=== PATIENT | female | born 1985 | race Caucasian/White ===

== ENCOUNTER → 2019-09-01 | Outpatient (CLI) | payer SELFPAY | PROVIDERS: Family Provider Family Medicine; Visit Provider Nurse Practitioner Psychiatric/Mental Health | DX: F31.72 Bipolar disorder, in full remission, most recent episode hypomanic (principal); F41.9 Anxiety disorder, unspecified; F17.210 Nicotine dependence, cigarettes, uncomplicated ==

== ENCOUNTER → 2019-10-30 10:54 | Outpatient (BNVA) | payer MEDICARE, MEDICAID, SELFPAY | PROVIDERS: Family Provider Family Medicine; Visit Provider Nurse Practitioner Psychiatric/Mental Health | DX: F41.9 Anxiety disorder, unspecified (principal); F31.77 Bipolar disorder, in partial remission, most recent episode mixed; F17.200 Nicotine dependence, unspecified, uncomplicated | CPT/HCPCS: 99213 ==

== ENCOUNTER → 2019-12-26 07:54 | Outpatient (BNVA) | payer MEDICARE, MEDICAID, SELFPAY | PROVIDERS: Family Provider Family Medicine; Visit Provider Nurse Practitioner Psychiatric/Mental Health | DX: F31.73 Bipolar disorder, in partial remission, most recent episode manic (principal); F17.210 Nicotine dependence, cigarettes, uncomplicated | CPT/HCPCS: 99213 ==

== ENCOUNTER → 2020-03-26 07:49 | Outpatient (BNVA) | payer MEDICARE, MEDICAID, SELFPAY | PROVIDERS: Family Provider Family Medicine; Visit Provider Nurse Practitioner Psychiatric/Mental Health | DX: F31.73 Bipolar disorder, in partial remission, most recent episode manic (principal); F17.210 Nicotine dependence, cigarettes, uncomplicated; F17.220 Nicotine dependence, chewing tobacco, uncomplicated | CPT/HCPCS: 99213 ==

== ENCOUNTER → 2020-05-20 00:01 | Outpatient (BNVA) | payer MEDICARE, MEDICAID, SELFPAY | PROVIDERS: Family Provider Family Medicine; Visit Provider Nurse Practitioner Family | DX: H60.90 Unspecified otitis externa, unspecified ear (principal) | CPT/HCPCS: 87070 ==

== ENCOUNTER → 2020-09-24 13:10 | Outpatient (BNVA) | payer MEDICARE, MEDICAID, SELFPAY | PROVIDERS: Family Provider Family Medicine; Visit Provider Nurse Practitioner Psychiatric/Mental Health | DX: F31.73 Bipolar disorder, in partial remission, most recent episode manic (principal); F17.210 Nicotine dependence, cigarettes, uncomplicated | CPT/HCPCS: 99214 ==

== ENCOUNTER → 2020-11-12 12:17 | Outpatient (BNVA) | payer MEDICARE, MEDICAID, SELFPAY | PROVIDERS: Family Provider Family Medicine; PCP Nurse Practitioner Family; Visit Provider Nurse Practitioner Family | DX: E78.2 Mixed hyperlipidemia (principal); D64.9 Anemia, unspecified; R53.83 Other fatigue; Z79.899 Other long term (current) drug therapy; E55.9 Vitamin D deficiency, unspecified; L98.9 Disorder of the skin and subcutaneous tissue, unspecified; Z00.00 Encounter for general adult medical examination without abnormal findings | CPT/HCPCS: 80053; 80061; 81003; 82306; 82607; 82746; 83036; 84439; 84443; 84481; 85025 ==

== ENCOUNTER 2020-12-29 00:25 | Emergency (ER) | payer MEDICARE, MEDICAID, SELFPAY ==
--- NOTE | 2020-12-29 00:34 | XR_ITS ---
WS: [id number] Exam: XR chest 1V portable [id number] Date/Time of Exam: 12/29/2020 12:35 AM Reason For Exam: cp No previous studies. Findings: The lungs are clear and fully expanded. Costophrenic angles are sharp. No infiltrates. Bronchovascula r relief appears normal. Cardiac silhouette is unremarkable. Bony elements are intact. XR/XR chest 1V portable [id number] IMPRESSION: Unremarkable chest radiograph.
--- NOTE | 2020-12-29 00:34 | ECG_ITS ---
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 Measurements Intervals [place] Rate: 81 P: 11 OK: 144 QRS: 70 QRSD: 106 T: 52 QT: 376 QTc: 437 Interpretive Statements SINUS RHYTHM NONSPECIFIC T-WAVE ABNORMALITY Compared to ECG 09/27/2017 18:03:42 T-wave abnormality now present Electronically Signed On 12-29-2020 18:28:07 CDT by Devonte Farr M.D. [id number] f
[2020-12-29 00:35] VITALS: BP 154/93; PULSE 78; RESP 18; TEMP 36.2; O2SAT 97; BMI 36.9
--- NOTE | 2020-12-29 00:35 | W.ED.GENADLT ---
HPI - General Adult General: Chief complaint: Chest Pain Stated complaint: CP Time Seen by Provider: 12/29/20 00:30 History of Present Illness: HPI narrative: Patient arrived via ambulance with complaint of tightness in the chest with deep inspiration after she received her Ivega because shot earlier today. She lives in assisted living. Counselors called the ambulance late tonight when she said she would feeling better. Patient denies heaviness or chest said it hurts when she takes deep breaths she is felt anxious. Denies diaphoresis nausea or vomiting. MD complaint: Adverse med reaction Onset (ago): hour(s) Relieving factors: none Exacerbating factors: none Associated symptoms: Reports chest pain (With deep inspiration after receiving I Michaud shot today, started about 20 m); Deny dyspnea, headache(s), nausea, rash or vomiting Review of Systems Const: Denies: fever(s), chills or body aches Eyes: Denies: change in vision or blurry vision ENMT: Denies: throat pain or nasal congestion Card: Reports: chest pain (With deep inspiration after receiving I Michaud shot today, started about 20 m) Resp: Denies: dyspnea, productive cough or non-productive cough GI: Denies: abdominal pain, nausea or vomiting Musc: Denies: extremity pain Skin/Breast: Denies: rash Neuro: Denies: headache(s) Psych: Reports: anxiety (Feels anxious); Denies: depression Ulises/Lymph: Denies: easy bruising [facility] ED PFSH: Medical History (Updated 12/29/20 @ 01:38 by YADIRA Fernandez) Anemia Anxiety disorder, unspecified Chronic anxiety, per patient's report. Bipolar 1 disorder, mixed, partial remission No hallucinatory activity. Partial remission of depressive symptoms on current Invega Sustenna injection. Patient is non-adherent to oral Invega supplement. Bipolar I disorder, most recent episode manic, in partial remission Chest pain Fungal ear infection Mixed hyperlipidemia Nicotine dependence, cigarettes, uncomplicated Otitis externa Otitis media Otitis media, purulent, acute, with spontaneous rupture of TM Scratch of cornea Skin sore Tobacco use disorder Smokes 1 pack of cigarettes every 2 to 3 days, reduction in consumption since last visit. Vitamin D deficiency Social History Smoking and tobacco status: current every day smoker cigarettes Years cigarettes smoked: 1 Quit status (tobacco): not considering quitting Second hand smoke exposure: No Physical Exam Const: COMMON NORMALS: no acute distress, average body habitus and patient oriented x3 HENMT: COMMON NORMALS: normocephalic HEAD & SCALP: normal to inspection and normocephalic FACE & SINUS: normal facial exam Eye: COMMON NORMALS: conjunctivae normal GENERAL EYE: appearance normal, both eyes and all related structures CONJUNCTIVA: Yes conjunctivae normal Neck/C-Spine: COMMON NORMALS: no JVD Chest: COMMONS NORMALS: normal inspection of the chest Resp: COMMON NORMALS: normal respiratory effort and clear to auscultation bilaterally AUSCULTATION: clear to auscultation bilaterally Cardio: COMMON NORMALS: no JVD, regular rate and regular rhythm RATE: regular rate RHYTHM: regular rhythm GI: COMMON NORMALS: Normal to inspection, nondistended, normoactive bowel sounds present Extremity: COMMON NORMALS: normal to inspection and full ROM Neuro: COMMON NORMALS: patient oriented x3 Course Vital Signs: Vital signs: Vital Signs Temperature 97.1 F L 12/29/20 00:35 Pulse Rate 93 12/29/20 00:56 Respiratory Rate 18 12/29/20 00:56 Blood Pressure 161/86 12/29/20 00:56 Pulse Oximetry 97 12/29/20 00:56 MDM - General Adult Differential Diagnosis: Differential Diagnosis: Patient done very well in the ER has no more chest pain after Benadryl was administered patient feels fine requesting go home. Lab studies, radiology and EKG were negative for any problems. Patient is make sure she gets IV gas child ministered correctly and that follow back up with her one who prescribes that to go over any adverse effects from it. Lab Data: Labs: Lab Results 12/29/20 12/29/20 12/29/20 Range/Units 00:35 00:35 00:35 WBC 8.1 (4.0-10.0) 10^3/ uL RBC 4.38 (4.1-5.3) 10^6/u L Hgb 13.5 (11.5-15.3) g/dL Hct 39.9 (37.0-47.0) % MCV 91.1 (81-99) fL MCH 30.8 (28.0-34.0) pg MCHC 33.8 (30.0-36.0) g/dL RDW 12.8 (12.1-15.1) % Plt Count 284 (130-400) 10^3/c mm MPV 9.8 (7.4-10.4) fL Neut % (Auto) 62.4 % Lymph % (Auto) 25.3 % [place] % (Auto) 7.4 % Eos % (Auto) 3.7 % Baso % (Auto) 0.7 % Neut # (Auto) 5.07 (1.8-7.7) 10^3/u L Lymph # (Auto) 2.1 (0.8-4.8) 10^3/u L [place] # (Auto) 0.6 (0.2-0.9) 10^3/u L Eos # (Auto) 0.3 (0.0-0.8) 10^3/u L Baso # (Auto) 0.1 (0.0-0.1) 10^3/u L Nucleated RBC % (a uto) 0 % Nucleated RBCs # 0.0 /100WBC Sodium 137 (136-145) mmol/L Potassium 3.9 (3.5-5.1) mmol/L Chloride 103 (98-107) mmol/L Carbon Dioxide 24 (22-29) mmol/L Anion Gap 13.9 (5-19) BUN 6 (6-20) mg/dL Creatinine 0.5 (0.5-0.9) mg/dL GFR Calculation 140.4 H (90-130) mL/min Glucose 108 (65-115) mg/dL Calculated Osmolal ity 282 L (285-295) mOsm/k g Calcium 9.0 (8.5-10.5) mg/dL Total Bilirubin 0.4 (0.15-1.2) mg/dL AST 28 (0-32) U/L ALT 42 H (0-33) U/L Alkaline Phosphata se 116 H (35-105) IU/L Troponin T Baselin e 6 (0-10) ng/L Total Protein 7.2 (6.6-8.7) g/dL Albumin 4.5 (3.5-5.2) g/dL Globulin 2.7 (1.3-4.6) g/dL EKG Data^: EKG 1: EKG interpretation date: 12/29/20 EKG interpretation time: 00:42 Computer generated interpretation: Normal sinus rhythm ventricular rate 81 bpm WA interval 144 ms QRS duration 106 ms QT 376 Discharge Plan Discharge Patient Disposition: Home Clinical Impression: Adverse effect of drug/medicinal Qualifiers: Encounter type: initial encounter Qualified Code(s): T50.905A - Adverse effect of unspecified drugs, medicaments and biological substances, initial encounter Condition: Stable Prescriptions: No Action cholecalciferol (vitamin D3) 1,250 mcg (50,000 unit) capsule PO .weekly RF: 0 trazodone 50 mg tablet 50 mg PO .bedtime PRN (Reason: sleep) Qty: 30 RF: 6 Invega Sustenna 117 mg/0.75 mL syringe 117 mg IM Q30D Qty: 0.75 RF: 12 neomycin-polymyxin B-dexameth 3.5 mg/g-10,000 unit/g-0.1 % ointment 1 applic ophthalmic (eye) .hs RF: 0 mupirocin 2 % ointment 1 applic topical TID PRN (Reason: skin inflamation) 30 Days Qty: 22 RF: 0 Anti-Itch(diphenhyd) with Zinc 2-0.1 % cream 1 applic topical BID Qty: 35 RF: 0 atorvastatin 10 mg tablet See Rx Instructions .ROUTE .COMPLEX Qty: 90 RF: 3 Discharge Orders: Discharge ED (Routine); Ordered 12/29/20 Ordered By: Rod Foy Discharge Diet: Usual diet Discharge Activity: Resume usual activity Activity Restrictions/Additional Instructions: Make sure your Ivega shot is administered correctly. Can take Benadryl once symptoms like this occur. Follow-up your family medical provider if no significant provement. Coding Level of Care Code ED Social Work Therapist for Chg Fwd Exam Comprehensive
[2020-12-29 00:48] LABS: Basophils # 0.1 10^3/uL (0.0-0.1); Basophils % 0.7 %; Eosinophils # 0.3 10^3/uL (0.0-0.8); Eosinophils % 3.7 %; Hematocrit 39.9 % (37.0-47.0); Hemoglobin 13.5 g/dL (11.5-15.3); Lymphocytes # 2.1 10^3/uL (0.8-4.8); Lymphocytes % 25.3 %; Mean Corpuscular HGB Conc 33.8 g/dL (30.0-36.0); Mean Corpuscular Hemoglobin 30.8 pg (28.0-34.0); Mean Corpuscular Volume 91.1 fL (81-99); Mean Platelet Volume 9.8 fL (7.4-10.4); Monocytes # 0.6 10^3/uL (0.2-0.9); Monocytes % 7.4 %; Neutrophils # 5.07 10^3/uL (1.8-7.7); Neutrophils % 62.4 %; Nucleated Red Blood Cells % 0 %; Platelet Count 284 10^3/cmm (130-400); Red Blood Count 4.38 10^6/uL (4.1-5.3); Red Cell Distribution Width 12.8 % (12.1-15.1); White Blood Count 8.1 10^3/uL (4.0-10.0)
[2020-12-29] MEDS: diphenhydrAMINE 50 mg/mL SDV 1mL 25 MG IVP (00:53)
[2020-12-29 00:56] VITALS: BP 161/86; PULSE 93; RESP 18; O2SAT 97
[2020-12-29 01:06] LABS: Alanine Aminotransferase 42 U/L (0-33); Albumin Level 4.5 g/dL (3.5-5.2); Alkaline Phosphatase 116 IU/L (35-105); Aspartate Amino Transferase 28 U/L (0-32); Blood Urea Nitrogen 6 mg/dL (6-20); Carbon Dioxide 24 mmol/L (22-29); Chloride 103 mmol/L (98-107); Globulin 2.7 g/dL (1.3-4.6); Glomerular Filtration Rate 140.4 mL/min (90-130); Glucose 108 mg/dL (65-115); Osmolality Calculated 282 mOsm/kg (285-295); Sodium 137 mmol/L (136-145); Total Bilirubin 0.4 mg/dL (0.15-1.2); Total Protein 7.2 g/dL (6.6-8.7)
[2020-12-29 01:08] LABS: Troponin(5th) Baseline 6 ng/L (0-10)
[2020-12-29 01:09] LABS: Anion Gap 13.9 (5-19); Potassium 3.9 mmol/L (3.5-5.1)
[2020-12-29 01:56] VITALS: BP 143/96; PULSE 93; RESP 18; O2SAT 97
== END 2020-12-29 02:03 | disposition home or self-care (01) ==
PROVIDERS: Emergency Provider Nurse Practitioner Family
DX: T88.7XXA Unspecified adverse effect of drug or medicament, initial encounter (principal); T50.905A Adverse effect of unspecified drugs, medicaments and biological substances, initial encounter; E78.2 Mixed hyperlipidemia; F17.210 Nicotine dependence, cigarettes, uncomplicated
CPT/HCPCS: 71045; 80053; 84484; 85025; 93005; 96374; 99283; J1200

== ENCOUNTER → 2020-12-31 07:49 | Outpatient (BNVA) | payer MEDICARE, MEDICAID, SELFPAY | PROVIDERS: Visit Provider Nurse Practitioner Psychiatric/Mental Health | DX: F31.73 Bipolar disorder, in partial remission, most recent episode manic (principal); F17.210 Nicotine dependence, cigarettes, uncomplicated | CPT/HCPCS: 99214 ==

== ENCOUNTER → 2021-06-24 07:55 | Outpatient (BNVA) | payer MEDICARE, MEDICAID, SELFPAY | PROVIDERS: PCP Nurse Practitioner Family; Visit Provider Nurse Practitioner Psychiatric/Mental Health | DX: F31.73 Bipolar disorder, in partial remission, most recent episode manic (principal); F17.210 Nicotine dependence, cigarettes, uncomplicated | CPT/HCPCS: 99214 ==

== ENCOUNTER → 2021-08-18 15:13 | Outpatient (BNVA) | payer MEDICARE, MEDICAID, SELFPAY | PROVIDERS: PCP Nurse Practitioner Family; Visit Provider Nurse Practitioner Family | DX: L98.9 Disorder of the skin and subcutaneous tissue, unspecified (principal); Z79.899 Other long term (current) drug therapy | CPT/HCPCS: 80053; 83036; 85025 ==

== ENCOUNTER → 2021-09-30 07:23 | Outpatient (BNVA) | payer MEDICARE, MEDICAID, SELFPAY | PROVIDERS: PCP Nurse Practitioner Family; Visit Provider Nurse Practitioner Psychiatric/Mental Health | DX: F31.73 Bipolar disorder, in partial remission, most recent episode manic (principal); F17.210 Nicotine dependence, cigarettes, uncomplicated | CPT/HCPCS: 99214 ==

== ENCOUNTER → 2021-10-17 16:23 | Outpatient (BNVA) | payer MEDICARE, MEDICAID, SELFPAY | PROVIDERS: PCP Nurse Practitioner Family; Visit Provider Podiatrist Foot & Ankle Surgery | DX: S82.852A Displaced trimalleolar fracture of left lower leg, initial encounter for closed fracture (principal); X58.XXXA Exposure to other specified factors, initial encounter; Z46.89 Encounter for fitting and adjustment of other specified devices; S82.852D Displaced trimalleolar fracture of left lower leg, subsequent encounter for closed fracture with routine healing; X58.XXXD Exposure to other specified factors, subsequent encounter | CPT/HCPCS: 87635; 97760; L4361 ==

== ENCOUNTER 2021-10-17 16:30 | Outpatient (CLI) | payer MEDICARE, MEDICAID, SELFPAY | END 2021-10-17 16:31 | disposition home or self-care (01) | LOC: SPT 10-18 09:40 | PROVIDERS: PCP Nurse Practitioner Family; Visit Provider Podiatrist Foot & Ankle Surgery | DX: Z46.89 Encounter for fitting and adjustment of other specified devices (principal); S82.852D Displaced trimalleolar fracture of left lower leg, subsequent encounter for closed fracture with routine healing; X58.XXXD Exposure to other specified factors, subsequent encounter | CPT/HCPCS: 97760; L4361 ==

== ENCOUNTER 2021-10-21 11:00 | Day surgery (SDC) | payer MEDICARE, MEDICAID, SELFPAY ==
[2021-10-20 14:12] VITALS: BMI 38.5
[2021-10-21] VITALS (10 sets, daily range): BP systolic 95–132; BP diastolic 66–87; PULSE 81–103; RESP 12–20; TEMP 36.1–37.1; O2SAT 96–100
--- NOTE | 2021-10-21 | SCC_ITS ---
Procedure done: Open reduction internal fixation left trimalleolar ankle fracture 22 seconds of fluoroscopic guidance, for a cumulative dose of 0.7 mGy, was provided to Dr. Felix by the radiology department. C-arm images of the LEFT ankle were saved for the patient's permanent record. [facility]AMPUSKaycee
[2021-10-21] MEDS: sodium chloride 0.9% 1,000 ML 30 ML IV (12:21)
[2021-10-21] MEDS: CELEcoxib 200 mg Capsule 400 MG PO (12:22)
[2021-10-21] MEDS: gabapentin 300 mg Capsule PO (12:22)
--- NOTE | 2021-10-21 12:51 | P.ANESASSM_ITS ---
Pre-Anesthetic Assessment Height/Weight: Height 1.75 m Weight 118.388 kg Temp Pulse Resp BP Pulse Ox 97.4 F L 103 H 18 105/87 97 10/21/21 11:42 10/21/21 11:42 10/21/21 11:42 10/21/21 11:42 10/21/21 11:42 Preop Diagnosis: Left trimalleolar fracture Operation Date: 10/21/21 12:20 Proposed Procedures p ORIF [id number]/S82.853A/displaced trimalleolar frac(Left) - BYRON MichaelM Was Beta Elda taken within 24 hours: N/A Was Clonidine taken within 24 hours: N/A Last intake: Intake Last Liquid Date 10/20/21 Last Liquid Time 18:00 Last Solid Date 10/20/21 Last Solid Time 18:00 Social Tobacco and No alcohol Exam alert, oriented x 3, clear to auscultation bilaterally and regular rate & rhythm Airway Submandibular: within normal limits Cervical ROM: Other (Limited due to functional anatomy) Mallampati: Class IV Dentition: full Comments: Comments: Poor dentition History/ROS No significant complaints Pulmonary None reported CV/HEM Anemia METS = 4 None reported Hepatic None reported GI Gastroesophageal Reflux Disease Metabolic None reported Neuropsych Bipolar Anesthetic Plan ASA status: 2 Anesthesia: Anesthesia Evaluation, MAC and Regional (specify below) (Popliteal block requested by surgeon) Other: We discussed plan for MAC with popliteal block for post op pain control. We discussed common risk. Patient declined detailed conversation of less common but more serious risk associated with anesthesia. Risk of > 500 ml blood loss (7ml/kg in children): No Medications/Allergies Home Medications Medication Instructions Recorded Confirmed Last Taken Type diphenhydramine-zinc acetate 2 1 applic TOPICAL BID #35 g 11/12/20 10/21/21 10/20/21 Rx %-0.1 % topical cream (Anti-Itch (diphenhydramine) with Zinc) atorvastatin 10 mg tablet See Rx Instructions .ROUTE 12/06/20 10/21/21 10/21/21 09:30 Rx .COMPLEX #90 tablet mupirocin 2 % topical ointment 1 applic TOPICAL TID PRN 30 Days 01/07/21 10/21/21 10/17/21 Rx #22 g bisacodyl 5 mg tablet,delayed 5 mg PO DAILY 02/11/21 10/21/21 10/20/21 History release pantoprazole 40 mg tablet,delayed See Rx Instructions .ROUTE 07/13/21 10/21/21 0 10/20/21 09:00 Rx release .COMPLEX #30 tab haloperidol 10 mg tablet 10 mg PO DAILY PRN #30 tab 09/27/21 10/21/21 10/20/21 Rx trazodone 100 mg tablet 100 mg PO BEDTIME #30 tab 09/27/21 10/21/21 10/20/21 Rx hydroxyzine HCl 50 mg tablet 50 mg PO BID PRN #60 tab 09/30/21 10/21/21 10/18/21 Rx quetiapine 400 mg tablet (Seroquel) 400 mg PO BID #60 tab 09/30/21 10/21/21 10/20/21 09:00 Rx docosanol 10 % topical cream applic TOPICAL 10/20/21 10/20/21 History (Abreva) hydrocodone 5 mg-acetaminophen 325 1 tab PO QID 10/20/21 10/21/21 10/21/21 09:00 History mg tablet Allergies Allergy/AdvReac Type Severity Reaction Status Date / Time paliperidone [From Invega] AdvReac Severe chest Verified 10/21/21 11:17 pain, facial edema, dyspnea Current Medications Generic Name Dose Route Start Last Admin Trade Name Freq PRN Reason Stop Dose Admin Sodium Chloride 1,000 mls @ 30 mls/hr 10/21/21 11:15 10/21/21 12:21 Sodium Chloride 0.9% IV 10/22/21 11:14 30 mls/hr .Q24H JORDANA Administration [facility] Anesthesia Medical History Acute allergic reaction Anemia Anxiety disorder, unspecified Chronic anxiety, per patient's report. Bipolar 1 disorder, mixed, partial remission No hallucinatory activity. Partial remission of depressive symptoms on current Invega Sustenna injection. Patient is non-adherent to oral Invega supplement. Bipolar I disorder, most recent episode manic, in partial remission Chest pain Dental infection Fungal ear infection GERD (gastroesophageal reflux disease) Mixed hyperlipidemia Nausea & vomiting Nicotine dependence, cigarettes, uncomplicated Non-healing skin lesion Otitis externa Otitis media Otitis media Otitis media Otitis media, purulent, acute, with spontaneous rupture of TM Primary herpes simplex infection of lips Psychiatric care Scratch of cornea Skin sore Skin sore Tobacco use disorder Smokes 1 pack of cigarettes every 2 to 3 days, reduction in consumption since last visit. Vitamin D deficiency Social History Quit status (tobacco): not considering quitting Second hand smoke exposure: No Data Anesthesia Cardiac Studies: No Data to Display
[2021-10-21 13:01] LABS: HCG, Serum Qual Negative (Negative)
--- NOTE | 2021-10-21 13:23 | W.PM.OPSUD ---
Surgery/Procedure H&P Update DATE OF PROCEDURE: October 21, 2021 DATE H&P PERFORMED: 10/17/21 CHANGES TO PREVIOUS DOCUMENTATION: none PREOP DIAGNOSIS: Left trimalleolar fracture PLANNED PROCEDURE: Operation Date: 10/21/21 12:20 Proposed Procedures p ORIF [id number]/S82.853A/displaced trimalleolar frac(Left) - Syed Felix DPM
--- NOTE | 2021-10-21 13:25 | ANES.PROC ---
Anesthesia Procedures Procedure/Date: 10/21/21 Nerve Block ^: Nerve Block 1: Main Anesthesia: general anesthesia Time Out Performed: Yes ([id number]) Consent: requested by attending/covering physician and from patient Nerve block location: popliteal Anesthesia monitors applied: pulse oximetry and EKG Nerve block position: supine Anesthetic Used: bupivacaine 0.5% Amount of anesthesia used (mL): 20 Ultrasound used to: recognize landmarks and other (visualize popliteal nerve) Nerve Stimulator Used?: No Interscalene/Femoral BLK: 4 stimuplex 21 g needle used for position and inplane approach, visualize local anesthetic spread and no vascular puncture identified Injection: neg aspiration of heme Patient Tolerated Procedure: well and no complications Complications: none Additional Comments: After time out sterile prep, using sterile technique, and using real time US guidance for target selection needle was inserted with real time visualization of needle entry and real time visualization of needle advancement toward intended target. Negative aspiration. LA injected incrementally with negative aspiration every 5 cc and real time US visualization of LA spread throughout procedure. Tolerated well. Image(s) saved.
--- NOTE | 2021-10-21 15:03 | PM.OP ---
Operative Report Date of procedure: October 21, 2021 Pre-op diagnosis: Left trimalleolar fracture Post-op diagnosis: same Procedure done: Open reduction internal fixation left trimalleolar ankle fracture Implants: Decker anatomic fibular plate with 3.5 millimeter locking and nonlocking screws. Nora headed 4.0 mm partially-threaded cannulated screws, 2-0 Vicryl, 3-0 Vicryl, skin darrian Surgeon: Syed Felix D.P.M. Respiratory Therapy Assistant: Fadumo Estimated blood loss: Less than 10 53 IV fluids: None Urine output: None Complications: None Findings: Trimalleolar fracture left ankle Brief History: Patient tripped while walking downstairs injuring her left ankle, on x-ray she has a distal fibular fracture, medial malleolar fracture and avulsion fracture on the posterior malleolus is a trimalleolar equivalent with gross instability. Recommended open reduction internal fixation of the left ankle. Risks include pain, bleeding, numbness, infection, chronic swelling, posttraumatic arthritis of the left ankle, hardware irritation, hardware failure, delayed union, malunion, nonunion, decreased range of motion, need for further surgical intervention, also risk for deep vein thrombosis, heart attack, stroke and . Patient wishes to proceed. She was interviewed preoperatively all questions answered to her and her mother satisfaction. Informed consent signed by patient myself witnessed by her mother. Initial patient's left lower extremity with a skin marker, no guarantees written, expressed or implied. Patient wishes to proceed. Procedure: Under mild sedation the patient was brought to the operating room and placed on the operating table in supine position. A timeout was performed. Anesthesia was then administered by the anesthesia service. Of note left popliteal block was performed preoperatively per anesthesia service. Saphenous nerve block performed by myself preoperatively on the OR table utilizing 3 cc of 0.5% Marcaine plain. Well-padded pneumatic tourniquet applied to the left high calf. The left lower extremity was then scrubbed, prepped and draped utilizing normal aseptic technique. Left lower extremity was then exanguinated with an Esmarch bandage and a tourniquet inflated to 250 mmHg. Attention was directed to the lateral aspect of the patient's left ankle where the lateral malleolus was palpated. Directly over this is a linear longitudinal incision was made with a #15 blade through skin, dissection carried down through subcutaneous tissue to the layer of periosteum and hematoma from the fracture. This was incised and curettaged followed by saline flush and the fracture was then reduced and fixated utilizing standard AO technique. Fixation was a anatomic fibular plate with excellent bony apposition and compression noted utilizing a combination of locking and nonlocking 3.5 millimeter screws. Care taken not to violate the ankle mortise this was confirmed with intraoperative fluoroscopy utilizing AP and oblique views of the left ankle. Incision site was then flushed with copious amounts of sterile saline solution and closed in a layered fashion with 2-0 Vicryl periosteum, 3-0 Vicryl subcutaneous tissue and skin with skin darrian. Attention was then directed to the medial malleolus where a linear longitudinal incision was made at the distal aspect of the left medial malleolus with dissection carried down through subcutaneous tissue to the layer of periosteum utilizing sharp and blunt technique. Care was taken to retract and preserve neurovascular and tendinous structures. All bleeders were ligated and cauterized as necessary. Tributaries of the greater saphenous vein were ligated however the greater saphenous vein was kept intact and retracted anteriorly. The medial malleolar fracture was curettaged of fracture hematoma and flushed with saline solution followed by reduction and fixation utilizing Nora headed 4.0 millimeters screws with excellent bony apposition and compression noted x2. Positioning confirmed with intraoperative fluoroscopy shows that it did not violate the ankle mortise. Incision was then flushed with saline solution and closed in a layered fashion utilizing 2-0 Vicryl at periosteum, 3-0 Vicryl at subcutaneous tissue and skin darrian. Utilizing intraoperative fluoroscopy ankle mortise was now congruent, fibula was out to length, medial malleolus was reduced and no hardware was violated ankle mortise. This was confirmed in all 3 planes utilizing intraoperative fluoroscopy. Incisions were then dressed with Adaptic, sterile 4 x 4, Kerlix, Leonardo wrap and a cam boot was applied to the left lower extremity. Tourniquet was deflated and a prompt hyperemic response was noted to the distal digits of the left foot. Patient tolerated the procedure and anesthesia well and was transferred to the PACU with vital signs stable and vascular status intact. Following a period of postop monitoring she will be discharged home is to remain strict nonweightbearing was given at home care instructions as well as follow-up and pain medication sent to [facility]'s pharmacy and [place].
--- NOTE | 2021-10-21 15:14 | XR_ITS ---
WS: [id number] Left ankle, 3 views, 10/21/2021 Clinical Data: post op Comparison: Left ankle, 10/15/2021. Findings: Internal fixation of the bimalleolar fracture includes 2 oblique screws in the medial malleolus and a lateral plate with screws on the distal left fibula. Subcutaneous surgical darrian are present over the operative sites. XR/XR ankle LT min 3V* [id number] Impression: Internal fixation of bimalleolar fracture of the left ankle.
--- NOTE | 2021-10-21 15:26 | SUR.PHASEI ---
oral airway removed, simple mask remains off. O2 sats holding at this time. xray completed at bedside, with boot on per Dr. Felix
--- NOTE | 2021-10-21 15:40 | ANE.PACU2 ---
Inpatient post-anesthesia follow up: Airway intact: Yes Vital signs: Temperature 98.7 F Pulse Rate 88 Respiratory Rate 12 Blood Pressure 125/72 Pulse Oximetry 99 Oxygen Delivery Me thod Room Air Oxygen Flow Rate 8 Fraction of Inspir ed Oxygen Hydration adequate: Yes Nausea and vomiting: No Pain level: 1 Mental status: Baseline
== END 2021-10-21 15:20 | disposition home or self-care (01) ==
PROVIDERS: PCP Nurse Practitioner Family; Visit Provider Podiatrist Foot & Ankle Surgery
PROC: (CPT 27822; principal; 2021-10-21 12:10)
DX: S82.852A Displaced trimalleolar fracture of left lower leg, initial encounter for closed fracture (principal); W10.8XXA Fall (on) (from) other stairs and steps, initial encounter; F41.9 Anxiety disorder, unspecified; F31.9 Bipolar disorder, unspecified; K21.9 Gastro-esophageal reflux disease without esophagitis; E78.2 Mixed hyperlipidemia
CPT/HCPCS: 27822; 36415; 64450; 73610; 76000; 76942; 84703; C1713; J0690; J2704; J3010; J3490; J7030

== ENCOUNTER → 2021-11-03 14:44 | Outpatient (BNVA) | payer MEDICARE, MEDICAID, SELFPAY | PROVIDERS: PCP Nurse Practitioner Family; Visit Provider Podiatrist Foot & Ankle Surgery | DX: Z98.890 Other specified postprocedural states (principal); S82.852D Displaced trimalleolar fracture of left lower leg, subsequent encounter for closed fracture with routine healing; X58.XXXD Exposure to other specified factors, subsequent encounter | CPT/HCPCS: 73610 ==

== ENCOUNTER → 2021-11-17 09:30 | Outpatient (BNVA) | payer MEDICARE, MEDICAID, SELFPAY | PROVIDERS: PCP Nurse Practitioner Family; Visit Provider Podiatrist Foot & Ankle Surgery | DX: Z98.890 Other specified postprocedural states (principal); E78.2 Mixed hyperlipidemia; Z79.899 Other long term (current) drug therapy | CPT/HCPCS: 73610; 80053; 80061; 81003; 83036; 85025 ==

== ENCOUNTER → 2021-12-22 14:48 | Outpatient (BNVA) | payer MEDICARE, MEDICAID, SELFPAY | PROVIDERS: PCP Nurse Practitioner Family; Visit Provider Podiatrist Foot & Ankle Surgery | DX: Z98.890 Other specified postprocedural states (principal); S82.852D Displaced trimalleolar fracture of left lower leg, subsequent encounter for closed fracture with routine healing; X58.XXXD Exposure to other specified factors, subsequent encounter; F17.210 Nicotine dependence, cigarettes, uncomplicated | CPT/HCPCS: 73610 ==

== ENCOUNTER → 2021-12-30 07:58 | Outpatient (BNVA) | payer MEDICARE, MEDICAID, SELFPAY | PROVIDERS: PCP Nurse Practitioner Family; Visit Provider Nurse Practitioner Psychiatric/Mental Health | DX: F31.64 Bipolar disorder, current episode mixed, severe, with psychotic features (principal); F31.73 Bipolar disorder, in partial remission, most recent episode manic; F17.210 Nicotine dependence, cigarettes, uncomplicated | CPT/HCPCS: 99214 ==

== ENCOUNTER → 2022-02-02 14:27 | Outpatient (BNVA) | payer MEDICARE, MEDICAID, SELFPAY | PROVIDERS: PCP Nurse Practitioner; Visit Provider Podiatrist Foot & Ankle Surgery | DX: Z98.890 Other specified postprocedural states (principal); S82.852A Displaced trimalleolar fracture of left lower leg, initial encounter for closed fracture; X58.XXXA Exposure to other specified factors, initial encounter | CPT/HCPCS: 73610 ==

== ENCOUNTER → 2022-05-15 13:09 | Outpatient (BNVA) | payer MEDICARE, MEDICAID, SELFPAY | PROVIDERS: PCP Nurse Practitioner; Visit Provider Podiatrist Foot & Ankle Surgery | DX: S82.852D Displaced trimalleolar fracture of left lower leg, subsequent encounter for closed fracture with routine healing (principal); Z98.890 Other specified postprocedural states; X58.XXXD Exposure to other specified factors, subsequent encounter | CPT/HCPCS: 99213; 99214 ==

== ENCOUNTER → 2022-05-19 11:44 | Outpatient (BNVA) | payer MEDICARE, MEDICAID, SELFPAY | PROVIDERS: PCP Nurse Practitioner; Visit Provider Nurse Practitioner | DX: Z79.899 Other long term (current) drug therapy (principal); E78.2 Mixed hyperlipidemia | CPT/HCPCS: 80053; 80061; 81000; 82306; 84443; 85025 ==

== ENCOUNTER 2022-10-05 22:02 | Inpatient (IN) | payer MEDICARE, MEDICAID, SELFPAY ==
[2022-10-05 22:03] VITALS: BP 126/88; PULSE 87; RESP 18; TEMP 35.5; O2SAT 98; BMI 40.6
--- NOTE | 2022-10-05 22:15 | ED.C_ITS ---
HPI - Psych General: Chief Complaint: Psychiatric Symptoms Stated Complaint: SI Time Seen by Provider: 10/05/22 22:04 Source: patient Mode of arrival: EMS Limitations: no limitations History of Present Illness: Patient is a 37-year-old female who presents to ED today from her residential facility of [facility] for evaluation of suicidal ideations and auditory and visual hallucinations. Patient tells me she has felt suicidal all day with no specific plan. She does report a previous suicide attempt but will not elaborate on these details. She states she is seeing dark shadows people moving in her home. She states she is hearing voices telling her to grab knives from the kitchen and kill herself. Patient states she has a psychiatric provider Remedios Dao that comes to their facility once a month for medication changes. She thinks some of her psychiatric medications were recently changed. She reports she has a history of bipolar and schizophrenia. MD complaint: suicidal ideation and feels depressed Onset (ago): day(s) Duration: constant History of same: Yes Relieving factors: none Exacerbating factors: none Associated psychiatric symptoms: depression, suicidal ideation, auditory hallucinations and visual hallucinations Associated symptoms: Reports auditory hallucinations, visual hallucinations, depression and suicidal ideation; Deny homicidal ideation Treatments prior to arrival: none If self harm: admits thoughts of self harm Review of Systems 2 Const: Denies: fever(s) or chills Card: Denies: chest pain, palpitations, lightheadedness or syncope Resp: Denies: dyspnea GI: Denies: abdominal pain, nausea, vomiting or diarrhea Skin/Breast: Denies: rash Neuro: Denies: headache(s) Psych: Reports: depression, hopelessness, visual hallucinations, auditory hallucinations and suicidal ideation; Denies: homicidal ideation PENDING SALE TO [facility] ED PFSH: Medical History Anemia Bipolar I disorder, most recent episode mixed, severe with psychotic features Chest pain Dental infection Fungal ear infection GERD (gastroesophageal reflux disease) Mixed hyperlipidemia Nausea & vomiting Nicotine dependence, cigarettes, uncomplicated Non-healing skin lesion Otitis externa Otitis media Otitis media Otitis media Otitis media, purulent, acute, with spontaneous rupture of TM Primary herpes simplex infection of lips Psychiatric care Scratch of cornea Skin sore Skin sore Vaping nicotine dependence, tobacco product Vitamin D deficiency Social History (Reviewed 02/02/23 @ 23:06 by CHRISTY Byers Smoking and tobacco status: never smoked Quit status (tobacco): not considering quitting Second hand smoke exposure: No Physical Exam Const: COMMON NORMALS: no acute distress, patient oriented x3, no limitations and alert GENERAL APPEARANCE: cooperative NUTRITIONAL APPEARANCE: obese ORIENTATION/CONSCIOUSNESS: Yes awake, Yes oriented to person, Yes oriented to place and Yes oriented to time OTHER: mild baseline cognitive delay Resp: COMMON NORMALS: normal respiratory effort and clear to auscultation bilaterally AUSCULTATION: clear to auscultation bilaterally Cardio: COMMON NORMALS: regular rate and regular rhythm RATE: regular rate RHYTHM: regular rhythm Neuro: ROBBIN COMA SCALE: document GCS findings Robbin coma scale eye opening: Spontaneous Robbin coma scale verbal response: Orientated [place] coma scale motor response: Obey commands Robbin coma scale total score: 15 COMMON NORMALS: patient oriented x3 SENSORIUM/ORIENTATION: Yes alert, Yes oriented to person, Yes oriented to place and Yes oriented to time Psych: COMMON NORMALS: mental status grossly normal, Normal thought process present, cooperative, speech normal, activity/motor behavior normal and denies homicidal ideation APPEARANCE: Yes grossly normal ATTITUDE: Yes calm ACTIVITY/MOTOR BEHAVIOR: No psychomotor agitation and Yes Avoids eye contact (attititude/behavior) SPEECH: Yes normal speech MOOD & AFFECT: Yes Flat affect present THOUGHT PROCESS: Normal thought process present THOUGHT CONTENT: Yes Normal thought content present ATTENTION/CONCENTRATION: Yes attention grossly intact and Yes concentration grossly intact MEMORY/COGNITION: Yes memory grossly intact and Yes cognition grossly intact INSIGHT: Good insight present (Psych) JUDGEMENT: Good judgement present (Psych) Skin: COMMON NORMALS: no rashes or lesions noted GENERAL SKIN EXAM: no rashes or lesions noted Course Consultations: Consultation #1: Dr. Hernandez-accepts to [facility] Vital Signs: Vital signs: Vital Signs Temperature 96 F L 10/05/22 22:03 Pulse Rate 87 10/05/22 22:03 Respiratory Rate 18 10/05/22 22:03 Blood Pressure 126/88 10/05/22 22:03 Pulse Oximetry 98 10/05/22 22:03 MDM - Psych Medical Decision Making Patient will be a voluntary admit to [facility] for suicidal ideations and hallucinations. Dr. Hernandez will be admitting physician. Lab Data 10/05/22 22:43 10/05/22 22:43 Laboratory Results WBC 5.2 10^3/uL (4.0-10.0) 10/05/22 22:43 Corrected WBC Cancelled 10/05/22 22:18 RBC 4.51 10^6/uL (4.1-5.3) 10/05/22 22:43 Hgb 10.9 g/dL (11.5-15.3) L 10/05/22 22:43 Hct 35.6 % (37.0-47.0) L 10/05/22 22:43 MCV 78.9 fl (81-99) L 10/05/22 22:43 MCH 24.2 pg (28.0-34.0) L 10/05/22 22:43 MCHC 30.6 g/dL (30.0-36.0) 10/05/22 22:43 RDW 14.9 % (12.1-15.1) 10/05/22 22:43 Plt Count 319 10^3/cmm (130-400) 10/05/22 22:43 MPV 8.9 fL (7.4-10.4) 10/05/22 22:43 Gran % Cancelled 10/05/22 22:18 Neut % (Auto) 58.4 % 10/05/22 22:43 Lymph % (Auto) 31.2 % 10/05/22 22:43 Cherry % (Auto) 10.0 % 10/05/22 22:43 Eos % (Auto) 0.0 % 10/05/22 22:43 Baso % (Auto) 0.0 % 10/05/22 22:43 Neut # (Auto) 3.03 10^3/uL (1.8-7.7) 10/05/22 22:43 Lymph # (Auto) 1.6 10^3/uL (0.8-4.8) 10/05/22 22:43 Cherry # (Auto) 0.5 10^3/uL (0.2-0.9) 10/05/22 22:43 Eos # (Auto) 0.0 10^3/uL (0.0-0.8) 10/05/22 22:43 Baso # (Auto) 0.0 10^3/uL (0.0-0.1) 10/05/22 22:43 Absolute Gran (auto) Cancelled 10/05/22 22:18 Nucleated RBC % (auto) 0 % 10/05/22 22:43 Nucleated RBCs # 0.0 /100WBC 10/05/22 22:43 Sodium Cancelled 10/05/22 22:18 Potassium Cancelled 10/05/22 22:18 Chloride Cancelled 10/05/22 22:18 Carbon Dioxide Cancelled 10/05/22 22:18 Anion Gap Cancelled 10/05/22 22:18 BUN Cancelled 10/05/22 22:18 Creatinine Cancelled 10/05/22 22:18 GFR Calculation Cancelled 10/05/22 22:18 Glucose Cancelled 10/05/22 22:18 Calculated Osmolality Cancelled 10/05/22 22:18 Calcium Cancelled 10/05/22 22:18 Total Bilirubin Cancelled 10/05/22 22:18 AST Cancelled 10/05/22 22:18 ALT Cancelled 10/05/22 22:18 Alkaline Phosphatase Cancelled 10/05/22 22:18 Total Protein Cancelled 10/05/22 22:18 Albumin Cancelled 10/05/22 22:18 Globulin Cancelled 10/05/22 22:18 HCG, Qual Negative (Negative) 10/05/22 22:18 Salicylates Cancelled 10/05/22 22:18 Urine Opiates Screen Negative ng/mL (Negative) 10/05/22 22:11 Acetaminophen Cancelled 10/05/22 22:18 Ur Barbiturates Screen Negative ng/mL (Negative) 10/05/22 22:11 Ur Phencyclidine Scrn Negative ng/mL (Negative) 10/05/22 22:11 Ur Amphetamines Screen Negative ng/mL (Negative) 10/05/22 22:11 U Benzodiazepines Scrn Positive ng/mL (Negative) H 10/05/22 22:11 Urine Cocaine Screen Negative ng/mL (Negative) 10/05/22 22:11 U Marijuana (THC) Screen Negative ng/mL (Negative) 10/05/22 22:11 Ethyl Alcohol Cancelled 10/05/22 22:18 Discharge Plan Discharge Patient Disposition: Admitted As Inpatient Clinical Impression: Suicidal ideation, Hallucinations Condition: Stable Prescriptions: No Action bisacodyl 5 mg tablet,delayed release (DR/EC) 5 mg PO DAILY Anti-Itch(diphenhyd) with Zinc 2-0.1 % cream 1 applic topical BID Qty: 35 0RF diphenhydramine HCl [Benadryl Allergy] 25 mg tablet 50 mg PO Q6H PRN (Reason: allergy symptoms) ibuprofen 200 mg tablet 800 mg PO Q6H PRN cholecalciferol (vitamin D3) 125 mcg (5,000 unit) capsule 125 mcg PO DAILY Qty: 30 3RF Rx Instructions: Take one capsule daily fluphenazine HCl 1 mg tablet 1 mg PO BID Qty: 60 3RF Rx Instructions: Take one tablet at 6 am and 9 pm propranolol 10 mg tablet 10 mg PO BID Qty: 60 3RF Rx Instructions: Take one tablet twice per day trazodone 100 mg tablet 100 mg PO BEDTIME Qty: 30 6RF Rx Instructions: Take one tablet at bedtime quetiapine [Seroquel] 400 mg tablet 400 mg PO .6 PM Qty: 30 3RF Rx Instructions: Take one tablet at 6 PM (DME) ASO to the right See Rx Instructions .Route .MEDSUPPLY Qty: 1 0RF Rx Instructions: As directed ciprofloxacin-dexamethasone [Ciprodex] 0.3-0.1 % drops,suspension 4 drp otic (ear) BID 7 Days Qty: 7.5 0RF epinephrine 0.3 mg/0.3 mL auto-injector 0.3 mg IM Q10M PRN (Reason: anaphylaxis) 30 Days Qty: 2 2RF Rx Instructions: for 2 doses atorvastatin 10 mg tablet See Rx Instructions .ROUTE .COMPLEX Qty: 90 3RF Dose Instruction: TAKE ONE TABLET BY MOUTH EVERY DAY Rx Instructions: TAKE ONE TABLET BY MOUTH EVERY DAY pantoprazole 40 mg tablet,delayed release (DR/EC) See Rx Instructions .ROUTE .COMPLEX Qty: 30 5RF Dose Instruction: TAKE 1 TABLET BY MOUTH EVERY MORNING Rx Instructions: TAKE 1 TABLET BY MOUTH EVERY MORNING lorazepam [Ativan] 2 mg tablet 2 mg PO BID PRN (Reason: severe anxiety/agitation) Qty: 60 2RF Rx Instructions: May take one tablet twice per day for severe anxiety/agitation docosanol [Abreva] 10 % Cream TOPICAL Referrals: Joycelyn Melendrez FNP [Primary Care Provider] - Coding Level of Care Code ED Optician Apprentice Dispensing for [facility]
[2022-10-05 22:26] LABS: HCG Qualitative Urine. Negative (Negative)
[2022-10-05 22:47] LABS: Hematocrit 35.6 % (37.0-47.0); Hemoglobin 10.9 g/dL (11.5-15.3); Lymphocytes # 1.6 10^3/uL (0.8-4.8); Lymphocytes % 31.2 %; Mean Corpuscular HGB Conc 30.6 g/dL (30.0-36.0); Mean Corpuscular Hemoglobin 24.2 pg (28.0-34.0); Mean Corpuscular Volume 78.9 fl (81-99); Mean Platelet Volume 8.9 fL (7.4-10.4); Monocytes # 0.5 10^3/uL (0.2-0.9); Neutrophils # 3.03 10^3/uL (1.8-7.7); Neutrophils % 58.4 %; Nucleated Red Blood Cells % 0 %; Platelet Count 319 10^3/cmm (130-400); Red Blood Count 4.51 10^6/uL (4.1-5.3); Red Cell Distribution Width 14.9 % (12.1-15.1); White Blood Count 5.2 10^3/uL (4.0-10.0)
[2022-10-05 23:01] LABS: Amphetamines Screen Urine Negative (Negative); Barbiturates Screen Urine Negative (Negative); Benzodiazepines Screen Urine Positive (Negative); Cocaine Screen Urine Negative (Negative); Opiate Screen Urine Negative (Negative); PCP Screen Urine Negative (Negative); THC Screen Urine Negative (Negative)
[2022-10-05 23:04] LABS: Alanine Aminotransferase 14 U/L (0-33); Albumin Level 4.4 g/dL (3.5-5.2); Alkaline Phosphatase 140 U/L (35-105); Anion Gap 14.9 (5-19); Aspartate Amino Transferase 12 U/L (0-32); Blood Urea Nitrogen 7 mg/dL (6-20); Calcium 9.4 mg/dL (8.5-10.5); Carbon Dioxide 23 mmol/L (22-29); Chloride 103 mmol/L (98-107); Globulin 3.4 g/dL (1.3-4.6); Glomerular Filtration Rate 138.8 mL/min (90-130); Glucose 113 mg/dL (65-115); Osmolality Calculated 283 mOsm/kg (285-295); Potassium 3.9 mmol/L (3.5-5.1); Sodium 137 mmol/L (136-145); Total Bilirubin 0.2 mg/dL (0.15-1.2); Total Protein 7.8 g/dL (6.6-8.7)
[2022-10-05 23:22] LABS: Acetaminophen < 5.0 ug/mL (10-30); Alcohol Level < 10 mg/dL (0-10); Salicylate < 0.3 mg/dL (3-10)
[2022-10-06 01:36] VITALS: BP 121/82; PULSE 78; RESP 18; O2SAT 98
[2022-10-06 02:01] VITALS: BP 119/84; PULSE 91; RESP 18; O2SAT 98
[2022-10-06] MEDS: hyDROXYzine 25 mg Capsule 50 MG PO ×2 (02:48→09:16)
[2022-10-06] MEDS: trazodone 50 mg Tablet PO (02:48)
[2022-10-06] MEDS: pantoprazole DR 40 mg Tablet PO (09:16)
[2022-10-06] MEDS: nicotine 2 mg Gum BUCCAL ×2 (09:16→11:07)
[2022-10-06] MEDS: cholecalciferol (vitamin D3) 1,000 unit Tablet 1000 UNIT PO (09:16)
[2022-10-06] MEDS: propranolol 20 mg Tablet 10 MG PO ×2 (09:16→17:47)
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
--- NOTE | 2022-10-06 13:15 | PC.NURSE ---
Earlier pt had requested nicotine gum. Staff verified with pt that she smoke. Pt said she did. Gum provided at 1107. Staff reported pt had an episode of nausea and vomiting after she swallow her gum. Pt reported she swallowed the gum on accident. This financial writer and the pt discussed whether she should use this any further nicotine products. Pt decided she didn't want it anymore. Orders for nicotine discontinued.
[2022-10-06 14:00] VITALS: BP 123/82; PULSE 93; RESP 18; TEMP 36.6; O2SAT 96
[2022-10-06 19:56] VITALS: BP 114/75; PULSE 78; RESP 16; TEMP 36.6; O2SAT 98
[2022-10-06] MEDS: trazodone 100 mg Tablet PO (21:39)
[2022-10-06] MEDS: quetiapine 100 mg Tablet 200 MG PO (21:39)
[2022-10-07] MEDS: pantoprazole DR 40 mg Tablet PO (09:23)
[2022-10-07] MEDS: propranolol 20 mg Tablet 10 MG PO ×2 (09:23→17:51)
[2022-10-07] MEDS: bisacodyl 5 mg Tablet PO (09:23)
[2022-10-07 14:00] VITALS: RESP 18
--- NOTE | 2022-10-07 17:01 | P.NPUPN_ITS ---
Subjective NPU Subjective: Patient presented today endorsing that she is fine with the medication. She had no logical explanation for her behavior surrounding the knife and suicidal thoughts. We decided she does not guardian but does have significant supports. She was wondering about his hospitalization to be and we discussed our need to have observation given the threats that she made in her behaviors. And she seemed to understand our position. Mental Status Exam MSE Comments: This is an obese versus morbidly obese white female in hospital scrubs with limited grooming and eye contact. No abnormal movements except for mild psychomotor retardation. Cooperative with exam and mild distress. Speech was decreased rate and volume and somewhat childlike. Mood described as depressed, affect subdued. Thought process linear. Thought content: Patient endorsed some suicidal thinking but denied homicidal ideation, there were no delusions reported but some signs of paranoia existed, and she did endorse some auditory and visual hallucinations but none during the interview. Attention and concentration appeared intact and memory was somewhat reliable but none were formally tested. She is alert and oriented x3. Insight, judgment and impulse control are impaired and intellectual ability is limited versus impaired. Vitals/I&O/Wt Last Vital Signs Temp 98.3 F 10/07/22 19:45 Pulse 94 10/07/22 19:45 Resp 18 10/07/22 19:45 BP 135/71 10/07/22 19:45 Pulse Ox 97 10/07/22 19:45 O2 Del Method 10/06/22 19:56 Weight last 48 hrs Weight 120.474 kg Data NPU 10/05/22 22:43 10/05/22 22:43 A&P Assessment and plan (1) Suicidal ideation: (2) Hallucinations: (3) Bipolar I disorder, most recent episode mixed, severe with psychotic features: Plan A 37-year-old white female with a long history of mental health challenges and likely intellectual disability who presents after reporting increases and suicidal thoughts and psychiatric symptoms including reports of psychosis who presents reporting an openness to consider medication changes. 1. Continue current medication. Except we will decrease Seroquel 800 mg of Seroquel 600 mg and get some collateral information about past medication and consider changes. 2. Continue every 15 minute checks for safety. 3. Encourage individual, group and milieu therapy. 4. Get collateral information about what has been going on since her last hospitalization. Obtain some additional historical information from staff an d/or family. Involuntary Hold Information 96 Hour Hold: 96 Hour Involuntary Admission: No Attestations NPU Medical Necessity Statement*: Inpatient hospitalization is medically necessary and the clinically appropriate intervention at this time. We will monitor/initiate medications and make changes as indicated. Likely length of stay 4-6 days. Coding Level of Care Code Acute Code for Chg Fwd Diagnoses Suicidal ideation R45.851 Hallucinations R44.3 Bipolar I disorder, most recent episode mixed, severe with psychotic features F31.64
[2022-10-07 19:45] VITALS: BP 135/71; PULSE 94; RESP 18; TEMP 36.8; O2SAT 97
[2022-10-07] MEDS: quetiapine 100 mg Tablet 200 MG PO (21:25)
[2022-10-07] MEDS: trazodone 100 mg Tablet PO (21:26)
[2022-10-08] MEDS: hyDROXYzine 25 mg Capsule 50 MG PO ×2 (00:01→22:22)
[2022-10-08] MEDS: OLANZapine 5 mg ODT PO (00:01)
[2022-10-08] MEDS: propranolol 20 mg Tablet 10 MG PO ×2 (08:23→17:20)
[2022-10-08] MEDS: cholecalciferol (vitamin D3) 1,000 unit Tablet 1000 UNIT PO (08:23)
[2022-10-08] MEDS: pantoprazole DR 40 mg Tablet PO (08:23)
[2022-10-08] MEDS: bisacodyl 5 mg Tablet PO (08:23)
[2022-10-08 14:00] VITALS: BP 120/77; PULSE 84; RESP 18; O2SAT 98
--- NOTE | 2022-10-08 18:38 | P.NPUPN_ITS ---
Subjective NPU Subjective: Patient presents today reporting that she is feeling fine and was somewhat insistent going home. We discussed the fact that we had reports of her having medication refusal and that we would need to have some sense that she went to continue her medication if she went to access outside the hospital. We agreed we would continue to observe and work with the treatment team tomorrow to try to get a sense of how resources deal with medications refusal outside of the hospital. She identified a desire to get home and endorsed a plan to take medication moving forward. Mental Status Exam MSE Comments: This is an obese versus morbidly obese white female in hospital scrubs with limited grooming and eye contact. No abnormal movements except for mild psychomotor retardation. Cooperative with exam and mild distress. Speech was decreased rate and volume and somewhat childlike. Mood described as better, affect subdued. Thought process linear. Thought content: Patient endorsed some suicidal thinking but denied homicidal ideation, there were no delusions reported but some signs of paranoia existed, and she did endorse some auditory and visual hallucinations but none during the interview. Attention and concentration appeared intact and memory was somewhat reliable but none were formally tested. She is alert and oriented x3. Insight, judgment and impulse control are impaired and intellectual ability is limited versus impaired. Vitals/I&O/Wt Last Vital Signs Temp 97.9 F 10/08/22 19:58 Pulse 74 10/08/22 19:58 Resp 18 10/08/22 19:58 BP 123/78 10/08/22 19:58 Pulse Ox 98 10/08/22 19:58 O2 Del Method 10/06/22 19:56 Weight last 48 hrs Weight 120.474 kg Data NPU 10/05/22 22:43 10/05/22 22:43 A&P Assessment and plan (1) Suicidal ideation: (2) Hallucinations: (3) Bipolar I disorder, most recent episode mixed, severe with psychotic features: Plan A 37-year-old white female with a long history of mental health challenges and likely intellectual disability who presents after reporting increases and suicidal thoughts and psychiatric symptoms including reports of psychosis who presents reporting an openness to consider medication changes. 1. Continue current medication. Except we will decrease Seroquel 800 mg of Seroquel 600 mg and get some collateral information about past medication and consider changes. 2. Continue every 15 minute checks for safety. 3. Encourage individual, group and milieu therapy. 4. Get collateral information about what has been going on since her last hospitalization. Obtain some additional historical information from staff and/or family. Involuntary Hold Information 96 Hour Hold: 96 Hour Involuntary Admission: No Attestations NPU Medical Necessity Statement*: Inpatient hospitalization is medically necessary and the clinically appropriate intervention at this time. We will monitor/initiate medications and make changes as indicated. Likely length of stay 3-5 days. Coding Level of Care Code Acute Code for [facility] Fwd Diagnoses Suicidal ideation R45.851 Hallucinations R44.3 Bipolar I disorder, most recent episode mixed, severe with psychotic features F31.64
[2022-10-08 19:58] VITALS: BP 123/78; PULSE 74; RESP 18; TEMP 36.6; O2SAT 98
[2022-10-08] MEDS: atorvastatin 40 mg Tablet 10 MG PO (20:28)
[2022-10-08] MEDS: trazodone 100 mg Tablet PO (20:29)
[2022-10-08] MEDS: quetiapine 300 mg Tablet 600 MG PO (20:29)
--- NOTE | 2022-10-08 22:20 | PC.NURSE ---
Patient came to nurse's station stating she needed medication because she was anxious. Patient was visibly shaking and continued to flap her hands up and down stating I can't make my hands quit. PRN vistaril given as ordered at that time. Discussed positive coping skills and suggested patient go watch TV to take her mind off of things. Patient then went to dayroom.
[2022-10-08] MEDS: LORazepam 2 mg Tablet PO (23:45)
--- NOTE | 2022-10-08 23:45 | PC.NURSE ---
Patient came to nurse's station and continued to complain of anxiety and stated she could not make her hands stop shaking. Patient noted to be flapping her hands but was not shaking as previously noted when prn vistaril was given. Suggested several interventions including trying to go lay down to relax. Patient stated I can't do that. I can't make my hands stop shaking. Can I please have something else to help? Patient rated her anxiety at a 10/10 and could not tell me why she was anxious. Patient did state she wants to return to her long-term where she feels comfortable. PRN Ativan po offered and given as ordered. Encouraged patient to go to her room and try and rest or return to dayroom to watch TV.
--- NOTE | 2022-10-09 | PC.NURSE ---
Patient sitting in dayroom rocking back and forth and making involuntary movements. Also noted patient was rolling her tongue and had facial ticks. PRN Cogentin po given for possible EPS. Educated patient on medication.
[2022-10-09] MEDS: benztropine 1 mg Tablet PO (00:10)
--- NOTE | 2022-10-09 01:15 | PC.NURSE ---
Patient resting quietly in bed with no further behaviors or EPS noted. No signs of distress present.
--- NOTE | 2022-10-09 09:11 | PC.NURSE ---
Patient refusing medications this morning. She states they are giving her unwanted side effects and her mom had advised her to stop taking them. When report was given this morning the nightshift RN did state that patient was given ativan because she was shaking and was appearing to be panicking. It was after this that the patient appeared to be having EPS so cogentin was given. This RN explained to her that the combination of meds may have caused her issues and that I could give the cogentin along with her morning medications and talk to the doctor about what she was prescribed at the morning interdisciplinary meeting. Patient continued to refuse meds. I then explained the benefits of taking the medications and the downfalls of not taking them. I also offered to only give her the vitamins she prescribed this morning, but she refused. Patient then quickly walked away from nurses' station .
[2022-10-09 14:00] VITALS: BP 125/80; PULSE 95; RESP 18; O2SAT 97
[2022-10-09] MEDS: propranolol 20 mg Tablet 10 MG PO (17:30)
--- NOTE | 2022-10-09 19:16 | P.NPUPN_ITS ---
Subjective NPU Subjective: Patient is in today to take the problems that her being nonmedication compliant without with us feeling safe about discharge given the circumstances that brought her to the hospital. We discussed some strategies that extended her time outside the hospital this time. We also discussed the possibility of other medications and a possible long-acting injectable. We also discussed the possibility of discharge in the next 8 hours with medication compliance and continued denial of lethality. Mental Status Exam MSE Comments: This is an obese versus morbidly obese white female in hospital scrubs with limited grooming and eye contact. No abnormal movements except for mild psychomotor retardation. Cooperative with exam and mild distress. Speech was decreased rate and volume and somewhat childlike. Mood described as better, affect subdued. Thought process linear. Thought content: Patient endorsed some suicidal thinking but denied homicidal ideation, there were no delusions reported but some signs of paranoia existed, and she did endorse some auditory and visual hallucinations but none during the interview. Attention and concentration appeared intact and memory was somewhat reliable but none were formally tested. She is alert and oriented x3. Insight, judgment and impulse control are impaired and intellectual ability is limited versus impaired. Vitals/I&O/Wt Last Vital Signs Temp 97.5 F L 10/09/22 21:08 Pulse 86 10/09/22 21:08 Resp 18 10/09/22 21:08 BP 132/79 10/09/22 21:08 Pulse Ox 97 10/09/22 21:08 O2 Del Method 10/06/22 19:56 Data NPU 10/05/22 22:43 10/05/22 22:43 A&P Assessment and plan (1) Suicidal ideation: (2) Hallucinations: (3) Bipolar I disorder, most recent episode mixed, severe with psychotic features: Plan A 37-year-old white female with a long history of mental health challenges and likely intellectual disability who presents after reporting increases and suicidal thoughts and psychiatric symptoms including reports of psychosis who presents reporting an openness to consider medication changes. 1. Continue current medication. Except we will decrease Seroquel 800 mg of Seroquel 600 mg and get some collateral information about past medication and consider changes. 2. Continue every 15 minute checks for safety. 3. Encourage individual, group and milieu therapy. 4. Get collateral information about what has been going on since her last hospitalization. Obtain some additional historical information from staff and/or family. Involuntary Hold Information 96 Hour Hold: 96 Hour Involuntary Admission: No Attestations NPU Medical Necessity Statement*: Inpatient hospitalization is medically necessary and the clinically appropriate intervention at this time. We will monitor/ initiate medications and make changes as indicated. Likely length of stay 1-3 days. Coding Level of Care Code Acute Code for [facility] Fwd Diagnoses Suicidal ideation R45.851 Hallucinations R44.3 Bipolar I disorder, most recent episode mixed, severe with psychotic features F31.64
[2022-10-09] MEDS: trazodone 100 mg Tablet PO (20:34)
[2022-10-09] MEDS: quetiapine 300 mg Tablet 600 MG PO (20:34)
[2022-10-09] MEDS: atorvastatin 40 mg Tablet 10 MG PO (20:34)
[2022-10-09 21:08] VITALS: BP 132/79; PULSE 86; RESP 18; TEMP 36.4; O2SAT 97
[2022-10-10] MEDS: propranolol 20 mg Tablet 10 MG PO ×2 (08:35→17:18)
[2022-10-10] MEDS: cholecalciferol (vitamin D3) 1,000 unit Tablet 1000 UNIT PO (08:35)
[2022-10-10] MEDS: pantoprazole DR 40 mg Tablet PO (08:35)
[2022-10-10] MEDS: bisacodyl 5 mg Tablet PO (08:35)
[2022-10-10 14:00] VITALS: BP 116/78; PULSE 90; RESP 18; TEMP 36.7; O2SAT 97
--- NOTE | 2022-10-10 18:21 | P.NPUPN_ITS ---
Subjective NPU Subjective: Patient attended today reporting that she was feeling ready for discharge. We discussed monitoring her for another 24 hours and her [facility] agreed that they would pick her up tomorrow morning at 9. She had an appropriate questions about what medications to be discharged and appeared to be more a nimated in the discussion. Mental Status Exam 2 MSE Comments: This is an obese versus morbidly obese white female in hospital scrubs with limited grooming and eye contact. No abnormal movements except for mild psychomotor retardation. Cooperative with exam in no acute distress. Speech was decreased rate and volume and somewhat childlike. Mood described as better, affect less subdued. Thought process linear. Thought content: Patient denied suicidal or homicidal ideation, there were no delusions reported and less signs of paranoia existed, and she denied auditory and visual hallucinations. Attention and concentration appeared intact and memory was somewhat reliable but none were formally tested. She is alert and oriented x3. Insight, judgment and impulse control are limited and intellectual ability is limited versus impaired. Vitals/I&O/Wt Last Vital Signs Temp 98.1 F 10/10/22 14:00 Pulse 91 10/10/22 19:42 Resp 18 10/10/22 19:42 BP 130/63 10/10/22 19:42 Pulse Ox 96 10/10/22 19:42 O2 Del Method 10/06/22 19:56 Data NPU 10/05/22 22:43 10/05/22 22:43 A&P Assessment and plan (1) Suicidal ideation: (2) Hallucinations: (3) Bipolar I disorder, most recent episode mixed, severe with psychotic features: Plan A 37-year-old white female with a long history of mental health challenges and likely intellectual disability who presents after reporting increases and suicidal thoughts and psychiatric symptoms including reports of psychosis who presents reporting an openness to consider medication changes. 1. Continue current medication. Except we will decrease Seroquel 800 mg of Seroquel 600 mg and get some collateral information about past medication and consider changes. 2. Continue every 15 minute checks for safety. 3. Encourage individual, group and milieu therapy. 4. Get collateral information about what has been going on since her last hospitalization. Obtain some additional historical information from staff and/or family. Involuntary Hold Information 96 Hour Hold: 96 Hour Involuntary Admission: No Attestations NPU Medical Necessity Statement*: Inpatient hospitalization is medically necessary and the clinically appropriate intervention at this time. We will monitor/initiate medications and make changes as indicated. Likely length of stay 1-3 days. Plan for discharge in the morning. Coding Level of Care Code Acute Code for [facility] Fwd Diagnoses Suicidal ideation R45.851 Hallucinations R44.3 Bipolar I disorder, most recent episode mixed, severe with psychotic features F31.64
[2022-10-10 19:42] VITALS: BP 130/63; PULSE 91; RESP 18; O2SAT 96
[2022-10-10] MEDS: quetiapine 300 mg Tablet 600 MG PO (20:50)
[2022-10-10] MEDS: trazodone 100 mg Tablet PO (20:52)
[2022-10-10] MEDS: atorvastatin 40 mg Tablet 10 MG PO (20:52)
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
[2022-10-11 07:52] VITALS: BP 130/63; PULSE 91; RESP 18; O2SAT 96
[2022-10-11 07:53] VITALS: BP 130/63; PULSE 91; RESP 18; TEMP 36.7; O2SAT 96
--- NOTE | 2022-10-11 09:03 | DCPLANNER ---
Imm was printed and [facility] staff and pt was notified of pt rights. Copy was placed in pt chart.
[2022-10-11] MEDS: propranolol 20 mg Tablet 10 MG PO (09:35)
[2022-10-11] MEDS: bisacodyl 5 mg Tablet PO (09:36)
[2022-10-11] MEDS: pantoprazole DR 40 mg Tablet PO (09:36)
[2022-10-11] MEDS: cholecalciferol (vitamin D3) 1,000 unit Tablet 1000 UNIT PO (09:36)
== END 2022-10-11 09:00 | disposition home or self-care (01) | DRG 885 ==
LOC: ER 23:10 → NP 10-06 00:20
PROVIDERS: Emergency Medicine; Admitting Provider Psychiatry & Neurology Psychiatry; Emergency Provider Physician Assistant; PCP Nurse Practitioner; Visit Provider Psychiatry & Neurology Psychiatry
DX: F31.64 Bipolar disorder, current episode mixed, severe, with psychotic features (principal); R45.851 Suicidal ideations; F09 Unspecified mental disorder due to known physiological condition; F17.210 Nicotine dependence, cigarettes, uncomplicated; E66.01 Morbid (severe) obesity due to excess calories; Z68.39 Body mass index [BMI] 39.0-39.9, adult; Z79.891 Long term (current) use of opiate analgesic
CPT/HCPCS: 36415; 80053; 80306; 80307; 81025; 85025; 97150; 97165; 99238; 99285

== ENCOUNTER → 2022-12-15 10:50 | Outpatient (BNVA) | payer MEDICARE, MEDICAID, OTHER, SELFPAY | PROVIDERS: PCP Nurse Practitioner; Visit Provider Nurse Practitioner | DX: E78.2 Mixed hyperlipidemia (principal); R53.83 Other fatigue; R07.9 Chest pain, unspecified; Z79.899 Other long term (current) drug therapy | CPT/HCPCS: 80053; 80061; 81000; 84443; 85025 ==

== ENCOUNTER → 2022-12-18 11:23 | Outpatient (BNVA) | payer MEDICARE, MEDICAID, SELFPAY | PROVIDERS: PCP Nurse Practitioner; Visit Provider Nurse Practitioner | DX: S99.912A Unspecified injury of left ankle, initial encounter (principal); M79.672 Pain in left foot; X58.XXXA Exposure to other specified factors, initial encounter | CPT/HCPCS: 73610; 73630 ==

== ENCOUNTER → 2022-12-20 13:23 | Outpatient (BNVA) | payer MEDICARE, MEDICAID, SELFPAY | PROVIDERS: PCP Nurse Practitioner; Visit Provider Podiatrist Foot & Ankle Surgery | DX: M25.572 Pain in left ankle and joints of left foot (principal); S82.852A Displaced trimalleolar fracture of left lower leg, initial encounter for closed fracture; W17.89XA Other fall from one level to another, initial encounter | CPT/HCPCS: 73610; 99213 ==

== ENCOUNTER → 2023-01-01 14:47 | Outpatient (BNVA) | payer MEDICARE, MEDICAID, SELFPAY | PROVIDERS: PCP Nurse Practitioner; Visit Provider Otolaryngology | DX: H66.91 Otitis media, unspecified, right ear (principal); H90.11 Conductive hearing loss, unilateral, right ear, with unrestricted hearing on the contralateral side; H72.91 Unspecified perforation of tympanic membrane, right ear | CPT/HCPCS: 99203 ==

== ENCOUNTER → 2023-01-15 10:34 | Outpatient (BNVA) | payer MEDICARE, MEDICAID, SELFPAY | PROVIDERS: PCP Nurse Practitioner; Visit Provider Otolaryngology | DX: H66.91 Otitis media, unspecified, right ear (principal); H72.91 Unspecified perforation of tympanic membrane, right ear; H90.11 Conductive hearing loss, unilateral, right ear, with unrestricted hearing on the contralateral side | CPT/HCPCS: 99213 ==

== ENCOUNTER → 2023-02-05 13:46 | Outpatient (BNVA) | payer MEDICARE, MEDICAID, SELFPAY | PROVIDERS: PCP Nurse Practitioner; Visit Provider Podiatrist Foot & Ankle Surgery | DX: S82.852D Displaced trimalleolar fracture of left lower leg, subsequent encounter for closed fracture with routine healing (principal); W17.89XD Other fall from one level to another, subsequent encounter | CPT/HCPCS: 99213 ==

== ENCOUNTER → 2023-03-02 09:26 | Outpatient (BNVA) | payer MEDICARE, MEDICAID, SELFPAY | PROVIDERS: PCP Nurse Practitioner; Visit Provider Nurse Practitioner | DX: Z79.899 Other long term (current) drug therapy (principal) | CPT/HCPCS: 80053; 80178; 83036 ==

== ENCOUNTER → 2023-04-17 10:17 | Outpatient (BNVA) | payer MEDICARE, MEDICAID, SELFPAY | PROVIDERS: PCP Nurse Practitioner; Visit Provider Otolaryngology | DX: H72.91 Unspecified perforation of tympanic membrane, right ear; H66.91 Otitis media, unspecified, right ear; H90.11 Conductive hearing loss, unilateral, right ear, with unrestricted hearing on the contralateral side | CPT/HCPCS: 99212 ==

== ENCOUNTER 2023-05-22 23:03 | Inpatient (IN) | payer MEDICARE, MEDICAID, SELFPAY ==
[2023-05-22 23:03] VITALS: BP 148/93; PULSE 70; RESP 18; TEMP 36.7; O2SAT 100; BMI 40.6
[2023-05-22 23:25] LABS: Basophils # 0.1 10^3/uL (0.0-0.1); Basophils % 0.6 %; Eosinophils # 0.1 10^3/uL (0.0-0.8); Eosinophils % 0.6 %; Hematocrit 38.5 % (36-47); Lymphocytes # 2.6 10^3/uL (0.8-4.8); Lymphocytes % 28.3 %; Mean Corpuscular HGB Conc 30.1 g/dL (30-55); Mean Corpuscular Hemoglobin 24.1 pg (27-33); Mean Corpuscular Volume 79.9 fl (85-98); Mean Platelet Volume 8.8 fL (7.4-10.4); Monocytes # 0.6 10^3/uL (0.2-0.9); Monocytes % 6.9 %; Neutrophils # 5.91 10^3/uL (1.8-7.7); Neutrophils % 63.4 %; Nucleated Red Blood Cells % 0 %; Platelet Count 413 10^3/cmm (157-399); Red Blood Count 4.82 10^6/uL (3.85-5.65); Red Cell Distribution Width 17.1 % (12.1-15.1); White Blood Count 9.33 10^3/uL (3.29-11.43)
[2023-05-22 23:29] LABS: HCG Qualitative Urine. Negative (Negative)
[2023-05-22 23:30] LABS: Add Urine Microscopic? NO; Charge for UA Resulting for Rev
[2023-05-22 23:34] LABS: Bilirubin Urine Neg (Negative); Blood Urine Neg (Negative); Glucose Urine UA Norm (Normal); Ketones Urine Negative (Negative); Leukocyte Esterase Urine Negative (Negative); Nitrate Urine Negative (Negative); Protein Urine Neg (Negative); Urine Appearance Clear (CLEAR); Urine Color Light yellow (Yellow); Urobilinogen Urine Norm (Negative); pH Urine 5 (5-7)
[2023-05-22 23:41] LABS: Amphetamines Screen Urine Negative (Negative); Barbiturates Screen Urine Negative (Negative); Benzodiazepines Screen Urine Positive (Negative); Cocaine Screen Urine Negative (Negative); Opiate Screen Urine Negative (Negative); PCP Screen Urine Negative (Negative); THC Screen Urine Negative (Negative)
--- NOTE | 2023-05-22 23:42 | W.ED.PSYCHS ---
HPI - Psych General: Chief Complaint: Psychiatric Symptoms Stated Complaint: si Time Seen by Provider: 05/22/23 23:06 History of Present Illness: Patient presents by [facility] from [facility] which is a long-term and eminence for suicidal ideation and attempting to cut her left wrist. Patient has multiple superficial abrasions on her left wrist. Patient does states she was intending to kill herself. Patient does states she would be voluntarily to our MPU. Review of Systems General: Reports: 10 or more systems reviewed and unremarkable except in HPI and below PFSH ED PFSH: Medical History Bipolar I disorder, most recent episode mixed, severe with psychotic features Conductive hearing loss in right ear GERD (gastroesophageal reflux disease) Mixed hyperlipidemia Nicotine dependence, cigarettes, uncomplicated Psychiatric care Vaping nicotine dependence, tobacco product Vitamin D deficiency Surgical History Hx of myringotomy Social History Smoking and tobacco status: never smoked Quit status (tobacco): not considering quitting Second hand smoke exposure: No Female Reproductive History: Date of last menstrual period: 04/25/23 Physical Exam Const: COMMON NORMALS: no acute distress, average body habitus, patient oriented x3, no limitations, healthy appearing, alert and well nourished HENMT: COMMON NORMALS: normocephalic, atraumatic, hearing grossly normal bilaterally, external ears normal, Normal external nose present and moist oral mucous membranes HEAD & SCALP: normocephalic and atraumatic NOSE: Normal external nose present EXTERNAL EAR: Yes external ears normal Eye: COMMON NORMALS: Equal, round and reactive pupils present, EOMs intact bilaterally, conjunctivae normal and no scleral icterus CONJUNCTIVA: Yes conjunctivae normal PUPIL: Yes Equal, round and reactive pupils present Neck/C-Spine: COMMON NORMALS: full ROM, no lymphadenopathy, supple, no meningeal signs, no JVD and Thyroid normal THYROID: Thyroid normal Lymph: LYMPHATIC: no lymphadenopathy noted Chest: COMMONS NORMALS: normal inspection of the chest and normal palpation of entire chest wall Resp: COMMON NORMALS: normal respiratory effort, No retractions, No use of accessory muscles and clear to auscultation bilaterally AUSCULTATION: clear to auscultation bilaterally Cardio: COMMON NORMALS: no JVD, regular rate, regular rhythm, S1 normal heart sound present, S2 normal heart sound present, No gallops present (Cardio), No clicks present (Cardio) and No murmurs present (Cardio) RATE: regular rate RHYTHM: regular rhythm HEART SOUNDS: S1 normal heart sound present and S2 normal heart sound present GI: COMMON NORMALS: Normal to inspection, nondistended, normoactive bowel sounds present, Soft to palpation, non-tender, No hepatosplenomegaly present and no masses PALPATION: Yes Soft to palpation and Yes No hepatosplenomegaly present Extremity: NARRATIVE EXTREMITY EXAM: Multiple superficial abrasion/lacerations to left dorsal and palmar surface of the wrist region. Neuro: COMMON NORMALS: patient oriented x3 SENSORIUM/ORIENTATION: Yes alert MENINGEAL SIGNS: Yes no meningeal signs Course Vital Signs: Vital signs: Vital Signs Temperature 98.0 F 05/22/23 23:03 Pulse Rate 70 05/22/23 23:03 Respiratory Rate 18 05/22/23 23:03 Blood Pressure 148/93 05/22/23 23:03 Pulse Oximetry 100 05/22/23 23:03 Oxygen Delivery Me thod Room Air 05/22/23 23:03 MDM - Psych Medical Decision Making Patient presents to the ER with suicidal ideation and multiple superficial abrasions on her left wrist with an attempt to hurt herself. Patient was worked up in normal psychiatric fashion with labs. Dr. Hernandez was consulted who agreed for further inpatient admission for further evaluation and treatment. Differential Diagnosis Likely suicidal ideation; Unlikely acute psychosis, chronic schizophrenia, bipolar disorder, depression, drug-induced psychotic disorder or acute anxiety Medical Records I reviewed the patient's medical records. Lab Data I reviewed the patient's lab results. 05/22/23 23:18 05/22/23 23:18 Laboratory Results WBC 9.33 10^3/uL (3.29-11.43) 05/22/23 23:18 RBC 4.82 10^6/uL (3.85-5.65) 05/22/23 23:18 Hgb 11.60 g/dL (11.27-16.99) 05/22/23 23:18 Hct 38.5 % (36-47) 05/22/23 23:18 MCV 79.9 fl (85-98) L 05/22/23 23:18 MCH 24.1 pg (27-33) L 05/22/23 23:18 MCHC 30.1 g/dL (30-55) 05/22/23 23:18 RDW 17.1 % (12.1-15.1) H 05/22/23 23:18 Plt Count 413 10^3/cmm (157-399) H 05/22/23 23:18 MPV 8.8 fL (7.4-10.4) 05/22/23 23:18 Neut % (Auto) 63.4 % 05/22/23 23:18 Lymph % (Auto) 28.3 % 05/22/23 23:18 [place] % (Auto) 6.9 % 05/22/23 23:18 Eos % (Auto) 0.6 % 05/22/23 23:18 Baso % (Auto) 0.6 % 05/22/23 23:18 Neut # (Auto) 5.91 10^3/uL (1.8-7.7) 05/22/23 23:18 Lymph # (Auto) 2.6 10^3/uL (0.8-4.8) 05/22/23 23:18 [place] # (Auto) 0.6 10^3/uL (0.2-0.9) 05/22/23 23:18 Eos # (Auto) 0.1 10^3/uL (0.0-0.8) 05/22/23 23:18 Baso # (Auto) 0.1 10^3/uL (0.0-0.1) 05/22/23 23:18 Nucleated RBC % (auto) 0 % 05/22/23 23:18 Nucleated RBCs # 0.0 /100WBC 05/22/23 23:18 Sodium 136 mmol/L (136-145) 05/22/23 23:18 Potassium 3.6 mmol/L (3.5-5.1) 05/22/23 23:18 Chloride 103 mmol/L (98-107) 05/22/23 23:18 Carbon Dioxide 24 mmol/L (22-29) 05/22/23 23:18 Anion Gap 12.6 (5-19) 05/22/23 23:18 BUN 6 mg/dL (6-20) 05/22/23 23:18 Creatinine 0.9 mg/dL (0.5-0.9) 05/22/23 23:18 GFR Calculation 70.1 mL/min (90-130) L 05/22/23 23:18 Glucose 105 mg/dL (65-115) 05/22/23 23:18 Calculated Osmolality 280 mOsm/kg (285-295) L 05/22/23 23:18 Calcium 9.5 mg/dL (8.5-10.5) 05/22/23 23:18 Total Bilirubin 0.4 mg/dL (0.15-1.2) 05/22/23 23:18 AST 13 U/L (0-32) 05/22/23 23:18 ALT 16 U/L (0-33) 05/22/23 23:18 Alkaline Phosphatase 125 U/L (35-105) H 05/22/23 23:18 Total Protein 8.5 g/dL (6.6-8.7) 05/22/23 23:18 Albumin 4.7 g/dL (3.5-5.2) 05/22/23 23:18 Globulin 3.8 g/dL (1.3-4.6) 05/22/23 23:18 HCG, Qual Negative (Negative) 05/22/23 23:18 Urine Color Light yellow (Yellow) 05/22/23 23:18 Urine Appearance Clear (CLEAR) 05/22/23 23:18 Urine pH 5 (5-7) 05/22/23 23:18 Ur Specific [place] 1.010 (1.005-1.030) 05/22/23 23:18 Urine Protein Neg (Negative) 05/22/23 23:18 Urine Glucose (UA) Norm (Normal) 05/22/23 23:18 Urine Ketones Negative (Negative) 05/22/23 23:18 Urine Blood Neg (Negative) 05/22/23 23:18 Urine Nitrate Negative (Negative) 05/22/23 23:18 Urine Bilirubin Neg (Negative) 05/22/23 23:18 Urine Urobilinogen Norm mg/dL (Negative) 05/22/23 23:18 Ur Leukocyte Esterase Negative (Negative) 05/22/23 23:18 Salicylates < 0.3 mg/dL (3-10) L 05/22/23 23:18 Urine Opiates Screen Negative ng/mL (Negative) 05/22/23 23:18 Acetaminophen < 5.0 ug/mL (10-30) L 05/22/23 23:18 Ur Barbiturates Screen Negative ng/mL (Negative) 05/22/23 23:18 Ur Phencyclidine Scrn Negative ng/mL (Negative) 05/22/23 23:18 Ur Amphetamines Screen Negative ng/mL (Negative) 05/22/23 23:18 U Benzodiazepines Scrn Positive ng/mL (Negative) H 05/22/23 23:18 [place] 0.2 mmol/L (0.6-1.2) L 05/22/23 23:18 Urine Cocaine Screen Negative ng/mL (Negative) 05/22/23 23:18 U Marijuana (THC) Screen Negative ng/mL (Negative) 05/22/23 23:18 Ethyl Alcohol < 10 mg/dL (0-10) 05/22/23 23:18 No radiology studies performed this visit Discharge Plan Discharge Patient Disposition: Admitted As Inpatient Clinical Impression: Suicidal ideation Condition: Stable Coding Level of Care Code ED Education And Outreach Coordinator for [facility]
[2023-05-22 23:48] LABS: Alanine Aminotransferase 16 U/L (0-33); Albumin Level 4.7 g/dL (3.5-5.2); Alkaline Phosphatase 125 U/L (35-105); Anion Gap 12.6 (5-19); Aspartate Amino Transferase 13 U/L (0-32); Blood Urea Nitrogen 6 mg/dL (6-20); Calcium 9.5 mg/dL (8.5-10.5); Carbon Dioxide 24 mmol/L (22-29); Chloride 103 mmol/L (98-107); Globulin 3.8 g/dL (1.3-4.6); Glomerular Filtration Rate 70.1 mL/min (90-130); Glucose 105 mg/dL (65-115); Osmolality Calculated 280 mOsm/kg (285-295); Potassium 3.6 mmol/L (3.5-5.1); Sodium 136 mmol/L (136-145); Total Bilirubin 0.4 mg/dL (0.15-1.2); Total Protein 8.5 g/dL (6.6-8.7)
[2023-05-22 23:49] LABS: Acetaminophen < 5.0 ug/mL (10-30); Alcohol Level < 10 mg/dL (0-10); Salicylate < 0.3 mg/dL (3-10)
[2023-05-22 23:50] LABS: Lithium 0.2 mmol/L (0.6-1.2)
[2023-05-23 00:37] VITALS: BP 96/54; PULSE 67; RESP 18; O2SAT 100
[2023-05-23 00:53] VITALS: BP 145/82; PULSE 66; RESP 18; TEMP 36.9; O2SAT 100
[2023-05-23 06:00] VITALS: BP 114/69; PULSE 60; RESP 16; TEMP 36.9; O2SAT 100
[2023-05-23] MEDS: nicotine 2 mg Gum BUCCAL ×2 (07:42→12:05)
[2023-05-23] MEDS: ziprasidone hcl 40 mg Capsule 80 MG PO ×2 (08:46→18:15)
[2023-05-23] MEDS: propranolol 20 mg Tablet PO ×2 (08:47→18:15)
[2023-05-23] MEDS: pantoprazole DR 40 mg Tablet PO (08:47)
[2023-05-23] MEDS: lithium carbonate 300 mg Capsule PO (08:47)
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
[2023-05-23 13:09] VITALS: PULSE 68; RESP 16; O2SAT 99
[2023-05-23 13:42] VITALS: BP 125/83; PULSE 68; RESP 18; TEMP 36.5; O2SAT 94
[2023-05-23 20:23] VITALS: BP 133/75; PULSE 77; RESP 18; TEMP 36.6; O2SAT 100
[2023-05-24 06:00] VITALS: BP 131/76; PULSE 72; RESP 16; TEMP 36.7; O2SAT 100
[2023-05-24] MEDS: propranolol 20 mg Tablet PO ×2 (08:59→17:32)
[2023-05-24] MEDS: pantoprazole DR 40 mg Tablet PO (08:59)
[2023-05-24] MEDS: nicotine 2 mg Gum BUCCAL ×3 (08:59→19:03)
[2023-05-24] MEDS: lithium carbonate 300 mg Capsule PO (08:59)
[2023-05-24] MEDS: ziprasidone hcl 40 mg Capsule 80 MG PO ×2 (08:59→17:32)
--- NOTE | 2023-05-24 11:03 | W.PM.NPUPNS ---
Subjective NPU Subjective: Patient presented today reporting that she is feeling much better. She was beginning to ask about when she could be discharged and endorsing that she really does not want to stay here over the weekend. We discussed speaking with her outpatient team to find out whether this change in positions is comment or whether she has had recent decompensation. Mental Status Exam MSE Comments: This is an obese, white female, in hospital scrubs, with improving grooming and eye contact. No abnormal movements, except for mild psychomotor retardation. Mostly cooperative with exam in mild distress. Speech was normal rate and slightly decreased volume. Mood described as better; affect odd. Thought process, organized. Thought content: patient denied any suicidal or homicidal ideation, patient endorsed paranoia and appeared guarded, patient denied any auditory or visual hallucinations. Attention, concentration, and memory appeared intact, but none were formally tested. Alert and oriented times three. Insight and judgment are limited. Impulse control is limited. Vitals/I&O/Wt Last Vital Signs Temp 98.0 F 05/24/23 06:00 Pulse 72 05/24/23 06:00 Resp 16 05/24/23 06:00 BP 131/76 05/24/23 06:00 Pulse Ox 100 05/24/23 06:00 O2 Del Method Room Air 05/24/23 06:00 Weight last 48 hrs Weight 124.738 kg Data NPU 05/22/23 23:18 05/22/23 23:18 A&P Assessment and plan (1) Suicidal ideation: (2) Hallucinations: (3) Bipolar I disorder, most recent episode mixed, severe with psychotic features: Plan A 38-year-old white female with a long history of mental health challenges and likely intellectual disability who presents again to the neuropsychiatric unit with increases and suicidal thoughts and psychiatric symptoms reporting she is not sure that her medications work. 1. Continue current medication. We will get some collateral information about past medication and consider changes with help from [facility]. 2. Continue every 15 minute checks for safety. 3. Encourage individual, group and milieu therapy. 4. Get collateral information from facility. Concerns that this may reflect intermittent explosive disorder or the quick changes in position seen with borderline intellectual functioning versus intellectual disability mild. If so discharge quickly may be the most therapeutic position. Involuntary Hold Information 96 Hour Hold: 96 Hour Involuntary Admission: No Attestations NPU Medical Necessity Statement*: Inpatient hospitalization is medically necessary and the clinically appropriate intervention at this time. We will monitor/initiate medications and make changes as indicated. Likely length of stay 4-6 days. Coding Level of Care Code Acute Code for [facility] Fwd Diagnoses Suicidal ideation R45.851 Hallucinations R44.3 Bipolar I disorder, most recent episode mixed, severe with psychotic features F31.64
[2023-05-24] MEDS: OLANZapine 5 mg ODT PO (13:49)
[2023-05-24 14:00] VITALS: BP 112/75; PULSE 90; RESP 16; TEMP 36.6; O2SAT 97
[2023-05-24 20:10] VITALS: BP 99/59; PULSE 68; RESP 18; TEMP 36.9; O2SAT 98
[2023-05-24] MEDS: trazodone 100 mg Tablet PO (20:18)
[2023-05-24] MEDS: atorvastatin 40 mg Tablet PO (20:19)
[2023-05-25 06:00] VITALS: BP 116/66; PULSE 73; RESP 18; TEMP 36.9; O2SAT 99
[2023-05-25] MEDS: propranolol 20 mg Tablet PO ×2 (08:16→17:59)
[2023-05-25] MEDS: ziprasidone hcl 40 mg Capsule 80 MG PO ×2 (08:16→17:59)
[2023-05-25] MEDS: lithium carbonate 300 mg Capsule PO (08:16)
[2023-05-25] MEDS: pantoprazole DR 40 mg Tablet PO (08:16)
[2023-05-25] MEDS: nicotine 2 mg Gum BUCCAL ×4 (08:19→18:42)
--- NOTE | 2023-05-25 08:21 | PC.NURSE ---
SHIFT ASSESSMENT UPSET HER MEDS AREN'T GETTING CHANGED LIKE THE PHYSICIAN SAID, WONDERS WHY SHE'S STILL HERE IF WE AREN'T GOING TO CHANGE MEDS FOR HER. IRRITABLE AFFECT NOTED, MED COMPLIANT BUT DID SHE SHE IS HAVING SUICIDAL THOUGHTS, DENIES ANY ACTIVE PLAN, DID CONTRACT FOR SAFETY. STAFF WILL CONT TO MONITOR CLOSELY FOR CHANGES IN MOOD/BEHAVIOR. ASSURED PATIENT THAT PHYSICIAN WOULD SPEAK TO HER TODAY AND SHE COULD VOICE HER MEDICATION CONCERNS
[2023-05-25] MEDS: BuSPIRONE 10 mg Tablet PO ×2 (12:37→20:34)
[2023-05-25] MEDS: blistex lip oint 7 gm Tube 1 APPLIC TOPICAL (12:57)
[2023-05-25 14:00] VITALS: PULSE 144; RESP 16; TEMP 36.9; O2SAT 97
--- NOTE | 2023-05-25 14:05 | PC.NURSE ---
pt refused blood pressure
--- NOTE | 2023-05-25 15:03 | W.PM.NPUPNS ---
Subjective NPU Subjective: Patient presented today reporting that she is doing okay. She endorses having significant anxiety and wanting that to be managed well we discussed the risks, benefits and alternatives of starting BuSpar 10 mg p.o. twice daily and she understood and agreed to proceed as is documented in this note. We talked about the possibility of discharge on Sunday and that Dr. Ross would be here starting tomorrow to continue this process. Mental Status Exam MSE Comments: This is an obese, white female, in hospital scrubs, with improving grooming and eye contact. No abnormal movements, except for mild psychomotor retardation. Mostly cooperative with exam in mild distress. Speech was normal rate and slightly decreased volume. Mood described as better; affect odd. Thought process, organized. Thought content: patient denied any suicidal or homicidal ideation, patient endorsed paranoia and appeared guarded, patient denied any auditory or visual hallucinations. Attention, concentration, and memory appeared intact, but none were formally tested. Alert and oriented times three. Insight and judgment are limited. Impulse control is limited. Vitals/I&O/Wt Last Vital Signs Temp 98.4 F 05/25/23 14:00 Pulse 144 H 05/25/23 14:00 Resp 16 05/25/23 14:00 BP 116/66 05/25/23 06:00 Pulse Ox 97 05/25/23 14:00 O2 Del Method Room Air 05/25/23 06:00 05/25/23 05/25/23 05/25/23 06:59 14:59 22:59 Intake Total 480 / 480 Balance 480 / 480 Data NPU 05/22/23 23:18 05/22/23 23:18 A&P Assessment and plan (1) Suicidal ideation: (2) Hallucinations: (3) Bipolar I disorder, most recent episode mixed, severe with psychotic features: Plan A 38-year-old white female with a long history of mental health challenges and likely intellectual disability who presents again to the neuropsychiatric unit with increases and suicidal thoughts and psychiatric symptoms reporting she is not sure that her medications work. 1. Continue current medication. We will get some collateral information about past medication and consider changes with help from [facility] [place]. Start BuSpar 10 mg p.o. twice daily for anxiety 2. Continue every 15 minute checks for safety. 3. Encourage individual, group and milieu therapy. 4. Get collateral information from facility. Concerns that this may reflect intermittent explosive disorder or the quick changes in position seen with borderline intellectual functioning versus intellectual disability mild. If so discharge quickly may be the most therapeutic position. Consider discharge on Sunday. Involuntary Hold Information 96 Hour Hold: 96 Hour Involuntary Admission: No Attestations NPU Medical Necessity Statement*: Inpatient hospitalization is medically necessary and the clinically appropriate intervention at this time. We will monitor/initiate medications and make changes as indicated. Likely length of stay 3-5 days. Coding Level of Care Code Acute Code for Chg Fwd Diagnoses Suicidal ideation R45.851 Hallucinations R44.3 Bipolar I disorder, most recent episode mixed, severe with psychotic features F31.64
[2023-05-25 19:52] VITALS: BP 101/65; PULSE 61; RESP 16; TEMP 36.2; O2SAT 96
[2023-05-25] MEDS: trazodone 100 mg Tablet PO (20:34)
[2023-05-25] MEDS: atorvastatin 40 mg Tablet PO (20:34)
[2023-05-26] MEDS: nicotine 2 mg Gum BUCCAL ×4 (05:27→17:10)
[2023-05-26 06:00] VITALS: BP 112/70; PULSE 72; RESP 15; TEMP 36.7; O2SAT 99
[2023-05-26] MEDS: ziprasidone hcl 40 mg Capsule 80 MG PO ×2 (08:31→18:07)
[2023-05-26] MEDS: propranolol 20 mg Tablet PO ×2 (08:31→18:07)
[2023-05-26] MEDS: lithium carbonate 300 mg Capsule PO (08:32)
[2023-05-26] MEDS: BuSPIRONE 10 mg Tablet PO ×2 (08:32→21:28)
[2023-05-26] MEDS: pantoprazole DR 40 mg Tablet PO (08:32)
[2023-05-26] MEDS: ibuprofen 600 mg Tablet PO (11:03)
[2023-05-26 13:22] VITALS: BP 127/78; PULSE 81; RESP 19; TEMP 36.7; O2SAT 98
--- NOTE | 2023-05-26 18:28 | W.PM.NPUPNS ---
Subjective NPU Subjective: Patient is a 38-year-old white female with impulse control disorder not otherwise specified and likely intellectual disability admitted with increased suicidal ideation and increased frustration in her current assisted that she had been residing at for the past 5 years. Patient had reported feeling better here. She had stated that she wanted to go to a new home. She had stated that she had 3 children that lives with her sister and that she would like to be in a place where she could continue to see her children once a week. She had reported no side effects from her current medication regimen at this time. She had reported having a breakdown approximately 10 to 12 years ago with an increase in hospitalizations and inability to manage her own self-care. Mental Status Exam MSE Comments: This is an obese, white female, in hospital scrubs, with improving grooming and eye contact. No abnormal movements, except for mild psychomotor retardation. Mostly cooperative with exam in mild distress. Speech was normal rate and slightly decreased in volume. Mood described as good.; affect was somewhat subdued. Thought process was linear, concrete but organized. Thought content: patient denied any suicidal or homicidal ideation, Patient denied any auditory or visual hallucinations. She did not appear to be responding to internal stimuli. Attention, concentration, and memory appeared intact, but none were formally tested. Intelligence appeared commensurate with mild cognitive impairment. She was alert and oriented times three. Insight and judgment are limited. Impulse control is limited. Vitals/I&O/Wt Last Vital Signs Temp 98.0 F 05/26/23 13:22 Pulse 81 05/26/23 13:22 Resp 19 H 05/26/23 13:22 BP 127/78 05/26/23 13:22 Pulse Ox 98 05/26/23 13:22 O2 Del Method Room Air 05/26/23 07:51 Data NPU 05/22/23 23:18 05/22/23 23:18 A&P Assessment and plan (1) Suicidal ideation: (2) Hallucinations: (3) Bipolar I disorder, most recent episode mixed, severe with psychotic features: Plan A 38-year-old white female with a long history of mental health challenges and likely intellectual disability who presents again to the neuropsychiatric unit with increases and suicidal thoughts and psychiatric symptoms reporting she is not sure that her medications work. 1. Continue current medication. We will get some collateral information about past medication and consider changes with help from [facility]. Start BuSpar 10 mg p.o. twice daily for anxiety 2. Continue every 15 minute checks for safety. 3. Encourage individual, group and milieu therapy. 4. Get collateral information from facility. Concerns that this may reflect intermittent explosive disorder or the quick changes in position seen with borderline intellectual functioning versus intellectual disability mild. If so discharge quickly may be the most therapeutic position. Consider discharge on Sunday-patient states wishing to go to new assisted. Uncertain of this at this time. Involuntary Hold Information 96 Hour Hold: 96 Hour Involuntary Admission: No Attestations NPU Medical Necessity Statement*: Inpatient hospitalization is medically necessary and the clinically appropriate intervention at this time. We will monitor/initiate medications and make changes as indicated. Likely length of stay 3-5 days. Coding Level of Care Code Acute Code for g Fwd Diagnoses Suicidal ideation R45.851 Hallucinations R44.3 Bipolar I disorder, most recent episode mixed, severe with psychotic features F31.64
[2023-05-26 20:31] VITALS: BP 118/80; PULSE 74; RESP 18; TEMP 36.8; O2SAT 99
[2023-05-26] MEDS: trazodone 100 mg Tablet PO (21:28)
[2023-05-26] MEDS: atorvastatin 40 mg Tablet PO (21:28)
[2023-05-27 06:00] VITALS: BP 120/80; PULSE 61; RESP 16; TEMP 36.6; O2SAT 97
[2023-05-27] MEDS: ziprasidone hcl 40 mg Capsule 80 MG PO ×2 (08:13→17:43)
[2023-05-27] MEDS: propranolol 20 mg Tablet PO ×2 (08:13→17:43)
[2023-05-27] MEDS: nicotine 2 mg Gum BUCCAL ×2 (08:13→23:10)
[2023-05-27] MEDS: lithium carbonate 300 mg Capsule PO (08:13)
[2023-05-27] MEDS: pantoprazole DR 40 mg Tablet PO (08:14)
[2023-05-27] MEDS: BuSPIRONE 10 mg Tablet PO ×2 (08:14→20:19)
[2023-05-27] MEDS: ibuprofen 600 mg Tablet PO (12:28)
--- NOTE | 2023-05-27 12:47 | W.PM.NPUPNS ---
Subjective NPU Subjective: Patient is a 38-year-old white female with impulse control disorder not otherwise specified and likely intellectual disability admitted with increased suicidal ideation and increased frustration in her current half-way that she had been residing at for the past 5 years. Patient was calm in the milieu. She had reported that she was going to be going with her mother to a different facility as she states that she had been given notice and would not be returning back to the [facility] half-way. She had reported no side effects from the BuSpar. She had reported that she had anxiety attacks occasionally. She had reported that she had not slept well. Mental Status Exam MSE Comments: This is an obese, white female, in hospital scrubs, with improving grooming and eye contact. No abnormal movements, except for mild psychomotor retardation. She was cooperative with exam in no acute distress. Speech was normal rate and slightly decreased in volume. Mood described as okay. Affect remained somewhat subdued. Thought process was linear, concrete but organized. Thought content: patient denied any suicidal or homicidal ideation, Patient denied any auditory or visual hallucinations. She did not appear to be responding to internal stimuli. Attention, concentration, and memory appeared intact, but none were formally tested. Intelligence appeared commensurate with mild cognitive impairment. She was alert and oriented times three. Insight and judgment are limited. Impulse control is limited. Vitals/I&O/Wt Last Vital Signs Temp 97.9 F 05/27/23 06:00 Pulse 61 05/27/23 06:00 Resp 16 05/27/23 06:00 BP 120/80 05/27/23 06:00 Pulse Ox 97 05/27/23 06:00 O2 Del Method Room Air 05/27/23 08:02 Weight last 48 hrs Weight 125.191 kg Data NPU 05/22/23 23:18 05/22/23 23:18 A&P Assessment and plan (1) Suicidal ideation: (2) Hallucinations: (3) Bipolar I disorder, most recent episode mixed, severe with psychotic features: Plan A 38-year-old white female with a long history of mental health challenges and likely intellectual disability who presents again to the neuropsychiatric unit with increases and suicidal thoughts and psychiatric symptoms reporting she is not sure that her medications work. 1. Continue current medication. We will get some collateral information about past medication and consider changes with help from [facility]. Continue BuSpar 10 mg p.o. twice daily for anxiety 2. Continue every 15 minute checks for safety. 3. Encourage individual, group and milieu therapy. 4. Get collateral information from facility. Concerns that this may reflect intermittent explosive disorder or the quick changes in position seen with borderline intellectual functioning versus intellectual disability mild. If so discharge quickly may be the most therapeutic position. Consider discharge on Sunday-patient states wishing to go to new half-way. Uncertain of this at this time. Involuntary Hold Information 96 Hour Hold: 96 Hour Involuntary Admission: No Attestations NPU Medical Necessity Statement*: Inpatient hospitalization is medically necessary and the clinically appropriate intervention at this time. We will monitor/initiate medications and make changes as indicated. Likely length of stay 2-3 days. Coding Level of Care Code Acute Code for [facility] Fwd Diagnoses Suicidal ideation R45.851 Hallucinations R44.3 Bipolar I disorder, most recent episode mixed, severe with psychotic features F31.64
[2023-05-27 14:00] VITALS: BP 124/88; PULSE 76; RESP 17; TEMP 36.8; O2SAT 100
[2023-05-27 20:15] VITALS: BP 117/74; PULSE 69; RESP 16; TEMP 37.1; O2SAT 98
[2023-05-27] MEDS: atorvastatin 40 mg Tablet PO (20:19)
[2023-05-27] MEDS: trazodone 100 mg Tablet PO (20:19)
[2023-05-27 23:29] VITALS: BP 134/86; PULSE 80; RESP 18; TEMP 36.9; O2SAT 99
[2023-05-27] MEDS: OLANZapine 5 mg ODT PO (23:31)
--- NOTE | 2023-05-27 23:35 | PC.NURSE ---
PT CAME TO DESK STATING SHE WASN'T FEELING RIGHT. VITAL SIGNS TAKEN AND RESULTED IN NORMAL LIMITS. PT STATES SHE HAS THE JITTERS , ZYPREXA ZYDIS 5MG GIVEN FOR ANXIETY.
[2023-05-28 06:00] VITALS: BP 122/84; PULSE 74; RESP 16; TEMP 36.4; O2SAT 98
[2023-05-28] MEDS: ziprasidone hcl 40 mg Capsule 80 MG PO (09:19)
[2023-05-28] MEDS: pantoprazole DR 40 mg Tablet PO (09:19)
[2023-05-28] MEDS: lithium carbonate 300 mg Capsule PO (09:20)
[2023-05-28] MEDS: BuSPIRONE 10 mg Tablet PO (09:20)
[2023-05-28] MEDS: propranolol 20 mg Tablet PO (09:20)
--- NOTE | 2023-05-28 11:21 | DCPLANNER ---
IMM was printed and given to pt and rights explained and copy placed in file.
[2023-05-28] MEDS: nicotine 2 mg Gum BUCCAL (11:39)
[2023-05-28 13:24] VITALS: BP 122/84; PULSE 74; RESP 16; TEMP 36.4; O2SAT 98
--- NOTE | 2023-05-28 13:25 | P.NPUDS_ITS ---
Diagnoses at Discharge Discharge Diagnosis (1) Suicidal ideation: Status: Resolved (2) Hallucinations: Status: Resolved (3) Bipolar I disorder, most recent episode mixed, severe with psychotic features: Status: Chronic Reason for Visit Reason for Visit: si Brief History: History of Present Illness Mariangel Flores is a 38 year old female who presented to the emergency department with the following report: Chief Complaint: Psychiatric Symptoms Stated Complaint: si Time Seen by Provider: 05/22/23 23:06 History of Present Illness: ? Patient presents by [facility] from [facility] which is a [facility] for suicidal ideation and attempting to cut her left wrist.? Patient has multiple superficial abrasions on her left wrist.? Patient does states she was intending to kill herself.? Patient does states she would be voluntarily to our NPU. The patient was admitted to the neuropsychiatric unit for definitive treatment of those issues. The patient presents today reporting that she came to the hospital because of suicidal thoughts, reporting she cut her wrist. She reports that she was upset and has a lot of stuff going on, and life is stressful. She reports that she has probably had more than thirty psychiatric hospitalizations. She reports outpatient services through a psychiatrist, who comes to the home, and prescribes her medication. She reports that she takes a PRN medication for anxiety and states that it is does not work. She reports that she lives at [facility], but reports that they kicked her out. She reports that she is planning to move to [place], but she is not sure where yet. She reports that she has tried multiple medications, including Abilify, and she denies Geodon or Depakote. The patient endorses vaping. She endorses alcohol use sometimes. She denies marijuana or any other illicit drug use. She denies drug rehabilitation or DUI. She reports that she has been at [facility] for four to five years. The patient reports that she works at the [employer], and has been there three to four years. She reports that she does not have a guardian.? An excerpt of her October 2022 hospitalization is included below for context. PSYCHIATRIC HISTORY: As above. SUBSTANCE ABUSE HISTORY: As above.? MEDICAL HISTORY: The patient endorses allergy to Invega injection. Per her 10/11/[address] [facility] inpatient psychiatric discharge summary: Discharge Diagnosis (1) Suicidal ideation: ? ? ? Status: Resolved (2) Hallucinations: ? ? ? Status: Resolved (3) Bipolar I disorder, most recent episode mixed, severe with psychotic features: ? ? ? Status: Chronic Reason for Visit Reason for Visit: ? SI? Brief History: History of Present Illness Mariangel Flores is a 37 year old female presented to the emergency department with the following report: Chief Complaint: Psychiatric Symptoms Stated Complaint: SI Time Seen by Provider: 10/05/22 22:04 Source: patient Mode of arrival: EMS Limitations: no limitations History of Present Illness: ? Patient is a 37-year-old female who presents to ED today from her residential facility of [place] for evaluation of suicidal ideations and auditory and visual hallucinations.? Patient tells me she has felt suicidal all day with no specific plan.? She does report a previous suicide attempt but will not elaborate on these details.? She states she is seeing dark shadows people moving in her home.? She states she is hearing voices telling her to grab knives from the kitchen and kill herself.? Patient states she has a psychiatric provider Remedios Dao that comes to their facility once a month for medication changes.? She thinks some of her psychiatric medications were recently changed. She reports she has a history of bipolar and schizophrenia. MD complaint: suicidal ideation and feels depressed Onset (ago): day(s) Duration: constant History of same: Yes Relieving factors: none Exacerbating factors: none Associated psychiatric symptoms: depression, suicidal ideation, auditory hallucinations and visual hallucinations Associated symptoms: Reports auditory hallucinations, visual hallucinations, depression and suicidal ideation; Deny homicidal ideation Treatments prior to arrival: none If self harm: admits thoughts of self harm She was admitted to the neuropsychiatric unit for definitive treatment of those issues.? She is a limited historian and seemed to have some mild cognitive disability.? Her time references were certainly off when talking about last hospitalization etc. she reports that she reported in the emergency department that she had been doing fairly well for the past few years since her hospitalization in August 2019.? An excerpt of that hospitalization evaluation is included below for context given her limited historical ability.? We also discussed getting some collateral information from staff and or family.? However she reports that as she has been feeling poorly she went to her outpatient psychiatrist/nurse practitioner and there were some dose changes made.? It appears that she was increased on her Seroquel from 400 mg to 800 mg.? We discussed the fact that we would like to bring that back a bit and not have such a large jump in her medication.? We also discussed the possibility of considering an alternative to Seroquel for hallucinations, psychosis, and behavioral dysregulation.? She reports that she has stayed at the residence she has for a while now and the nurse practitioner comes to the building so she does not miss her appointments.? She cannot identify any specific stressors that might be impacting her current functioning.? She denied any conflicts at her facility that might lead her to not want to be there.? She denied any significant changes since 2019.? She reports she is eating all right and sleeping okay. Per her 08/15/2019 [facility] inpatient psychiatric evaluation: Date of Service: Aug 15, 2019 Chief Complaint: Mom threw away my meds last month HPI: The patient presents today reporting that for some reason her mother got rid of all her medications because she said she was taking them wrong, and if she was not going to take them right, she might as well not have them. She reports that happened about a month ago and that because of that, she was not doing well and DFS has been involved. It was unclear exactly what is going on with those things, but her children are with her sister, so she is not that stressed about them, but she is stressed out about not being with them. She reports that her injection has been going well and that she had it earlier this month. We agreed that we would explore and see what the exact date was to make sure that she does not miss her next one coming up. She reports that she does not feel like she is having any specific symptoms, but she wants to restart the pills that her mom threw away. We discussed the fact that we would need to get a sense of what they were exactly because she does not remember the name even though I reviewed the medications received from the pharmacy. She has no knowledge of what the medication names even might be. She reports that we can talk to her mother which we agreed we would do, but we need to figure out what exactly is going on because if this is the way that they dealt with some difficulty with adherence, that is quite problematic. Additionally, the medications that are missing are not medications that we or the psychiatric team actually prescribe so that also adds another layer of difficulty, the psychiatric medication and the injection she is getting, but there are some medications for maybe seizures or we are not really sure why they are being prescribed, most likely Neurontin and Trileptal. We need to figure out why they are being prescribed and talk to her mom about the circumstances of the pills being dumped. We discussed her psychosocial situation which outside of the issue with DFS, she reports being unchanged from her last hospitalization, the information from which is included below. Per ED eval: HISTORY OF PRESENT ILLNESS Chief Complaint: ANXIOUS and DEPRESSED.? This started today.? (34 yo female presents to the ED with complaints of being really stressed out. She said she has felt like this for months. She said it just worsens. She said she has never had a plan to hurt herself but just wishes she wasn't here. She denies hallucinations or suicidal ideations. She said she is worried about her children (her sister has her children). They were placed there via DFS. She said she stresses about not being with them. She said she has had a runny nose. She said she has not been sleeping. She said she was placed on a sleeping pill the last time she was here but it is too expensive. She said the social media assistant has not contacted her to talk to the patient about her children.). ? The patient has experienced situational problems related to legal problems and custody issues.? She is non-compliant with medication.? Has not been sleeping.? She has had anxiety.? Has been depressed. ? The symptoms are described as moderate.? No injury is present. ? Similar symptoms previously. ? Recent medical care: The patient was seen recently by a health care provider. ? REVIEW OF SYSTEMS All other systems reviewed and are negative. ? PAST HISTORY See nurses notes.? ( PCP Sona Del Cid).? Anxiety.? Bipolar disorder.? Depression. Psychosis. ? Surgeries: Cholecystectomy. ? SOCIAL HISTORY Current every day heavy tobacco smoker (cigarette)- more than 2 packs per day.? No alcohol use or drug use. ? Hospital Course Hospital Course During the hospitalization, the patient had routine laboratory studies which were within normal limits except for a few outliers.? Additionally, there was a general medical evaluation which was also within normal limits and revealed no new acute processes.? At the time of discharge, lethality was denied and psychosis was resolving.? Mood and anxiety were well managed.? The patient endorsed a plan to avoid all drugs of abuse and follow up with the aftercare recommendations of the treatment team.? The patient was evaluated and deemed to be absent credible lethality and had achieved the maximum benefit from an inpatient hospitalization, and so was discharged.?Patient was started on BuSpar 10 mg twice a day to target anxiety. The patient was adamant about not returning to her previous mcc and was discharged to her mother's care with a plan for the patient to live in another mcc. Involuntary Hold Information 96 Hour Hold: 96 Hour Involuntary Admission: No Mental Status Exam MSE Comments: This is an obese, white female, in hospital scrubs, with improving grooming and eye contact. No abnormal movements, other than mild psychomotor retardation.. She was cooperative with exam and in no acute distress. Speech was normal rate and normal in volume and productivity. Mood described as good.. Affect appeared bright on discharge.. Thought process was linear, concrete but organized. Thought content: patient denied any suicidal or homicidal ideation, Patient denied any auditory or visual hallucinations. She did not appear to be responding to internal stimuli. Attention, concentration, and memory appeared intact, but none were formally tested. Intelligence appeared commensurate with mild cognitive impairment. She was alert and oriented times three. Insight and judgment are adequate. Impulse control appeared fair on discharge. Discharge Data Studies Completed and Pending: Laboratory Results WBC 9.33 10^3/uL (3.2 9-11.43) 05/22/23 23:18 RBC 4.82 10^6/uL (3.8 5-5.65) 05/22/23 23:18 Hgb 11.60 g/dL (11.27 -16.99) 05/22/23 23:18 Hct 38.5 % (36-47) 05/22/23 23:18 MCV 79.9 fl (85-98) L 05/22/23 23:18 MCH 24.1 pg (27-33) L 05/22/23 23:18 MCHC 30.1 g/dL (30-55) 05/22/23 23:18 RDW 17.1 % (12.1-15.1 ) H 05/22/23 23:18 Plt Count 413 10^3/cmm (157 -399) H 05/22/23 23:18 MPV 8.8 fL (7.4-10.4) 05/22/23 23:18 Neut % (Auto) 63.4 % 05/22/23 23:18 Lymph % (Auto) 28.3 % 05/22/23 23:18 [place] % (Auto) 6.9 % 05/22/23 23:18 Eos % (Auto) 0.6 % 05/22/23 23:18 Baso % (Auto) 0.6 % 05/22/23 23:18 Neut # (Auto) 5.91 10^3/uL (1.8 -7.7) 05/22/23 23:18 Lymph # (Auto) 2.6 10^3/uL (0.8- 4.8) 05/22/23 23:18 [place] # (Auto) 0.6 10^3/uL (0.2- 0.9) 05/22/23 23:18 Eos # (Auto) 0.1 10^3/uL (0.0- 0.8) 05/22/23 23:18 Baso # (Auto) 0.1 10^3/uL (0.0- 0.1) 05/22/23 23:18 Nucleated RBC % (a uto) 0 % 05/22/23 23:18 Nucleated RBCs # 0.0 /100WBC 05/22/23 23:18 Sodium 136 mmol/L (136-1 45) 05/22/23 23:18 Potassium 3.6 mmol/L (3.5-5 .1) 05/22/23 23:18 Chloride 103 mmol/L (98-10 7) 05/22/23 23:18 Carbon Dioxide 24 mmol/L (22-29) 05/22/23 23:18 Anion Gap 12.6 (5-19) 05/22/23 23:18 BUN 6 mg/dL (6-20) 05/22/23 23:18 Creatinine 0.9 mg/dL (0.5-0. 9) 05/22/23 23:18 GFR Calculation 70.1 mL/min (90-1 30) L 05/22/23 23:18 Glucose 105 mg/dL (65-115 ) 05/22/23 23:18 Calculated Osmolal ity 280 mOsm/kg (285- 295) L 05/22/23 23:18 Calcium 9.5 mg/dL (8.5-10 .5) 05/22/23 23:18 Total Bilirubin 0.4 mg/dL (0.15-1 .2) 05/22/23 23:18 AST 13 U/L (0-32) 05/22/23 23:18 ALT 16 U/L (0-33) 05/22/23 23:18 Alkaline Phosphata se 125 U/L (35-105) H 05/22/23 23:18 Total Protein 8.5 g/dL (6.6-8.7 ) 05/22/23 23:18 Albumin 4.7 g/dL (3.5-5.2 ) 05/22/23 23:18 Globulin 3.8 g/dL (1.3-4.6 ) 05/22/23 23:18 HCG, Qual Negative (Negati ve) 05/22/23 23:18 Urine Color Light yellow (Ye llow) 05/22/23 23:18 Urine Appearance Clear (CLEAR) 05/22/23 23:18 Urine pH 5 (5-7) 05/22/23 23:18 Ur Specific Gravit y 1.010 (1.005-1.0 30) 05/22/23 23:18 Urine Protein Neg (Negative) 05/22/23 23:18 Urine Glucose (UA) Norm (Normal) 05/22/23 23:18 Urine Ketones Negative (Negati ve) 05/22/23 23:18 Urine Blood Neg (Negative) 05/22/23 23:18 Urine Nitrate Negative (Negati ve) 05/22/23 23:18 Urine Bilirubin Neg (Negative) 05/22/23 23:18 Urine Urobilinogen Norm mg/dL (Negat giulia) 05/22/23 23:18 Ur Leukocyte Nisha ase Negative (Negati ve) 05/22/23 23:18 Salicylates < 0.3 mg/dL (3-10 ) L 05/22/23 23:18 Urine Opiates Scre en Negative ng/mL (N egative) 05/22/23 23:18 Acetaminophen < 5.0 ug/mL (10-3 0) L 05/22/23 23:18 Ur Barbiturates Sc reen Negative ng/mL (N egative) 05/22/23 23:18 Ur Phencyclidine S crn Negative ng/mL (N egative) 05/22/23 23:18 Ur Amphetamines Sc reen Negative ng/mL (N egative) 05/22/23 23:18 U Benzodiazepines Scrn Positive ng/mL (N egative) H 05/22/23 23:18 [place] 0.2 mmol/L (0.6-1 .2) L 05/22/23 23:18 Urine Cocaine Scre en Negative ng/mL (N egative) 05/22/23 23:18 U Marijuana (THC) Screen Negative ng/mL (N egative) 05/22/23 23:18 Ethyl Alcohol < 10 mg/dL (0-10) 05/22/23 23:18 Vitals: Last Vital Signs Temp 97.6 F 05/28/23 06:00 Pulse 74 05/28/23 06:00 Resp 16 05/28/23 06:00 BP 122/84 05/28/23 06:00 Pulse Ox 98 05/28/23 06:00 O2 Del Method Room Air 05/27/23 08:02 Discharge Plan Discharge Patient Disposition: Home Condition: Stable Prescriptions: New buspirone 10 mg Tablet 10 mg PO 899,2099 30 Days Qty: 60 1RF Continued trazodone 100 mg tablet 100 mg PO BEDTIME Qty: 30 6RF Rx Instructions: Take one tablet at bedtime lithium carbonate 300 mg capsule 300 mg PO .morning Qty: 30 3RF Rx Instructions: Take one capsule every morning at 6 am albuterol sulfate [Ventolin HFA] 90 mcg/actuation HFA aerosol inhaler 2 puff inhalation Q6H PRN (Reason: shortness of breath or wheezing) Qty: 8.5 0RF atorvastatin 10 mg tablet 10 mg PO BEDTIME Qty: 90 1RF Protonix 40 mg tablet,delayed release (DR/EC) 40 mg PO DAILY Qty: 90 2RF ziprasidone HCl [Geodon] 80 mg capsule 80 mg PO BID Qty: 60 3RF Rx Instructions: Take one capsule with 500 calorie meals propranolol 20 mg tablet 20 mg PO BID Discharge Orders: Discharge Order (Routine); Ordered 05/28/23 Ordered By: Guru Ross Referrals: Joycelyn Melendrez FNP [Primary Care Provider] - Rosario Miller PMHNP [Staff Physician] - 05/29/23 10:45 am (Follow up) Discharge Diet: Usual diet Discharge Activity: Resume usual activity Patient Instructions: Buspirone (By mouth), Suicide Prevention (DC), Opioid Safety Discharge Attestations NPU Time Spent in Discharge Care*: less than 30 min Specific Discharge Activities: Specific discharge activities: educating patient and documenting/other paperwork Coding Level of Care Code Acute Chg FW DC note Diagnoses Suicidal ideation R45.851 Hallucinations R44.3 Bipolar I disorder, most recent episode mixed, severe with psychotic features F31.64
== END 2023-05-28 13:46 | disposition home or self-care (01) | DRG 885 ==
LOC: ER 23:45 → NP 05-23 00:24
PROVIDERS: Admitting Provider Psychiatry & Neurology Psychiatry; Emergency Provider Emergency Medicine; PCP Nurse Practitioner; Visit Provider Psychiatry & Neurology Psychiatry
DX: F31.64 Bipolar disorder, current episode mixed, severe, with psychotic features (principal); R45.851 Suicidal ideations; F79 Unspecified intellectual disabilities; F63.9 Impulse disorder, unspecified; F41.9 Anxiety disorder, unspecified
CPT/HCPCS: 36415; 80053; 80178; 80306; 80307; 81003; 81025; 85025; 97150; 97165; 99285

== ENCOUNTER 2023-09-05 13:48 | Inpatient (IN) | payer MEDICARE, MEDICAID, SELFPAY ==
[2023-09-05 13:57] VITALS: BP 150/95; PULSE 78; RESP 18; TEMP 36.6; O2SAT 98; BMI 35.4
--- NOTE | 2023-09-05 14:03 | W.ED.PSYCHS ---
HPI - Psych General: Chief Complaint: Psychiatric Symptoms Stated Complaint: MHE Time Seen by Provider: 09/05/23 13:59 History of Present Illness: 38-year-old female with history of paranoid schizophrenia who presents the emergency room with psychiatric complaints. She says she had an episode yesterday where she walked out into traffic. Family believes she may be a danger to herself. She is having paranoid thoughts that people might be poisoning her. She says she does not think her meds are adjusted right and she needs to come back into the hospital again. Review of Systems Narrative: Constitutional symptoms: Negative except as documented in HPI. Skin symptoms: Negative except as documented in HPI. Eye symptoms: Negative except as documented in HPI. ENMT symptoms: Negative except as documented in HPI. Respiratory symptoms: Negative except as documented in HPI. Cardiovascular symptoms: Negative except as documented in HPI. Gastrointestinal symptoms: Negative except as documented in HPI. Genitourinary symptoms: Negative except as documented in HPI. Musculoskeletal symptoms: Negative except as documented in HPI. Neurologic symptoms: Negative except as documented in HPI. Psychiatric symptoms: Negative except as documented in HPI. Endocrine symptoms: Negative except as documented in HPI. CRITICAL ACCESS HOSPITAL ED PFS: Medical History Bipolar I disorder, most recent episode mixed, severe with psychotic features Conductive hearing loss in right ear GERD (gastroesophageal reflux disease) Mixed hyperlipidemia Nicotine dependence, cigarettes, uncomplicated Psychiatric care Vaping nicotine dependence, tobacco product Vitamin D deficiency Surgical History Hx of myringotomy Social History Smoking and tobacco/nicotine status: never used tobacco/nicotine Quit status (tobacco/nicotine): not considering quitting Second hand smoke exposure: No Physical Exam Narrative: EXAM NARRATIVE: General: Alert, no acute distress. Skin: Warm, dry. Head: Normocephalic, atraumatic. Neck: Supple, trachea midline. Eye: Extraocular movements are intact. Ears, nose, mouth and throat: mucosa moist. Cardiovascular: Regular, Normal peripheral perfusion. Respiratory: Lungs are clear to auscultation, respirations are non-labored, breath sounds are equal, Symmetrical chest wall expansion. Gastrointestinal: Soft, Nontender, Non distended, Normal bowel sounds. Musculoskeletal: Normal ROM, no deformity. Neurological: Alert and oriented to person, place, time, and situation, No focal neurological deficit observed. Psychiatric: Cooperative, patient is complaining of paranoid thoughts. Also having episodes of sporadic behavior Course Vital Signs: Vital signs: Vital Signs Temperature 98 F 09/05/23 13:57 Pulse Rate 78 09/05/23 13:57 Respiratory Rate 18 09/05/23 13:57 Blood Pressure 150/95 09/05/23 13:57 Pulse Oximetry 98 09/05/23 13:57 Oxygen Delivery Me thod Room Air 09/05/23 13:57 MDM - Psych Medical Decision Making Patient with reported depression and suicidal ideation. concerns for infection, alcohol intoxication, cardiac issues or other medical problems prior to psychiatric admission. - Workup: labwork, ekg ordered to evaluate the pathologies and to clear the patient medically prior to psychiatric admission Lab Data 09/05/23 14:48 09/05/23 14:48 Laboratory Results WBC 7.27 10^3/uL (3.29-11.43) 09/05/23 14:48 RBC 4.57 10^6/uL (3.85-5.65) 09/05/23 14:48 Hgb 11.00 g/dL (11.27-16.99) L 09/05/23 14:48 Hct 36.9 % (36-47) 09/05/23 14:48 MCV 80.7 fl (85-98) L 09/05/23 14:48 MCH 24.1 pg (27-33) L 09/05/23 14:48 MCHC 29.8 g/dL (30-55) L 09/05/23 14:48 RDW 16.6 % (12.1-15.1) H 09/05/23 14:48 Plt Count 358 10^3/cmm (157-399) 09/05/23 14:48 MPV 8.6 fL (7.4-10.4) 09/05/23 14:48 Neut % (Auto) 63.7 % 09/05/23 14:48 Lymph % (Auto) 26.8 % 09/05/23 14:48 [place] % (Auto) 7.7 % 09/05/23 14:48 Eos % (Auto) 0.4 % 09/05/23 14:48 Baso % (Auto) 0.8 % 09/05/23 14:48 Neut # (Auto) 4.63 10^3/uL (1.8-7.7) 09/05/23 14:48 Lymph # (Auto) 2.0 10^3/uL (0.8-4.8) 09/05/23 14:48 [place] # (Auto) 0.6 10^3/uL (0.2-0.9) 09/05/23 14:48 Eos # (Auto) 0.0 10^3/uL (0.0-0.8) 09/05/23 14:48 Baso # (Auto) 0.1 10^3/uL (0.0-0.1) 09/05/23 14:48 Nucleated RBC % (auto) 0 % 09/05/23 14:48 Nucleated RBCs # 0.0 /100WBC 09/05/23 14:48 Sodium 140 mmol/L (136-145) 09/05/23 14:48 Potassium 3.4 mmol/L (3.5-5.1) L 09/05/23 14:48 Chloride 106 mmol/L (98-107) 09/05/23 14:48 Carbon Dioxide 24 mmol/L (22-29) 09/05/23 14:48 Anion Gap 13.4 (5-19) 09/05/23 14:48 BUN 6 mg/dL (6-20) 09/05/23 14:48 Creatinine 0.6 mg/dL (0.5-0.9) 09/05/23 14:48 GFR Calculation 111.9 mL/min (90-130) 09/05/23 14:48 Glucose 103 mg/dL (65-115) 09/05/23 14:48 Calculated Osmolality 288 mOsm/kg (285-295) 09/05/23 14:48 Calcium 9.1 mg/dL (8.5-10.5) 09/05/23 14:48 Total Bilirubin 0.3 mg/dL (0.15-1.2) 09/05/23 14:48 AST 52 U/L (0-32) H 09/05/23 14:48 ALT 57 U/L (0-33) H 09/05/23 14:48 Alkaline Phosphatase 131 U/L (35-105) H 09/05/23 14:48 Total Protein 7.7 g/dL (6.6-8.7) 09/05/23 14:48 Albumin 4.1 g/dL (3.5-5.2) 09/05/23 14:48 Globulin 3.6 g/dL (1.3-4.6) 09/05/23 14:48 HCG, Qual Negative (Negative) 09/05/23 14:10 Urine Color Yellow (Yellow) 09/05/23 14:10 Urine Appearance Sl hazy (CLEAR) A 09/05/23 14:10 Urine pH 6 (5-7) 09/05/23 14:10 Ur Specific [place] 1.005 (1.005-1.030) 09/05/23 14:10 Urine Protein Neg (Negative) 09/05/23 14:10 Urine Glucose (UA) Norm (Normal) 09/05/23 14:10 Urine Ketones Negative (Negative) 09/05/23 14:10 Urine Blood 3+ (Negative) H 09/05/23 14:10 Urine Nitrate Negative (Negative) 09/05/23 14:10 Urine Bilirubin Neg (Negative) 09/05/23 14:10 Urine Urobilinogen Norm mg/dL (Negative) 09/05/23 14:10 Ur Leukocyte Esterase Negative (Negative) 09/05/23 14:10 Urine RBC 80-100 /hpf (0-2) H 09/05/23 14:10 Urine WBC 5-10 /hpf (0-5) H 09/05/23 14:10 Ur Squamous Epith Cells 5-10 /hpf (0-5) H 09/05/23 14:10 Amorphous Sediment Not Reportable 09/05/23 14:10 Urine Bacteria Trace /hpf (NONE) 09/05/23 14:10 Urine Mucus None /hpf 09/05/23 14:10 Salicylates 0.4 mg/dL (3-10) L 09/05/23 14:48 Urine Opiates Screen Negative ng/mL (Negative) 09/05/23 14:10 Acetaminophen < 5.0 ug/mL (10-30) L 09/05/23 14:48 Ur Barbiturates Screen Negative ng/mL (Negative) 09/05/23 14:10 Ur Phencyclidine Scrn Negative ng/mL (Negative) 09/05/23 14:10 Ur Amphetamines Screen Negative ng/mL (Negative) 09/05/23 14:10 U Benzodiazepines Scrn Negative ng/mL (Negative) 09/05/23 14:10 Urine Cocaine Screen Negative ng/mL (Negative) 09/05/23 14:10 U Marijuana (THC) Screen Negative ng/mL (Negative) 09/05/23 14:10 No radiology studies performed this visit EKG Data EKG 1: Other EKG comments: EKG: Time 1441 PM rate 78 normal sinus rhythm, No ST-T changes, no ectopy, normal [place] & QRS intervals, This was reviewed and interpreted by myself the ER physician. Other Data - Medically cleared. - EKG shows no ischemic changes. - Blood alcohol level is negative, as well as salicylate and Tylenol. - Drug screen is negative - No signs of infection, urinalysis clear and white count is not elevated - No anemia. - BUN and creatinine are within normal limits. -Admission to psychiatric facility for continued evaluation and treatment. Dr. Daryl Hernandez excepting - All imaging and lab work were reviewed and interpreted personally by myself, the ER physician - Evaluation and treatment of this problem were appropriate in the emergency setting Discharge Plan Discharge Patient Disposition: Admitted As Inpatient Clinical Impression: Acute psychosis Condition: Stable Prescriptions: No Action propranolol 20 mg tablet 20 mg PO BEDTIME Qty: 30 3RF trazodone 100 mg tablet 100 mg PO BEDTIME Qty: 30 6RF buspirone 10 mg tablet 10 mg PO 0900,2100 30 Days Qty: 60 3RF Rx Instructions: Take one tablet at 9 am and 9 pm Protonix 40 mg tablet,delayed release (DR/EC) 40 mg PO DAILY Qty: 90 2RF atorvastatin 10 mg tablet 10 mg PO BEDTIME Qty: 90 1RF Zyprexa 10 mg tablet 10 mg PO QPM Rx Instructions: Take one tablet at 6 pm lithium carbonate 300 mg capsule 300 mg PO QAM Rx Instructions: at 6 am Referrals: Joycelyn Melendrez FNP [Primary Care Provider] - Coding Level of Care Code ED [employer] Professional for [facility] Millie
--- NOTE | 2023-09-05 14:09 | ECG_ITS ---
[facility] Test Date: 2023-09-05 Pat Name: Mariangel Flores Department: Room: Gender: Female Ratings Analyst: : 1985 Requested By: Katheryn Servin Order Number: [id number] Hurd MD: Devonte Farr M.D. Measurements Intervals [place] Rate: 78 P: 32 AK: 143 QRS: 67 QRSD: 101 T: 48 QT: 388 QTc: 442 Interpretive Statements SINUS RHYTHM MINIMAL ST DEPRESSION [0.025+ mV ST DEPRESSION] Compared to ECG 12/29/2020 00:35:16 ST (T wave) deviation now present T-wave abnormality no longer present Electronically Signed On 09-05-2023 19:01:16 [employer] TRAFF[employer] SUPERVISOR by Devonte Farr M.D. [id number]
--- NOTE | 2023-09-05 14:17 | PC.NURSE ---
Pt requesting to be inpatient for psychiatric help.
[2023-09-05 14:44] LABS: Amphetamines Screen Urine Negative (Negative); Barbiturates Screen Urine Negative (Negative); Benzodiazepines Screen Urine Negative (Negative); Cocaine Screen Urine Negative (Negative); Opiate Screen Urine Negative (Negative); PCP Screen Urine Negative (Negative); THC Screen Urine Negative (Negative)
[2023-09-05 14:48] LABS: Add Urine Microscopic? YES; Bilirubin Urine Neg (Negative); Blood Urine 3+ (Negative); Glucose Urine UA Norm (Normal); Ketones Urine Negative (Negative); Leukocyte Esterase Urine Negative (Negative); Nitrate Urine Negative (Negative); Protein Urine Neg (Negative); Specific Gravity, Urine 1.005 (1.005-1.030); Urine Appearance SL Hazy (CLEAR); Urine Color Yellow (Yellow); Urobilinogen Urine Norm (Negative); pH Urine 6 (5-7)
[2023-09-05 14:51] LABS: Add Urine Culture? Yes; Bacteria Urine TRACE /hpf; RBC Urine 80-100 /hpf (0-2)
[2023-09-05 14:55] LABS: Basophils # 0.1 10^3/uL (0.0-0.1); Basophils % 0.8 %; Eosinophils % 0.4 %; Hematocrit 36.9 % (36-47); Lymphocytes % 26.8 %; Mean Corpuscular HGB Conc 29.8 g/dL (30-55); Mean Corpuscular Hemoglobin 24.1 pg (27-33); Mean Corpuscular Volume 80.7 fl (85-98); Mean Platelet Volume 8.6 fL (7.4-10.4); Monocytes # 0.6 10^3/uL (0.2-0.9); Monocytes % 7.7 %; Neutrophils # 4.63 10^3/uL (1.8-7.7); Neutrophils % 63.7 %; Nucleated Red Blood Cells % 0 %; Platelet Count 358 10^3/cmm (157-399); Red Blood Count 4.57 10^6/uL (3.85-5.65); Red Cell Distribution Width 16.6 % (12.1-15.1); White Blood Count 7.27 10^3/uL (3.29-11.43)
[2023-09-05 15:22] LABS: Acetaminophen < 5.0 ug/mL (10-30); Alanine Aminotransferase 57 U/L (0-33); Albumin Level 4.1 g/dL (3.5-5.2); Alkaline Phosphatase 131 U/L (35-105); Anion Gap 13.4 (5-19); Aspartate Amino Transferase 52 U/L (0-32); Blood Urea Nitrogen 6 mg/dL (6-20); Calcium 9.1 mg/dL (8.5-10.5); Carbon Dioxide 24 mmol/L (22-29); Chloride 106 mmol/L (98-107); Globulin 3.6 g/dL (1.3-4.6); Glomerular Filtration Rate 111.9 mL/min (90-130); Glucose 103 mg/dL (65-115); Osmolality Calculated 288 mOsm/kg (285-295); Potassium 3.4 mmol/L (3.5-5.1); Salicylate 0.4 mg/dL (3-10); Sodium 140 mmol/L (136-145); Total Bilirubin 0.3 mg/dL (0.15-1.2); Total Protein 7.7 g/dL (6.6-8.7)
[2023-09-05 15:34] LABS: HCG Qualitative Urine. Negative (Negative)
[2023-09-05 18:00] VITALS: PULSE 78; RESP 16; O2SAT 99
[2023-09-05 19:58] VITALS: BP 136/91; PULSE 76; RESP 18; TEMP 36.7; O2SAT 99
--- NOTE | 2023-09-05 20:54 | PC.NURSE ---
ADMISSION NOTE PT ARRIVED FROM THE RD AT 1940 VOLUNTARILY. PT STATES HER MANIC EPISODE STARTED YESTERDAY. PT TOOK OFF [place] [address] AND FAMILY PICKED HER UP. PT DOES NOT BELIEVE MEDICATIONS ARE WORKING AND WOULD LIKE ADJUSTMENT. PT HAS RAPID OBSESSIVE SPEECH AND CONTINUOUSLY TALKS ABOUT THE SAME TOPIC. PT ENDORSED TO ED NURSE THAT SHE HAD SI THOUGHTS YESTERDAY BUT NONE CURRENTLY. PT LIVES WITH PARENTS AND WOULD JUST LIKE TO GET ALONG WITH THEM. PTS SISTER HAS CUSTODY OF HER 3 CHILDREN.
[2023-09-05] MEDS: atorvastatin 40 mg Tablet 20 MG PO (21:08)
[2023-09-05] MEDS: propranolol 20 mg Tablet PO (21:08)
[2023-09-05] MEDS: BuSPIRONE 10 mg Tablet PO (21:08)
[2023-09-05] MEDS: trazodone 100 mg Tablet PO (21:08)
[2023-09-06 06:00] VITALS: BP 117/69; PULSE 76; RESP 20; TEMP 36.6; O2SAT 98
[2023-09-06] MEDS: lithium carbonate 300 mg Capsule PO (06:33)
[2023-09-06] MEDS: BuSPIRONE 10 mg Tablet PO ×2 (09:47→19:59)
[2023-09-06] MEDS: nicotine 2 mg Gum BUCCAL ×3 (09:47→18:29)
--- NOTE | 2023-09-06 10:52 | P.NPUHP_ITS ---
Providers/Chief Complaint 2 Admitting Physician: Daryl Hernandez MD Primary Care Provider: Joycelyn Melendrez APN Chief Complaint: MHE HPI NPU History of Present Illness Mariangel Flores is a 38 year old female who presented to the emergency department with the following report: Chief Complaint: Psychiatric Symptoms Stated Complaint: MHE Time Seen by Provider: 09/05/23 13:59 History of Present Illness: 38-year-old female with history of paranoid schizophrenia who presents the emergency room with psychiatric complaints. She says she had an episode yesterday where she walked out into traffic. Family believes she may be a danger to herself. She is having paranoid thoughts that people might be poisoning her. She says she does not think her meds are adjusted right and she needs to come back into the hospital again. She was admitted to the neuropsychiatric unit for definitive treatment of those issues. She presents today as she has so many times reporting that her medications are ineffective. She has been consistent with her treatment at [facility] with her last appointment 08/24/2023. An appointment she identified that her Geodon was ineffective and Geodon was discontinued and replaced with 10 mg of Zyprexa at night. She reports inconsistency with the Zyprexa and even if she was consistent she was only giving it a 12-day timeframe to see if it was effective. The Geodon had been an 80 mg p.o. twice daily with meals and she reported having difficulty getting in the 500 gayatri per meal to take her Geodon. She reports as was reported in that document that she started having conflicts at home as her paranoia increased she started feeling like she could not trust her family. She reportedly threw some of her mom's medications away because she was paranoid that mom had been using her meds to poison patient. We discussed that her departure to her mother was treated by paranoiluma at her fdc where she did not feel safe there. We reviewed the different medications she has attempted. She reports that Invega and Abilify both create significant problems including a report of an allergy to Invega. Otherwise she said yes to every single other medication for psychosis on the market. Her response about Vraylar and Latuda did not seem full throated. We discussed reaching out to her outpatient provider and trying to come to some conclusion about where to go from here. We also discussed the fact of the right answer may be increasing the Zyprexa. We also discussed the possibility of Clozaril. An excerpt of her discharge summary from her last visit and May of last year is included below for history and context given she denies substantive changes since then other than the Zyprexa for Geodon. Per her 05/28/2023 [facility] inpatient psychiatric discharge summary: Discharge Diagnosis (1) Suicidal ideation: Status: Resolved (2) Hallucinations: Status: Resolved (3) Bipolar I disorder, most recent episode mixed, severe with psychotic features: Status: Chronic Reason for Visit Reason for Visit: si Brief History: History of Present Illness Mariangel Flores is a 38 year old female who presented to the emergency department with the following report: Chief Complaint: Psychiatric Symptoms Stated Complaint: si Time Seen by Provider: 05/22/23 23:06 History of Present Illness: Patient presents by [facility] from [facility] which is a [facility]dc and [facility] for suicidal ideation and attempting to cut her left wrist. Patient has multiple superficial abrasions on her left wrist. Patient does states she was intending to kill herself. Patient does states she would be voluntarily to our NPU. The patient was admitted to the neuropsychiatric unit for definitive treatment of those issues. The patient presents today reporting that she came to the hospital because of suicidal thoughts, reporting she cut her wrist. She reports that she was upset and has a lot of stuff going on, and life is stressful. She reports that she has probably had more than thirty psychiatric hospitalizations. She reports outpatient services through a psychiatrist, who comes to the home, and prescribes her medication. She reports that she takes a PRN medication for anxiety and states that it is does not work. She reports that she lives at [facility], but reports that they kicked her out. She reports that she is planning to move to [place], but she is not sure where yet. She reports that she has tried multiple medications, including Abilify, and she denies Geodon or Depakote. The patient endorses vaping. She endorses alcohol use sometimes. She denies marijuana or any other illicit drug use. She denies drug rehabilitation or DUI. She reports that she has been at [facility][1] for four to five years. The patient reports that she works at the [employer], and has been there three to four years. She reports that she does not have a guardian. An excerpt of her October 2022 hospitalization is included below for context. PSYCHIATRIC HISTORY: As above. SUBSTANCE ABUSE HISTORY: As above. MEDICAL HISTORY: The patient endorses allergy to Invega injection. Per her 10/11/2022 [facility] inpatient psychiatric discharge summary: Discharge Diagnosis (1) Suicidal ideation: Status: Resolved (2) Hallucinations: Status: Resolved (3) Bipolar I disorder, most recent episode mixed, severe with psychotic features: Status: Chronic Reason for Visit Reason for Visit: SI Brief History: History of Present Illness Mariangel Flores is a 37 year old female presented to the emergency department with the following report: Chief Complaint: Psychiatric Symptoms Stated Complaint: SI Time Seen by Provider: 10/05/22 22:04 Source: patient Mode of arrival: EMS Limitations: no limitations History of Present Illness: Patient is a 37-year-old female who presents to ED today from her residential facility of [place] for evaluation of suicidal ideations and auditory and visual hallucinations. Patient tells me she has felt suicidal all day with no specific plan. She does report a previous suicide attempt but will not elaborate on these details. She states she is seeing dark shadows people moving in her home. She states she is hearing voices telling her to grab knives from the kitchen and kill herself. Patient states she has a psychiatric provider Remedios Dao that comes to their facility once a month for medication changes. She thinks some of her psychiatric medications were recently changed. She reports she has a history of bipolar and schizophrenia. MD complaint: suicidal ideation and feels depressed Onset (ago): day(s) Duration: constant History of same: Yes Relieving factors: none Exacerbating factors: none Associated psychiatric symptoms: depression, suicidal ideation, auditory hallucinations and visual hallucinations Associated symptoms: Reports auditory hallucinations, visual hallucinations, depression and suicidal ideation; Deny homicidal ideation Treatments prior to arrival: none If self harm: admits thoughts of self harm She was admitted to the neuropsychiatric unit for definitive treatment of those issues. 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 Her time references were certainly off when talking about last hospitalization etc. she reports that she reported in the emergency department that she had been doing fairly well for the past few years since her hospitalization in August 2019. An excerpt of that hospitalization evaluation is included below for context given her limited historical ability. We also discussed getting some collateral information from staff and or family. However she reports that as she has been feeling poorly she went to her outpatient psychiatrist/nurse practitioner and there were some dose changes made. It appears that she was increased on her Seroquel from 400 mg to 800 mg. We discussed the fact that we would like to bring that back a bit and not have such a large jump in her medication. We also discussed the possibility of considering an alternative to Seroquel for hallucinations, psychosis, and behavioral dysregulation. She reports that she has stayed at the residence she has for a while now and the nurse practitioner comes to the building so she does not miss her appointments. She cannot identify any specific stressors that might be impacting her current functioning. She denied any conflicts at her facility that might lead her to not want to be there. She denied any significant changes since 2019. She reports she is eating all right and sleeping okay. Per her 08/15/2019 [facility] inpatient psychiatric evaluation: Date of Service: Aug 15, 2019 Chief Complaint: Mom threw away my meds last month HPI: The patient presents today reporting that for some reason her mother got rid of all her medications because she said she was taking them wrong, and if she was not going to take them right, she might as well not have them. She reports that happened about a month ago and that because of that, she was not doing well and DFS has been involved. It was unclear exactly what is going on with those things, but her children are with her sister, so she is not that stressed about them, but she is stressed out about not being with them. She reports that her injection has been going well and that she had it earlier this month. We agreed that we would explore and see what the exact date was to make sure that she does not miss her next one coming up. She reports that she does not feel like she is having any specific symptoms, but she wants to restart the pills that her mom threw away. We discussed the fact that we would need to get a sense of what they were exactly because she does not remember the name even though I reviewed the medications received from the pharmacy. She has no knowledge of what the medication names even might be. She reports that we can talk to her mother which we agreed we would do, but we need to figure out what exactly is going on because if this is the way that they dealt with some difficulty with adherence, that is quite problematic. Additionally, the medications that are missing are not medications that we or the psychiatric team actually prescribe so that also adds another layer of difficulty, the psychiatric medication and the injection she is getting, but there are some medications for maybe seizures or we are not really sure why they are being prescribed, most likely Neurontin and Trileptal. We need to figure out why they are being prescribed and talk to her mom about the circumstances of the pills being dumped. We discussed her psychosocial situation which outside of the issue with DFS, she reports being unchanged from her last hospitalization, the information from which is included below. Per ED eval: HISTORY OF PRESENT ILLNESS Chief Complaint: ANXIOUS and DEPRESSED. This started today. (34 yo female presents to the ED with complaints of being really stressed out. She said she has felt like this for months. She said it just worsens. She said she has never had a plan to hurt herself but just wishes she wasn't here. She denies hallucinations or suicidal ideations. She said she is worried about her children (her sister has her children). They were placed there via DFS. She said she stresses about not being with them. She said she has had a runny nose. She said she has not been sleeping. She said she was placed on a sleeping pill the last time she was here but it is too expensive. She said the long term care social worker has not contacted her to talk to the patient about her children.). The patient has experienced situational problems related to legal problems and custody issues. She is non-compliant with medication. Has not been sleeping. She has had anxiety. Has been depressed. The symptoms are described as moderate. No injury is present. Similar symptoms previously. Recent medical care: The patient was seen recently by a health care provider. REVIEW OF SYSTEMS All other systems reviewed and are negative. PAST HISTORY See nurses notes. ( PCP - Nehemias). Anxiety. Bipolar disorder. Depression. Psychosis. Surgeries: Cholecystectomy. SOCIAL HISTORY Current every day heavy tobacco smoker (cigarette)- more than 2 packs per day. No alcohol use or drug use. Hospital Course During the hospitalization, the patient had routine laboratory studies which were within normal limits except for a few outliers. Additionally, there was a general medical evaluation which was also within normal limits and revealed no new acute processes. At the time of discharge, lethality was denied and psychosis was resolving. Mood and anxiety were well managed. The patient endorsed a plan to avoid all drugs of abuse and follow up with the aftercare recommendations of the treatment team. The patient was evaluated and deemed to be absent credible lethality and had achieved the maximum benefit from an inpatient hospitalization, and so was discharged. Patient was started on BuSpar 10 mg twice a day to target anxiety. The patient was adamant about not returning to her previous fdc and was discharged to her mother's care with a plan for the patient to live in another fdc. Meds NPU Home Medications Medication Instructions Recorded Confirmed Last Taken Type pantoprazole 40 mg tablet,delayed 40 mg PO DAILY #90 tabs 01/15/23 09/05/23 09/05/23 Rx release (Protonix) atorvastatin 10 mg tablet 10 mg PO BEDTIME #90 tabs 06/15/23 09/05/23 09/04/23 Rx buspirone 10 mg tablet 10 mg PO 0900,2100 30 days #60 tabs 08/24/23 09/05/23 09/05/23 Rx propranolol 20 mg tablet 20 mg PO BEDTIME #30 tabs 08/24/23 09/05/23 09/04/23 Rx trazodone 100 mg tablet 100 mg PO BEDTIME #30 tabs 08/24/23 09/05/23 09/04/23 Rx lithium carbonate 300 mg capsule 300 mg PO QAM 09/05/23 09/05/23 09/05/23 History olanzapine 10 mg tablet (Zyprexa) 10 mg PO QPM 09/05/23 09/05/23 09/04/23 History Allergies Allergy/AdvReac Type Severity Reaction Status Date / Time paliperidone [From Invega] AdvReac Severe chest Verified 08/24/23 13:36 pain, facial edema, dyspnea PFSH NPU 2 PFSH: Medical History Bipolar I disorder, most recent episode mixed, severe with psychotic features Conductive hearing loss in right ear GERD (gastroesophageal reflux disease) Mixed hyperlipidemia Nicotine dependence, cigarettes, uncomplicated Psychiatric care Vaping nicotine dependence, tobacco product Vitamin D deficiency Surgical History Hx of myringotomy Social History Smoking and tobacco/nicotine status: never used tobacco/nicotine Quit status (tobacco/nicotine): not considering quitting Second hand smoke exposure: No Mental Status Exam 2 MSE Comments: This is an obese, white female, in hospital scrubs, with limited grooming and eye contact. No abnormal movements, except for mild psychomotor retardation. Mostly cooperative with exam in mild distress. Speech was normal rate and slightly decreased volume. Mood described as frustrated; affect odd. Thought process, organized. Thought content: patient denied any suicidal or homicidal ideation, patient endorsed paranoia, patient denied any auditory or visual hallucinations. Attention and concentration appeared intact and memory is somewhat reliable, but none were formally tested. Alert and oriented times three. Insight and judgment are limited. Impulse control is limited. Vitals/I&O/Wt Last Vital Signs Temp 97.8 F 09/06/23 06:00 Pulse 76 09/06/23 06:00 Resp 20 H 09/06/23 06:00 BP 117/69 09/06/23 06:00 Pulse Ox 98 09/06/23 06:00 O2 Del Method Room Air 09/06/23 06:00 Weight last 48 hrs Weight 108.862 kg Data NPU 09/05/23 14:48 09/05/23 14:48 Micro: Microbiology 09/05/23 14:10 Urine Culture - Preliminary Urine,Clean Catch Microbiology 09/05/23 14:10 Urine,Clean Catch Urine Culture - Preliminary A&P Assessment and plan (1) Suicidal ideation: (2) Hallucinations: (3) Bipolar I disorder, most recent episode mixed, severe with psychotic features: Plan A 38-year-old white female with a long history of mental health challenges and likely intellectual disability who presents again to the neuropsychiatric unit with increases and suicidal thoughts and psychiatric symptoms reporting she is not sure that her medications work. 1. Continue current medication. We will get some collateral information about past medication and consider changes with help from [facility] provider given she has been on essentially every antipsychotic and continues to have reports of ineffectiveness with most recent change in the past 2 weeks.. 2. Continue every 15 minute checks for safety. 3. Encourage individual, group and milieu therapy. Involuntary Hold Information 2 96 Hour Hold: 96 Hour Involuntary Admission: No Attestations NPU 2 Medical Necessity Statement*: Inpatient hospitalization is medically necessary and the clinically appropriate intervention at this time. We will monitor/initiate medications and make changes as indicated. She will be in the hospital for over 2 midnights. Likely length of stay 6 to 8 days. Coding Level of Care Code Acute Code for Chg Fwd Diagnoses Suicidal ideation R45.851 Hallucinations R44.3 Bipolar I disorder, most recent episode mixed, severe with psychotic features F31.64
[2023-09-06 14:00] VITALS: BP 150/95; PULSE 80; RESP 16; TEMP 37.1; O2SAT 96
[2023-09-06] MEDS: OLANZapine 10 mg TABLET PO (18:21)
[2023-09-06] MEDS: trazodone 100 mg Tablet PO (19:59)
[2023-09-06] MEDS: atorvastatin 40 mg Tablet 20 MG PO (19:59)
[2023-09-06] MEDS: propranolol 20 mg Tablet PO (19:59)
[2023-09-06 20:24] VITALS: BP 129/78; PULSE 81; RESP 16; TEMP 36.8; O2SAT 98
[2023-09-07 06:00] VITALS: BP 130/74; PULSE 63; RESP 15; TEMP 36.5; O2SAT 99
[2023-09-07] MEDS: lithium carbonate 300 mg Capsule PO (06:20)
--- NOTE | 2023-09-07 07:05 | W.PM.NPUPNS ---
Subjective NPU Subjective: Patient presented today reporting that she is doing okay. She has had a significant struggle reported today as she is on her menses and is having significant difficulties controlling the bleeding. Otherwise she denies any problems with the medications. We discussed the risks, benefits and alternatives of increasing the Zyprexa to 15 mg p.o. nightly and she understood and agreed to proceed as is documented in this note. We discussed the plan to get her up to 20 mg in divided doses daily. She denies any side effects to the medications. Mental Status Exam MSE Comments: This is an obese, white female, in hospital scrubs, with limited grooming and eye contact. No abnormal movements, except for mild psychomotor retardation. Mostly cooperative with exam in mild distress. Speech was normal rate and slightly decreased volume. Mood described as frustrated; affect odd. Thought process, organized. Thought content: patient denied any suicidal or homicidal ideation, patient endorsed paranoia, patient denied any auditory or visual hallucinations. Attention and concentration appeared intact and memory is somewhat reliable, but none were formally tested. Alert and oriented times three. Insight and judgment are limited. Impulse control is limited. Vitals/I&O/Wt Last Vital Signs Temp 97.7 F 09/07/23 06:00 Pulse 63 09/07/23 06:00 Resp 15 09/07/23 06:00 BP 130/74 09/07/23 06:00 Pulse Ox 99 09/07/23 06:00 O2 Del Method Room Air 09/07/23 06:00 Weight last 48 hrs Weight 108.862 kg Data NPU 09/05/23 14:48 09/05/23 14:48 Micro: Microbiology 09/05/23 14:10 Urine Culture - Preliminary Urine,Clean Catch Microbiology 09/05/23 14:10 Urine,Clean Catch Urine Culture - Preliminary A&P Assessment and plan (1) Suicidal ideation: (2) Hallucinations: (3) Bipolar I disorder, most recent episode mixed, severe with psychotic features: Plan A 38-year-old white female with a long history of mental health challenges and likely intellectual disability who presents again to the neuropsychiatric unit with increases and suicidal thoughts and psychiatric symptoms reporting she is not sure that her medications work. 1. Continue current medication. We will get some collateral information about past medication and consider changes with help from [facility] provider given she has been on essentially every antipsychotic and continues to have reports of ineffectiveness with most recent change in the past 2 weeks. Increase Zyprexa to 15 mg p.o. nightly 2. Continue every 15 minute checks for safety. 3. Encourage individual, group and milieu therapy. Involuntary Hold Information 96 Hour Hold: 96 Hour Involuntary Admission: No Attestations NPU Medical Necessity Statement*: Inpatient hospitalization is medically necessary and the clinically appropriate intervention at this time. We will monitor/initiate medications and make changes as indicated. Likely length of stay 5-7 days. Coding Level of Care Code Acute Code for Chg Fwd Diagnoses Suicidal ideation R45.851 Hallucinations R44.3 Bipolar I disorder, most recent episode mixed, severe with psychotic features F31.64
[2023-09-07] MEDS: pantoprazole DR 40 mg Tablet PO (10:03)
[2023-09-07] MEDS: BuSPIRONE 10 mg Tablet PO ×2 (10:03→20:07)
[2023-09-07 14:00] VITALS: BP 114/69; PULSE 83; RESP 14; TEMP 36.3; O2SAT 98
[2023-09-07] MEDS: nicotine 2 mg Gum BUCCAL (17:42)
[2023-09-07] MEDS: OLANZapine 10 mg ODT 15 MG PO (20:06)
[2023-09-07] MEDS: trazodone 100 mg Tablet PO (20:07)
[2023-09-07] MEDS: propranolol 20 mg Tablet PO (20:07)
[2023-09-07] MEDS: atorvastatin 40 mg Tablet 20 MG PO (20:07)
[2023-09-07 20:11] VITALS: BP 143/87; PULSE 82; RESP 16; O2SAT 97
[2023-09-08 06:00] VITALS: BP 132/78; PULSE 64; RESP 17; O2SAT 99
[2023-09-08] MEDS: lithium carbonate 300 mg Capsule PO (06:18)
--- NOTE | 2023-09-08 07:06 | P.NPUPN_ITS ---
Subjective NPU 2 Subjective: Patient presented today reporting that she is doing possibly a little better. She expressed significant frustration about the nature of her menses right now having reports of having to switch out of her close at least 4-5 times during the day and changing sheets multiple times. She queried whether she would be going home soon and we talked about making sure that she is having improvement with the changes in medication and including her family and determining whether her improvement is significant enough for them to make it through this interim time while she is awaiting her bed in an [facility]. She denied any side effects or issues with the increase in the Zyprexa. We discussed the likelihood/risks, benefits and alternatives of adding 5 mg of Zyprexa in the morning and she understood and agreed to proceed as is documented in this note. Mental Status Exam 2 MSE Comments: This is an obese, white female, in hospital scrubs, with limited grooming and eye contact. No abnormal movements, except for mild psychomotor retardation. Mostly cooperative with exam in mild distress. Speech was normal rate and slightly decreased volume. Mood described as okay, maybe a little better; affect odd. Thought process, organized. Thought content: patient denied any suicidal or homicidal ideation, patient endorsed paranoia, patient denied any auditory or visual hallucinations. Attention and concentration appeared intact and memory is somewhat reliable, but none were formally tested. Alert and oriented times three. Insight and judgment are limited. Impulse control is limited. Vitals/I&O/Wt Last Vital Signs Temp 97.4 F L 09/07/23 14:00 Pulse 64 09/08/23 06:00 Resp 17 09/08/23 06:00 BP 132/78 09/08/23 06:00 Pulse Ox 99 09/08/23 06:00 O2 Del Method Room Air 09/08/23 06:00 Data NPU 09/05/23 14:48 09/05/23 14:48 Micro: Microbiology 09/05/23 14:10 Urine Culture - Final Urine,Clean Catch Microbiology 09/05/23 14:10 Urine,Clean Catch Urine Culture - Final A&P Assessment and plan (1) Suicidal ideation: (2) Hallucinations: (3) Bipolar I disorder, most recent episode mixed, severe with psychotic features: Plan A 38-year-old white female with a long history of mental health challenges and likely intellectual disability who presents again to the neuropsychiatric unit with increases and suicidal thoughts and psychiatric symptoms reporting she is not sure that her medications work. 1. Continue current medication. We will get some collateral information about past medication and consider changes with help from [facility] provider given she has been on essentially every antipsychotic and continues to have reports of ineffectiveness with most recent change in the past 2 weeks. Increased Zyprexa to 15 mg p.o. nightly. Add Zyprexa 5 mg p.o. every morning. 2. Continue every 15 minute checks for safety. 3. Encourage individual, group and milieu therapy. Involuntary Hold Information 2 96 Hour Hold: 96 Hour Involuntary Admission: No Attestations NPU 2 Medical Necessity Statement*: Inpatient hospitalization is medically necessary and the clinically appropriate intervention at this time. We will monitor/initiate medications and make changes as indicated. Likely length of stay 3-5 days. Coding Level of Care Code Acute Code for Chg Fwd Diagnoses Suicidal ideation R45.851 Hallucinations R44.3 Bipolar I disorder, most recent episode mixed, severe with psychotic features F31.64
[2023-09-08] MEDS: BuSPIRONE 10 mg Tablet PO ×2 (08:20→20:55)
[2023-09-08] MEDS: pantoprazole DR 40 mg Tablet PO (08:20)
[2023-09-08 14:00] VITALS: BP 125/74; PULSE 83; RESP 16; TEMP 36.9; O2SAT 97
[2023-09-08 19:46] VITALS: BP 143/87; PULSE 85; RESP 16; TEMP 37; O2SAT 98
[2023-09-08] MEDS: atorvastatin 40 mg Tablet 20 MG PO (20:55)
[2023-09-08] MEDS: trazodone 100 mg Tablet PO (20:55)
[2023-09-08] MEDS: propranolol 20 mg Tablet PO (20:55)
[2023-09-08] MEDS: OLANZapine 10 mg ODT 15 MG PO (20:56)
[2023-09-09 06:00] VITALS: BP 171/101; PULSE 89; RESP 18; TEMP 36.3; O2SAT 99; BMI 42.0
[2023-09-09] MEDS: lithium carbonate 300 mg Capsule PO (06:28)
--- NOTE | 2023-09-09 08:35 | P.NPUPN_ITS ---
Subjective NPU 2 Subjective: Patient presented today reporting that she did receive the 5 mg of Zyprexa this morning without incident. She feels that she is doing better overall and was optimistic about our discussion about her likely discharging the beginning of this week. We discussed working with the treatment team to connect with her mother to make sure that she agrees that we are getting movement in the right direction. She reports that she is still dealing with her menses but is dealing with that the best way she can. Otherwise she denied any side effects to the medication and feels like it is helping. Mental Status Exam 2 MSE Comments: This is an obese, white female, in hospital scrubs, with limited grooming and eye contact. No abnormal movements, except for mild psychomotor retardation. Mostly cooperative with exam in mild distress. Speech was normal rate and slightly decreased volume. Mood described as okay, maybe a little better; affect odd. Thought process, organized. Thought content: patient denied any suicidal or homicidal ideation, patient endorsed paranoia, patient denied any auditory or visual hallucinations. Attention and concentration appeared intact and memory is somewhat reliable, but none were formally tested. Alert and oriented times three. Insight and judgment are limited. Impulse control is limited. Vitals/I&O/Wt Last Vital Signs Temp 97.3 F L 09/09/23 06:00 Pulse 89 09/09/23 06:00 Resp 18 09/09/23 06:00 BP 171/101 09/09/23 06:00 Pulse Ox 99 09/09/23 06:00 O2 Del Method Room Air 09/09/23 06:00 Weight last 48 hrs Weight 129.002 kg Data NPU 09/05/23 14:48 09/05/23 14:48 A&P Assessment and plan (1) Suicidal ideation: (2) Hallucinations: (3) Bipolar I disorder, most recent episode mixed, severe with psychotic features: Plan A 38-year-old white female with a long history of mental health challenges and likely intellectual disability who presents again to the neuropsychiatric unit with increases and suicidal thoughts and psychiatric symptoms reporting she is not sure that her medications work. 1. Continue current medication. We will get some collateral information about past medication and consider changes with help from [facility] provider given she has been on essentially every antipsychotic and continues to have reports of ineffectiveness with most recent change in the past 2 weeks. Increased Zyprexa to 15 mg p.o. nightly. Added Zyprexa 5 mg p.o. every morning this morning, 09/09/2023. 2. Continue every 15 minute checks for safety. 3. Encourage individual, group and milieu therapy. Involuntary Hold Information 2 96 Hour Hold: 96 Hour Involuntary Admission: No Attestations NPU 2 Medical Necessity Statement*: Inpatient hospitalization is medically necessary and the clinically appropriate intervention at this time. We will monitor/initiate medications and make changes as indicated. Likely length of stay 2-4 days. Coding Level of Care Code Acute Code for Chg Fwd Diagnoses Suicidal ideation R45.851 Hallucinations R44.3 Bipolar I disorder, most recent episode mixed, severe with psychotic features F31.64
[2023-09-09] MEDS: OLANZapine 5 mg TABLET PO (08:42)
[2023-09-09] MEDS: BuSPIRONE 10 mg Tablet PO ×2 (08:43→19:59)
[2023-09-09] MEDS: pantoprazole DR 40 mg Tablet PO (08:43)
[2023-09-09] MEDS: nicotine 2 mg Gum BUCCAL (08:46)
[2023-09-09 14:00] VITALS: BP 137/78; PULSE 77; RESP 16; TEMP 36.8; O2SAT 97
[2023-09-09] MEDS: trazodone 100 mg Tablet PO (19:59)
[2023-09-09] MEDS: OLANZapine 10 mg ODT 15 MG PO (19:59)
[2023-09-09] MEDS: propranolol 20 mg Tablet PO (19:59)
[2023-09-09] MEDS: atorvastatin 40 mg Tablet 20 MG PO (19:59)
[2023-09-09 20:15] VITALS: BP 149/88; PULSE 88; RESP 18; TEMP 36.7; O2SAT 95
[2023-09-10] MEDS: lithium carbonate 300 mg Capsule PO (05:54)
[2023-09-10 06:00] VITALS: BP 126/78; PULSE 58; RESP 16; O2SAT 97
[2023-09-10] MEDS: BuSPIRONE 10 mg Tablet PO (08:22)
[2023-09-10] MEDS: pantoprazole DR 40 mg Tablet PO (08:23)
[2023-09-10] MEDS: OLANZapine 5 mg TABLET PO (08:23)
[2023-09-10] MEDS: nicotine 2 mg Gum BUCCAL (12:11)
--- NOTE | 2023-09-10 12:21 | P.NPUDS_ITS ---
Diagnoses at Discharge Discharge Diagnosis (1) Suicidal ideation: Status: Resolved (2) Hallucinations: Status: Resolved (3) Bipolar I disorder, most recent episode mixed, severe with psychotic features: Status: Chronic Reason for Visit Reason for Visit: MHE Brief History: History of Present Illness Mariangel Flores is a 38 year old female who presented to the emergency department with the following report: Chief Complaint: Psychiatric Symptoms Stated Complaint: MHE Time Seen by Provider: 09/05/23 13:59 History of Present Illness: 38-year-old female with history of paran oid schizophrenia who presents the emergency room with psychiatric complaints. She says she had an episode ye sterday where she walked out into traffic. Family believes she may be a danger to herself. She is having paranoid thoughts that people might be poisoning her. She says she does not think her meds are adjusted right and she needs to come back into the hospital again. She was admitted to the neuropsychiatric unit for definitive treatment of those issues. She presents today as she has so many times reporting that her medications are ineffective. She has been consistent with her treatment at [facility] with her last appointment 08/24/2023. An appointment she identified that her Geodon was ineffective and Geodon was discontinued and replaced with 10 mg of Zyprexa at night. She reports inconsistency with the Zyprexa and even if she was consistent she was only giving it a 12-day timeframe to see if it was effective. The Geodon had been an 80 mg p.o. twice daily with meals and she reported having difficulty getting in the 500 gayatri per meal to take her Geodon. She reports as was reported in that document that she started having conflicts at home as her paranoia increased she started feeling like she could not trust her family. She reportedly threw some of her mom's medications away because she was paranoid that mom had been using her meds to poison patient. We discussed that her departure to her mother was treated by hyacinth at her longterm where she did not feel safe there. We reviewed the different medications she has attempted. She reports that Invega and Abilify both create significant problems including a report of an allergy to Invega. Otherwise she said yes to every single other medication for psychosis on the market. Her response about Vraylar and Latuda did not seem full throated. We discussed reaching out to her outpatient provider and trying to come to some conclusion about where to go from here. We also discussed the fact of the right answer may be increasing the Zyprexa. We also discussed the possibility of Clozaril. An excerpt of her discharge summary from her last visit and May of last year is included below for history and context given she denies substantive changes since then other than the Zyprexa for Geodon. Per her 05/28/2023 [facility] inpatient psychiatric discharge summary: Discharge Diagnosis (1) Suicidal ideation: Status: Resolved (2) Hallucinations: Status: Resolved (3) Bipolar I disorder, most recent epis ode mixed, severe with psychotic features: Status: Chronic Reason for Visit Reason for Visit: si Brief History: History of Present Illness Mariangel Flores is a 38 year old female who presented to the emergency department with the following report: Chief Complaint: Psychiatric Symptoms Stated Complaint: si Time Seen by Provider: 05/22/23 23:06 History of Present Illness: Patient presents by [facility] from [facility] which is a longterm and eminence for suicidal ideation and attempting to cut her left wrist. Patient has multiple superficial abrasions on her left wrist. Patient does states she was intending to kill herself. Patient does states she would be voluntarily to our NPU. The patient was admitted to the neuropsychiatric unit for definitive treatment of those issues. The patient presents today reporting that she came to the hospital because of suicidal thoughts, reporting she cut her wrist. She reports that she was upset and has a lot of stuff going on, and life is stressful. She reports that she has probably had more than thirty psychiatric hospitalizations. She reports outpatient services through a psychiatrist, who comes to the home, and prescribes her medication. She reports that she takes a PRN medication for anxiety and states that it is does not work. She reports that she lives at [facility], but reports that they kicked her out. She reports that she is planning to move to [place], but she is not sure where yet. She reports that she has tried multiple medications, including Abilify, and she denies Geodon or Depakote. The patient endorses vaping. She endorses alcohol use sometimes. She denies marijuana or any other illicit drug use. She denies drug rehabilitation or DUI. She reports that she has been at [facility] for four to five years. The patient reports that she works at the [employer], and has been there three to four years. She reports that she does not have a guardian. An excerpt of her October 2022 hospitalization is included below for context. PSYCHIATRIC HISTORY: As above. SUBSTANCE ABUSE HISTORY: As above. MEDICAL HISTORY: The patient endorses allergy to Invega injection. Per her 10/11/2022 [facility] inpatient psychiatric discharge summary: Discharge Diagnosis (1) Suicidal ideation: Status: Resolved (2) Hallucinations: Status: Resolved (3) Bipolar I disorder, most recent epis ode mixed, severe with psychotic features: Status: Chronic Reason for Visit Reason for Visit: SI Brief History: History of Present Illness Mariangel Flores is a 37 year old female presented to the emergency department with the following report: Chief Complaint: Psychiatric Symptoms Stated Complaint: SI Time Seen by Provider: 10/05/22 22:04 Source: patient Mode of arrival: EMS Limitations: no limitations History of Present Illness: Patient is a 37-year-old female who presents to ED today from her residential facility of [place] for evaluation of suicidal ideations and auditory and visual hallucinations. Patient tells me she has felt suicidal all day with no specific plan. She does report a previous suicide attempt but will not elaborate on these details. She states she is seeing dark shadows people moving in her home. She states she is hearing voices telling her to grab knives from the kitchen and kill herself. Patient states she has a psychiatric provider Remedios Dao that comes to their facility once a month for medication changes. She thinks some of her psychiatric medications were recently changed. She reports she has a history of bipolar and schizophrenia. MD complaint: suicidal ideation and feels depressed Onset (ago): day(s) Duration: constant History of same: Yes Relieving factors: none Exacerbating factors: none Associated psychiatric symptoms: depression, suicidal ideation, auditory hallucinations and visual hallucinations Associated symptoms: Reports auditory hallucinations, visual hallucinations, depression and suicidal ideation; Deny homicidal ideation Treatments prior to arrival: none If self harm: admits thoughts of self harm She was admitted to the neuropsychiatric unit for definitive treatment of those issues. 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 Her time references were certainly off when talking about last hospitalization etc. she reports that she reported in the emergency department that she had been doing fairly well for the past few years since her hospitalization in August 2019. An excerpt of that hospitalization evaluation is included below for context given her limited historical ability. We also discussed getting some collateral information from staff and or family. However she reports that as she has been feeling poorly she went to her outpatient psychiatrist/nurse practitioner and there were some dose changes made. It appears that she was increased on her Seroquel from 400 mg to 800 mg. We discus sed the fact that we would like to bring that back a bit and not have such a large jump in her medication. We also discussed the possibility of considering an alternative to Seroquel for hallucinations, psychosis, and behavioral dysregulation. She reports that she has stayed at the residence she has for a while now and the nurse practitioner comes to the building so she does not miss her appointments. She cannot identify any specific stressors that might be impacting her current functioning. She denied any conflicts at her facility that might lead her to not want to be there. She denied any significant changes since 2019. She reports she is eating all right and sleeping okay. Per her 08/15/2019 [facility] inpatient psychiatric evaluation: Date of Service: Aug 15, 2019 Chief Complaint: Mom threw away my meds last month HPI: The patient presents today reporting that for some reason her mother got rid of all her medications because she said she was taking them wrong, and if she was not going to take them right, she might as well not have them. She reports that happened about a month ago and that because of that, she was not doing well and DFS has been involved. It was unclear exactly what is going on with those things, but her children are with her sister, so she is not that stressed about them, but she is stressed out about not being with them. She reports that her injection has been going well and that she had it earlier this month. We agreed that we would explore and see what the exact date was to make sure that she does not miss her next one coming up. She reports that she does not feel like she is having any specific symptoms, but she wants to restart the pills that her mom threw away. We discussed the fact that we would need to get a sense of what they were exactly because she does not remember the name even though I reviewed the medications received from the pharmacy. She has no knowledge of what the medication names even might be. She reports that we can talk to her mother which we agreed we would do, but we need to figure out what exactly is going on because if this is the way that they dealt with some difficulty with adherence, that is quite problematic. Additionally, the medications that are missing are not medications that we or the psychiatric team actually prescribe so that also adds another layer of difficulty, the psychiatric medication and the injection she is getting, but there are some medications for maybe seizures or we are not really sure why they are being prescribed, most likely Neurontin and Trileptal. We need to figure out why they are being prescribed and talk to her mom about the circumstances of the pills being dumped. We discussed her psychosocial situation which outside of the issue with DFS, she reports being unchanged from her last hospitalization, the information from which is included below. Per ED eval: HISTORY OF PRESENT ILLNESS Chief Complaint: ANXIOUS and DEPRESSED. This started today. (34 yo female presents to the ED with complaints of being really stressed out. She said she has felt like this for months. She said it just worsens. She said she has never had a plan to hurt herself but just wishes she wasn't here. She denies hallucinations or suicidal ideations. She said she is worried about her children (her sister has her children). They were placed there via DFS. She said she stresses about not being with them. She said she has had a runny nose. She said she has not been sleeping. She said she was placed on a sleeping pill the last time she was here but it is too expensive. She said the social worker assistant has not contacted her to talk to the patient about her children.). The patient has experienced situational problems related to legal problems and custody issues. She is non-compliant with medication. Has not been sleeping. She has had anxiety. Has been depressed. The symptoms are described as moderate. No injury is present. Similar symptoms previously. Recent medical care: The patient was seen recently by a health care provider. REVIEW OF SYSTEMS All other systems reviewed and are negative. PAST HISTORY See nurses notes. ( PCP Sona Del Cid). Anxiety. Bipolar disorder. Depression. Psychosis. Surgeries: Cholecystectomy. SOCIAL HISTORY Current every day heavy tobacco smoker (cigarette)- more than 2 packs per day. No alcohol use or drug use. Hospital Course During the hospitalization, the patient had routine laboratory studies which were within normal limits except for a few outliers. Additionally, there was a general medical evaluation which was also within normal limits and revealed no new acute processes. At the time of discharge, lethality was denied and psychosis was resolving. Mood and anxiety were well managed. The patient endorsed a plan to avoid all drugs of abuse and follow up with the aftercare recommendations of the treatment team. The patient was evaluated and deemed to be absent credible lethality and had achieved the maximum benefit from an inpatient hospitalization, and so was discharged. Patient was started on BuSpar 10 mg twice a day to target anxiety. The patient was adamant about not returning to her previous longterm and was discharged to her mother's care with a plan for the patient to live in another longterm. Hospital Course Hospital Course She slowly acclimated to the individual, group and milieu therapies provided. She presented with worsening psychosis and significant emotional dysregulation. Also she is in the process of moving back to some kind of a longterm living arrangement after she had recently transferred out of to family. Her paranoia was making it hard for her to be at home but this is the same problem she had at facilities. She is known to the unit and often presents this way with reports of a need for drastic medication changes. However she had a recent change to Zyprexa and we encouraged a titration of her Zyprexa dose. Ultimately she went from 10 mg p.o. nightly to 5 mg p.o. daily and 15 mg p.o. nightly with a positive response. She denied any side effects of the medication during her stay. She worked with the social work team for appropriate aftercare appointments. She had significant improvement and was able to contract for safety outside of the hospital prior to discharge. During the hospitalization, the patient had routine laboratory studies which were within normal limits except for a few outliers.? Additionally, there was a general medical evaluation which was also within normal limits and revealed no new acute processes.? At the time of discharge, she denied lethality and psychosis was resolving.? Mood and anxiety were well managed.? The patient endorsed a plan to avoid all drugs of abuse and follow up with the aftercare recommendations of the treatment team.? The patient was evaluated and deemed to be absent credible lethality and had achieved the maximum benefit from an inpatient hospitalization, and so was discharged. Involuntary Hold Information 96 Hour Hold: 96 Hour Involuntary Admission: No Mental Status Exam MSE Comments: This is an obese, white female, in hospital scrubs, with limited grooming and eye contact. No abnormal movements, except for mild psychomotor retardation. Mostly cooperative with exam in mild distress. Speech was normal rate and slightly decreased volume. Mood described as better; affect odd. Thought process, organized. Thought content: patient denied any suicidal or homicidal ideation, patient endorsed paranoia, patient denied any auditory or visual hallucinations. Attention and concentration appeared intact and memory is somewhat reliable, but none were formally tested. Alert and oriented times three. Insight and judgment are limited. Impulse control is limited. Discharge Data Studies Completed and Pending: Laboratory Results WBC 7.27 10^3/uL (3.2 9-11.43) 09/05/23 14:48 RBC 4.57 10^6/uL (3.8 5-5.65) 09/05/23 14:48 Hgb 11.00 g/dL (11.27 -16.99) L 09/05/23 14:48 Hct 36.9 % (36-47) 09/05/23 14:48 MCV 80.7 fl (85-98) L 09/05/23 14:48 MCH 24.1 pg (27-33) L 09/05/23 14:48 MCHC 29.8 g/dL (30-55) L 09/05/23 14:48 RDW 16.6 % (12.1-15.1 ) H 09/05/23 14:48 Plt Count 358 10^3/cmm (157 -399) 09/05/23 14:48 MPV 8.6 fL (7.4-10.4) 09/05/23 14:48 Neut % (Auto) 63.7 % 09/05/23 14:48 Lymph % (Auto) 26.8 % 09/05/23 14:48 [place] % (Auto) 7.7 % 09/05/23 14:48 Eos % (Auto) 0.4 % 09/05/23 14:48 Baso % (Auto) 0.8 % 09/05/23 14:48 Neut # (Auto) 4.63 10^3/uL (1.8 -7.7) 09/05/23 14:48 Lymph # (Auto) 2.0 10^3/uL (0.8- 4.8) 09/05/23 14:48 [place] # (Auto) 0.6 10^3/uL (0.2- 0.9) 09/05/23 14:48 Eos # (Auto) 0.0 10^3/uL (0.0- 0.8) 09/05/23 14:48 Baso # (Auto) 0.1 10^3/uL (0.0- 0.1) 09/05/23 14:48 Nucleated RBC % (a uto) 0 % 09/05/23 14:48 Nucleated RBCs # 0.0 /100WBC 09/05/23 14:48 Sodium 140 mmol/L (136-1 45) 09/05/23 14:48 Potassium 3.4 mmol/L (3.5-5 .1) L 09/05/23 14:48 Chloride 106 mmol/L (98-10 7) 09/05/23 14:48 Carbon Dioxide 24 mmol/L (22-29) 09/05/23 14:48 Anion Gap 13.4 (5-19) 09/05/23 14:48 BUN 6 mg/dL (6-20) 09/05/23 14:48 Creatinine 0.6 mg/dL (0.5-0. 9) 09/05/23 14:48 GFR Calculation 111.9 mL/min (90- 130) 09/05/23 14:48 Glucose 103 mg/dL (65-115 ) 09/05/23 14:48 Calculated Osmolal ity 288 mOsm/kg (285- 295) 09/05/23 14:48 Calcium 9.1 mg/dL (8.5-10 .5) 09/05/23 14:48 Total Bilirubin 0.3 mg/dL (0.15-1 .2) 09/05/23 14:48 AST 52 U/L (0-32) H 09/05/23 14:48 ALT 57 U/L (0-33) H 09/05/23 14:48 Alkaline Phosphata se 131 U/L (35-105) H 09/05/23 14:48 Total Protein 7.7 g/dL (6.6-8.7 ) 09/05/23 14:48 Albumin 4.1 g/dL (3.5-5.2 ) 09/05/23 14:48 Globulin 3.6 g/dL (1.3-4.6 ) 09/05/23 14:48 HCG, Qual Negative (Negati ve) 09/05/23 14:10 Urine Color Yellow (Yellow) 09/05/23 14:10 Urine Appearance Sl hazy (CLEAR) A 09/05/23 14:10 Urine pH 6 (5-7) 09/05/23 14:10 Ur Specific Gravit y 1.005 (1.005-1.0 30) 09/05/23 14:10 Urine Protein Neg (Negative) 09/05/23 14:10 Urine Glucose (UA) Norm (Normal) 09/05/23 14:10 Urine Ketones Negative (Negati ve) 09/05/23 14:10 Urine Blood 3+ (Negative) H 09/05/23 14:10 Urine Nitrate Negative (Negati ve) 09/05/23 14:10 Urine Bilirubin Neg (Negative) 09/05/23 14:10 Urine Urobilinogen Norm mg/dL (Negat giulia) 09/05/23 14:10 Ur Leukocyte Nsiha ase Negative (Negati ve) 09/05/23 14:10 Urine RBC 80-100 /hpf (0-2) H 09/05/23 14:10 Urine WBC 5-10 /hpf (0-5) H 09/05/23 14:10 Ur Squamous Epith Cells 5-10 /hpf (0-5) H 09/05/23 14:10 Amorphous Sediment Not Reportable 09/05/23 14:10 Urine Bacteria Trace /hpf (NONE) 09/05/23 14:10 Urine Mucus None /hpf 09/05/23 14:10 Salicylates 0.4 mg/dL (3-10) L 09/05/23 14:48 Urine Opiates Scre en Negative ng/mL (N egative) 09/05/23 14:10 Acetaminophen < 5.0 ug/mL (10-3 0) L 09/05/23 14:48 Ur Barbiturates Sc reen Negative ng/mL (N egative) 09/05/23 14:10 Ur Phencyclidine S crn Negative ng/mL (N egative) 09/05/23 14:10 Ur Amphetamines Sc reen Negative ng/mL (N egative) 09/05/23 14:10 U Benzodiazepines Scrn Negative ng/mL (N egative) 09/05/23 14:10 Urine Cocaine Scre en Negative ng/mL (N egative) 09/05/23 14:10 U Marijuana (THC) Screen Negative ng/mL (N egative) 09/05/23 14:10 Vitals: Last Vital Signs Temp 98.1 F 09/09/23 20:15 Pulse 58 L 09/10/23 06:00 Resp 16 09/10/23 06:00 BP 126/78 09/10/23 06:00 Pulse Ox 97 09/10/23 06:00 O2 Del Method Room Air 09/10/23 06:00 Discharge Plan Discharge Patient Disposition: Home Condition: Stable Prescriptions: New atorvastatin 40 mg Tablet 20 mg PO BEDTIME 30 Days Qty: 15 1RF olanzapine 5 mg Tablet 5 mg PO DAILY 30 Days Qty: 30 1RF Zyprexa 15 mg tablet 15 mg PO QPM 30 Days Qty: 30 1RF Continued propranolol 20 mg tablet 20 mg PO BEDTIME Qty: 30 3RF trazodone 100 mg tablet 100 mg PO BEDTIME Qty: 30 6RF buspirone 10 mg tablet 10 mg PO 0900,2100 30 Days Qty: 60 3RF Rx Instructions: Take one tablet at 9 am and 9 pm Protonix 40 mg tablet,delayed release (DR/EC) 40 mg PO DAILY Qty: 90 2RF Zyprexa 10 mg tablet 10 mg PO QPM Rx Instructions: Take one tablet at 6 pm lithium carbonate 300 mg capsule 300 mg PO QAM Rx Instructions: at 6 am Discontinued atorvastatin 10 mg tablet 10 mg PO BEDTIME Qty: 90 1RF Discharge Orders: Discharge Order (Routine); Ordered 09/10/23 Ordered By: Daryl Hernandez Referrals: [facility] [Outside] - 09/12/23 2:30 pm (One time hospital follow with Shireen Salvador. ) Joycelyn Melendrez FNP [Primary Care Provider] - Rosario Miller PMHNP [Staff Physician] - 10/03/23 11:15 am (Follow up) Discharge Diet: Regular Discharge Activity: Resume usual activity Patient Instructions: Olanzapine (By mouth), Atorvastatin (By mouth), Psychotic Disorder (GEN), Opioid Safety Discharge Attestations NPU Time Spent in Discharge Care*: less than 30 min Specific Discharge Activities: Specific discharge activities: educating patient, discussing with onsite case manager/social workers/dc planners, documenting/other paperwork and evaluating patient/reviewing data Coding Level of Care Code Acute Code for Chg Fwd Diagnoses Suicidal ideation R45.851 Hallucinations R44.3 Bipolar I disorder, most recent episode mixed, severe with psychotic features F31.64
[2023-09-10 12:40] VITALS: BP 126/78; PULSE 58; RESP 16; O2SAT 97
--- NOTE | 2023-09-10 12:41 | DCPLANNER ---
Imm was printed and given and explained to pt and copy placed in file.
== END 2023-09-10 14:57 | disposition home or self-care (01) | DRG 885 ==
LOC: ER 19:13 → NP 19:24
PROVIDERS: Admitting Provider Psychiatry & Neurology Psychiatry; Emergency Provider Emergency Medicine; PCP Nurse Practitioner; Visit Provider Psychiatry & Neurology Psychiatry
DX: F31.64 Bipolar disorder, current episode mixed, severe, with psychotic features (principal); R45.851 Suicidal ideations
CPT/HCPCS: 36415; 80053; 80306; 80307; 81001; 81025; 85025; 87086; 93005; 97150; 97165; 99285

== ENCOUNTER 2023-11-03 16:09 | Inpatient (IN) | payer MEDICARE, MEDICAID, SELFPAY ==
[2023-11-03 16:11] VITALS: BP 133/65; PULSE 87; RESP 18; TEMP 37; O2SAT 97
[2023-11-03 16:50] LABS: Basophils % 0.3 %; Eosinophils % 0.2 %; Hematocrit 37.8 % (36-47); Lymphocytes # 1.6 10^3/uL (0.8-4.8); Lymphocytes % 23.6 %; Mean Corpuscular HGB Conc 29.9 g/dL (30-55); Mean Corpuscular Hemoglobin 24.4 pg (27-33); Mean Corpuscular Volume 81.5 fl (85-98); Mean Platelet Volume 8.6 fL (7.4-10.4); Monocytes # 0.3 10^3/uL (0.2-0.9); Monocytes % 4.2 %; Neutrophils # 4.71 10^3/uL (1.8-7.7); Neutrophils % 71.4 %; Nucleated Red Blood Cells % 0 %; Platelet Count 345 10^3/cmm (157-399); Red Blood Count 4.64 10^6/uL (3.85-5.65); Red Cell Distribution Width 16.1 % (12.1-15.1)
--- NOTE | 2023-11-03 16:59 | ED.C_ITS ---
HPI - Psych 2 General: Chief Complaint: Psychiatric Symptoms Stated Complaint: PSYCH EVAL Time Seen by Provider: 11/03/23 16:11 Source: patient Mode of arrival: EMS History of Present Illness: 30-year-old female presents emergency ro om with complaints of anxiety and suicidal ideation. She has had multiple hospitalization previously has a history of bipolar 1 disorder. He has had psychotic features. She has no definitive plan at this time she denies missing any medications or any change in medications recently. 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, tobacco product Bipolar I disorder, most recent episode mixed, severe with psychotic features Psychiatric care GERD (gastroesophageal reflux disease) Vitamin D deficiency Mixed hyperlipidemia Nicotine dependence, cigarettes, uncomplicated Surgical History Hx of myringotomy Social History Smoking and tobacco/nicotine status: never used tobacco/nicotine Quit status (tobacco/nicotine): not considering quitting Second hand smoke exposure: No Physical Exam 2 Const: COMMON NORMALS: no acute distress GENERAL APPEARANCE: cooperative and comfortable ORIENTATION/CONSCIOUSNESS: Yes awake, Yes oriented to person, Yes oriented to place and Yes oriented to time HENMT: COMMON NORMALS: normocephalic, atraumatic and hearing grossly normal bilaterally HEAD & SCALP: normocephalic and atraumatic Resp: COMMON NORMALS: normal respiratory effort, No retractions, No use of accessory muscles and clear to auscultation bilaterally AUSCULTATION: clear to auscultation bilaterally Cardio: COMMON NORMALS: regular rate, regular rhythm and No murmurs present (Cardio) RATE: regular rate RHYTHM: regular rhythm GI: COMMON NORMALS: Soft to palpation and No hepatosplenomegaly present A USCULTATION: Yes normoactive bowel sounds PALPATION: Yes Soft to palpation, No Tenderness to palpation present (GI), No Guarding due to palpation present (GI) and Yes No hepatosplenomegaly present Extremity: COMMON NORMALS: normal to inspection, capillary refill normal, no clubbing, cyanosis or edema, no calf tenderness and no pedal edema Neuro: SENSORIUM/ORIENTATION: Yes oriented to person, Yes oriented to place and Yes oriented to time Skin: COMMON NORMALS: no rashes or lesions noted GENERAL SKIN EXAM: no rashes or lesions noted Course 2 Vital Signs: Vital signs: Vital Signs Temperature 97.6 F 11/07/23 12:44 Pulse Rate 80 11/07/23 12:44 Respiratory Rate 18 11/07/23 12:44 Blood Pressure 127/86 11/07/23 12:44 Pulse Oximetry 98 11/07/23 12:44 Oxygen Delivery Me thod Room Air 11/07/23 06:00 MDM - Psych Medical Decision Making Discussed with investigations manager psychiatry and will admit to [facility]. Psychiatry concurs patient is voluntary admit at this time. She has not had any behavioral issues while in the emergency room. Differential Diagnosis Likely suicidal ideation Medical Records I reviewed the patient's medical records. Lab Data I reviewed the patient's lab results. 11/06/23 07:03 11/03/23 16:36 Laboratory Results WBC 6.60 10^3/uL (3.29-11.43) 11/03/23 16:36 RBC 4.64 10^6/uL (3.85-5.65) 11/03/23 16:36 Hgb 11.30 g/dL (11.27-16.99) 11/03/23 16:36 Hct 37.8 % (36-47) 11/03/23 16:36 MCV 81.5 fl (85-98) L 11/03/23 16:36 MCH 24.4 pg (27-33) L 11/03/23 16:36 MCHC 29.9 g/dL (30-55) L 11/03/23 16:36 RDW 16.1 % (12.1-15.1) H 11/03/23 16:36 Plt Count 345 10^3/cmm (157-399) 11/03/23 16:36 MPV 8.6 fL (7.4-10.4) 11/03/23 16:36 Neut % (Auto) 71.4 % 11/03/23 16:36 Lymph % (Auto) 23.6 % 11/03/23 16:36 Clarke % (Auto) 4.2 % 11/03/23 16:36 Eos % (Auto) 0.2 % 11/03/23 16:36 Baso % (Auto) 0.3 % 11/03/23 16:36 Neut # (Auto) 4.71 10^3/uL (1.8-7.7) 11/03/23 16:36 Lymph # (Auto) 1.6 10^3/uL (0.8-4.8) 11/03/23 16:36 Clarke # (Auto) 0.3 10^3/uL (0.2-0.9) 11/03/23 16:36 Eos # (Auto) 0.0 10^3/uL (0.0-0.8) 11/03/23 16:36 Baso # (Auto) 0.0 10^3/uL (0.0-0.1) 11/03/23 16:36 Nucleated RBC % (auto) 0 % 11/03/23 16:36 Nucleated RBCs # 0.0 /100WBC 11/03/23 16:36 Sodium 137 mmol/L (136-145) 11/03/23 16:36 Potassium 3.8 mmol/L (3.5-5.1) 11/03/23 16:36 Chloride 102 mmol/L (98-107) 11/03/23 16:36 Carbon Dioxide 24 mmol/L (22-29) 11/03/23 16:36 Anion Gap 14.8 (5-19) 11/03/23 16:36 BUN 7 mg/dL (6-20) 11/03/23 16:36 Creatinine 0.7 mg/dL (0.5-0.9) 11/03/23 16:36 GFR Calculation 93.6 mL/min (90-130) 11/03/23 16:36 Glucose 117 mg/dL (65-115) H 11/03/23 16:36 Calculated Osmolality 283 mOsm/kg (285-295) L 11/03/23 16:36 Calcium 9.1 mg/dL (8.5-10.5) 11/03/23 16:36 Total Bilirubin 0.4 mg/dL (0.15-1.2) 11/03/23 16:36 AST 18 U/L (0-32) 11/03/23 16:36 ALT 22 U/L (0-33) 11/03/23 16:36 Alkaline Phosphatase 146 U/L (35-105) H 11/03/23 16:36 Total Protein 8.1 g/dL (6.6-8.7) 11/03/23 16:36 Albumin 4.2 g/dL (3.5-5.2) 11/03/23 16:36 Globulin 3.9 g/dL (1.3-4.6) 11/03/23 16:36 HCG, Qual Negative (Negative) 11/03/23 16:36 Salicylates < 0.3 mg/dL (3-10) L 11/03/23 16:36 Acetaminophen < 5.0 ug/mL (10-30) L 11/03/23 16:36 No radiology studies performed this visit Discharge Plan Discharge Patient Disposition: Admitted As Inpatient Admit Provider: Guru Ross Clinical Impression: Suicidal ideation, Acute anxiety, Bipolar I disorder, most recent episode mixed, severe with psychotic features Condition: Stable Discharge Diet: Usual diet Discharge Activity: Resume usual activity Coding Level of Care Code 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
[2023-11-03 17:10] LABS: Alanine Aminotransferase 22 U/L (0-33); Albumin Level 4.2 g/dL (3.5-5.2); Alkaline Phosphatase 146 U/L (35-105); Anion Gap 14.8 (5-19); Aspartate Amino Transferase 18 U/L (0-32); Blood Urea Nitrogen 7 mg/dL (6-20); Calcium 9.1 mg/dL (8.5-10.5); Carbon Dioxide 24 mmol/L (22-29); Chloride 102 mmol/L (98-107); Creatinine Clr Calc Pharmacy 146.3565; Globulin 3.9 g/dL (1.3-4.6); Glomerular Filtration Rate 93.6 mL/min (90-130); Glucose 117 mg/dL (65-115); HCG, Serum Qual Negative (Negative); Osmolality Calculated 283 mOsm/kg (285-295); Potassium 3.8 mmol/L (3.5-5.1); Sodium 137 mmol/L (136-145); Total Bilirubin 0.4 mg/dL (0.15-1.2); Total Protein 8.1 g/dL (6.6-8.7)
--- NOTE | 2023-11-03 17:11 | PC.PHAR ---
pt is from [facility]-medications entered are from the mar that was sent with the pt-
[2023-11-03 17:12] LABS: Acetaminophen < 5.0 ug/mL (10-30); Salicylate < 0.3 mg/dL (3-10)
[2023-11-03] MEDS: LORazepam 2 mg Tablet PO (17:15)
[2023-11-03 17:18] LABS: Add Urine Microscopic? NO; Charge for UA Resulting for Rev
[2023-11-03 17:23] LABS: Bilirubin Urine Neg (Negative); Blood Urine Neg (Negative); Glucose Urine UA Norm (Normal); Ketones Urine Negative (Negative); Leukocyte Esterase Urine Negative (Negative); Nitrate Urine Negative (Negative); Protein Urine Neg (Negative); Sulfosalicylic Acid Urine Negative (Negative); Urine Appearance Clear (CLEAR); Urine Color Straw (Yellow); Urobilinogen Urine Norm (Negative); pH Urine 8 (5-7)
[2023-11-03 17:39] VITALS: BP 122/81; PULSE 86; RESP 16; TEMP 37; O2SAT 97
[2023-11-03 17:42] VITALS: RESP 17; O2SAT 100
[2023-11-03 17:55] LABS: Amphetamines Screen Urine Negative (Negative); Barbiturates Screen Urine Negative (Negative); Benzodiazepines Screen Urine Negative (Negative); Cocaine Screen Urine Negative (Negative); Opiate Screen Urine Negative (Negative); PCP Screen Urine Negative (Negative); THC Screen Urine Negative (Negative)
[2023-11-03] MEDS: nicotine 2 mg Gum BUCCAL (18:23)
[2023-11-03] MEDS: propranolol 20 mg Tablet PO (20:12)
[2023-11-03] MEDS: BuSPIRONE 10 mg Tablet PO (20:12)
[2023-11-03] MEDS: trazodone 50 mg Tablet PO ×2 (20:12→20:32)
[2023-11-03] MEDS: atorvastatin 40 mg Tablet 20 MG PO (20:12)
[2023-11-03 20:25] VITALS: BP 103/69; PULSE 99; RESP 18; TEMP 36.3; O2SAT 97
[2023-11-03] MEDS: trazodone 100 mg Tablet PO (20:43)
[2023-11-04] MEDS: lithium carbonate 300 mg Capsule PO (05:21)
[2023-11-04 05:51] VITALS: BP 127/89; PULSE 87; RESP 18; TEMP 36.4; O2SAT 97
[2023-11-04] MEDS: nicotine 2 mg Gum BUCCAL (06:10)
[2023-11-04] MEDS: BuSPIRONE 10 mg Tablet PO (08:37)
[2023-11-04] MEDS: OLANZapine 5 mg TABLET PO (08:37)
--- NOTE | 2023-11-04 09:31 | W.PM.NPUH&PS ---
Providers/Chief Complaint Admitting Physician: Guru Ross MD Primary Care Provider: Joycelyn Melendrez APN Chief Complaint: PSYCH EVAL HPI NPU History of Present Illness Mariangel Flores is a 38 year old female with a history of multiple inpatient psych hospitalizations currently residing in a care home who presented to the emergency department with complaints of worsening anxiety and suicidal ideation. Patient was a poor historian. She reports that she became suicidal after having an argument with a person at her home that she does not get along with in the home. She reports that she has been diagnosed with bipolar disorder. She had reported that she had hallucinations that appear to be prominent when she is stressed. She reports no recent changes in her living situation and describes having herself as a legal guardian. She had stated that she had previously been living with her mother but was no longer welcome in the home. She otherwise reports no substantial changes compared to her most recent discharge from the neuropsychiatric unit on September 10, 2023. Current medications: atorvastatin 20mg at night, buspar 10mg bid, lithium 300mg am, Olanzapine 20mg at night, propranolol 20mg at night, trazodone 100 mg at night, Protonix 40 mg daily Excerpt from NPU Discharge summary from 09/10/23 Diagnoses at Discharge Discharge Diagnosis (1) Suicidal ideation: Status: Resolved (2) Hallucinations: Status: Resolved (3) Bipolar I disorder, most recent episode mixed, severe with psychotic features: Status: Chronic Reason for Visit History of Present Illness Mariangel Flores is a 38 year old female who presented to the emergency department with the following report: Chief Complaint: Psychiatric Symptoms Stated Complaint: MHE Time Seen by Provider: 09/05/23 13:59 History of Present Illness: 38-year-old female with history of paranoid schizophrenia who presents the emergency room with psychiatric complaints. She says she had an episode yesterday where she walked out into traffic. Family believes she may be a danger to herself. She is having paranoid thoughts that people might be poisoning her. She says she does not think her meds are adjusted right and she needs to come back into the hospital again. She was admitted to the neuropsychiatric unit for definitive treatment of those issues. She presents today as she has so many times reporting that her medications are ineffective. She has been consistent with her treatment at [facility] with her last appointment 08/24/2023. An appointment she identified that her Geodon was ineffective and Geodon was discontinued and replaced with 10 mg of Zyprexa at night. She reports inconsistency with the Zyprexa and even if she was consistent she was only giving it a 12-day timeframe to see if it was effective. The Geodon had been an 80 mg p.o. twice daily with meals and she reported having difficulty getting in the 500 gayatri per meal to take her Geodon. She reports as was reported in that document that she started having conflicts at home as her paranoia increased she started feeling like she could not trust her family. She reportedly threw some of her mom's medications away because she was paranoid that mom had been using her meds to poison patient. We discussed that her departure to her mother was treated by paranoiluma at her care home where she did not feel safe there. We reviewed the different medications she has attempted. She reports that Invega and Abilify both create significant problems including a report of an allergy to Invega. Otherwise she said yes to every single other medication for psychosis on the market. Her response about Vraylar and Latuda did not seem full throated. We discussed reaching out to her outpatient provider and trying to come to some conclusion about where to go from here. We also discussed the fact of the right answer may be increasing the Zyprexa. We also discussed the possibility of Clozaril. An excerpt of her discharge summary from her last visit and May of last year is included below for history and context given she denies substantive changes since then other than the Zyprexa for Geodon. Per her 05/28/2023 [facility] inpatient psychiatric discharge summary: Discharge Diagnosis (1) Suicidal ideation: Status: Resolved (2) Hallucinations: Status: Resolved (3) Bipolar I disorder, most recent episode mixed, severe with psychotic features: Status: Chronic Reason for Visit Reason for Visit: si Brief History: History of Present Illness Mariangel Flores is a 38 year old female who presented to the emergency department with the following report: Chief Complaint: Psychiatric Symptoms Stated Complaint: si Time Seen by Provider: 05/22/23 23:06 History of Present Illness: Patient presents by [facility] from [facility] which is a care home and eminence for suicidal ideation and attempting to cut her left wrist. Patient has multiple superficial abrasions on her left wrist. Patient does states she was intending to kill herself. Patient does states she would be voluntarily to our NPU. The patient was admitted to the neuropsychiatric unit for definitive treatment of those issues. The patient presents today reporting that she came to the hospital because of suicidal thoughts, reporting she cut her wrist. She reports that she was upset and has a lot of stuff going on, and life is stressful. She reports that she has probably had more than thirty psychiatric hospitalizations. She reports outpatient services through a psychiatrist, who comes to the home, and prescribes her medication. She reports that she takes a PRN medication for anxiety and states that it is does not work. She reports that she lives at [facility], but reports that they kicked her out. She reports that she is planning to move to [place], but she is not sure where yet. She reports that she has tried multiple medications, including Abilify, and she denies Geodon or Depakote. The patient endorses vaping. She endorses alcohol use sometimes. She denies marijuana or any other illicit drug use. She denies drug rehabilitation or DUI. She reports that she has been at [facility] for four to five years. The patient reports that she works at the [employer], and has been there three to four years. She reports that she does not have a guardian. An excerpt of her October 2022 hospitalization is included below for context. PSYCHIATRIC HISTORY: As above. SUBSTANCE ABUSE HISTORY: As above. MEDICAL HISTORY: The patient endorses allergy to Invega injection. Per her 10/11/2022 [facility] inpatient psychiatric discharge summary: Discharge Diagnosis (1) Suicidal ideation: Status: Resolved (2) Hallucinations: Status: Resolved (3) Bipolar I disorder, most recent episode mixed, severe with psychotic features: Status: Chronic Reason for Visit Reason for Visit: SI Brief History: History of Present Illness Mariangel Flores is a 37 year old female presented to the emergency department with the following report: Chief Complaint: Psychiatric Symptoms Stated Complaint: SI Time Seen by Provider: 10/05/22 22:04 Source: patient Mode of arrival: EMS Limitations: no limitations History of Present Illness: Patient is a 37-year-old female who presents to ED today from her residential facility of [place] for evaluation of suicidal ideations and auditory and visual hallucinations. Patient tells me she has felt suicidal all day with no specific plan. She does report a previous suicide attempt but will not elaborate on these details. She states she is seeing dark shadows people moving in her home. She states she is hearing voices telling her to grab knives from the kitchen and kill herself. Patient states she has a psychiatric provider Remedios Dao that comes to their facility once a month for medication changes. She thinks some of her psychiatric medications were recently changed. She reports she has a history of bipolar and schizophrenia. MD complaint: suicidal ideation and feels depressed Onset (ago): day(s) Duration: constant History of same: Yes Relieving factors: none Exacerbating factors: none Associated psychiatric symptoms: depression, suicidal ideation, auditory hallucinations and visual hallucinations Associated symptoms: Reports auditory hallucinations, visual hallucinations, depression and suicidal ideation; Deny homicidal ideation Treatments prior to arrival: none If self harm: admits thoughts of self harm She was admitted to the neuropsychiatric unit for definitive treatment of those issues. 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 Her time references were certainly off when talking about last hospitalization etc. she reports that she reported in the emergency department that she had been doing fairly well for the past few years since her hospitalization in August 2019. An excerpt of that hospitalization evaluation is included below for context given her limited historical ability. We also discussed getting some collateral information from staff and or family. However she reports that as she has been feeling poorly she went to her outpatient psychiatrist/nurse practitioner and there were some dose changes made. It appears that she was increased on her Seroquel from 400 mg to 800 mg. We discussed the fact that we would like to bring that back a bit and not have such a large jump in her medication. We also discussed the possibility of considering an alternative to Seroquel for hallucinations, psychosis, and behavioral dysregulation. She reports that she has stayed at the residence she has for a while now and the nurse practitioner comes to the building so she does not miss her appointments. She cannot identify any specific stressors that might be impacting her current functioning. She denied any conflicts at her facility that might lead her to not want to be there. She denied any significant changes since 2019. She reports she is eating all right and sleeping okay. Per her 08/15/2019 [facility] inpatient psychiatric evaluation: Date of Service: Aug 15, 2019 Chief Complaint: Mom threw away my meds last month HPI: The patient presents today reporting that for some reason her mother got rid of all her medications because she said she was taking them wrong, and if she was not going to take them right, she might as well not have them. She reports that happened about a month ago and that because of that, she was not doing well and DFS has been involved. It was unclear exactly what is going on with those things, but her children are with her sister, so she is not that stressed about them, but she is stressed out about not being with them. She reports that her injection has been going well and that she had it earlier this month. We agreed that we would explore and see what the exact date was to make sure that she does not miss her next one coming up. She reports that she does not feel like she is having any specific symptoms, but she wants to restart the pills that her mom threw away. We discussed the fact that we would need to get a sense of what they were exactly because she does not remember the name even though I reviewed the medications received from the pharmacy. She has no knowledge of what the medication names even might be. She reports that we can talk to her mother which we agreed we would do, but we need to figure out what exactly is going on because if this is the way that they dealt with some difficulty with adherence, that is quite problematic. Additionally, the medications that are missing are not medications that we or the psychiatric team actually prescribe so that also adds another layer of difficulty, the psychiatric medication and the injection she is getting, but there are some medications for maybe seizures or we are not really sure why they are being prescribed, most likely Neurontin and Trileptal. We need to figure out why they are being prescribed and talk to her mom about the circumstances of the pills being dumped. We discussed her psychosocial situation which outside of the issue with DFS, she reports being unchanged from her last hospitalization, the information from which is included below. Per ED eval: HISTORY OF PRESENT ILLNESS Chief Complaint: ANXIOUS and DEPRESSED. This started today. (34 yo female presents to the ED with complaints of being really stressed out. She said she has felt like this for months. She said it just worsens. She said she has never had a plan to hurt herself but just wishes she wasn't here. She denies hallucinations or suicidal ideations. She said she is worried about her children (her sister has her children). They were placed there via DFS. She said she stresses about not being with them. She said she has had a runny nose. She said she has not been sleeping. She said she was placed on a sleeping pill the last time she was here but it is too expensive. She said the forensic social worker has not contacted her to talk to the patient about her children.). The patient has experienced situational problems related to legal problems and custody issues. She is non-compliant with medication. Has not been sleeping. She has had anxiety. Has been depressed. The symptoms are described as moderate. No injury is present. Similar symptoms previously. Recent medical care: The patient was seen recently by a health care provider. REVIEW OF SYSTEMS All other systems reviewed and are negative. PAST HISTORY See nurses notes. ( PCP Sona Del Cid). Anxiety. Bipolar disorder. Depression. Psychosis. Surgeries: Cholecystectomy. SOCIAL HISTORY Current every day heavy tobacco smoker (cigarette)- more than 2 packs per day. No alcohol use or drug use. Hospital Course During the hospitalization, the patient had routine laboratory studies which were within normal limits except for a few outliers. Additionally, there was a general medical evaluation which was also within normal limits and revealed no new acute processes. At the time of discharge, lethality was denied and psychosis was resolving. Mood and anxiety were well managed. The patient endorsed a plan to avoid all drugs of abuse and follow up with the aftercare recommendations of the treatment team. The patient was evaluated and deemed to be absent credible lethality and had achieved the maximum benefit from an inpatient hospitalization, and so was discharged. Patient was started on BuSpar 10 mg twice a day to target anxiety. The patient was adamant about not returning to her previous care home and was discharged to her mother's care with a plan for the patient to live in another care home. Meds NPU Home Medications Medication Instructions Recorded Confirmed Last Taken Type lithium carbonate 300 mg capsule 300 mg PO DAILY@06 09/05/23 11/03/23 09/05/23 History atorvastatin 40 mg tablet 20 mg PO BEDTIME@11/03/23 11/03/23 Unknown History buspirone 10 mg tablet 10 mg PO BID@08,11/03/23 11/03/23 Unknown History olanzapine 15 mg tablet (Zyprexa) 15 mg PO DAILY@17 11/03/23 11/03/23 Unknown History olanzapine 5 mg tablet 5 mg PO DAILY@08 11/03/23 11/03/23 Unknown History propranolol 20 mg tablet 20 mg PO BEDTIME@20 11/03/23 11/03/23 Unknown History trazodone 100 mg tablet 100 mg PO BEDTIME@20 11/03/23 11/03/23 Unknown History Allergies Allergy/AdvReac Type Severity Reaction Status Date / Time paliperidone [From Invega] AdvReac Severe chest Verified 11/03/23 17:10 pain, facial edema, dyspnea PFSH NPU PFSH: Medical History Bipolar I disorder, most recent episode mixed, severe with psychotic features Conductive hearing loss in right ear GERD (gastroesophageal reflux disease) Mixed hyperlipidemia Nicotine dependence, cigarettes, uncomplicated Psychiatric care Vaping nicotine dependence, tobacco product Vitamin D deficiency Surgical History Hx of myringotomy Social History Smoking and tobacco/nicotine status: never used tobacco/nicotine Quit status (tobacco/nicotine): not considering quitting Second hand smoke exposure: No Mental Status Exam MSE Comments: This is an obese, white female, in hospital scrubs, with limited grooming and eye contact. No abnormal movements, except for mild psychomotor retardation. She was partially cooperative with exam in mild distress. Speech was normal in rate and slightly decreased in volume. Her mood was described as depressed. Her affect was flat. Her thought process was linear and logical. Thought content: She endorsed suicidal ideation with no plan, she denied homicidal ideation. She endorsed auditory hallucinations and denied any visual hallucinations. She did not appear to be responding to internal stimuli. Attention and concentration appeared grossly intact and memory is somewhat reliable, but none were formally tested. Alert and oriented times three. Insight is feeble and judgment is poor. Impulse control is limited. Intelligence appeared commensurate with mild cognitive impairment. Vitals/I&O/Wt Last Vital Signs Temp 97.5 F L 11/04/23 05:51 Pulse 87 11/04/23 05:51 Resp 18 11/04/23 05:51 BP 127/89 11/04/23 05:51 Pulse Ox 97 11/04/23 05:51 O2 Del Method Room Air 11/04/23 05:51 Weight last 48 hrs Weight 127.459 kg Weight 113.398 kg Data NPU 11/03/23 16:36 11/03/23 16:36 A&P Assessment and plan (1) Suicidal ideation: (2) Hallucinations: (3) Bipolar I disorder, most recent episode mixed, severe with psychotic features: Plan A 38-year-old white female with a long history of mental health challenges and likely intellectual disability who presents once again to the neuropsychiatric unit with increases and suicidal thoughts and psychiatric symptoms with extremely limited coping skills and requesting medication changes. 1. Will attempt to gather collateral information. Will restart outpatient medications including lithium and zyprexa but will hold on buspar. 2. Continue every 15 minute checks for safety. 3. Encourage individual, group and milieu therapy. Involuntary Hold Information 96 Hour Hold: 96 Hour Involuntary Admission: No Attestations NPU Medical Necessity Statement*: Inpatient hospitalization is medically necessary and the clinically appropriate intervention at this time. We will monitor/initiate medications and make changes as indicated. She will be in the hospital for over 2 midnights. Her likely length of stay 6 to 8 days. Coding Level of Care Code Acute Code for [facility] Fwd Diagnoses Suicidal ideation R45.851 Hallucinations R44.3 Bipolar I disorder, most recent episode mixed, severe with psychotic features F31.64
[2023-11-04 14:00] VITALS: BP 128/87; PULSE 90; RESP 18; TEMP 36.9; O2SAT 93
[2023-11-04] MEDS: OLANZapine 5 mg TABLET 15 MG PO (17:25)
[2023-11-04] MEDS: trazodone 100 mg Tablet PO (19:34)
[2023-11-04] MEDS: propranolol 20 mg Tablet PO (19:34)
[2023-11-04] MEDS: atorvastatin 40 mg Tablet 20 MG PO (19:34)
[2023-11-04 20:27] VITALS: BP 96/58; PULSE 80; RESP 18; TEMP 36.8; O2SAT 98
[2023-11-05 06:00] VITALS: BP 135/79; PULSE 67; RESP 16; O2SAT 96
[2023-11-05] MEDS: OLANZapine 5 mg TABLET PO (08:05)
[2023-11-05] MEDS: nicotine 2 mg Gum BUCCAL ×2 (08:09→12:15)
[2023-11-05 14:00] VITALS: BP 114/79; PULSE 84; RESP 20; TEMP 36.4; O2SAT 96
[2023-11-05] MEDS: OLANZapine 5 mg TABLET 15 MG PO (16:42)
--- NOTE | 2023-11-05 17:49 | P.NPUPN_ITS ---
Subjective NPU 2 Subjective: 38-year-old white female with bipolar di sorder with a history of mixed episodes who reported continued frustration with panic attacks, anxiety, and suicidal ideation. She had revealed having frequent episodes of mixed mood episodes and stated that she was interested in considering alternative medications. She had reported low motivation. She had reported significant consumption of caffeine that may have been contributing to her having increased panic attacks. She had reported that BuSpar had not been helpful for her panic attacks. She reported that she had initially been unable to be managed at home because she had a history of not being able to remember her medications. She continued to report having periods of confusion as she had apparently not remembered having a conversation with the scientific technical writer of this note today. Mental Status Exam 2 MSE Comments: This is an obese, white female, in hospital scrubs, with limited grooming and eye contact. No abnormal movements, except for mild psychomotor retardation. She was partially cooperative with exam in mild distress. Speech was normal in rate and slightly decreased in volume. Her mood was described as depressed. Her affect was flat. Her thought process was linear and logical. Thought content: She endorsed suicidal ideation with no plan, she denied homicidal ideation. She endorsed auditory hallucinations and denied any visual hallucinations. She did not appear to be responding to internal stimuli. Attention and concentration appeared grossly intact and memory is somewhat reliable, but none were formally tested. Alert and oriented times three. Insight is feeble and judgment is poor. Impulse control is limited. 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 Vitals/I&O/Wt Last Vital Signs Temp 97.5 F L 11/05/23 14:00 Pulse 84 11/05/23 14:00 Resp 20 H 11/05/23 14:00 BP 114/79 11/05/23 14:00 Pulse Ox 96 11/05/23 14:00 O2 Del Method Room Air 11/04/23 20:27 Weight last 48 hrs Weight 127.459 kg Data NPU 11/03/23 16:36 11/03/23 16:36 A&P Assessment and plan (1) Suicidal ideation: (2) Hallucinations: (3) Bipolar I disorder, most recent episode mixed, severe with psychotic features: Plan A 38-year-old white female with a long history of mental health challenges and likely intellectual disability who presents once again to the neuropsychiatric unit with increases and suicidal thoughts and psychiatric symptoms with extremely limited coping skills and requesting medication changes. 1. consolidate zyprexa to nighttime, d/c am dose, add depakote for mixed mood symptoms. Consider klonopin for panic attacks. 2. Continue every 15 minute checks for safety. 3. Encourage individual, group and milieu therapy. Involuntary Hold Information 2 96 Hour Hold: 96 Hour Involuntary Admission: No Attestations NPU 2 Medical Necessity Statement*: Inpatient hospitalization is medically necessary and the clinically appropriate intervention at this time. We will monitor/initiate medications and make changes as indicated. Her likely length of stay 6 to 8 days. Coding Level of Care Code Acute Code for [facility] Fwd Diagnoses Suicidal ideation R45.851 Hallucinations R44.3 Bipolar I disorder, most recent episode mixed, severe with psychotic features F31.64
[2023-11-05] MEDS: trazodone 100 mg Tablet PO (19:49)
[2023-11-05] MEDS: atorvastatin 40 mg Tablet 20 MG PO (19:49)
[2023-11-05] MEDS: hyDROXYzine 25 mg Capsule 50 MG PO (19:49)
[2023-11-05] MEDS: propranolol 20 mg Tablet PO (19:49)
[2023-11-05 21:34] VITALS: BP 111/67; PULSE 79; RESP 16; TEMP 37.1; O2SAT 97
--- NOTE | 2023-11-05 21:43 | PC.NURSE ---
PT ON PHONE FOR EXTENDED LENGTH OF TIME. PT WAS INFORMED THAT SHE HAS BEEN ON THE PHONE TO LONG AND OTHER PTS WANT TO USE IT. PT DENIES SI/HI AND AVH AT THIS TIME. DENIES PAIN. RATES ANXIETY 4/10 AND DEPRESSION 0/10. PT WAS GIVEN VISTARIL 50 MG ORDERED FOR INCREASED ANXIETY. PT IS NOTED TO HAVE A FLAT AFFECT AND GUARDED WITH STAFF. PT TOOK ALL ORDERED MEDICATIONS. ALL QUESTIONS ANSWERED AND SUPPORT WAS VOICED.
--- NOTE | 2023-11-06 01:57 | PC.NURSE ---
PT HAS FASTING LABS IN THE AM AT 600 AM, PT EDUCATED NOTHING TO EAT OR DRINK UNTIL LABS ARE COMPLETED IN THE AM. DRINKS AND SNACKS REMOVED FROM PT ROOM. ALL QUESTIONS ANSWERED AND SUPPORT VOICED.
--- NOTE | 2023-11-06 05:08 | PC.NURSE ---
PT RECEIVED VISTARIL ORDERED FOR ANXIETY EARLIER IN THE SHIFT. MEDICATION IS DEEMED EFFECTIVE AT THIS TIME. PT HAS HAD NO OTHER COMPLAINTS OF ANXIETY AND HAS SLEPT APPROXIMATELY 8-9 HOURS THIS SHIFT. PT IS CURRENTLY RESTING IN BED WITH EYES CLOSED WITH NO DISTRESS NOTED AT THIS TIME.
[2023-11-06 06:00] VITALS: BP 96/61; PULSE 76; RESP 16; TEMP 36.4; O2SAT 96
[2023-11-06 07:33] LABS: Hematocrit 34.3 % (36-47); Mean Corpuscular HGB Conc 29.7 g/dL (30-55); Mean Corpuscular Hemoglobin 24.3 pg (27-33); Mean Corpuscular Volume 81.9 fl (85-98); Platelet Count 285 10^3/cmm (157-399); Red Blood Count 4.19 10^6/uL (3.85-5.65); Red Cell Distribution Width 16.1 % (12.1-15.1); White Blood Count 6.37 10^3/uL (3.29-11.43)
[2023-11-06 07:47] LABS: Alanine Aminotransferase 21 U/L (0-33); Aspartate Amino Transferase 17 U/L (0-32); Cholesterol 99 mg/dL (0-200); Glucose Fasting 102 mg/dL (74-109); HDL Cholesterol 30 mg/dL (60-100); LDL Cholesterol Calculated 49 mg/dL (50-129); LDL HDL Ratio 1.63 RATIO (0.00-3.22); Triglycerides 98 mg/dL (0-150)
[2023-11-06] MEDS: divalproex ER 500 mg Tablet (24H) PO (08:38)
[2023-11-06] MEDS: nicotine 2 mg Gum BUCCAL ×2 (08:47→18:23)
[2023-11-06 08:55] LABS: Total Cells Counted 100 (0-100)
[2023-11-06 09:02] LABS: Absolute Eosinophils 0.1 10^3/cmm (0.0-0.7); Absolute Neutrophil 4.4 10^3/cmm (1.4-6.5); Absolute Segmented Neutrophil 4.4 10/cmm (1.6-7.1); Eosinophils 1 %; Giant Platelets Trace; Lymphocytes 20 %; Lymphocytes Absolute 1.5 10^3/cmm (1.2-3.4); Monocytes Absolute 0.4 10^3/cmm (0.1-0.6); Platelet Estimate Normal (Normal); Polychromasia Trace; Segmented Neutrophils 69 %
[2023-11-06 09:03] LABS: Anisocytosis 1+; Microcytosis Trace
[2023-11-06 14:00] VITALS: BP 111/78; PULSE 110; RESP 14; TEMP 36.9; O2SAT 93
--- NOTE | 2023-11-06 16:35 | P.NPUPN_ITS ---
Subjective NPU 2 Subjective: 38-year-old white female with bipolar di sorder with a history of mixed episodes who reported continued frustration with panic attacks, anxiety, and suicidal ideation. The patient had reported that she was feeling better today. She did not report feeling tired with the reduction in olanzapine. She had reported no panic attacks currently and did wonder whether her significant use of several monster drinks a day may have been contributing to her developing panic attacks due to excess caffeine. Patient reports hope that she could return back to her detention. Patient had reported that her thoughts of suicide were not as strong today. She had required prompting for completion of activities of daily living. She was able to attend groups. Mental Status Exam 2 MSE Comments: This is an obese, white female, in hospital scrubs, with limited grooming and eye contact. No abnormal movements, except for mild psychomotor retardation. She was cooperative with exam in mild distress. Speech was normal in rate and slightly decreased in volume. Her mood was described as better, Her affect was restricted in range and mood incongruent. Her thought process was linear and logical. Thought content: She endorsed no suicidal ideation and she denied homicidal ideation. She endorsed auditory hallucinations and denied any visual hallucinations. She did not appear to be responding to internal stimuli. Attention and concentration appeared grossly intact and memory is somewhat reliable, but none were formally tested. Alert and oriented times three. Insight is feeble and judgment is poor. Impulse control is limited. 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 Vitals/I&O/Wt Last Vital Signs Temp 98.4 F 11/06/23 14:00 Pulse 110 H 11/06/23 14:00 Resp 14 11/06/23 14:00 BP 111/78 11/06/23 14:00 Pulse Ox 93 11/06/23 14:00 O2 Del Method Room Air 11/06/23 06:00 Data NPU 11/06/23 07:03 11/03/23 16:36 A&P Assessment and plan (1) Suicidal ideation: (2) Hallucinations: (3) Bipolar I disorder, most recent episode mixed, severe with psychotic features: Plan A 38-year-old white female with a long history of mental health challenges and likely intellectual disability who presents once again to the neuropsychiatric unit with increases and suicidal thoughts and psychiatric symptoms with extremely limited coping skills and requesting medication changes. 1. Depakote 500mg er in am, Zyprexa 15mg at night to target mixed mood symptoms. Labs showed evidence of continued decrease in hemoglobin and decreased hematocrit. 2. Continue every 15 minute checks for safety. 3. Encourage individual, group and milieu therapy. Involuntary Hold Information 2 96 Hour Hold: 96 Hour Involuntary Admission: No Attestations NPU 2 Medical Necessity Statement*: Inpatient hospitalization is medically necessary and the clinically appropriate intervention at this time. We will monitor/initiate medications and make changes as indicated. Her likely length of stay 2-3 days. Coding Level of Care Code Acute Code for Chg Fwd Diagnoses Suicidal ideation R45.851 Hallucinations R44.3 Bipolar I disorder, most recent episode mixed, severe with psychotic features F31.64
[2023-11-06] MEDS: OLANZapine 5 mg TABLET 15 MG PO (17:15)
[2023-11-06 18:50] LABS: Ferritin 8 ng/mL (15-150); Iron 36 ug/dL (37-145)
[2023-11-06 19:06] LABS: Vitamin B12 488 pg/mL (232-1245)
[2023-11-06 19:07] LABS: Folate Level 13.3 ng/mL (4.8-37.3)
[2023-11-06 20:01] VITALS: BP 130/78; PULSE 85; RESP 18; TEMP 36.9; O2SAT 98
[2023-11-06] MEDS: propranolol 20 mg Tablet PO (20:03)
[2023-11-06] MEDS: atorvastatin 40 mg Tablet 20 MG PO (20:03)
[2023-11-06] MEDS: hyDROXYzine 25 mg Capsule 50 MG PO (20:03)
[2023-11-06] MEDS: trazodone 100 mg Tablet PO (20:03)
[2023-11-07 06:00] VITALS: BP 127/86; PULSE 80; RESP 18; TEMP 36.4; O2SAT 98
[2023-11-07] MEDS: nicotine 2 mg Gum BUCCAL (08:13)
[2023-11-07] MEDS: divalproex ER 500 mg Tablet (24H) PO (08:13)
--- NOTE | 2023-11-07 10:43 | P.NPUDS_ITS ---
Diagnoses at Discharge Discharge Diagnosis (1) Suicidal ideation: Status: Resolved (2) Hallucinations: Status: Resolved (3) Bipolar I disorder, most recent episode mixed, severe with psychotic features: Status: Chronic Reason for Visit Reason for Visit: PSYCH EVAL Brief History: History of Present Illness Mariangel Flores is a 38 year old female with a history of multiple inpatient psych hospitalizations currently residing in a custodial who presented to the emergency department with complaints of worsening anxiety and suicidal ideation. Patient was a poor historian. She reports that she became suicidal after having an argument with a person at her home that she does not get along with in the home. She reports that she has been diagnosed with bipolar disorder. She had reported that she had hallucinations that appear to be prominent when she is stressed. She reports no recent changes in her living situation and describes having herself as a legal guardian. She had stated that she had previously been living with her mother but was no longer welcome in the home. She otherwise reports no substantial changes compared to her most recent discharge from the neuropsychiatric unit on September 10, 2023. Current medications: atorvastatin 20mg at night, buspar 10mg bid, lithium 300mg am, Olanzapine 20mg at night, propranolol 20mg at night, trazodone 100 mg at night, Protonix 40 mg daily Excerpt from NPU Discharge summary from 09/10/23 Diagnoses at Discharge Discharge Diagnosis (1) Suicidal ideation: Status: Resolved (2) Hallucinations: Status: Resolved (3) Bipolar I disorder, most recent epis ode mixed, severe with psychotic features: Status: Chronic Reason for Visit History of Present Illness Mariangel Flores is a 38 year old female who presented to the emergency department with the following report: Chief Complaint: Psychiatric Symptoms Stated Complaint: MHE Time Seen by Provider: 09/05/23 13:59 History of Present Illness: 38-year-old female with history of paran oid schizophrenia who presents the emergency room with psychiatric complaints. She says she had an episode yesterday where she walked out into traffic. Family believes she may be a danger to herself. She is having paranoid thoughts that people might be poisoning her. She says she does not think her meds are adjusted right and she needs to come back into the hospital again. She was admitted to the neuropsychiatric unit for definitive treatment of those issues. She presents today as she has so many times reporting that her medications are ineffective. She has been consistent with her treatment at [facility] with her last appointment 08/24/2023. An appointment she identified that her Geodon was ineffective and Geodon was discontinued and replaced with 10 mg of Zyprexa at night. She reports inconsistency with the Zyprexa and even if she was consistent she was only giving it a 12-day timeframe to see if it was effective. The Geodon had been an 80 mg p.o. twice daily with meals and she reported having difficulty getting in the 500 gayatri per meal to take her Geodon. She reports as was reported in that document that she started having conflicts at home as her paranoia increased she started feeling like she could not trust her family. She reportedly threw some of her mom's medications away because she was paranoid that mom had been using her meds to poison patient. We discussed that her departure to her mother was treated by paranflakita at her custodial where she did not feel safe there. We reviewed the different medications she has attempted. She reports that Invega and Abilify both create significant problems including a report of an allergy to Invega. Otherwise she said yes to every single other medication for psychosis on the market. Her response about Vraylar and Latuda did not seem full throated. We discussed reaching out to her outpatient provider and trying to come to some conclusion about where to go from here. We also discussed the fact of the right answer may be increasing the Zyprexa. We also discussed the possibility of Clozaril. An excerpt of her discharge summary from her last visit and May of last year is included below for history and context given she denies substantive changes since then other than the Zyprexa for Geodon. Per her 05/28/2023 [facility] inpatient psychiatric discharge summary: Discharge Diagnosis (1) Suicidal ideation: Status: Res olved (2) Hallucinations: Status: Resol ed (3) Bipolar I disorder, most recent epis ode mixed, severe with psychotic features: Status: Chronic Reason for Visit Reason for Visit: si Brief History: History of Present Illness Mariangel Flores is a 38 year old female who presented to the emergency department with the following report: Chief Complaint: Psychiatric Symptoms Stated Complaint: si Time Seen by Provider: 05/22/23 23:06 History of Present Illness: Patient presents by [facility] from [facility] which is a custodial and eminence for suicidal ideation and attempting to cut her left wrist. Patient has multiple superficial abrasions on her left wrist. Patient does states she was intending to kill herself. Patient does states she would be voluntarily to our NPU. The patient was admitted to the neuropsychiatric unit for definitive treatment of those issues. The patient presents today reporting that she came to the hospital because of suicidal thoughts, reporting she cut her wrist. She reports that she was upset and has a lot of stuff going on, and life is stressful. She reports that she has probably had more than thirty psychiatric hospitalizations. She reports outpatient services through a psychiatrist, who comes to the home, and prescribes her medication. She reports that she takes a PRN medication for anxiety and states that it is does not work. She reports that she lives at [facility], but reports that they kicked her out. She reports that she is planning to move to [place], but she is not sure where yet. She reports that she has tried multiple medications, including Abilify, and she den ies Geodon or Depakote. The patient endorses vaping. She endorses alcohol use sometimes. She denies marijuana or any other illicit drug use. She denies drug rehabilitation or DUI. She reports that she has been at [facility] for four to five years. The patient reports that she works at the [employer], and has been there three to four years. She reports that she does not have a guardian. An excerpt of her October 2022 hospitalization is included below for context. PSYCHIATRIC HISTORY: As above. SUBSTANCE ABUSE HISTORY: As above. MEDICAL HISTORY: The patient endorses allergy to Invega injection. Per her 10/11/2022 [facility] inpatient psychiatric discharge summary: Discharge Diagnosis (1) Suicidal ideation: Status: Reso lved (2) Hallucinations: Status: Resolve d (3) Bipolar I disorder, most recent epis ode mixed, severe with psychotic features: Status: Chronic Reason for Visit Reason for Visit: SI Brief History: History of Present Illness Mariangel Flores is a 37 year old female presented to the emergency department with the following report: Chief Complaint: Psychiatric Symptoms Stated Complaint: SI Time Seen by Provider: 10/05/22 22:04 Source: patient Mode of arrival: EMS Limitations: no limitations History of Present Illness: Patient is a 37-year-old female who presents to ED today from her residential facility of [place] for evaluation of suicidal ideations and auditory and visual hallucinations. Patient tells me she has felt suicidal all day with no specific plan. She does report a previous suicide attempt but will not elaborate on these details. She states she is seeing dark shadows people moving in her home. She states she is hearing voices telling her to grab knives from the kitchen and kill herself. Patient states she has a psychiatric provider Remedios Dao that comes to their facility once a month for medication changes. She thinks some of her psychiatric medications were recently changed. She reports she has a history of bipolar and schizophrenia. MD complaint: suicidal ideation and feels depressed Onset (ago): day(s) Duration: constant History of same: Yes Relieving factors: none Exacerbating factors: none Associated psychiatric symptoms: depression, suicidal ideation, auditory hallucinations and visual hallucinations Associated symptoms: Reports auditory hallucinations, visual hallucinations, depression and suicidal ideation; Deny homicidal ideation Treatments prior to arrival: none If self harm: admits thoughts of self harm She was admitted to the neuropsychiatric unit for definitive treatment of those issues. 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 Her time references were certainly off when talking about last hospitalization etc. she reports that she reported in the emergency department that she had been doing fairly well for the past few years since her hospitalization in August 2019. An excerpt of that hospitalization evaluation is included below for context given her limited historical ability. We also discussed getting some collateral information from staff and or family. However she reports that as she has been feeling poorly she went to her outpatient psychiatrist/nurse practitioner and there were some dose changes made. It appears that she was increased on her Seroquel from 400 mg to 800 mg. We discussed the fact that we would like to bring that back a bit and not have such a large jump in her medication. We also discussed the possibility of considering an alternative to Seroquel for hallucinations, psychosis, and behavioral dysregulation. She reports that she has stayed at the residence she has for a while now and the nurse practitioner comes to the building so she does not miss her appointments. She cannot identify any specific stressors that might be impacting her current functioning. She denied any conflicts at her facility that might lead her to not want to be there. She denied any significant changes since 2019. She reports she is eating all right and sleeping okay. Per her 08/15/2019 [facility] inpatient psychiatric evaluation: Date of Service: Aug 15, 2019 Chief Complaint: Mom threw away my meds last month HPI: The patient presents today reporting that for some reason her mother got rid of all her medications because she said she was taking them wrong, and if she was not going to take them right, she might as well not have them. She reports that happened about a month ago and that because of that, she was not doing well and DFS has been involved. It was unclear exactly what is going on with those things, but her children are with her sister, so she is not that stressed about them, but she is stressed out about not being with them. She reports that her injection has been going well and that she had it earlier this month. We agreed that we would explore and see what the exact date was to make sure that she does not miss her next one coming up. She reports that she does not feel like she is having any specific symptoms, but she wants to restart the pills that her mom threw away. We discussed the fact that we would need to get a sense of what they were exactly because she does not remember the name even though I reviewed the medications received from the pharmacy. She has no knowledge of what the medication names even might be. She reports that we can talk to her mother which we agreed we would do, but we need to figure out what exactly is going on because if this is the way that they dealt with some difficulty with adherence, that is quite problematic. Additionally, the medications that are missing are not medications that we or the psychiatric team actually prescribe so that also adds another layer of difficulty, the psychiatric medication and the injection she is getting, but there are some medications for maybe seizures or we are not really sure why they are being prescribed, most likely Neurontin and Trileptal. We need to figure out why they are being prescribed and talk to her mom about the circumstances of the pills being dumped. We discussed her psychosocial situation which outside of the issue with DFS, she reports being unchanged from her last hospitalization, the information from which is included below. Per ED eval: HISTORY OF PRESENT ILLNESS Chief Complaint: ANXIOUS and DEPRESSED. This started today. (34 yo female presents to the ED with complaints of being really stressed out. She said she has felt like this for months. She said it just worsens. She said she has never had a plan to hurt herself but just wishes she wasn't here. She denies hallucinations or suicidal ideations. She said she is worried about her children (her sister has her children). They were placed there via DFS. She said she stresses about not being with them. She said she has had a runny nose. She said she has not been sleeping. She said she was placed on a sleeping pill the last time she was here but it is too expensive. She said the social work professor has not contacted her to talk to the patient about her children.). The patient has experienced situational problems related to legal problems and custody issues. She is non-compliant with medication. Has not been sleeping. She has had anxiety. Has been depressed. The symptoms are described as moderate. No injury is present. Similar symptoms previously. Recent medical care: The patient was seen recently by a health care provider. REVIEW OF SYSTEMS All other systems reviewed and are negative. PAST HISTORY See nurses notes. ( PCP Sona Del Cid). Anxiety. Bipolar disorder. Depression. Psychosis. Surgeries: Cholecystectomy. SOCIAL HISTORY Current every day heavy tobacco smoker (cigarette)- more than 2 packs per day. No alcohol use or drug use. Hospital Course During the hospitalization, the patient had routine laboratory studies which were within normal limits except for a few outliers. Additionally, there was a general medical evaluation which was also within normal limits and revealed no new acute processes. At the time of discharge, lethality was denied and psychosis was resolving. Mood and anxiety were well managed. The patient endorsed a plan to avoid all drugs of abuse and follow up with the aftercare recommendations of the treatment team. The patient was evaluated and deemed to be absent credible lethality and had achieved the maximum benefit from an inpatient hospitalization, and so was discharged. Patient was started on BuSpar 10 mg twice a day to target anxiety. The patient was adamant about not returning to her previous custodial and was discharged to her mother's care with a plan for the patient to live in another custodial. Hospital Course Hospital Course During the hospitalization, the patient had routine laboratory studies which were within normal limits except for a few outliers.? Additionally, there was a general medical evaluation which was also within normal limits and revealed no new acute processes.? At the time of discharge, lethality was denied and psychosis was resolving.? Mood and anxiety were well managed.? The patient endorsed a plan to avoid all drugs of abuse and follow up with the aftercare recommendations of the treatment team.? The patient was evaluated and deemed to be absent credible lethality and had achieved the maximum benefit from an inpatient hospitalization, and so was discharged. ?The patient's lithium was discontinued. The patient's buspirone was also discontinued. The patient had reported having increased anxiety over the last few months with complaints of panic attacks. The patient had reported that she had been consuming approximately 250 mg of caffeine a day through her [employer] while living in her current custodial. It was recommended that the patient not use caffeine as it may be kindling her panic attacks. Depakote was started at 500 mg once a day to target mixed mood symptoms. Zyprexa in the morning was also discontinued but continued at night at her previous dose. Patient's labs had revealed low iron and low ferritin which is likely indicative of iron deficiency anemia and it was recommended that the patient be considered to be placed on iron daily. Involuntary Hold Information 96 Hour Hold: 96 Hour Involuntary Admission: No Mental Status Exam MSE Comments: This is an obese, white female, in hospital scrubs, with limited grooming and eye contact. No abnormal movements, except for mild psychomotor retardation. She was cooperative with exam in mild distress. Speech was normal in rate and slightly decreased in volume. Her mood was described as better, Her affect was mildly restricted. Her thought process was linear and logical. Thought content: She endorsed no suicidal ideation and she denied homicidal ideation. She denied auditory hallucinations and denied any visual hallucinations. She did not appear to be responding to internal stimuli. Attention and concentration appeared grossly intact and memory is somewhat reliable, but none were formally tested. Alert and oriented times three. Insight is feeble and judgment is adequate. Impulse control is limited. 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 Discharge Data Studies Completed and Pending: Pending at discharge Category Date Time Status Occult Blood Stoo l [Immunochemical Fecal OCB] Routine Lab 11/06/23 17:51 Uncollected Laboratory Results WBC 6.37 10^3/uL (3.2 9-11.43) 11/06/23 07:03 RBC 4.19 10^6/uL (3.8 5-5.65) 11/06/23 07:03 Hgb 10.20 g/dL (11.27 -16.99) L 11/06/23 07:03 Hct 34.3 % (36-47) L 11/06/23 07:03 MCV 81.9 fl (85-98) L 11/06/23 07:03 MCH 24.3 pg (27-33) L 11/06/23 07:03 MCHC 29.7 g/dL (30-55) L 11/06/23 07:03 RDW 16.1 % (12.1-15.1 ) H 11/06/23 07:03 Plt Count 285 10^3/cmm (157 -399) 11/06/23 07:03 MPV 9.0 fL (7.4-10.4) 11/06/23 07:03 Neut % (Auto) 71.4 % 11/03/23 16:36 Lymph % (Auto) 23.6 % 11/03/23 16:36 Lamb % (Auto) 4.2 % 11/03/23 16:36 Eos % (Auto) 0.2 % 11/03/23 16:36 Baso % (Auto) 0.3 % 11/03/23 16:36 Neut # (Auto) 4.71 10^3/uL (1.8 -7.7) 11/03/23 16:36 Lymph # (Auto) 1.6 10^3/uL (0.8- 4.8) 11/03/23 16:36 Lamb # (Auto) 0.3 10^3/uL (0.2- 0.9) 11/03/23 16:36 Eos # (Auto) 0.0 10^3/uL (0.0- 0.8) 11/03/23 16:36 Baso # (Auto) 0.0 10^3/uL (0.0- 0.1) 11/03/23 16:36 Nucleated RBC % (a uto) 0 % 11/03/23 16:36 Total Counted 100 (0-100) 11/06/23 07:03 Atypical Lymphs % 4.0 % (0-5) 11/06/23 07:03 Absolute Neutrophi ls 4.4 10^3/cmm (1.4 -6.5) 11/06/23 07:03 Segmented Neutroph ils 69 % 11/06/23 07:03 Abs Segm Neuts (Ma n) 4.4 10/cmm (1.6-7 .1) 11/06/23 07:03 Band Neutrophils 0.0 % 11/06/23 07:03 Abs Band Neuts (Ma n) 0.0 10^3/cmm (0.0 -1.2) 11/06/23 07:03 Absolute Lymphocyt es 1.5 10^3/cmm (1.2 -3.4) 11/06/23 07:03 Lymphocytes (Manua l) 20 % 11/06/23 07:03 Monocytes (Manual) 6.0 % 11/06/23 07:03 Absolute Monocytes 0.4 10^3/cmm (0.1 -0.6) 11/06/23 07:03 Eosinophils (Manua l) 1 % 11/06/23 07:03 Absolute Eosinophi ls 0.1 10^3/cmm (0.0 -0.7) 11/06/23 07:03 Basophils (Manual) 0.0 % 11/06/23 07:03 Absolute Basophils 0.0 10^3/cmm (0.0 -0.2) 11/06/23 07:03 Nucleated RBCs # 0.0 /100WBC 11/03/23 16:36 Platelet Estimate Normal (Normal) 11/06/23 07:03 Giant Platelets Trace 11/06/23 07:03 Polychromasia Trace 11/06/23 07:03 Anisocytosis 1+ H 11/06/23 07:03 Microcytosis Trace 11/06/23 07:03 Sodium 137 mmol/L (136-1 45) 11/03/23 16:36 Potassium 3.8 mmol/L (3.5-5 .1) 11/03/23 16:36 Chloride 102 mmol/L (98-10 7) 11/03/23 16:36 Carbon Dioxide 24 mmol/L (22-29) 11/03/23 16:36 Anion Gap 14.8 (5-19) 11/03/23 16:36 BUN 7 mg/dL (6-20) 11/03/23 16:36 Creatinine 0.7 mg/dL (0.5-0. 9) 11/03/23 16:36 GFR Calculation 93.6 mL/min (90-1 30) 11/03/23 16:36 Glucose 117 mg/dL (65-115 ) H 11/03/23 16:36 Fasting Glucose 102 mg/dL (74-109 ) 11/06/23 07:03 Calculated Osmolal ity 283 mOsm/kg (285- 295) L 11/03/23 16:36 Calcium 9.1 mg/dL (8.5-10 .5) 11/03/23 16:36 Iron 36 ug/dL (37-145) L 11/06/23 16:36 Ferritin 8 ng/mL (15-150) L 11/06/23 16:36 Total Bilirubin 0.4 mg/dL (0.15-1 .2) 11/03/23 16:36 AST 17 U/L (0-32) 11/06/23 07:03 ALT 21 U/L (0-33) 11/06/23 07:03 Alkaline Phosphata se 146 U/L (35-105) H 11/03/23 16:36 Total Protein 8.1 g/dL (6.6-8.7 ) 11/03/23 16:36 Albumin 4.2 g/dL (3.5-5.2 ) 11/03/23 16:36 Globulin 3.9 g/dL (1.3-4.6 ) 11/03/23 16:36 Triglycerides 98 mg/dL (0-150) 11/06/23 07:03 Cholesterol 99 mg/dL (0-200) 11/06/23 07:03 LDL Cholesterol, C alc 49 mg/dL (50-129) L 11/06/23 07:03 HDL Cholesterol 30 mg/dL (60-100) L 11/06/23 07:03 LDL/HDL Ratio 1.63 RATIO (0.00- 3.22) 11/06/23 07:03 Cholesterol/HDL Ra leslee 3.30 mg/dL (0.0-4 .40) 11/06/23 07:03 Vitamin B12 488 pg/mL (232-12 45) 11/06/23 16:36 Folate 13.3 ng/mL (4.8-3 7.3) 11/06/23 16:36 HCG, Qual Negative (Negati ve) 11/03/23 16:36 Urine Color Straw (Yellow) 11/03/23 17:11 Urine Appearance Clear (CLEAR) 11/03/23 17:11 Urine pH 8 (5-7) H 11/03/23 17:11 Ur Specific Gravit y 1.010 (1.005-1.0 30) 11/03/23 17:11 Urine Protein Neg (Negative) 11/03/23 17:11 Urine Glucose (UA) Norm (Normal) 11/03/23 17:11 Urine Ketones Negative (Negati ve) 11/03/23 17:11 Urine Blood Neg (Negative) 11/03/23 17:11 Urine Nitrate Negative (Negati ve) 11/03/23 17:11 Urine Bilirubin Neg (Negative) 11/03/23 17:11 Prot Sulfosalicyli c Acd Negative (Negati ve) 11/03/23 17:11 Urine Urobilinogen Norm mg/dL (Negat giulia) 11/03/23 17:11 Ur Leukocyte Nisha ase Negative (Negati ve) 11/03/23 17:11 Salicylates < 0.3 mg/dL (3-10 ) L 11/03/23 16:36 Urine Opiates Scre en Negative ng/mL (N egative) 11/03/23 17:11 Acetaminophen < 5.0 ug/mL (10-3 0) L 11/03/23 16:36 Ur Barbiturates Sc reen Negative ng/mL (N egative) 11/03/23 17:11 Ur Phencyclidine S crn Negative ng/mL (N egative) 11/03/23 17:11 Ur Amphetamines Sc reen Negative ng/mL (N egative) 11/03/23 17:11 U Benzodiazepines Scrn Negative ng/mL (N egative) 11/03/23 17:11 Urine Cocaine Scre en Negative ng/mL (N egative) 11/03/23 17:11 U Marijuana (THC) Screen Negative ng/mL (N egative) 11/03/23 17:11 Vitals: Last Vital Signs Temp 97.6 F 11/07/23 06:00 Pulse 80 11/07/23 06:00 Resp 18 11/07/23 06:00 BP 127/86 11/07/23 06:00 Pulse Ox 98 11/07/23 06:00 O2 Del Method Room Air 11/07/23 06:00 Discharge Plan Discharge Patient Disposition: Home Condition: Stable Prescriptions: New divalproex 500 mg Tablet Extended Release 24 Hr 500 mg PO 0900 30 Days Qty: 30 1RF ferrous sulfate [Iron (ferrous sulfate)] 325 mg (65 mg iron) tablet 325 mg PO DAILY Qty: 30 1RF Continued atorvastatin 40 mg tablet 20 mg PO BEDTIME@20 trazodone 100 mg tablet 100 mg PO BEDTIME@20 Zyprexa 15 mg tablet 15 mg PO DAILY@17 propranolol 20 mg tablet 20 mg PO BEDTIME@20 Discontinued lithium carbonate 300 mg capsule 300 mg PO DAILY@06 buspirone 10 mg tablet 10 mg PO BID@08,20 olanzapine 5 mg tablet 5 mg PO DAILY@08 Discharge Orders: Discharge Order (Routine); Ordered 11/07/23 Ordered By: Guru Ross Referrals: Joycelyn Melendrez FNP [Primary Care Provider] - Discharge Diet: Usual diet Discharge Activity: Resume usual activity Patient Instructions: Opioid Safety, Pain Management Discharge Attestations NPU Time Spent in Discharge Care*: less than 30 min Coding Level of Care Code Acute Code for g Fwd Diagnoses Suicidal ideation R45.851 Hallucinations R44.3 Bipolar I disorder, most recent episode mixed, severe with psychotic features F31.64
--- NOTE | 2023-11-07 11:28 | DCPLANNER ---
ANITA competed with pt on 11/07/2023 @ 1113. Pt was informed and was given her rights.
[2023-11-07 12:44] VITALS: BP 127/86; PULSE 80; RESP 18; TEMP 36.4; O2SAT 98
== END 2023-11-07 13:00 | disposition home or self-care (01) | DRG 885 ==
LOC: ER 17:05 → NP 17:16
PROVIDERS: Family Medicine; Admitting Provider Psychiatry & Neurology Psychiatry; Emergency Provider Family Medicine; PCP Nurse Practitioner; Visit Provider Psychiatry & Neurology Psychiatry
DX: F31.64 Bipolar disorder, current episode mixed, severe, with psychotic features (principal); R45.851 Suicidal ideations; F41.0 Panic disorder [episodic paroxysmal anxiety]; F41.9 Anxiety disorder, unspecified; H90.2 Conductive hearing loss, unspecified; K21.9 Gastro-esophageal reflux disease without esophagitis; E78.2 Mixed hyperlipidemia; E55.9 Vitamin D deficiency, unspecified; F17.290 Nicotine dependence, other tobacco product, uncomplicated; F79 Unspecified intellectual disabilities
CPT/HCPCS: 36415; 80053; 80061; 80306; 80307; 81003; 82607; 82728; 82746; 82947; 83540; 84450; 84460; 84703; 85007; 85025; 85027; 97150; 97165; 99285

== ENCOUNTER → 2023-11-20 13:54 | Outpatient (BNVA) | payer OTHER, SELFPAY | PROVIDERS: PCP Nurse Practitioner; Visit Provider Nurse Practitioner Psychiatric/Mental Health | DX: F31.64 Bipolar disorder, current episode mixed, severe, with psychotic features (principal); Z79.899 Other long term (current) drug therapy | CPT/HCPCS: 83036 ==

== ENCOUNTER 2023-12-02 17:40 | Inpatient (IN) | payer MEDICARE, MEDICAID, SELFPAY ==
[2023-11-26 16:13] VITALS: BP 143/96; BMI 41.6
[2023-12-02 17:46] VITALS: BP 133/80; PULSE 76; TEMP 36.9; O2SAT 98; BMI 41.3
[2023-12-02 18:24] LABS: Basophils # 0.1 10^3/uL (0.0-0.1); Basophils % 0.8 %; Eosinophils # 0.1 10^3/uL (0.0-0.8); Eosinophils % 0.8 %; Hematocrit 34.9 % (36-47); Lymphocytes # 2.2 10^3/uL (0.8-4.8); Mean Corpuscular HGB Conc 30.9 g/dL (30-55); Mean Corpuscular Hemoglobin 25.5 pg (27-33); Mean Corpuscular Volume 82.3 fl (85-98); Mean Platelet Volume 8.9 fL (7.4-10.4); Monocytes # 0.5 10^3/uL (0.2-0.9); Monocytes % 7.1 %; Neutrophils # 4.39 10^3/uL (1.8-7.7); Neutrophils % 61.2 %; Nucleated Red Blood Cells % 0 %; Platelet Count 304 10^3/cmm (157-399); Red Blood Count 4.24 10^6/uL (3.85-5.65); Red Cell Distribution Width 16.4 % (12.1-15.1); White Blood Count 7.19 10^3/uL (3.29-11.43)
[2023-12-02 18:45] LABS: Alanine Aminotransferase 17 U/L (0-33); Albumin Level 3.9 g/dL (3.5-5.2); Alkaline Phosphatase 122 U/L (35-105); Anion Gap 13.6 (5-19); Aspartate Amino Transferase 15 U/L (0-32); Blood Urea Nitrogen 6 mg/dL (6-20); Calcium 9.2 mg/dL (8.5-10.5); Carbon Dioxide 22 mmol/L (22-29); Chloride 107 mmol/L (98-107); Creatinine Clr Calc Pharmacy 218.0081; Globulin 3.4 g/dL (1.3-4.6); Glomerular Filtration Rate 138.1 mL/min (90-130); Glucose 108 mg/dL (65-115); Osmolality Calculated 286 mOsm/kg (285-295); Potassium 3.6 mmol/L (3.5-5.1); Sodium 139 mmol/L (136-145); Total Bilirubin 0.2 mg/dL (0.15-1.2); Total Protein 7.3 g/dL (6.6-8.7)
[2023-12-02 18:46] LABS: Acetaminophen < 5.0 ug/mL (10-30); Alcohol Level < 10 mg/dL (0-10); Salicylate < 0.3 mg/dL (3-10)
--- NOTE | 2023-12-02 18:55 | ED.C_ITS ---
Documented by User: YADIRA Vazquez 12/02/23 19:11 HPI - Psych 2 General: Chief Complaint: Psychiatric Symptoms Stated Complaint: MHE Time Seen by Provider: 12/02/23 18:48 History of Present Illness: 38-year-old female a resident at a [facility] came in by ambulance today for increased anxiety and suicidal thoughts. Patient states that she had had some recent medication changes which has increased her suicidal thoughts. Patient was also upset due to the loss of her breakthrough anxiety medication. Patient is cooperative. Patient has no specific plan. Patient denies any homicidal thoughts. Patient has a history of bipolar disorder, intellectual disability, nicotine use, mixed dyslipidemia, and psychosis. Patient's last admission was November 04 for similar complaints. 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, tobacco product Bipolar I disorder, most recent episode mixed, severe with psychotic features Psychiatric care GERD (gastroesophageal reflux disease) Vitamin D deficiency Mixed hyperlipidemia Nicotine dependence, cigarettes, uncomplicated Surgical History (Updated 11/21/23 @ 09:01 by Jennie Herrera RN) Hx of myringotomy Family History (Updated 11/20/23 @ 12:02 by Jennie Herrera RN) Other Leukemia Lung disease Social History (Updated 11/21/23 @ 09:01 by Jennie Herrera RN) Smoking and tobacco/nicotine status: current every day tobacco/nicotine user e- cigarettes E-Cigarette Details: e-cigarette and with nicotine E-cig/vape details: 7500 puff disposable vap takes 1-2 months to go through one Quit status (tobacco/nicotine): considering quitting Second hand smoke exposure: No Alcohol intake: never Substance/Drug Use: never Adopted: No Caregiver/support person: Yes Lives independently: No Household members: other Details: [facility] Housing: Assisted Living Facility Marital status: Single Number of children: 3 Number of grandchildren: 0 Highest education level completed: High School Graduate service: No Current occupational status: employed 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 [place] Current occupational exposures/hazards: No Pets and animals: Yes (outside) Pets & animals: cat(s) Leisure activites: music Sexually active: No Do you think of yourself as: Straight/Heterosexual Current gender identity: Female Roxanne/Jainism: Pentecostal Special roxanne needs: No Agree to transfusion: Yes Female Reproductive History: Para: 3 Spontaneous abortions: No Physical Exam 2 Const: COMMON NORMALS: alert GENERAL APPEARANCE: well kempt HENMT: COMMON NORMALS: normocephalic HEAD & SCALP: normocephalic Neck/C-Spine: COMMON NORMALS: full ROM Resp: COMMON NORMALS: normal respiratory effort Cardio: COMMON NORMALS: regular rate RATE: regular rate Back/Pelvis: COMMON NORMALS: thoracic and lumbar spine normal to inspection Extremity: COMMON NORMALS: normal to inspection Neuro: SENSORIUM/ORIENTATION: Yes alert Psych: COMMON NORMALS: speech normal APPEARANCE: Yes well kempt A TTITUDE: Yes calm ACTIVITY/MOTOR BEHAVIOR: Yes Avoids eye contact (attititude/behavior) SPEECH: Yes normal speech MOOD & AFFECT: Yes euthymic mood THOUGHT PROCESS: Circumstantial thought process present T HOUGHT CONTENT: Yes Suicidality present INSIGHT: Limited insight present (Psych) JUDGEMENT: Fair judgement present (Psych) Skin: COMMON NORMALS: turgor normal GENERAL SKIN EXAM: turgor normal Course 2 Vital Signs: Vital signs: Vital Signs Temperature 97.8 F 12/02/23 20:37 Pulse Rate 78 12/02/23 20:37 Respiratory Rate 17 12/02/23 20:37 Blood Pressure 168/105 12/02/23 20:37 Pulse Oximetry 97 12/02/23 20:37 Oxygen Delivery Me thod Room Air 12/02/23 19:39 MDM - Psych Medical Decision Making 38-year-old female comes in today for complaints of increased suicidal thoughts and anxiety. Patient endorses recent med change. Patient reports since then she has had increasing suicidal ideation. Patient also reports breakthrough anxiety and being upset because her as needed anxiety medication was discontinued. Patient is alert and oriented. Patient responds appropriate to questions. Patient does not endorse a specific plan for suicidal harm. Differential diagnosis includes but not limited to suicidal ideation, bipolar disorder, generalized anxiety disorder, malingering. 1900, laboratory values were unremarkable. Reviewed patient with Dr. Hernandez who agreed to admission to neuropsychiatric unit. Dr. Castellon was consulted and agreed to plan. Patient needs admission for further evaluation of psychiatric disorder and protection of self from suicide and self-harm. Lab Data 12/02/23 18:18 12/02/23 18:18 Laboratory Results WBC 7.19 10^3/uL (3.29-11.43) 12/02/23 18:18 RBC 4.24 10^6/uL (3.85-5.65) 12/02/23 18:18 Hgb 10.80 g/dL (11.27-16.99) L 12/02/23 18:18 Hct 34.9 % (36-47) L 12/02/23 18:18 MCV 82.3 fl (85-98) L 12/02/23 18:18 MCH 25.5 pg (27-33) L 12/02/23 18:18 MCHC 30.9 g/dL (30-55) 12/02/23 18:18 RDW 16.4 % (12.1-15.1) H 12/02/23 18:18 Plt Count 304 10^3/cmm (157-399) 12/02/23 18:18 MPV 8.9 fL (7.4-10.4) 12/02/23 18:18 Neut % (Auto) 61.2 % 12/02/23 18:18 Lymph % (Auto) 30.0 % 12/02/23 18:18 [place] % (Auto) 7.1 % 12/02/23 18:18 Eos % (Auto) 0.8 % 12/02/23 18:18 Baso % (Auto) 0.8 % 12/02/23 18:18 Neut # (Auto) 4.39 10^3/uL (1.8-7.7) 12/02/23 18:18 Lymph # (Auto) 2.2 10^3/uL (0.8-4.8) 12/02/23 18:18 [place] # (Auto) 0.5 10^3/uL (0.2-0.9) 12/02/23 18:18 Eos # (Auto) 0.1 10^3/uL (0.0-0.8) 12/02/23 18:18 Baso # (Auto) 0.1 10^3/uL (0.0-0.1) 12/02/23 18:18 Nucleated RBC % (auto) 0 % 12/02/23 18:18 Nucleated RBCs # 0.0 /100WBC 12/02/23 18:18 Sodium 139 mmol/L (136-145) 12/02/23 18:18 Potassium 3.6 mmol/L (3.5-5.1) 12/02/23 18:18 Chloride 107 mmol/L (98-107) 12/02/23 18:18 Carbon Dioxide 22 mmol/L (22-29) 12/02/23 18:18 Anion Gap 13.6 (5-19) 12/02/23 18:18 BUN 6 mg/dL (6-20) 12/02/23 18:18 Creatinine 0.5 mg/dL (0.5-0.9) 12/02/23 18:18 GFR Calculation 138.1 mL/min (90-130) H 12/02/23 18:18 Glucose 108 mg/dL (65-115) 12/02/23 18:18 Calculated Osmolality 286 mOsm/kg (285-295) 12/02/23 18:18 Calcium 9.2 mg/dL (8.5-10.5) 12/02/23 18:18 Total Bilirubin 0.2 mg/dL (0.15-1.2) 12/02/23 18:18 AST 15 U/L (0-32) 12/02/23 18:18 ALT 17 U/L (0-33) 12/02/23 18:18 Alkaline Phosphatase 122 U/L (35-105) H 12/02/23 18:18 Total Protein 7.3 g/dL (6.6-8.7) 12/02/23 18:18 Albumin 3.9 g/dL (3.5-5.2) 12/02/23 18:18 Globulin 3.4 g/dL (1.3-4.6) 12/02/23 18:18 Salicylates < 0.3 mg/dL (3-10) L 12/02/23 18:18 Acetaminophen < 5.0 ug/mL (10-30) L 12/02/23 18:18 Valproic Acid 22.3 ug/mL (50-100) L 12/02/23 18:18 Ethyl Alcohol < 10 mg/dL (0-10) 12/02/23 18:18 No radiology studies performed this visit Discharge Plan Discharge Patient Disposition: Admitted As Inpatient Admit Provider: Daryl Hernandez Clinical Impression: Suicidal ideation Condition: Stable Coding Level of Care Code ED Orange Grower for Chg Fwd Documented by User: Samy Castellon, DO 12/02/23 22:43 HPI - Psych 2 General: Chief Complaint: Psychiatric Symptoms Stated Complaint: MHE Time Seen by Provider: 12/02/23 18:48 PFSH ED 2 PFSH: Medical History (Updated 12/02/23 @ 19:01 by YADIRA Vazquez) 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, tobacco product Bipolar I disorder, most recent episode mixed, severe with psychotic features Psychiatric care GERD (gastroesophageal reflux disease) Vitamin D deficiency Mixed hyperlipidemia Nicotine dependence, cigarettes, uncomplicated Surgical History (Updated 11/21/23 @ 09:01 by Jennie Herrera RN) Hx of myringotomy Family History (Updated 11/20/23 @ 12:02 by Jennie Herrera RN) Other Leukemia Lung disease Social History (Updated 11/21/23 @ 09:01 by Jennie Herrera RN) Smoking and tobacco/nicotine status: current every day tobacco/nicotine user e- cigarettes E-Cigarette Details: e-cigarette and with nicotine E-cig/vape details: 7500 puff disposable vap takes 1-2 months to go through one Quit status (tobacco/nicotine): considering quitting Second hand smoke exposure: No Alcohol intake: never Substance/Drug Use: never Adopted: No Caregiver/support person: Yes Lives independently: No Household members: other Details: [facility] Housing: Assisted Living Facility Marital status: Single Number of children: 3 Number of grandchildren: 0 Highest education level completed: High School Graduate service: No Current occupational status: employed 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 [employer] Current occupational exposures/hazards: No Pets and animals: Yes (outside) Pets & animals: cat(s) Leisure activites: music Sexually active: No Do you think of yourself as: Straight/Heterosexual Current gender identity: Female Roxanne/Jainism: Pentecostal Special roxanne needs: No Agree to transfusion: Yes Course 2 Vital Signs: Vital signs: Vital Signs Temperature 97.8 F 12/02/23 20:37 Pulse Rate 78 12/02/23 20:37 Respiratory Rate 17 12/02/23 20:37 Blood Pressure 168/105 12/02/23 20:37 Pulse Oximetry 97 12/02/23 20:37 Oxygen Delivery Me thod Room Air 12/02/23 19:39 MDM - Psych Medical Decision Making 38-year-old female comes in today for complaints of increased suicidal thoughts and anxiety. Patient endorses recent med change. Patient reports since then she has had increasing suicidal ideation. Patient also reports breakthrough anxiety and being upset because her as needed anxiety medication was discontinued. Patient is alert and oriented. Patient responds appropriate to questions. Patient does not endorse a specific plan for suicidal harm. Differential diagnosis includes but not limited to suicidal ideation, bipolar disorder, generalized anxiety disorder, malingering. 1900, laboratory values were unremarkable. Reviewed patient with Dr. Hernandez who agreed to admission to neuropsychiatric unit. Dr. Castellon was consulted and agreed to plan. Patient needs admission for further evaluation of psychiatric disorder and protection of self from suicide and self-harm. This patient was originally seen by YADIRA Delgado.? I agree with his history, evaluation, and treatment. Lab Data 12/02/23 18:18 12/02/23 18:18 Laboratory Results WBC 7.19 10^3/uL (3.29-11.43) 12/02/23 18:18 RBC 4.24 10^6/uL (3.85-5.65) 12/02/23 18:18 Hgb 10.80 g/dL (11.27-16.99) L 12/02/23 18:18 Hct 34.9 % (36-47) L 12/02/23 18:18 MCV 82.3 fl (85-98) L 12/02/23 18:18 MCH 25.5 pg (27-33) L 12/02/23 18:18 MCHC 30.9 g/dL (30-55) 12/02/23 18:18 RDW 16.4 % (12.1-15.1) H 12/02/23 18:18 Plt Count 304 10^3/cmm (157-399) 12/02/23 18:18 MPV 8.9 fL (7.4-10.4) 12/02/23 18:18 Neut % (Auto) 61.2 % 12/02/23 18:18 Lymph % (Auto) 30.0 % 12/02/23 18:18 [place] % (Auto) 7.1 % 12/02/23 18:18 Eos % (Auto) 0.8 % 12/02/23 18:18 Baso % (Auto) 0.8 % 12/02/23 18:18 Neut # (Auto) 4.39 10^3/uL (1.8-7.7) 12/02/23 18:18 Lymph # (Auto) 2.2 10^3/uL (0.8-4.8) 12/02/23 18:18 [place] # (Auto) 0.5 10^3/uL (0.2-0.9) 12/02/23 18:18 Eos # (Auto) 0.1 10^3/uL (0.0-0.8) 12/02/23 18:18 Baso # (Auto) 0.1 10^3/uL (0.0-0.1) 12/02/23 18:18 Nucleated RBC % (auto) 0 % 12/02/23 18:18 Nucleated RBCs # 0.0 /100WBC 12/02/23 18:18 Sodium 139 mmol/L (136-145) 12/02/23 18:18 Potassium 3.6 mmol/L (3.5-5.1) 12/02/23 18:18 Chloride 107 mmol/L (98-107) 12/02/23 18:18 Carbon Dioxide 22 mmol/L (22-29) 12/02/23 18:18 Anion Gap 13.6 (5-19) 12/02/23 18:18 BUN 6 mg/dL (6-20) 12/02/23 18:18 Creatinine 0.5 mg/dL (0.5-0.9) 12/02/23 18:18 GFR Calculation 138.1 mL/min (90-130) H 12/02/23 18:18 Glucose 108 mg/dL (65-115) 12/02/23 18:18 Calculated Osmolality 286 mOsm/kg (285-295) 12/02/23 18:18 Calcium 9.2 mg/dL (8.5-10.5) 12/02/23 18:18 Total Bilirubin 0.2 mg/dL (0.15-1.2) 12/02/23 18:18 AST 15 U/L (0-32) 12/02/23 18:18 ALT 17 U/L (0-33) 12/02/23 18:18 Alkaline Phosphatase 122 U/L (35-105) H 12/02/23 18:18 Total Protein 7.3 g/dL (6.6-8.7) 12/02/23 18:18 Albumin 3.9 g/dL (3.5-5.2) 12/02/23 18:18 Globulin 3.4 g/dL (1.3-4.6) 12/02/23 18:18 Salicylates < 0.3 mg/dL (3-10) L 12/02/23 18:18 Acetaminophen < 5.0 ug/mL (10-30) L 12/02/23 18:18 Valproic Acid 22.3 ug/mL (50-100) L 12/02/23 18:18 Ethyl Alcohol < 10 mg/dL (0-10) 12/02/23 18:18 Discharge Plan Discharge Patient Disposition: Admitted As Inpatient Admit Provider: Daryl Hernandez Clinical Impression: Suicidal ideation Condition: Stable Coding Level of Care Code ED Orange Grower for [place]
[2023-12-02] MEDS: LORazepam 1 mg Tablet PO (19:36)
[2023-12-02 19:39] VITALS: BP 170/109; PULSE 77; RESP 18; TEMP 36.6; O2SAT 96
[2023-12-02 19:41] LABS: Valproic Acid Level 22.3 ug/mL (50-100)
[2023-12-02 19:45] LABS: HCG Qualitative Urine. Negative (Negative)
[2023-12-02 20:37] VITALS: BP 168/105; PULSE 78; RESP 17; TEMP 36.6; O2SAT 97
[2023-12-02 20:44] LABS: Add Urine Culture? Yes; Add Urine Microscopic? YES; Bacteria Urine 1+ /hpf; Bilirubin Urine Neg (Negative); Blood Urine 3+ (Negative); Glucose Urine UA Norm (Normal); Ketones Urine Negative (Negative); Leukocyte Esterase Urine Trace (Negative); Mucus Urine TRACE /hpf; Nitrate Urine Negative (Negative); Protein Urine Trace (Negative); RBC Urine 50-80 /hpf (0-2); Specific Gravity, Urine 1.015 (1.005-1.030); Squamous Epithelial Cell Urine 0-4 /hpf (0-5); Urine Appearance Hazy (CLEAR); Urine Color Dark Yellow (Yellow); Urobilinogen Urine Neg (Negative); WBC Urine 0-4 /hpf (0-5); pH Urine 6 (5-7)
[2023-12-02] MEDS: hyDROXYzine 25 mg Capsule 50 MG PO (20:45)
[2023-12-02] MEDS: trazodone 50 mg Tablet PO (20:45)
[2023-12-02 20:53] LABS: Amphetamines Screen Urine Negative (Negative); Barbiturates Screen Urine Negative (Negative); Benzodiazepines Screen Urine Negative (Negative); Cocaine Screen Urine Negative (Negative); Opiate Screen Urine Negative (Negative); PCP Screen Urine Negative (Negative); THC Screen Urine Negative (Negative)
[2023-12-02] MEDS: atorvastatin 40 mg Tablet 20 MG PO (21:31)
[2023-12-02] MEDS: trazodone 100 mg Tablet PO (21:31)
[2023-12-02] MEDS: propranolol 20 mg Tablet PO (21:31)
[2023-12-03 06:00] VITALS: BP 118/70; PULSE 82; RESP 17; TEMP 36.7; O2SAT 98
[2023-12-03] MEDS: divalproex ER 500 mg Tablet (24H) PO (07:52)
--- NOTE | 2023-12-03 08:03 | W.PM.NPUH&PS ---
Providers/Chief Complaint Admitting Physician: Daryl Hernandez MD Primary Care Provider: Joycelyn Melendrez APN Chief Complaint: MHE HPI NPU History of Present Illness Mariangel Flores is a 38 year old female who presented to the emergency department with the following report: Chief Complaint: Psychiatric Symptoms Stated Complaint: MHE Time Seen by Provider: 12/02/23 18:48 History of Present Illness: 38-year-old female a resident at a skilled nursing came in by ambulance today for increased anxiety and suicidal thoughts. Patient states that she had had some recent medication changes which has increased her suicidal thoughts. Patient was also upset due to the loss of her breakthrough anxiety medication. Patient is cooperative. Patient has no specific plan. Patient denies any homicidal thoughts. Patient has a history of bipolar disorder, intellectual disability, nicotine use, mixed dyslipidemia, and psychosis. Patient's last admission was November 04 for similar complaints. Associated symptoms: Reports suicidal ideation She was admitted to the neuropsychiatric unit for definitive treatment of those issues. She was just discharged 26 days ago and an excerpt of that discharge summary is included below given there have been no substantive changes and for historical context. As far as the records suggest she has not seen a psychiatrist since her discharge at the beginning of November. She presents today reporting that she is doing okay at the facility which she has been staying at after the last hospitalization. She identified that she is adjusting and is okay and endorsed that it was better than living with her family. She endorsed not having had an appointment with a psychiatric provider since her discharge. She reports that her anxiety has been bad and that the BuSpar was discontinued at her last day and she needs something as needed for anxiety. We discussed her being on Depakote from the last time but is not being increased and being on her Zyprexa at night with the 5 mg morning dose being discontinued. We discussed increasing her medication and discussed the risks, benefits and alternatives of looking for something to assist with anxiety and she understood and agreed to proceed as is documented in this note. Per her 11/07/2023 [facility] inpatient psychiatric discharge summary: Discharge Diagnosis (1) Suicidal ideation: Status: Resolved (2) Hallucinations: Status: Resolved (3) Bipolar I disorder, most recent episode mixed, severe with psychotic features: Status: Chronic Reason for Visit Reason for Visit: PSYCH EVAL Brief History: History of Present Illness Mariangel Flores is a 38 year old female with a history of multiple inpatient psych hospitalizations currently residing in a skilled nursing who presented to the emergency department with complaints of worsening anxiety and suicidal ideation. Patient was a poor historian. She reports that she became suicidal after having an argument with a person at her home that she does not get along with in the home. She reports that she has been diagnosed with bipolar disorder. She had reported that she had hallucinations that appear to be prominent when she is stressed. She reports no recent changes in her living situation and describes having herself as a legal guardian. She had stated that she had previously been living with her mother but was no longer welcome in the home. She otherwise reports no substantial changes compared to her most recent discharge from the neuropsychiatric unit on September 10, 2023. Current medications: atorvastatin 20mg at night, buspar 10mg bid, lithium 300mg am, Olanzapine 20mg at night, propranolol 20mg at night, trazodone 100 mg at night, Protonix 40 mg daily Excerpt from NPU Discharge summary from 09/10/23 Diagnoses at Discharge Discharge Diagnosis (1) Suicidal ideation: Status: Resolved (2) Hallucinations: Status: Resolved (3) Bipolar I disorder, most recent episode mixed, severe with psychotic features: Status: Chronic Reason for Visit History of Present Illness Mariangel Flores is a 38 year old female who presented to the emergency department with the following report: Chief Complaint: Psychiatric Symptoms Stated Complaint: MHE Time Seen by Provider: 09/05/23 13:59 History of Present Illness: 38-year-old female with history of paranoid schizophrenia who presents the emergency room with psychiatric complaints. She says she had an episode yesterday where she walked out into traffic. Family believes she may be a danger to herself. She is having paranoid thoughts that people might be poisoning her. She says she does not think her meds are adjusted right and she needs to come back into the hospital again. She was admitted to the neuropsychiatric unit for definitive treatment of those issues. She presents today as she has so many times reporting that her medications are ineffective. She has been consistent with her treatment at [facility] with her last appointment 08/24/2023. An appointment she identified that her Geodon was ineffective and Geodon was discontinued and replaced with 10 mg of Zyprexa at night. She reports inconsistency with the Zyprexa and even if she was consistent she was only giving it a 12-day timeframe to see if it was effective. The Lian had been an 80 mg p.o. twice daily with meals and she reported having difficulty getting in the 500 gayatri per meal to take her Geodon. She reports as was reported in that document that she started having conflicts at home as her paranoia increased she started feeling like she could not trust her family. She reportedly threw some of her mom's medications away because she was paranoid that mom had been using her meds to poison patient. We discussed that her departure to her mother was treated by hyacinth at her skilled nursing where she did not feel safe there. We reviewed the different medications she has attempted. She reports that Invega and Abilify both create significant problems including a report of an allergy to Invega. Otherwise she said yes to every single other medication for psychosis on the market. Her response about Vraylar and Latuda did not seem full throated. We discussed reaching out to her outpatient provider and trying to come to some conclusion about where to go from here. We also discussed the fact of the right answer may be increasing the Zyprexa. We also discussed the possibility of Clozaril. An excerpt of her discharge summary from her last visit and May of last year is included below for history and context given she denies substantive changes since then other than the Zyprexa for Geodon. Per her 05/28/2023 [facility] inpatient psychiatric discharge summary: Discharge Diagnosis (1) Suicidal ideation: Status: Resolved (2) Hallucinations: Status: Resolved (3) Bipolar I disorder, most recent episode mixed, severe with psychotic features: Status: Chronic Reason for Visit Reason for Visit: si Brief History: History of Present Illness Mariangel Flores is a 38 year old female who presented to the emergency department with the following report: Chief Complaint: Psychiatric Symptoms Stated Complaint: si Time Seen by Provider: 05/22/23 23:06 History of Present Illness: Patient presents by [facility] from [facility] which is a skilled nursing and [facility] for suicidal ideation and attempting to cut her left wrist. Patient has multiple superficial abrasions on her left wrist. Patient does states she was intending to kill herself. Patient does states she would be voluntarily to our NPU. The patient was admitted to the neuropsychiatric unit for definitive treatment of those issues. The patient presents today reporting that she came to the hospital because of suicidal thoughts, reporting she cut her wrist. She reports that she was upset and has a lot of stuff going on, and life is stressful. She reports that she has probably had more than thirty psychiatric hospitalizations. She reports outpatient services through a psychiatrist, who comes to the home, and prescribes her medication. She reports that she takes a PRN medication for anxiety and states that it is does not work. She reports that she lives at [facility], but reports that they kicked her out. She reports that she is planning to move to [place], but she is not sure where yet. She reports that she has tried multiple medications, including Abilify, and she denies Geodon or Depakote. The patient endorses vaping. She endorses alcohol use sometimes. She denies marijuana or any other illicit drug use. She denies drug rehabilitation or DUI. She reports that she has been at [facility] for four to five years. The patient reports that she works at the [employer], and has been there three to four years. She reports that she does not have a guardian. An excerpt of her October 2022 hospitalization is included below for context. PSYCHIATRIC HISTORY: As above. SUBSTANCE ABUSE HISTORY: As above. MEDICAL HISTORY: The patient endorses allergy to Invega injection. Per her 10/11/2022 [facility] inpatient psychiatric discharge summary: Discharge Diagnosis (1) Suicidal ideation: Status: Resolved (2) Hallucinations: Status: Resolved (3) Bipolar I disorder, most recent episode mixed, severe with psychotic features: Status: Chronic Reason for Visit Reason for Visit: SI Brief History: History of Present Illness Mariangel Flores is a 37 year old female presented to the emergency department with the following report: Chief Complaint: Psychiatric Symptoms Stated Complaint: SI Time Seen by Provider: 10/05/22 22:04 Source: patient Mode of arrival: EMS Limitations: no limitations History of Present Illness: Patient is a 37-year-old female who presents to ED today from her residential facility of [place] for evaluation of suicidal ideations and auditory and visual hallucinations. Patient tells me she has felt suicidal all day with no specific plan. She does report a previous suicide attempt but will not elaborate on these details. She states she is seeing dark shadows people moving in her home. She states she is hearing voices telling her to grab knives from the kitchen and kill herself. Patient states she has a psychiatric provider Remedios Dao that comes to their facility once a month for medication changes. She thinks some of her psychiatric medications were recently changed. She reports she has a history of bipolar and schizophrenia. MD complaint: suicidal ideation and feels depressed Onset (ago): day(s) Duration: constant History of same: Yes Relieving factors: none Exacerbating factors: none Associated psychiatric symptoms: depression, suicidal ideation, auditory hallucinations and visual hallucinations Associated symptoms: Reports auditory hallucinations, visual hallucinations, depression and suicidal ideation; Deny homicidal ideation Treatments prior to arrival: none If self harm: admits thoughts of self harm She was admitted to the neuropsychiatric unit for definitive treatment of those issues. 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 Her time references were certainly off when talking about last hospitalization etc. she reports that she reported in the emergency department that she had been doing fairly well for the past few years since her hospitalization in August 2019. An excerpt of that hospitalization evaluation is included below for context given her limited historical ability. We also discussed getting some collateral information from staff and or family. However she reports that as she has been feeling poorly she went to her outpatient psychiatrist/nurse practitioner and there were some dose changes made. It appears that she was increased on her Seroquel from 400 mg to 800 mg. We discussed the fact that we would like to bring that back a bit and not have such a large jump in her medication. We also discussed the possibility of considering an alternative to Seroquel for hallucinations, psychosis, and behavioral dysregulation. She reports that she has stayed at the residence she has for a while now and the nurse practitioner comes to the building so she does not miss her appointments. She cannot identify any specific stressors that might be impacting her current functioning. She denied any conflicts at her facility that might lead her to not want to be there. She denied any significant changes since 2019. She reports she is eating all right and sleeping okay. Per her 08/15/2019 [facility] inpatient psychiatric evaluation: Date of Service: Aug 15, 2019 Chief Complaint: Mom threw away my meds last month HPI: The patient presents today reporting that for some reason her mother got rid of all her medications because she said she was taking them wrong, and if she was not going to take them right, she might as well not have them. She reports that happened about a month ago and that because of that, she was not doing well and DFS has been involved. It was unclear exactly what is going on with those things, but her children are with her sister, so she is not that stressed about them, but she is stressed out about not being with them. She reports that her injection has been going well and that she had it earlier this month. We agreed that we would explore and see what the exact date was to make sure that she does not miss her next one coming up. She reports that she does not feel like she is having any specific symptoms, but she wants to restart the pills that her mom threw away. We discussed the fact that we would need to get a sense of what they were exactly because she does not remember the name even though I reviewed the medications received from the pharmacy. She has no knowledge of what the medication names even might be. She reports that we can talk to her mother which we agreed we would do, but we need to figure out what exactly is going on because if this is the way that they dealt with some difficulty with adherence, that is quite problematic. Additionally, the medications that are missing are not medications that we or the psychiatric team actually prescribe so that also adds another layer of difficulty, the psychiatric medication and the injection she is getting, but there are some medications for maybe seizures or we are not really sure why they are being prescribed, most likely Neurontin and Trileptal. We need to figure out why they are being prescribed and talk to her mom about the circumstances of the pills being dumped. We discussed her psychosocial situation which outside of the issue with DFS, she reports being unchanged from her last hospitalization, the information from which is included below. Per ED eval: HISTORY OF PRESENT ILLNESS Chief Complaint: ANXIOUS and DEPRESSED. This started today. (34 yo female presents to the ED with complaints of being really stressed out. She said she has felt like this for months. She said it just worsens. She said she has never had a plan to hurt herself but just wishes she wasn't here. She denies hallucinations or suicidal ideations. She said she is worried about her children (her sister has her children). They were placed there via DFS. She said she stresses about not being with them. She said she has had a runny nose. She said she has not been sleeping. She said she was placed on a sleeping pill the last time she was here but it is too expensive. She said the social scientist has not contacted her to talk to the patient about her children.). The patient has experienced situational problems related to legal problems and custody issues. She is non-compliant with medication. Has not been sleeping. She has had anxiety. Has been depressed. The symptoms are described as moderate. No injury is present. Similar symptoms previously. Recent medical care: The patient was seen recently by a health care provider. REVIEW OF SYSTEMS All other systems reviewed and are negative. PAST HISTORY See nurses notes. ( PCP - Nehemias). Anxiety. Bipolar disorder. Depression. Psychosis. Surgeries: Cholecystectomy. SOCIAL HISTORY Current every day heavy tobacco smoker (cigarette)- more than 2 packs per day. No alcohol use or drug use. Hospital Course During the hospitalization, the patient had routine laboratory studies which were within normal limits except for a few outliers. Additionally, there was a general medical evaluation which was also within normal limits and revealed no new acute processes. At the time of discharge, lethality was denied and psychosis was resolving. Mood and anxiety were well managed. The patient endorsed a plan to avoid all drugs of abuse and follow up with the aftercare recommendations of the treatment team. The patient was evaluated and deemed to be absent credible lethality and had achieved the maximum benefit from an inpatient hospitalization, and so was discharged. Patient was started on BuSpar 10 mg twice a day to target anxiety. The patient was adamant about not returning to her previous skilled nursing and was discharged to her mother's care with a plan for the patient to live in another skilled nursing. Hospital Course During the hospitalization, the patient had routine laboratory studies which were within normal limits except for a few outliers. Additionally, there was a general medical evaluation which was also within normal limits and revealed no new acute processes. At the time of discharge, lethality was denied and psychosis was resolving. Mood and anxiety were well managed. The patient endorsed a plan to avoid all drugs of abuse and follow up with the aftercare recommendations of the treatment team. The patient was evaluated and deemed to be absent credible lethality and had achieved the maximum benefit from an inpatient hospitalization, and so was discharged. The patient's lithium was discontinued. The patient's buspirone was also discontinued. The patient had reported having increased anxiety over the last few months with complaints of panic attacks. The patient had reported that she had been consuming approximately 250 mg of caffeine a day through her monster drinks while living in her current skilled nursing. It was recommended that the patient not use caffeine as it may be kindling her panic attacks. Depakote was started at 500 mg once a day to target mixed mood symptoms. Zyprexa in the morning was also discontinued but continued at night at her previous dose. Patient's labs had revealed low iron and low ferritin which is likely indicative of iron deficiency anemia and it was recommended that the patient be considered to be placed on iron daily. Meds NPU Home Medications Medication Instructions Recorded Confirmed Last Taken Type atorvastatin 40 mg tablet 20 mg PO BEDTIME@20 11/03/23 12/02/23 12/01/23 History olanzapine 15 mg tablet (Zyprexa) 15 mg PO DAILY@17 11/03/23 12/02/23 12/02/23 History propranolol 20 mg tablet 20 mg PO BEDTIME@20 11/03/23 12/02/23 12/01/23 History trazodone 100 mg tablet 100 mg PO BEDTIME@20 11/03/23 12/02/23 12/01/23 History divalproex 500 mg tablet,extended 500 mg PO 0900 30 days #30 tabs 11/07/23 12/02/23 12/02/23 Rx release 24 hr ferrous sulfate 325 mg (65 mg 325 mg PO DAILY #30 tabs 11/07/23 12/02/23 12/02/23 Rx iron) tablet (Iron (ferrous sulfate)) Allergies Allergy/AdvReac Type Severity Reaction Status Date / Time paliperidone [From Invega] AdvReac Severe chest Verified 12/02/23 17:53 pain, facial edema, dyspnea PFSH NPU PFSH: Medical History (Updated 12/03/23 @ 18:25 by Daryl Hernandez MD) 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, tobacco product Bipolar I disorder, most recent episode mixed, severe with psychotic features Psychiatric care GERD (gastroesophageal reflux disease) Vitamin D deficiency Mixed hyperlipidemia Nicotine dependence, cigarettes, uncomplicated Surgical History (Updated 11/21/23 @ 09:01 by Jennie Herrera RN) Hx of myringotomy Family History (Updated 11/20/23 @ 12:02 by Jennie Herrera RN) Other Leukemia Lung disease Social History (Updated 11/21/23 @ 09:01 by Jennie Herrera RN) Smoking and tobacco/nicotine status: current every day tobacco/nicotine user e-cigarettes E-Cigarette Details: e-cigarette and with nicotine E-cig/vape details: 7500 puff disposable vap takes 1-2 months to go through one Quit status (tobacco/nicotine): considering quitting Second hand smoke exposure: No Alcohol intake: never Substance/Drug Use: never Adopted: No Caregiver/support person: Yes Lives independently: No Household members: other Details: [facility] Housing: Assisted Living Facility Marital status: Single Number of children: 3 Number of grandchildren: 0 Highest education level completed: High School Graduate service: No Current occupational status: employed 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 No abnormal movements, except for mild psychomotor retardation. She was mostly cooperative with exam in mild distress. Speech was decreased rate and volume. Her mood was described as depressed. Her affect was flat. Her thought process was linear and logical. Thought content: She endorsed suicidal ideation with no plan, she denied homicidal ideation. She endorsed auditory hallucinations and denied any visual hallucinations. She did appear somewhat internally preoccupied. Attention and concentration appeared grossly intact and memory is somewhat reliable, but none were formally tested. Alert and oriented times three. Insight and judgment are limited impulse control is limited. Intelligence appeared commensurate with mild cognitive impairment. Vitals/I&O/Wt Last Vital Signs Temp 98.0 F 12/03/23 06:00 Pulse 82 12/03/23 06:00 Resp 17 12/03/23 06:00 BP 118/70 12/03/23 06:00 Pulse Ox 98 12/03/23 06:00 O2 Del Method Room Air 12/03/23 06:00 Weight last 48 hrs Weight 127.006 kg Data NPU 12/02/23 18:18 12/02/23 18:18 A&P Assessment and plan (1) Suicidal ideation: (2) Hallucinations: (3) Bipolar I disorder, most recent episode mixed, severe with psychotic features: (4) Acute psychosis: (5) Suicidal ideation: (6) Mild intellectual disability: Plan A 38-year-old white female with a long history of mental health challenges and likely intellectual disability who presents once again to the neuropsychiatric unit with increases and suicidal thoughts and psychiatric symptoms with extremely limited coping skills and requesting medication changes. 1. Will attempt to gather collateral information. Will increase nighttime Zyprexa to 20 mg p.o. nightly and consider increasing the Depakote once we get a trough level. Will start exploring possible options for her anxiety. 2. Continue every 15 minute checks for safety. 3. Encourage individual, group and milieu therapy. Involuntary Hold Information 96 Hour Hold: 96 Hour Involuntary Admission: No Attestations NPU Medical Necessity Statement*: Inpatient hospitalization is medically necessary and the clinically appropriate intervention at this time. We will monitor/initiate medications and make changes as indicated. She will be in the hospital for over 2 midnights. Her likely length of stay 6 to 8 days. Coding Level of Care Code Acute Code for g Fwd Diagnoses Suicidal ideation R45.851 Hallucinations R44.3 Bipolar I disorder, most recent episode mixed, severe with psychotic features F31.64 Acute psychosis F23 Mild intellectual disability F70
[2023-12-03] MEDS: ferrous sulfate EC 325 mg Tablet PO (08:19)
[2023-12-03 14:00] VITALS: BP 117/77; PULSE 92; RESP 18; TEMP 36.7; O2SAT 98
[2023-12-03] MEDS: nicotine 2 mg Gum BUCCAL (15:24)
[2023-12-03] MEDS: OLANZapine 5 mg TABLET 15 MG PO (16:42)
[2023-12-03] MEDS: atorvastatin 40 mg Tablet 20 MG PO (20:51)
[2023-12-03] MEDS: propranolol 20 mg Tablet PO (20:51)
[2023-12-03] MEDS: trazodone 100 mg Tablet PO (20:52)
[2023-12-03 22:00] VITALS: BP 145/101; PULSE 81; RESP 16; TEMP 36.3; O2SAT 99
[2023-12-04 06:00] VITALS: BP 106/69; PULSE 68; RESP 17; TEMP 36.7; O2SAT 99
[2023-12-04] MEDS: divalproex ER 500 mg Tablet (24H) PO (08:48)
[2023-12-04] MEDS: ferrous sulfate EC 325 mg Tablet PO (08:48)
--- NOTE | 2023-12-04 09:48 | PC.NURSE ---
AT AROUND 0900 STAFF PERFORMED RANDOM ROOM CHECKS FOR CONTRABAND. DURING THIS RANDOM CHECK NO CONTRABAND WAS FOUND IN PT ROOM. PT WAS COOPERATIVE WITH CHECK.
[2023-12-04 14:00] VITALS: BP 107/69; PULSE 71; RESP 16; TEMP 36.6; O2SAT 96
--- NOTE | 2023-12-04 16:46 | P.NPUPN_ITS ---
Subjective NPU 2 Subjective: Patient presented today reporting that she is doing okay. She endorses tolerating the increase in her Zyprexa to 20 mg last night. We discussed getting a trough level for her Depakote in the morning before her next dose and then using that to inform our consideration of increasing. She denied any side effects to her medication and reports that she might be feeling a little better. Mental Status Exam 2 MSE Comments: This is an obese, white female, in hospital scrubs, with limited grooming and eye contact. No abnormal movements, except for mild psychomotor retardation. She was mostly cooperative with exam in mild distress. Speech was decreased rate and volume. Her mood was described as maybe a little better, her affect was flat. Her thought process was linear and logical. Thought content: She endorsed suicidal ideation with no plan, she denied homicidal ideation. She endorsed auditory hallucinations and denied any visual hallucinations. She did appear somewhat internally preoccupied. Attention and concentration appeared grossly intact and memory is somewhat reliable, but none were formally tested. Alert and oriented times three. Insight and judgment are limited impulse control is limited. Intelligence appeared commensurate with mild cognitive impairment. Vitals/I&O/Wt Last Vital Signs Temp 98 F 12/04/23 14:00 Pulse 71 12/04/23 14:00 Resp 16 12/04/23 14:00 BP 107/69 12/04/23 14:00 Pulse Ox 96 12/04/23 14:00 O2 Del Method Room Air 12/04/23 14:00 Weight last 48 hrs Weight 127.006 kg Data NPU 12/02/23 18:18 12/02/23 18:18 Micro: Microbiology 12/02/23 Unknown Urine Culture - Final Urine,Clean Catch Microbiology 12/02/23 Unknown Urine,Clean Catch Urine Culture - Final A&P Assessment and plan (1) Suicidal ideation: (2) Hallucinations: (3) Bipolar I disorder, most recent episode mixed, severe with psychotic features: (4) Acute psychosis: (5) Suicidal ideation: (6) Mild intellectual disability: Plan A 38-year-old white female with a long history of mental health challenges and likely intellectual disability who presents once again to the neuropsychiatric unit with increases and suicidal thoughts and psychiatric symptoms with extremely limited coping skills and requesting medication changes. 1. Will attempt to gather collateral information. Increased Zyprexa to 20 mg p.o. nightly and consider increasing the Depakote once we get a trough level. Will start exploring possible options for her anxiety. 2. Continue every 15 minute checks for safety. 3. Encourage individual, group and milieu therapy. Involuntary Hold Information 2 96 Hour Hold: 96 Hour Involuntary Admission: No Attestations NPU 2 Medical Necessity Statement*: Inpatient hospitalization is medically necessary and the clinically appropriate intervention at this time. We will monitor/initiate medications and make changes as indicated. Her likely length of stay 5-7 days. Coding Level of Care Code Acute Code for Chg Fwd Diagnoses Suicidal ideation R45.851 Hallucinations R44.3 Bipolar I disorder, most recent episode mixed, severe with psychotic features F31.64 Acute psychosis F23 Mild intellectual disability F70
[2023-12-04] MEDS: OLANZapine 5 mg TABLET 15 MG PO (17:06)
[2023-12-04 20:09] VITALS: BP 99/62; PULSE 83; RESP 16; TEMP 36.8; O2SAT 97
[2023-12-04] MEDS: trazodone 100 mg Tablet PO (21:20)
[2023-12-04] MEDS: atorvastatin 40 mg Tablet 20 MG PO (21:20)
[2023-12-04] MEDS: propranolol 20 mg Tablet PO (21:20)
[2023-12-05 06:00] VITALS: BP 121/74; PULSE 78; RESP 17; TEMP 36.5; O2SAT 97
[2023-12-05 09:15] LABS: Valproic Acid Level 13.8 ug/mL (50-100)
[2023-12-05] MEDS: divalproex ER 500 mg Tablet (24H) 1000 MG PO (10:07)
[2023-12-05] MEDS: ferrous sulfate EC 325 mg Tablet PO (10:07)
--- NOTE | 2023-12-05 13:48 | PC.NURSE ---
AT AROUND 1015 RANDOM ROOM CHECKS WERE PERFORMED BY STAFF. DURING THIS ROOM CHECK NO CONTRABAND WAS FOUND IN THIS PATIENT ROOM. PT WAS COOPERATIVE WITH ROOM CHECK.
[2023-12-05 14:00] VITALS: BP 126/72; PULSE 86; RESP 17; TEMP 36.6; O2SAT 98
--- NOTE | 2023-12-05 15:58 | P.NPUPN_ITS ---
Subjective NPU 2 Subjective: Patient presented today reporting that she is feeling okay. We discussed her low Depakote level and that being an indication that we should increase it from 500 mg to 1000 mg of the ER version discussing the risks, benefits and alternatives and she understood and agreed to proceed as is documented in this note. She denies any side effects of the medications and began mentioning to the social work team questions about discharge. Mental Status Exam 2 MSE Comments: This is an obese, white female, in hospital scrubs, with limited grooming and eye contact. No abnormal movements, except for mild psychomotor retardation. She was mostly cooperative with exam in mild distress. Speech was decreased rate and volume. Her mood was described as maybe a little better, her affect was flat. Her thought process was linear and logical. Thought content: She endorsed suicidal ideation with no plan, she denied homicidal ideation. She endorsed auditory hallucinations and denied any visual hallucinations. She did appear somewhat internally preoccupied. Attention and concentration appeared grossly intact and memory is somewhat reliable, but none were formally tested. Alert and oriented times three. Insight and judgment are limited impulse control is limited. Intelligence appeared commensurate with mild cognitive impairment. Vitals/I&O/Wt Last Vital Signs Temp 97.9 F 12/05/23 14:00 Pulse 86 12/05/23 14:00 Resp 17 12/05/23 14:00 BP 126/72 12/05/23 14:00 Pulse Ox 98 12/05/23 14:00 O2 Del Method Room Air 12/05/23 06:00 Data NPU 12/02/23 18:18 12/02/23 18:18 A&P Assessment and plan (1) Suicidal ideation: (2) Hallucinations: (3) Bipolar I disorder, most recent episode mixed, severe with psychotic features: (4) Acute psychosis: (5) Suicidal ideation: (6) Mild intellectual disability: Plan A 38-year-old white female with a long history of mental health challenges and likely intellectual disability who presents once again to the neuropsychiatric unit with increases and suicidal thoughts and psychiatric symptoms with extremely limited coping skills and requesting medication changes. 1. Will attempt to gather collateral information. Increased Zyprexa to 20 mg p.o. nightly and consider increasing the Depakote once we get a trough level. Depakote trough level 13.8. Increase the Depakote ER to 1000 mg p.o. every morning from 500 mg p.o. every morning. 2. Continue every 15 minute checks for safety. 3. Encourage individual, group and milieu therapy. 4. Continue to monitor patient's feelings of safety and medication improvement for consideration of discharge. Involuntary Hold Information 2 96 Hour Hold: 96 Hour Involuntary Admission: No Attestations NPU 2 Medical Necessity Statement*: Inpatient hospitalization is medically necessary and the clinically appropriate intervention at this time. We will monitor/initiate medications and make changes as indicated. Her likely length of stay 2-4 days. Coding Level of Care Code Acute Code for Chg Fwd Diagnoses Suicidal ideation R45.851 Hallucinations R44.3 Bipolar I disorder, most recent episode mixed, severe with psychotic features F31.64 Acute psychosis F23 Mild intellectual disability F70
[2023-12-05] MEDS: OLANZapine 5 mg TABLET 15 MG PO (17:24)
[2023-12-05 20:11] VITALS: BP 108/69; PULSE 75; RESP 18; TEMP 36.7; O2SAT 97
[2023-12-05] MEDS: propranolol 20 mg Tablet PO (20:11)
[2023-12-05] MEDS: trazodone 100 mg Tablet PO (20:11)
[2023-12-05] MEDS: atorvastatin 40 mg Tablet 20 MG PO (20:11)
[2023-12-06 06:00] VITALS: BP 109/56; PULSE 65; RESP 18; TEMP 36.5; O2SAT 94
[2023-12-06] MEDS: divalproex ER 500 mg Tablet (24H) 1000 MG PO (08:17)
[2023-12-06] MEDS: ferrous sulfate EC 325 mg Tablet PO (08:18)
[2023-12-06] MEDS: nicotine 2 mg Gum BUCCAL (09:56)
--- NOTE | 2023-12-06 12:57 | P.NPUDS_ITS ---
Diagnoses at Discharge Discharge Diagnosis (1) Suicidal ideation: Status: Resolved (2) Hallucinations: Status: Resolved (3) Bipolar I disorder, most recent episode mixed, severe with psychotic features: Status: Chronic (4) Acute psychosis: Status: Acute (5) Mild intellectual disability: Status: Chronic Reason for Visit Reason for Visit: MHE Brief History: History of Present Illness Mariangel Flores is a 38 year old female who presented to the emergency department with the following report: Chief Complaint: Psychiatric Symptoms Stated Complaint: MHE Time Seen by Provider: 12/02/23 18:48 History of Present Illness: 38-year-old female a resident at a half-way came in by ambulance today for increased anxiety and suicidal thoughts. Patient states that she had had some recent medication changes which has increased her suicidal thoughts. Patient was also upset due to the loss of her breakthrough anxiety medication. Patient is cooperative. Patient has no specific plan. Patient denies any homicidal thoughts. Patient has a history of bipolar disorder, intellectual disability, nicotine use, mixed dyslipidemia, and psychosis. Patient's last admission was November 04 for similar complaints. Associated symptoms: Reports suicidal ideation She was admitted to the neuropsychiatric unit for definitive treatment of those issues. She was just discharged 26 days ago and an excerpt of that discharge summary is included below given there have been no substantive changes and for historical context. As far as the records suggest she has not seen a psychiatrist since her discharge at the beginning of November. She presents today reporting that she is doing okay at the facility which she has been staying at after the last hospitalization. She identified that she is adjusting and is okay and endorsed that it was better than living with her family. She endorsed not having had an appointment with a psychiatric provider since her discharge. She reports that her anxiety has been bad and that the BuSpar was discontinued at her last day and she needs something as needed for anxiety. We discussed her being on Depakote from the last time but is not being increased and being on her Zyprexa at night with the 5 mg morning dose being discontinued. We discussed increasing her medication and discussed the risks, benefits and alternatives of looking for something to assist with anxiety and she understood and agreed to proceed as is documented in this note. Per her 11/07/2023 [facility] inpatient psychiatric discharge summary: Discharge Diagnosis (1) Suicidal ideation: Status: Resolved (2) Hallucinations: Status: Resolved (3) Bipolar I disorder, most recent epis ode mixed, severe with psychotic features: Status: Chronic Reason for Visit Reason for Visit: PSYCH EVAL Brief History: History of Present Illness Mariangel Flores is a 38 year old female with a history of multiple inpatient psych hospitalizations currently residing in a half-way who presented to the emergency department with complaints of worsening anxiety and suicidal ideation. Patient was a poor historian. She reports that she became suicidal after having an argument with a person at her home that she does not get along with in the home. She reports that she has been diagnosed with bipolar disorder. She had reported that she had hallucinations that appear to be prominent when she is stressed. She reports no recent changes in her living situation and describes having herself as a legal guardian. She had stated that she had previously been living with her mother but was no longer welcome in the home. She otherwise reports no substantial changes compared to her most recent discharge from the neuropsychiatric unit on September 10, 2023. Current medications: atorvastatin 20mg at night, buspar 10mg bid, lithium 300mg am, Olanzapine 20mg at night, propranolol 20mg at night, trazodone 100 mg at night, Protonix 40 mg daily Excerpt from NPU Discharge summary from 09/10/23 Diagnoses at Discharge Discharge Diagnosis (1) Suicidal ideation: Status: Resolved (2) Hallucinations: Status: Resolved (3) Bipolar I disorder, most recent epis ode mixed, severe with psychotic features: Status: Chronic Reason for Visit History of Present Illness Mariangel Flores is a 38 year old female who presented to the emergency de partment with the following report: Chief Complaint: Psychiatric Symptoms Stated Complaint: MHE Time Seen by Provider: 09/05/23 13:59 History of Present Illness: 38-year-old female with history of paran oid schizophrenia who presents the emergency room with psychiatric complaints. She says she had an episode yesterday where she walked out into traffic. Family believes she may be a danger to herself. She is having paranoid thoughts that people might be poisoning her. She says she does not think her meds are adjusted right and she needs to come back into the hospital again. She was admitted to the neuropsychiatric unit for definitive treatment of those issues. She presents today as she has so many times reporting that her medications are ineffective. She has been consistent with her treatment at [facility] with her last appointment 08/24/2023. An appointment she identified that her Geodon was ineffective and Geodon was discontinued and replaced with 10 mg of Zyprexa at night. She reports inconsistency with the Zyprexa and even if she was consistent she was only giving it a 12-day timeframe to see if it was effective. The Geodon had been an 80 mg p.o. twice daily with meals and she reported having difficulty getting in the 500 gayatri per meal to take her Geodon. She reports as was reported in that document that she started having conflicts at home as her paranoia increased she started feeling like she could not trust her family. She reportedly threw some of her mom's medications away because she was paranoid that mom had been using her meds to poison patient. We discussed that her departure to her mother was treated by hyacinth at her half-way where she did not feel safe there. We reviewed the different medications she has attempted. She reports that Invega and Abilify both create significant problems including a report of an allergy to Invega. Otherwise she said yes to every single other medication for psychosis on the market. Her response about Vraylar and Latuda did not seem full throated. We discussed reaching out to her outpatient provider and trying to come to some conclusion about where to go from here. We also discussed the fact of the right answer may be increasing the Zyprexa. We also discussed the possibility of Clozaril. An excerpt of her discharge summary from her last visit and May of last year is included below for history and context given she denies substantive changes since then other than the Zyprexa for Geodon. Per her 05/28/2023 [facility] inpatient psychiatric discharge summary: Discharge Diagnosis (1) Suicidal ideation: Status: Res olved (2) Hallucinations: Status: Resolv ed (3) Bipolar I disorder, most recent epis ode mixed, severe with psychotic features: Status: Chronic Reason for Visit Reason for Visit: si Brief History: History of Present Illness Mariangel Flores is a 38 year old female who presented to the emergency department with the following report: Chief Complaint: Psychiatric Symptoms Stated Complaint: si Time Seen by Provider: 05/22/23 23:06 History of Present Illness: Patient presents by [facility] from [facility] which is a half-way and [facility] for suicidal ideation and attempting to cut her left wrist. Patient has multiple superficial abrasions on her left wrist. Patient does states she was intending to kill herself. Patient does states she would be voluntarily to our NPU. The patient was admitted to the neuropsychiatric unit for definitive treatment of those issues. The patient presents today reporting that she came to the hosp ital because of suicidal thoughts, reporting she cut her wrist. She reports that she was upset and has a lot of stuff going on, and life is stressful. She reports that she has probably had more than thirty psychiatric hospitalizations. She reports outpatient services through a psychiatrist, who comes to the home, and prescribes her medication. She reports that she takes a PRN medication for anxiety and states that it is does not work. She reports that she lives at [facility], but reports that they kicked her out. She reports that she is planning to move to [place], but she is not sure where yet. She reports that she has tried multiple medications, including Abilify, and she denies Geodon or Depakote. The patient endorses vaping. She endorses alcohol use sometimes. She denies marijuana or any other illicit drug use. She denies drug rehabilitation or DUI. She reports that she has been at [facility] for four to five years. The patient reports that she works at the [employer], and has been there three to four years. She reports that she does not have a guardian. An excerpt of her October 2022 hospitalization is included below for context. PSYCHIATRIC HISTORY: As above. SUBSTANCE ABUSE HISTORY: As above. MEDICAL HISTORY: The patient endorses allergy to Invega injection. Per her 10/11/2022 [facility] inpatient psychiatric discharge summary: Discharge Diagnosis (1) Suicidal ideation: Status: Reso lved (2) Hallucinations: Status: Resolve d (3) Bipolar I disorder, most recent epis ode mixed, severe with psychotic features: Status: Chronic Reason for Visit Reason for Visit: SI Brief History: History of Present Illness Mariangel Flores is a 37 year old female presented to the emergency department with the following report: Chief Complaint: Psychiatric Symptoms Stated Complaint: SI Time Seen by Provider: 10/05/22 22:04 Source: patient Mode of arrival: EMS Limitations: no limitations History of Present Illness: Patient is a 37-year-old female who presents to ED today from her residential facility of [facility] for evaluation of suicidal ideations and auditory and visual hallucinations. Patient tells me she has felt suicidal all day with no specific plan. She does report a previous suicide attempt but will not elaborate on these details. She states she is seeing dark shadows people moving in her home. She states she is hearing voices telling her to grab knives from the kitchen and kill herself. Patient states she has a psychiatric provider Remedios Dao that comes to their facility once a month for medication changes. She thinks some of her psychiatric medications were recently changed. She reports she has a history of bipolar and schizophrenia. MD complaint: suicidal ideation and feels depressed Onset (ago): day(s) Duration: constant History of same: Yes Relieving factors: none Exacerbating factors: none Associated psychiatric symptoms: depression, suicidal ideation, auditory hallucinations and visual hallucinations Associated symptoms: Reports auditory hallucinations, visual hallucinations, depression and suicidal ideation; Deny homicidal ideation Treatments prior to arrival: none If self harm: admits thoughts of self harm She was admitted to the neuropsychiatric unit for definitive treatment of those issues. She is a limited historian and seemed to have some mild cognitive disa bility. Her time references were certainly off when talking about last hospitalization etc. she reports that she reported in the emergency department that she had been doing fairly well for the past few years since her hospitalization in August 2019. An excerpt of that hospitalization evaluation is included below for context given her limited historical ability. We also discussed getting some collateral information from staff and or family. However she reports that as she has been feeling poorly she went to her outpatient psychiatrist/nurse practitioner and there were some dose changes made. It appears that she was increased on her Seroquel from 400 mg to 800 mg. We discussed the fact that we would like to bring that back a bit and not have such a large jump in her medication. We also discussed the possibility of considering an alternative to Seroquel for hallucinations, psychosis, and behavioral dysregulation. She reports that she has stayed at the residence she has for a while now and the nurse practitioner comes to the building so she does not miss her appointments. She cannot identify any specific stressors that might be impacting her current functioning. She denied any conflicts at her facility that might lead her to not want to be there. She denied any significant changes since 2019. She reports she is eating all right and sleeping okay. Per her 08/15/2019 [facility] inpatient psychiatric evaluation: Date of Service: Aug 15, 2019 Chief Complaint: Mom threw away my meds last month HPI: The patient presents today reporting that for some reason her mother got rid of all her medications because she said she was taking them wrong, and if she was not going to take them right, she might as well not have them. She reports that happened about a month ago and that because of that, she was not doing well and DFS has been involved. It was unclear exactly what is going on with those things, but her children are with her sister, so she is not that stressed about them, but she is stressed out about not being with them. She reports that her injection has been going well and that she had it earlier this month. We agreed that we would explore and see what the exact date was to make sure that she does not miss her next one coming up. She reports that she does not feel like she is having any specific symptoms, but she wants to restart the pills that her mom threw away. We discussed the fact that we would need to get a sense of what they were exactly because she does not remember the name even though I reviewed the medications received from the pharmacy. She has no knowledge of what the medication names even might be. She reports that we can talk to her mother which we agreed we would do, but we need to figure out what exactly is going on be cause if this is the way that they dealt with some difficulty with adherence, that is quite problematic. Additionally, the medications that are missing are not medications that we or the psychiatric team actually prescribe so that also adds another layer of difficulty, the psychiatric medication and the injection she is getting, but there are some medications for maybe seizures or we are not really sure why they are being prescribed, most likely Neurontin and Trileptal. We need to figure out why they are being prescribed and talk to her mom about the circumstances of the pills being dumped. We discussed her psychosocial situation which outside of the issue with DFS, she reports being unchanged from her last hospitalization, the information from which is included below. Per ED eval: HISTORY OF PRESENT ILLNESS Chief Complaint: ANXIOUS and DEPRESSED. This started today. (34 yo female presents to the ED with complaints of being really stressed out. She said she has felt like this for months. She said it just worsens. She said she has never had a plan to hurt herself but just wishes she wasn't here. She denies hallucinations or suicidal ideations. She said she is worried about her children (her sister has her children). They were placed there via DFS. She said she stresses about not being with them. She said she has had a runny nose. She said she has not been sleeping. She said she was placed on a sleeping pill the last time she was here but it is too expensive. She said the social insurance administrator has not contacted her to talk to the patient about her children.). The patient has experienced situational problems related to legal problems and custody issues. She is non-compliant with medication. Has not been sleeping. She has had anxiety. Has been depressed. The symptoms are described as moderate. No injury is present. Similar symptoms previously. Recent medical care: The patient was seen recently by a health care provider. REVIEW OF SYSTEMS All other systems reviewed and are negative. PAST HISTORY See nurses notes. ( PCP Sona Del Cid). Anxiety. Bipolar disorder. Depression. Psychosis. Surgeries: Cholecystectomy. SOCIAL HISTORY Current every day heavy tobacco smoker (cigarette)- more than 2 packs per day. No alcohol use or drug use. Hospital Course During the hospitalization, the patient had routine laboratory studies which were within normal limits except for a few outliers. Additionally, there was a general medical evaluation which was also within normal limits and revealed no new acute processes. At the time of discharge, lethality was denied and psychosis was resolving. Mood and anxiety were well managed. The patient endorsed a plan to avoid all drugs of abuse and follow up with the aftercare recommendations of the treatment team. The patient was evaluated and deemed to be absent credible lethality and had achieved the maximum benefit from an inpatient hospitalization, and so was discharged. Patient was started on BuSpar 10 mg twice a day to target anxiety. The patient was adamant about not returning to her previous half-way and was discharged to her mother's care with a plan for the patient to live in another half-way. Hospital Course Hospital Course Patient slowly acclimated to the individual, group and milieu therapies provided. She presented reporting breakthrough symptoms and not being clear if her medication was working. We did get a Depakote level and increased her Depakote ER to 1000 mg p.o. daily and her Zyprexa was increased to 20 mg p.o. nightly with a positive response. She endorsed feeling less anxious, suicidal and endorsed the resolution of her hallucinations/perceptual disturbances. She worked with the social work team on getting appropriate outpatient follow-ups. She had significant improvement and was able to contract for safety outside of the hospital, prior to discharge. During the hospitalization, patient had routine laboratory studies which were within normal limits except for few outliers. Additionally there was a general medical evaluation which was also within normal limits and revealed no new acute processes. Discharge Summary: At the time of discharge, she denied lethality and psychosis was improving. Mood and anxiety were well managed. Patient endorsed a plan to avoid all drugs of abuse and follow-up with the aftercare recommendations of the treatment team. Patient was evaluated and deemed to be absent credible lethality, and had achieved the maximum benefit from an inpatient hospitalization, so was discharged Involuntary Hold Information 96 Hour Hold: 96 Hour Involuntary Admission: No Mental Status Exam MSE Comments: This is an obese, white female, in hospital scrubs, with limited grooming and eye contact. No abnormal movements, except for mild psychomotor retardation. She was mostly cooperative with exam in mild distress. Speech was decreased rate and volume. Her mood was described as better, her affect was congruent but still flat. Her thought process was linear and logical. Thought content: She denied suicidal or homicidal ideation. She endorsed decreasing auditory hallucinations and denied any visual hallucinations. She did appear less internally preoccupied. Attention and concentration appeared grossly intact and memory is somewhat reliable, but none were formally tested. Alert and oriented times three. Insight and judgment are limited impulse control is limited. Intelligence appeared commensurate with mild cognitive impairment. Discharge Data Studies Completed and Pending: Laboratory Results WBC 7.19 10^3/uL (3.2 9-11.43) 12/02/23 18:18 RBC 4.24 10^6/uL (3.8 5-5.65) 12/02/23 18:18 Hgb 10.80 g/dL (11.27 -16.99) L 12/02/23 18:18 Hct 34.9 % (36-47) L 12/02/23 18:18 MCV 82.3 fl (85-98) L 12/02/23 18:18 MCH 25.5 pg (27-33) L 12/02/23 18:18 MCHC 30.9 g/dL (30-55) 12/02/23 18:18 RDW 16.4 % (12.1-15.1 ) H 12/02/23 18:18 Plt Count 304 10^3/cmm (157 -399) 12/02/23 18:18 MPV 8.9 fL (7.4-10.4) 12/02/23 18:18 Neut % (Auto) 61.2 % 12/02/23 18:18 Lymph % (Auto) 30.0 % 12/02/23 18:18 [place] % (Auto) 7.1 % 12/02/23 18:18 Eos % (Auto) 0.8 % 12/02/23 18:18 Baso % (Auto) 0.8 % 12/02/23 18:18 Neut # (Auto) 4.39 10^3/uL (1.8 -7.7) 12/02/23 18:18 Lymph # (Auto) 2.2 10^3/uL (0.8- 4.8) 12/02/23 18:18 [place] # (Auto) 0.5 10^3/uL (0.2- 0.9) 12/02/23 18:18 Eos # (Auto) 0.1 10^3/uL (0.0- 0.8) 12/02/23 18:18 Baso # (Auto) 0.1 10^3/uL (0.0- 0.1) 12/02/23 18:18 Nucleated RBC % (a uto) 0 % 12/02/23 18:18 Nucleated RBCs # 0.0 /100WBC 12/02/23 18:18 Sodium 139 mmol/L (136-1 45) 12/02/23 18:18 Potassium 3.6 mmol/L (3.5-5 .1) 12/02/23 18:18 Chloride 107 mmol/L (98-10 7) 12/02/23 18:18 Carbon Dioxide 22 mmol/L (22-29) 12/02/23 18:18 Anion Gap 13.6 (5-19) 12/02/23 18:18 BUN 6 mg/dL (6-20) 12/02/23 18:18 Creatinine 0.5 mg/dL (0.5-0. 9) 12/02/23 18:18 GFR Calculation 138.1 mL/min (90- 130) H 12/02/23 18:18 Glucose 108 mg/dL (65-115 ) 12/02/23 18:18 Calculated Osmolal ity 286 mOsm/kg (285- 295) 12/02/23 18:18 Calcium 9.2 mg/dL (8.5-10 .5) 12/02/23 18:18 Total Bilirubin 0.2 mg/dL (0.15-1 .2) 12/02/23 18:18 AST 15 U/L (0-32) 12/02/23 18:18 ALT 17 U/L (0-33) 12/02/23 18:18 Alkaline Phosphata se 122 U/L (35-105) H 12/02/23 18:18 Total Protein 7.3 g/dL (6.6-8.7 ) 12/02/23 18:18 Albumin 3.9 g/dL (3.5-5.2 ) 12/02/23 18:18 Globulin 3.4 g/dL (1.3-4.6 ) 12/02/23 18:18 HCG, Qual Negative (Negati ve) 12/02/23 19:38 Urine Color Dark yellow (Yel low) 12/02/23 Unknown Urine Appearance Hazy (CLEAR) A 12/02/23 Unknown Urine pH 6 (5-7) 12/02/23 Unknown Ur Specific Gravit y 1.015 (1.005-1.0 30) 12/02/23 Unknown Urine Protein Trace (Negative) 12/02/23 Unknown Urine Glucose (UA) Norm (Normal) 12/02/23 Unknown Urine Ketones Negative (Negati ve) 12/02/23 Unknown Urine Blood 3+ (Negative) H 12/02/23 Unknown Urine Nitrate Negative (Negati ve) 12/02/23 Unknown Urine Bilirubin Neg (Negative) 12/02/23 Unknown Urine Urobilinogen Neg mg/dL (Negati ve) 12/02/23 Unknown Ur Leukocyte Nisha ase Trace (Negative) H 12/02/23 Unknown Urine RBC 50-80 /hpf (0-2) H 12/02/23 Unknown Urine WBC 0-4 /hpf (0-5) H 12/02/23 Unknown Ur Squamous Epith Cells 0-4 /hpf (0-5) H 12/02/23 Unknown Amorphous Sediment Not Reportable 12/02/23 Unknown Urine Bacteria 1+ /hpf (NONE) H 12/02/23 Unknown Urine Mucus Trace /hpf 12/02/23 Unknown Salicylates < 0.3 mg/dL (3-10 ) L 12/02/23 18:18 Urine Opiates Scre en Negative ng/mL (N egative) 12/02/23 Unknown Acetaminophen < 5.0 ug/mL (10-3 0) L 12/02/23 18:18 Ur Barbiturates Sc reen Negative ng/mL (N egative) 12/02/23 Unknown Valproic Acid 13.8 ug/mL (50-10 0) L 12/05/23 08:38 Ur Phencyclidine S crn Negative ng/mL (N egative) 12/02/23 Unknown Ur Amphetamines Sc reen Negative ng/mL (N egative) 12/02/23 Unknown U Benzodiazepines Scrn Negative ng/mL (N egative) 12/02/23 Unknown Urine Cocaine Scre en Negative ng/mL (N egative) 12/02/23 Unknown U Marijuana (THC) Screen Negative ng/mL (N egative) 12/02/23 Unknown Ethyl Alcohol < 10 mg/dL (0-10) 12/02/23 18:18 Vitals: Last Vital Signs Temp 97.7 F 12/06/23 06:00 Pulse 65 12/06/23 06:00 Resp 18 12/06/23 06:00 BP 109/56 12/06/23 06:00 Pulse Ox 94 12/06/23 06:00 O2 Del Method Room Air 12/06/23 06:00 Discharge Plan Discharge Patient Disposition: Home Condition: Stable Prescriptions: Continued atorvastatin 40 mg tablet 20 mg PO BEDTIME@20 ferrous sulfate [Iron (ferrous sulfate)] 325 mg (65 mg iron) tablet 325 mg PO DAILY Qty: 30 1RF Discontinued olanzapine [Zyprexa] 15 mg tablet 15 mg PO DAILY@17 divalproex 500 mg Tablet Extended Release 24 Hr 500 mg PO 0900 30 Days Qty: 30 1RF No Action divalproex [Depakote] 500 mg tablet,delayed release (DR/EC) 500 mg PO BID Qty: 60 3RF Rx Instructions: Take one tablet at 9 am and 7 pm olanzapine [Zyprexa] 15 mg tablet 15 mg PO .5 pm Qty: 30 3RF Rx Instructions: Take one tablet at 5 pm propranolol 20 mg tablet 20 mg PO BEDTIME@20 Qty: 30 3RF Rx Instructions: Take one tablet at 8 pm trazodone 100 mg tablet 100 mg PO BEDTIME@20 Qty: 30 3RF Rx Instructions: Take one tablet at 8 pm hydroxyzine HCl 50 mg tablet 50 mg PO TID PRN (Reason: anxiety) Qty: 90 3RF Rx Instructions: May take one tablet three times per day as needed for anxiety Discharge Orders: Discharge Order (Routine); Ordered 12/06/23 Ordered By: Daryl Hernandez Referrals: Joycelyn Melendrez FNP [Primary Care Provider] - Liepepe,LASHON HartmannHNP [Staff Physician] - 12/13/23 1:15 pm (Follow up) Discharge Diet: Regular Discharge Activity: Resume usual activity Patient Instructions: Olanzapine (By mouth) (Zyprexa, Zyprexa Zydis), Divalproex (By mouth) (Depakote, Depakote ER, Depakote Sprinkles), Depression (DC), Suicide Prevention (DC), Opioid Safety, Pain Management Discharge Attestations NPU Time Spent in Discharge Care*: less than 30 min Specific Discharge Activities: Specific discharge activities: educating patient, discussing with senior case manager/social workers/dc planners, documenting/other paperwork and evaluating patient/reviewing data Coding Level of Care Code Acute Code for Chg Fwd Diagnoses Suicidal ideation R45.851 Hallucinations R44.3 Bipolar I disorder, most recent episode mixed, severe with psychotic features F31.64 Acute psychosis F23 Mild intellectual disability F70
[2023-12-06 13:09] VITALS: BP 109/56; PULSE 65; RESP 18; TEMP 36.5; O2SAT 94
[2023-12-06 14:00] VITALS: BP 152/88; PULSE 93; RESP 17; TEMP 36.6; O2SAT 100
--- NOTE | 2023-12-06 14:37 | PC.NURSE ---
written discharge instructions discussed and left with patient. rx prescriptions left with patient.
--- NOTE | 2023-12-06 14:55 | DCPLANNER ---
IMM was printed and given to pt and explained and placed in pt file.
== END 2023-12-06 14:54 | disposition home or self-care (01) | DRG 880 ==
LOC: ER 19:10 → NP 19:28
PROVIDERS: Emergency Medicine; Admitting Provider Psychiatry & Neurology Psychiatry; Emergency Provider Nurse Practitioner Family; PCP Nurse Practitioner; Visit Provider Psychiatry & Neurology Psychiatry
DX: F41.9 Anxiety disorder, unspecified (principal); R45.851 Suicidal ideations; F70 Mild intellectual disabilities; F31.9 Bipolar disorder, unspecified; F17.290 Nicotine dependence, other tobacco product, uncomplicated; E78.5 Hyperlipidemia, unspecified
CPT/HCPCS: 36415; 80053; 80164; 80306; 80307; 81001; 81025; 85025; 87086; 97150; 97165; 99285

== ENCOUNTER 2024-01-27 15:51 | Inpatient (IN) | payer MEDICARE, MEDICAID, SELFPAY ==
[2023-12-10 12:49] VITALS: BP 143/96; BMI 41.6
[2024-01-27 15:56] VITALS: BP 135/93; PULSE 70; RESP 18; O2SAT 95
[2024-01-27 17:50] LABS: HCG Qualitative Urine. Negative (Negative)
[2024-01-27 18:01] LABS: Amphetamines Screen Urine Negative (Negative); Barbiturates Screen Urine Negative (Negative); Benzodiazepines Screen Urine Negative (Negative); Cocaine Screen Urine Negative (Negative); Opiate Screen Urine Negative (Negative); PCP Screen Urine Negative (Negative); THC Screen Urine Negative (Negative)
[2024-01-27 18:46] LABS: Basophils % 0.7 %; Eosinophils # 0.2 10^3/uL (0.0-0.8); Eosinophils % 3.4 %; Hematocrit 37.7 % (36-47); Lymphocytes # 1.6 10^3/uL (0.8-4.8); Lymphocytes % 27.8 %; Mean Corpuscular HGB Conc 31.3 g/dL (30-55); Mean Corpuscular Hemoglobin 26.8 pg (27-33); Mean Corpuscular Volume 85.7 fl (85-98); Mean Platelet Volume 8.7 fL (7.4-10.4); Monocytes # 0.5 10^3/uL (0.2-0.9); Monocytes % 8.9 %; Neutrophils % 58.7 %; Nucleated Red Blood Cells % 0 %; Platelet Count 265 10^3/cmm (157-399); Red Cell Distribution Width 16.2 % (12.1-15.1); White Blood Count 5.62 10^3/uL (3.29-11.43)
[2024-01-27 19:06] LABS: Alanine Aminotransferase 27 U/L (0-33); Albumin Level 3.9 g/dL (3.5-5.2); Alkaline Phosphatase 104 U/L (35-105); Anion Gap 14.3 (5-19); Aspartate Amino Transferase 21 U/L (0-32); Blood Urea Nitrogen 6 mg/dL (6-20); Calcium 8.5 mg/dL (8.5-10.5); Carbon Dioxide 23 mmol/L (22-29); Chloride 108 mmol/L (98-107); Creatinine Clr Calc Pharmacy 200.7268; Globulin 3.8 g/dL (1.3-4.6); Glomerular Filtration Rate 137.4 mL/min (90-130); Glucose 110 mg/dL (65-115); Osmolality Calculated 290 mOsm/kg (285-295); Potassium 4.3 mmol/L (3.5-5.1); Salicylate 0.4 mg/dL (3-10); Sodium 141 mmol/L (136-145); Total Bilirubin 0.2 mg/dL (0.15-1.2); Total Protein 7.7 g/dL (6.6-8.7)
[2024-01-27 19:08] LABS: Acetaminophen < 5.0 ug/mL (10-30); Alcohol Level < 10 mg/dL (0-10)
--- NOTE | 2024-01-27 19:30 | W.ED.PSYCHS ---
HPI - Psych General: Chief Complaint: Psychiatric Symptoms Stated Complaint: MHE Time Seen by Provider: 01/27/24 15:55 Source: patient Mode of arrival: ambulatory Limitations: no limitations History of Present Illness: Patient comes in with complaint of severe depression and suicidal attempt by cutting her wrist. The cuts on her wrist she reports were made with a razor. Unsure where she achieved the razor from the long term. Could best describe the cuts as small scratches. To define further if she had reported that she used her fingernail to perform the scratches I would have believed her. Patient also reports that the long term made the comment to her that if she keeps doing this she will be able to come back on the previous occasion. So unsure if this is a gesture or an escape mechanism. Review of Systems General: Reports: 10 or more systems reviewed and unremarkable except in HPI and below PFSH ED PFSH: Medical History (Updated 01/27/24 @ 21:42 by Ruddy Ramos MD) 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, tobacco product Bipolar I disorder, most recent episode mixed, severe with psychotic features Psychiatric care GERD (gastroesophageal reflux disease) Vitamin D deficiency Mixed hyperlipidemia Nicotine dependence, cigarettes, uncomplicated Surgical History (Updated 11/21/23 @ 09:01 by Jennie Herrera RN) Hx of myringotomy Family History (Updated 11/20/23 @ 12:02 by Jennie Herrera RN) Other Leukemia Lung disease Social History (Updated 11/21/23 @ 09:01 by Jennie Herrera RN) Smoking and tobacco/nicotine status: current every day tobacco/nicotine user e-cigarettes E-Cigarette Details: e-cigarette and with nicotine E-cig/vape details: 7500 puff disposable vap takes 1-2 months to go through one Quit status (tobacco/nicotine): considering quitting Second hand smoke exposure: No Alcohol intake: never Substance/Drug Use: never Adopted: No Caregiver/support person: Yes Lives independently: No Household members: other Details: [facility] Housing: Assisted Living Facility Marital status: Single Number of children: 3 Number of grandchildren: 0 Highest education level completed: High School Graduate service: No Current occupational status: employed 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 [place] Current occupational exposures/hazards: No Pets and animals: Yes (outside) Pets & animals: cat(s) Leisure activites: music Sexually active: No Do you think of yourself as: Straight/Heterosexual Current gender identity: Female Roxanne/Roman Catholic: Gnosticist Special roxanne needs: No Agree to transfusion: Yes Female Reproductive History: Para: 3 Spontaneous abortions: No Physical Exam Const: COMMON NORMALS: no acute distress, average body habitus, patient oriented x3, healthy appearing, alert and well nourished GENERAL APPEARANCE: well kempt and well developed HENMT: COMMON NORMALS: normocephalic, atraumatic, external ears normal and moist oral mucous membranes HEAD & SCALP: normocephalic and atraumatic EXTERNAL EAR: Yes external ears normal Eye: COMMON NORMALS: Equal, round and reactive pupils present, EOMs intact bilaterally and conjunctivae normal CONJUNCTIVA: Yes conjunctivae normal PUPIL: Yes Equal, round and reactive pupils present Neck/C-Spine: COMMON NORMALS: full ROM, no lymphadenopathy and supple Chest: CHEST: Yes Symmetrical chest wall rise and No Surgical scars present (Chest) Resp: COMMON NORMALS: normal respiratory effort, No retractions, No use of accessory muscles and clear to auscultation bilaterally AUSCULTATION: clear to auscultation bilaterally Cardio: COMMON NORMALS: regular rate, regular rhythm, S1 normal heart sound present, S2 normal heart sound present, No gallops present (Cardio), No clicks present (Cardio), No murmurs present (Cardio) and No rub (Cardio) RATE: regular rate RHYTHM: regular rhythm HEART SOUNDS: S1 normal heart sound present, S2 normal heart sound present and no murmurs PERIPHERAL PULSES: other (Radial pulses 2+ and symmetric) GI: COMMON NORMALS: Soft to palpation, non-tender and no masses INSPECTION: No abdominal distension PALPATION: Yes Soft to palpation, No Guarding due to palpation present (GI) and No Rebound tenderness present : COMMON NORMALS: Yes no CVA tenderness BLADDER/KIDNEY EXAM: Yes no CVA tenderness Back/Pelvis: COMMON NORMALS: no CVA tenderness Extremity: COMMON NORMALS: normal to inspection, full ROM, capillary refill normal and no clubbing, cyanosis or edema Neuro: COMMON NORMALS: patient oriented x3 SENSORIUM/ORIENTATION: Yes alert Psych: COMMON NORMALS: cooperative APPEARANCE: Yes well kempt ATTITUDE: Yes calm SPEECH: Yes slow MOOD & AFFECT: Yes depressed mood ATTENTION/CONCENTRATION: Yes attention grossly intact Skin: COMMON NORMALS: no rashes or lesions noted, no wounds, turgor normal and no jaundice GENERAL SKIN EXAM: no rashes or lesions noted and turgor normal Course Consultations: Consultation #1: Dr. Baker WITH PSYCH Time: 19:35 Vital Signs: Vital signs: Vital Signs Pulse Rate 64 01/27/24 21:13 Respiratory Rate 16 01/27/24 21:13 Blood Pressure 104/74 01/27/24 21:13 Pulse Oximetry 94 01/27/24 21:13 Oxygen Delivery Me thod Room Air 01/27/24 21:13 [facility] - Psych Medical Decision Making Consult Dr. Houston with psychiatry. He reports he try to get in contact with the long term and they were less than helpful. In patient's best interest to go ahead and admit and he will do further evaluation of her in the morning. Differential Diagnosis Likely suicidal ideation, bipolar disorder and depression Medical Records I reviewed the patient's medical records. Lab Data I reviewed the patient's lab results. 01/27/24 18:33 01/27/24 18:33 Laboratory Results WBC 5.62 10^3/uL (3.29-11.43) 01/27/24 18:33 RBC 4.40 10^6/uL (3.85-5.65) 01/27/24 18:33 Hgb 11.80 g/dL (11.27-16.99) 01/27/24 18:33 Hct 37.7 % (36-47) 01/27/24 18:33 MCV 85.7 fl (85-98) 01/27/24 18:33 MCH 26.8 pg (27-33) L 01/27/24 18:33 MCHC 31.3 g/dL (30-55) 01/27/24 18:33 RDW 16.2 % (12.1-15.1) H 01/27/24 18:33 Plt Count 265 10^3/cmm (157-399) 01/27/24 18:33 MPV 8.7 fL (7.4-10.4) 01/27/24 18:33 Neut % (Auto) 58.7 % 01/27/24 18:33 Lymph % (Auto) 27.8 % 01/27/24 18:33 Howard % (Auto) 8.9 % 01/27/24 18:33 Eos % (Auto) 3.4 % 01/27/24 18:33 Baso % (Auto) 0.7 % 01/27/24 18:33 Neut # (Auto) 3.30 10^3/uL (1.8-7.7) 01/27/24 18: Lymph # (Auto) 1.6 10^3/uL (0.8-4.8) 01/27/24 18: Howard # (Auto) 0.5 10^3/uL (0.2-0.9) 01/27/24 18: Eos # (Auto) 0.2 10^3/uL (0.0-0.8) 01/27/24 18: Baso # (Auto) 0.0 10^3/uL (0.0-0.1) 01/27/24 18: Nucleated RBC % (auto) 0 % 01/27/24 18: Nucleated RBCs # 0.0 /100WBC 01/27/24 18:33 Sodium 141 mmol/L (136-145) 01/27/24 18: Potassium 4.3 mmol/L (3.5-5.1) 01/27/24 18: Chloride 108 mmol/L (98-107) H 01/27/24 18:33 Carbon Dioxide 23 mmol/L (22-29) 01/27/24 18:33 Anion Gap 14.3 (5-19) 01/27/24 18:33 BUN 6 mg/dL (6-20) 01/27/24 18:33 Creatinine 0.5 mg/dL (0.5-0.9) 01/27/24 18: GFR Calculation 137.4 mL/min (90-130) H 01/27/24 18:33 Glucose 110 mg/dL (65-115) 01/27/24 18:33 Calculated Osmolality 290 mOsm/kg (285-295) 01/27/24 18:33 Calcium 8.5 mg/dL (8.5-10.5) 01/27/24 18:33 Total Bilirubin 0.2 mg/dL (0.15-1.2) 01/27/24 18:33 AST 21 U/L (0-32) 01/27/24 18:33 ALT 27 U/L (0-33) 01/27/24 18:33 Alkaline Phosphatase 104 U/L (35-105) 01/27/24 18:33 Total Protein 7.7 g/dL (6.6-8.7) 01/27/24 18:33 Albumin 3.9 g/dL (3.5-5.2) 01/27/24 18:33 Globulin 3.8 g/dL (1.3-4.6) 01/27/24 18:33 HCG, Qual Negative (Negative) 01/27/24 17:30 Salicylates 0.4 mg/dL (3-10) L 01/27/24 18:33 Urine Opiates Screen Negative ng/mL (Negative) 01/27/24 17:30 Acetaminophen < 5.0 ug/mL (10-30) L 01/27/24 18:33 Ur Barbiturates Screen Negative ng/mL (Negative) 01/27/24 17:30 Valproic Acid 69.3 ug/mL (50-100) 01/27/24 18:33 Ur Phencyclidine Scrn Negative ng/mL (Negative) 01/27/24 17:30 Ur Amphetamines Screen Negative ng/mL (Negative) 01/27/24 17:30 U Benzodiazepines Scrn Negative ng/mL (Negative) 01/27/24 17:30 Urine Cocaine Screen Negative ng/mL (Negative) 01/27/24 17:30 U Marijuana (THC) Screen Negative ng/mL (Negative) 01/27/24 17:30 Ethyl Alcohol < 10 mg/dL (0-10) 01/27/24 18:33 No radiology studies performed this visit Discharge Plan Discharge Patient Disposition: Admitted As Inpatient Clinical Impression: Suicidal ideation Depression Qualifiers: Depression Type: major depressive disorder Major depression recurrence: recurrent Active/Remission status: currently active Major depression episode severity: severe Psychotic features: without psychotic features Qualified Code(s): F33.2 - Major depressive disorder, recurrent severe without psychotic features Condition: Stable Prescriptions: No Action divalproex [Depakote] 500 mg tablet,delayed release (DR/EC) 500 mg PO BID Qty: 60 6RF Rx Instructions: Take one tablet at 9 am and 7 pm olanzapine [Zyprexa] 20 mg tablet 20 mg PO .5 pm Qty: 30 6RF Rx Instructions: Take one tablet at 5 pm propranolol 20 mg tablet 20 mg PO BEDTIME@20 Qty: 30 6RF Rx Instructions: Take one tablet at 8 pm trazodone 100 mg tablet 100 mg PO BEDTIME@20 Qty: 30 6RF Rx Instructions: Take one tablet at 8 pm hydroxyzine HCl 50 mg tablet 50 mg PO TID PRN (Reason: anxiety) Qty: 90 3RF Rx Instructions: May take one tablet three times per day as needed for anxiety atorvastatin 40 mg tablet 20 mg PO BEDTIME@20 ferrous sulfate [Iron (ferrous sulfate)] 325 mg (65 mg iron) tablet 325 mg PO DAILY Qty: 30 1RF Referrals: Joycelyn Melendrez FNP [Primary Care Provider] - Discharge Diet: Usual diet Discharge Activity: Resume usual activity Coding Level of Care Code ED Personal Development [facility]
[2024-01-27 21:11] LABS: Valproic Acid Level 69.3 ug/mL (50-100)
[2024-01-27 21:13] VITALS: BP 104/74; PULSE 64; RESP 16; O2SAT 94
[2024-01-27 22:06] VITALS: BP 140/92; PULSE 75; RESP 18; TEMP 36.7; O2SAT 97
[2024-01-28 06:00] VITALS: BP 119/79; PULSE 69; RESP 18; TEMP 36.6; O2SAT 95
[2024-01-28] MEDS: divalproex DR 500 mg Tablet PO ×2 (09:21→17:13)
[2024-01-28] MEDS: ferrous sulfate EC 325 mg Tablet PO (09:21)
[2024-01-28] MEDS: nicotine 2 mg Gum BUCCAL ×2 (09:23→20:51)
--- NOTE | 2024-01-28 11:36 | W.PM.NPUH&PS ---
Providers/Chief Complaint Admitting Physician: Daryl Hernandez MD Primary Care Provider: Joycelyn Melendrez APN Chief Complaint: MHE HPI NPU History of Present Illness Mariangel Flores is a 39 year old female who presented to the emergency department with the following report: Chief Complaint: Psychiatric Symptoms Stated Complaint: MHE Time Seen by Provider: 01/27/24 15:55 Source: patient Mode of arrival: ambulatory Limitations: no limitations History of Present Illness: Patient comes in with complaint of severe depression and suicidal attempt by cutting her wrist. The cuts on her wrist she reports were made with a razor. Unsure where she achieved the razor from the longterm. Could best describe the cuts as small scratches. To define further if she had reported that she used her fingernail to perform the scratches I would have believed her. Patient also reports that the longterm made the comment to her that if she keeps doing this she will be able to come back on the previous occasion. So unsure if this is a gesture or an escape mechanism. She was admitted to the neuropsychiatric unit for definitive treatment of those issues. 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 Her last discharge was in December of this year and an excerpt of that discharge summary is included below for context and historical benefit given that she tends to be a poor historian. We also advised her that we will try to get a hold of someone at her facility to determine if there is been any signs of decompensation or whether this represented a bad day. She presented today reporting: Chief complaint Patient is distressed due to living conditions with a roommate who is unclean and does not maintain hygiene. The patient expressed a strong desire to change the living situation. History of the present complaint The patient expressed significant distress and frustration regarding their current living situation. They have been living with a roommate for a couple of months, but later realized she had been there for many months, who they describe as being unclean and leaving nasty stuff everywhere . The patient reported that they have to clean up after their roommate, as the staff at their residence do not intervene. This situation has been ongoing since the patient moved in, and they have communicated their concerns to the staff and their sister, but feel that nothing has been done to address the issue. The patient's distress over their living conditions led them to make a non-lethal self-harm attempt as a form of protest, which resulted in their current visit. They expressed a strong desire to change their living situation, stating that they can't live like this and need to get out of here or do something . Despite the ongoing issue with their roommate, the patient did not indicate whether their current living situation is better or worse than when they were living with their parents. They did not report any changes in mood or behavior, nor did they mention any functional or emotional impairments, challenges, obstacles, important events, traumas, thoughts, beliefs, feelings, aspirations, fears, dreams, or nightmares related to their current complaint. The patient confirmed that they have been taking their medication every day. No changes to their medication were suggested during the consultation, with the focus being on addressing their living situation. Social history The patient has been living with a roommate for a couple of months. The patient had previously lived with family but chose to move. The patient is in regular contact with a sister. Per her 12/06/2023 [facility] inpatient psychiatric discharge summary: Discharge Diagnosis (1) Suicidal ideation: Status: Resolved (2) Hallucinations: Status: Resolved (3) Bipolar I disorder, most recent episode mixed, severe with psychotic features: Status: Chronic (4) Acute psychosis: Status: Acute (5) Mild intellectual disability: Status: Chronic Reason for Visit Reason for Visit: MHE Brief History: History of Present Illness Mariangel Flores is a 38 year old female who presented to the emergency department with the following report: Chief Complaint: Psychiatric Symptoms Stated Complaint: MHE Time Seen by Provider: 12/02/23 18:48 History of Present Illness: 38-year-old female a resident at a longterm came in by ambulance today for increased anxiety and suicidal thoughts. Patient states that she had had some recent medication changes which has increased her suicidal thoughts. Patient was also upset due to the loss of her breakthrough anxiety medication. Patient is cooperative. Patient has no specific plan. Patient denies any homicidal thoughts. Patient has a history of bipolar disorder, intellectual disability, nicotine use, mixed dyslipidemia, and psychosis. Patient's last admission was November 04 for similar complaints. Associated symptoms: Reports suicidal ideation She was admitted to the neuropsychiatric unit for definitive treatment of those issues. She was just discharged 26 days ago and an excerpt of that discharge summary is included below given there have been no substantive changes and for historical context. As far as the records suggest she has not seen a psychiatrist since her discharge at the beginning of November. She presents today reporting that she is doing okay at the facility which she has been staying at after the last hospitalization. She identified that she is adjusting and is okay and endorsed that it was better than living with her family. She endorsed not having had an appointment with a psychiatric provider since her discharge. She reports that her anxiety has been bad and that the BuSpar was discontinued at her last day and she needs something as needed for anxiety. We discussed her being on Depakote from the last time but is not being increased and being on her Zyprexa at night with the 5 mg morning dose being discontinued. We discussed increasing her medication and discussed the risks, benefits and alternatives of looking for something to assist with anxiety and she understood and agreed to proceed as is documented in this note. Per her 11/07/2023 [facility] inpatient psychiatric discharge summary: Discharge Diagnosis (1) Suicidal ideation: Status: Resolved (2) Hallucinations: Status: Resolved (3) Bipolar I disorder, most recent episode mixed, severe with psychotic features: Status: Chronic Reason for Visit Reason for Visit: PSYCH EVAL Brief History: History of Present Illness Mariangel Flores is a 38 year old female with a history of multiple inpatient psych hospitalizations currently residing in a longterm who presented to the emergency department with complaints of worsening anxiety and suicidal ideation. Patient was a poor historian. She reports that she became suicidal after having an argument with a person at her home that she does not get along with in the home. She reports that she has been diagnosed with bipolar disorder. She had reported that she had hallucinations that appear to be prominent when she is stressed. She reports no recent changes in her living situation and describes having herself as a legal guardian. She had stated that she had previously been living with her mother but was no longer welcome in the home. She otherwise reports no substantial changes compared to her most recent discharge from the neuropsychiatric unit on September 10, 2023. Current medications: atorvastatin 20mg at night, buspar 10mg bid, lithium 300mg am, Olanzapine 20mg at night, propranolol 20mg at night, trazodone 100 mg at night, Protonix 40 mg daily Excerpt from NPU Discharge summary from 09/10/23 Diagnoses at Discharge Discharge Diagnosis (1) Suicidal ideation: Status: Resolved (2) Hallucinations: Status: Resolved (3) Bipolar I disorder, most recent episode mixed, severe with psychotic features: Status: Chronic Reason for Visit History of Present Illness Mariangel Flores is a 38 year old female who presented to the emergency department with the following report: Chief Complaint: Psychiatric Symptoms Stated Complaint: MHE Time Seen by Provider: 09/05/23 13:59 History of Present Illness: 38-year-old female with history of paranoid schizophrenia who presents the emergency room with psychiatric complaints. She says she had an episode yesterday where she walked out into traffic. Family believes she may be a danger to herself. She is having paranoid thoughts that people might be poisoning her. She says she does not think her meds are adjusted right and she needs to come back into the hospital again. She was admitted to the neuropsychiatric unit for definitive treatment of those issues. She presents today as she has so many times reporting that her medications are ineffective. She has been consistent with her treatment at [facility] with her last appointment 08/24/2023. An appointment she identified that her Geodon was ineffective and Geodon was discontinued and replaced with 10 mg of Zyprexa at night. She reports inconsistency with the Zyprexa and even if she was consistent she was only giving it a 12-day timeframe to see if it was effective. The Geodon had been an 80 mg p.o. twice daily with meals and she reported having difficulty getting in the 500 gayatri per meal to take her Geodon. She reports as was reported in that document that she started having conflicts at home as her paranoia increased she started feeling like she could not trust her family. She reportedly threw some of her mom's medications away because she was paranoid that mom had been using her meds to poison patient. We discussed that her departure to her mother was treated by paranoia at her longterm where she did not feel safe there. We reviewed the different medications she has attempted. She reports that Invega and Abilify both create significant problems including a report of an allergy to Invega. Otherwise she said yes to every single other medication for psychosis on the market. Her response about Vraylar and Latuda did not seem full throated. We discussed reaching out to her outpatient provider and trying to come to some conclusion about where to go from here. We also discussed the fact of the right answer may be increasing the Zyprexa. We also discussed the possibility of Clozaril. An excerpt of her discharge summary from her last visit and May of last year is included below for history and context given she denies substantive changes since then other than the Zyprexa for Geodon. Per her 05/28/2023 [facility] inpatient psychiatric discharge summary: Discharge Diagnosis (1) Suicidal ideation: Status: Resolved (2) Hallucinations: Status: Resolved (3) Bipolar I disorder, most recent episode mixed, severe with psychotic features: Status: Chronic Reason for Visit Reason for Visit: si Brief History: History of Present Illness Mariangel Flores is a 38 year old female who presented to the emergency department with the following report: Chief Complaint: Psychiatric Symptoms Stated Complaint: si Time Seen by Provider: 05/22/23 23:06 History of Present Illness: Patient presents by [facility] from [facility] which is a longterm and [facility]inence for suicidal ideation and attempting to cut her left wrist. Patient has multiple superficial abrasions on her left wrist. Patient does states she was intending to kill herself. Patient does states she would be voluntarily to our NPU. The patient was admitted to the neuropsychiatric unit for definitive treatment of those issues. The patient presents today reporting that she came to the hospital because of suicidal thoughts, reporting she cut her wrist. She reports that she was upset and has a lot of stuff going on, and life is stressful. She reports that she has probably had more than thirty psychiatric hospitalizations. She reports outpatient services through a psychiatrist, who comes to the home, and prescribes her medication. She reports that she takes a PRN medication for anxiety and states that it is does not work. She reports that she lives at [facility], but reports that they kicked her out. She reports that she is planning to move to [place], but she is not sure where yet. She reports that she has tried multiple medications, including Abilify, and she denies Geodon or Depakote. The patient endorses vaping. She endorses alcohol use sometimes. She denies marijuana or any other illicit drug use. She denies drug rehabilitation or DUI. She reports that she has been at [facility] for four to five years. The patient reports that [facility] [employer], and has been there three to four years. She reports that she does not have a guardian. An excerpt of her October 2022 hospitalization is included below for context. PSYCHIATRIC HISTORY: As above. SUBSTANCE ABUSE HISTORY: As above. MEDICAL HISTORY: The patient endorses allergy to Invega injection. Per her 10/11/2022 [facility] inpatient psychiatric discharge summary: Discharge Diagnosis (1) Suicidal ideation: Status: Resolved (2) Hallucinations: Status: Resolved (3) Bipolar I disorder, most recent episode mixed, severe with psychotic features: Status: Chronic Reason for Visit Reason for Visit: SI Brief History: History of Present Illness Mariangel Flores is a 37 year old female presented to the emergency department with the following report: Chief Complaint: Psychiatric Symptoms Stated Complaint: SI Time Seen by Provider: 10/05/22 22:04 Source: patient Mode of arrival: EMS Limitations: no limitations History of Present Illness: Patient is a 37-year-old female who presents to ED today from her residential facility of [place] for evaluation of suicidal ideations and auditory and visual hallucinations. Patient tells me she has felt suicidal all day with no specific plan. She does report a previous suicide attempt but will not elaborate on these details. She states she is seeing dark shadows people moving in her home. She states she is hearing voices telling her to grab knives from the kitchen and kill herself. Patient states she has a psychiatric provider Remedios Dao that comes to their facility once a month for medication changes. She thinks some of her psychiatric medications were recently changed. She reports she has a history of bipolar and schizophrenia. MD complaint: suicidal ideation and feels depressed Onset (ago): day(s) Duration: constant History of same: Yes Relieving factors: none Exacerbating factors: none Associated psychiatric symptoms: depression, suicidal ideation, auditory hallucinations and visual hallucinations Associated symptoms: Reports auditory hallucinations, visual hallucinations, depression and suicidal ideation; Deny homicidal ideation Treatments prior to arrival: none If self harm: admits thoughts of self harm She was admitted to the neuropsychiatric unit for definitive treatment of those issues. 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 Her time references were certainly off when talking about last hospitalization etc. she reports that she reported in the emergency department that she had been doing fairly well for the past few years since her hospitalization in August 2019. An excerpt of that hospitalization evaluation is included below for context given her limited historical ability. We also discussed getting some collateral information from staff and or family. However she reports that as she has been feeling poorly she went to her outpatient psychiatrist/nurse practitioner and there were some dose changes made. It appears that she was increased on her Seroquel from 400 mg to 800 mg. We discussed the fact that we would like to bring that back a bit and not have such a large jump in her medication. We also discussed the possibility of considering an alternative to Seroquel for hallucinations, psychosis, and behavioral dysregulation. She reports that she has stayed at the residence she has for a while now and the nurse practitioner comes to the building so she does not miss her appointments. She cannot identify any specific stressors that might be impacting her current functioning. She denied any conflicts at her facility that might lead her to not want to be there. She denied any significant changes since 2019. She reports she is eating all right and sleeping okay. Per her 08/15/2019 [facility] inpatient psychiatric evaluation: Date of Service: Aug 15, 2019 Chief Complaint: Mom threw away my meds last month HPI: The patient presents today reporting that for some reason her mother got rid of all her medications because she said she was taking them wrong, and if she was not going to take them right, she might as well not have them. She reports that happened about a month ago and that because of that, she was not doing well and DFS has been involved. It was unclear exactly what is going on with those things, but her children are with her sister, so she is not that stressed about them, but she is stressed out about not being with them. She reports that her injection has been going well and that she had it earlier this month. We agreed that we would explore and see what the exact date was to make sure that she does not miss her next one coming up. She reports that she does not feel like she is having any specific symptoms, but she wants to restart the pills that her mom threw away. We discussed the fact that we would need to get a sense of what they were exactly because she does not remember the name even though I reviewed the medications received from the pharmacy. She has no knowledge of what the medication names even might be. She reports that we can talk to her mother which we agreed we would do, but we need to figure out what exactly is going on because if this is the way that they dealt with some difficulty with adherence, that is quite problematic. Additionally, the medications that are missing are not medications that we or the psychiatric team actually prescribe so that also adds another layer of difficulty, the psychiatric medication and the injection she is getting, but there are some medications for maybe seizures or we are not really sure why they are being prescribed, most likely Neurontin and Trileptal. We need to figure out why they are being prescribed and talk to her mom about the circumstances of the pills being dumped. We discussed her psychosocial situation which outside of the issue with DFS, she reports being unchanged from her last hospitalization, the information from which is included below. Per ED eval: HISTORY OF PRESENT ILLNESS Chief Complaint: ANXIOUS and DEPRESSED. This started today. (34 yo female presents to the ED with complaints of being really stressed out. She said she has felt like this for months. She said it just worsens. She said she has never had a plan to hurt herself but just wishes she wasn't here. She denies hallucinations or suicidal ideations. She said she is worried about her children (her sister has her children). They were placed there via DFS. She said she stresses about not being with them. She said she has had a runny nose. She said she has not been sleeping. She said she was placed on a sleeping pill the last time she was here but it is too expensive. She said the nursing home social worker has not contacted her to talk to the patient about her children.). The patient has experienced situational problems related to legal problems and custody issues. She is non-compliant with medication. Has not been sleeping. She has had anxiety. Has been depressed. The symptoms are described as moderate. No injury is present. Similar symptoms previously. Recent medical care: The patient was seen recently by a health care provider. REVIEW OF SYSTEMS All other systems reviewed and are negative. PAST HISTORY See nurses notes. ( PCP - Nehemias). Anxiety. Bipolar disorder. Depression. Psychosis. Surgeries: Cholecystectomy. SOCIAL HISTORY Current every day heavy tobacco smoker (cigarette)- more than 2 packs per day. No alcohol use or drug use. Hospital Course During the hospitalization, the patient had routine laboratory studies which were within normal limits except for a few outliers. Additionally, there was a general medical evaluation which was also within normal limits and revealed no new acute processes. At the time of discharge, lethality was denied and psychosis was resolving. Mood and anxiety were well managed. The patient endorsed a plan to avoid all drugs of abuse and follow up with the aftercare recommendations of the treatment team. The patient was evaluated and deemed to be absent credible lethality and had achieved the maximum benefit from an inpatient hospitalization, and so was discharged. Patient was started on BuSpar 10 mg twice a day to target anxiety. The patient was adamant about not returning to her previous longterm and was discharged to her mother's care with a plan for the patient to live in another longterm. Hospital Course Patient slowly acclimated to the individual, group and milieu therapies provided. She presented reporting breakthrough symptoms and not being clear if her medication was working. We did get a Depakote level and increased her Depakote ER to 1000 mg p.o. daily and her Zyprexa was increased to 20 mg p.o. nightly with a positive response. She endorsed feeling less anxious, suicidal and endorsed the resolution of her hallucinations/perceptual disturbances. She worked with the social work team on getting appropriate outpatient follow-ups. She had significant improvement and was able to contract for safety outside of the hospital, prior to discharge. During the hospitalization, patient had routine laboratory studies which were within normal limits except for few outliers. Additionally there was a general medical evaluation which was also within normal limits and revealed no new acute processes. Discharge Summary: At the time of discharge, she denied lethality and psychosis was improving. Mood and anxiety were well managed. Patient endorsed a plan to avoid all drugs of abuse and follow-up with the aftercare recommendations of the treatment team. Patient was evaluated and deemed to be absent credible lethality, and had achieved the maximum benefit from an inpatient hospitalization, so was discharged Meds NPU Home Medications Medication Instructions Recorded Confirmed Last Taken Type atorvastatin 40 mg tablet 20 mg PO BEDTIME@20 11/03/23 01/27/24 12/01/23 History ferrous sulfate 325 mg (65 mg 325 mg PO DAILY #30 tabs 11/07/23 01/27/24 12/02/23 Rx iron) tablet (Iron (ferrous sulfate)) divalproex 500 mg tablet,delayed 500 mg PO BID #60 tabs 05/21/24 05/26/24 Unknown Rx release (Depakote) olanzapine 20 mg tablet (Zyprexa) 20 mg PO .5 pm #30 tabs 01/22/24 01/27/24 Unknown Rx propranolol 20 mg tablet 20 mg PO BEDTIME@20 #30 tabs 01/22/24 01/27/24 Unknown Rx trazodone 100 mg tablet 100 mg PO BEDTIME@20 #30 tabs 01/22/24 01/27/24 Unknown Rx Allergies Allergy/AdvReac Type Severity Reaction Status Date / Time paliperidone [From Invega] AdvReac Severe chest Verified 01/22/24 09:40 pain, facial edema, dyspnea PFSH NPU PFSH: Medical History (Updated 01/28/24 @ 21:20 by Daryl Hernandez MD) 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, tobacco product Bipolar I disorder, most recent episode mixed, severe with psychotic features Psychiatric care GERD (gastroesophageal reflux disease) Vitamin D deficiency Mixed hyperlipidemia Nicotine dependence, cigarettes, uncomplicated Surgical History (Updated 11/21/23 @ 09:01 by Jennie Herrera RN) Hx of myringotomy Family History (Updated 11/20/23 @ 12:02 by Jennie Herrera RN) Other Leukemia Lung disease Social History (Updated 11/21/23 @ 09:01 by Jennie Herrera RN) Smoking and tobacco/nicotine status: current every day tobacco/nicotine user e-cigarettes E-Cigarette Details: e-cigarette and with nicotine E-cig/vape details: 7500 puff disposable vap takes 1-2 months to go through one Quit status (tobacco/nicotine): considering quitting Second hand smoke exposure: No Alcohol intake: never Substance/Drug Use: never Adopted: No Caregiver/support person: Yes Lives independently: No Household members: other Details: [facility] Housing: Assisted Living Facility Marital status: Single Number of children: 3 Number of grandchildren: 0 Highest education level completed: High School Graduate service: No Current occupational status: employed 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 [place] Current occupational exposures/hazards: No Pets and animals: Yes (outside) Pets & animals: cat(s) Leisure activites: music Sexually active: No Do you think of yourself as: Straight/Heterosexual Current gender identity: Female Roxanne/Islam: Hindu Special roxanne needs: No Agree to transfusion: Yes Female Reproductive History: Para: 3 Spontaneous abortions: No Mental Status Exam MSE Comments: This is an obese, white female, in hospital scrubs, with limited grooming and eye contact. No abnormal movements, except for mild psychomotor retardation. She was mostly cooperative with exam in mild distress. Speech was decreased rate and volume. Her mood was described as frustrated, her affect was congruent and flat. Her thought process was linear. Thought content: She endorsed suicidal ideation with no plan, she denied homicidal ideation. She denied auditory or visual visual hallucinations. There were no delusions reported or noted. The patient expressed distress and frustration due to the living situation. There was an incident where the patient attempted to harm self, but it was not a serious attempt and was more of a statement. The patient is aware of the situation and is seeking help. Attention and concentration appeared grossly intact and memory is somewhat reliable, but none were formally tested. Alert and oriented times three. Insight and judgment are limited impulse control is limited. Intelligence appeared commensurate with mild cognitive impairment. Vitals/I&O/Wt Last Vital Signs Temp 97.8 F 01/28/24 06:00 Pulse 69 01/28/24 06:00 Resp 18 01/28/24 06:00 BP 119/79 01/28/24 06:00 Pulse Ox 95 01/28/24 06:00 O2 Del Method Room Air 01/27/24 22:07 Weight last 48 hrs Weight 111.13 kg Data NPU 01/27/24 18:33 01/27/24 18:33 A&P Assessment and plan (1) Suicidal ideation: (2) Hallucinations: (3) Bipolar I disorder, most recent episode mixed, severe with psychotic features: (4) Acute psychosis: (5) Suicidal ideation: (6) Mild intellectual disability: (7) Adjustment disorder with mixed disturbance of emotions and conduct: (8) Suicidal ideation: Plan A 39-year-old white female with a long history of mental health challenges and likely intellectual disability who presents once again to the neuropsychiatric unit with increases and suicidal thoughts and psychiatric symptoms with extremely limited coping skills and requesting medication changes. 1. Will attempt to gather collateral information from [facility]. 2. Continue every 15 minute checks for safety. 3. Encourage individual, group and milieu therapy. 4. Continue to monitor patient's feelings of safety and medication improvement for consideration of discharge. 5. Continue current medications. Involuntary Hold Information 96 Hour Hold: 96 Hour Involuntary Admission: No Attestations NPU Medical Necessity Statement*: Inpatient hospitalization is medically necessary and the clinically appropriate intervention at this time. We will monitor/initiate medications and make changes as indicated. She will be in the hospital for over 2 midnights. Her likely length of stay 2-4 days. Coding Level of Care Code Acute Code for Chg Fwd Diagnoses Suicidal ideation R45.851 Hallucinations R44.3 Bipolar I disorder, most recent episode mixed, severe with psychotic features F31.64 Acute psychosis F23 Mild intellectual disability F70 Adjustment disorder with mixed disturbance of emotions and conduct F43.25
[2024-01-28 14:00] VITALS: BP 119/78; PULSE 86; RESP 18; TEMP 36.7; O2SAT 96
--- NOTE | 2024-01-28 16:49 | PC.NURSE ---
Patient's room checked for contraband. None found.
[2024-01-28] MEDS: OLANZapine 10 mg TABLET 20 MG PO (17:13)
[2024-01-28 19:41] VITALS: BP 120/81; PULSE 77; RESP 16; TEMP 36.9; O2SAT 96
[2024-01-28] MEDS: trazodone 100 mg Tablet PO (20:50)
[2024-01-28] MEDS: hyDROXYzine 25 mg Capsule 50 MG PO (20:50)
[2024-01-28] MEDS: propranolol 20 mg Tablet PO (20:50)
[2024-01-28] MEDS: atorvastatin 40 mg Tablet 20 MG PO (20:51)
[2024-01-29 06:00] VITALS: BP 99/55; PULSE 72; RESP 16; TEMP 36.4; O2SAT 96
[2024-01-29] MEDS: ferrous sulfate EC 325 mg Tablet PO (08:31)
[2024-01-29] MEDS: divalproex DR 500 mg Tablet PO ×2 (08:31→17:07)
[2024-01-29 14:00] VITALS: BP 140/81; PULSE 95; RESP 16; TEMP 36.3; O2SAT 96
--- NOTE | 2024-01-29 16:39 | P.NPUPN_ITS ---
Subjective NPU 2 Subjective: Patient presented today reporting that she is feeling all right. We had a lengthy discussion about our discussion with [facility] and them reporting that they would like to be supportive to her but she will have to be assertive and letting them know when these challenges arise so they can help her and that she should try to do it alone. She reported she felt she could do this and continue to function at [facility]. She denied any side effects or medications we discussed that we would discharge in the next 48 hours. Mental Status Exam 2 MSE Comments: This is an obese, white female, in hospital scrubs, with limited grooming and eye contact. No abnormal movements, except for mild psychomotor retardation. She was mostly cooperative with exam in mild distress. Speech was decreased rate and volume. Her mood was described as frustrated, her affect was congruent and flat. Her thought process was linear. Thought content: She endorsed suicidal ideation with no plan, she denied homicidal ideation. She denied auditory or visual visual hallucinations. There were no delusions reported or noted. The patient expressed distress and frustration due to the living situation. There was an incident where the patient attempted to harm self, but it was not a serious attempt and was more of a statement. The patient is aware of the situation and is seeking help. Attention and concentration appeared grossly intact and memory is somewhat reliable, but none were formally tested. Alert and oriented times three. Insight and judgment are limited impulse control is limited. Intelligence appeared commensurate with mild cognitive impairment. Vitals/I&O/Wt Last Vital Signs Temp 97.4 F L 01/29/24 14:00 Pulse 95 01/29/24 14:00 Resp 16 01/29/24 14:00 BP 140/81 01/29/24 14:00 Pulse Ox 96 01/29/24 14:00 O2 Del Method Room Air 01/29/24 14:00 Data NPU 01/27/24 18:33 01/27/24 18:33 A&P Assessment and plan (1) Suicidal ideation: (2) Hallucinations: (3) Bipolar I disorder, most recent episode mixed, severe with psychotic features: (4) Acute psychosis: (5) Suicidal ideation: (6) Mild intellectual disability: (7) Adjustment disorder with mixed disturbance of emotions and conduct: (8) Suicidal ideation: Plan A 39-year-old white female with a long history of mental health challenges and likely intellectual disability who presents once again to the neuropsychiatric unit with increases and suicidal thoughts and psychiatric symptoms with extremely limited coping skills and requesting medication changes. 1. Will attempt to gather collateral information from [facility]. 2. Continue every 15 minute checks for safety. 3. Encourage individual, group and milieu therapy. 4. Continue to monitor patient's feelings of safety and medication improvement for consideration of discharge. 5. Continue current medications. Involuntary Hold Information 2 96 Hour Hold: 96 Hour Involuntary Admission: No Attestations NPU 2 Medical Necessity Statement*: Inpatient hospitalization is medically necessary and the clinically appropriate intervention at this time. We will monitor/initiate medications and make changes as indicated. Her likely length of stay 1-3 days. Coding Level of Care Code Acute Code for g Fwd Diagnoses Suicidal ideation R45.851 Hallucinations R44.3 Bipolar I disorder, most recent episode mixed, severe with psychotic features F31.64 Acute psychosis F23 Mild intellectual disability F70 Adjustment disorder with mixed disturbance of emotions and conduct F43.25
[2024-01-29] MEDS: OLANZapine 10 mg TABLET 20 MG PO (17:07)
[2024-01-29] MEDS: atorvastatin 40 mg Tablet 20 MG PO (20:12)
[2024-01-29] MEDS: propranolol 20 mg Tablet PO (20:12)
[2024-01-29] MEDS: trazodone 100 mg Tablet PO (20:12)
[2024-01-29 20:38] VITALS: BP 121/78; PULSE 77; RESP 16; TEMP 36.8; O2SAT 94
[2024-01-30 06:00] VITALS: BP 101/68; PULSE 66; RESP 18; TEMP 36.5; O2SAT 98
[2024-01-30] MEDS: ferrous sulfate EC 325 mg Tablet PO (09:36)
[2024-01-30] MEDS: divalproex DR 500 mg Tablet PO (09:43)
--- NOTE | 2024-01-30 10:15 | W.PM.NPUDCS ---
Diagnoses at Discharge Discharge Diagnosis (1) Suicidal ideation: Status: Resolved (2) Hallucinations: Status: Resolved (3) Bipolar I disorder, most recent episode mixed, severe with psychotic features: Status: Chronic (4) Acute psychosis: Status: Resolved (5) Mild intellectual disability: Status: Chronic (6) Adjustment disorder with mixed disturbance of emotions and conduct: Status: Acute Reason for Visit Reason for Visit: [facility] Hospital Course Hospital Course Patient slowly acclimated to the individual, group and milieu therapies provided. She presented reporting breakthrough symptoms and not being clear if her medication was working. We did get a Depakote level and increased her Depakote ER to 1000 mg p.o. daily and her Zyprexa was increased to 20 mg p.o. nightly with a positive response. She endorsed feeling less anxious, suicidal and endorsed the resolution of her hallucinations/perceptual disturbances. She worked with the social work team on getting appropriate outpatient follow-ups. She had significant improvement and was able to contract for safety outside of the hospital, prior to discharge. During the hospitalization, patient had routine laboratory studies which were within normal limits except for few outliers. Additionally there was a general medical evaluation which was also within normal limits and revealed no new acute processes. Discharge Summary: At the time of discharge, she denied lethality and psychosis was improving. Mood and anxiety were well managed. Patient endorsed a plan to avoid all drugs of abuse and follow-up with the aftercare recommendations of the treatment team. Patient was evaluated and deemed to be absent credible lethality, and had achieved the maximum benefit from an inpatient hospitalization, so was discharged Involuntary Hold Information 96 Hour Hold: 96 Hour Involuntary Admission: No Mental Status Exam MSE Comments: This is an obese, white female, in hospital scrubs, with limited grooming and eye contact. No abnormal movements, except for mild psychomotor retardation. She was mostly cooperative with exam in mild distress. Speech was decreased rate and volume. Her mood was described as frustrated, her affect was congruent and flat. Her thought process was linear. Thought content: She endorsed suicidal ideation with no plan, she denied homicidal ideation. She denied auditory or visual visual hallucinations. There were no delusions reported or noted. The patient expressed distress and frustration due to the living situation. There was an incident where the patient attempted to harm self, but it was not a serious attempt and was more of a statement. The patient is aware of the situation and is seeking help. Attention and concentration appeared grossly intact and memory is somewhat reliable, but none were formally tested. Alert and oriented times three. Insight and judgment are limited impulse control is limited. Intelligence appeared commensurate with mild cognitive impairment. Discharge Data Studies Completed and Pending: Laboratory Results WBC 5.62 10^3/uL (3.2 9-11.43) 01/27/24 18: RBC 4.40 10^6/uL (3.8 5-5.65) 01/27/24 18: Hgb 11.80 g/dL (11.27 -16.99) 01/27/24 18: Hct 37.7 % (36-47) 01/27/24 18: MCV 85.7 fl (85-98) 01/27/24 18: MCH 26.8 pg (27-33) L 01/27/24 18: MCHC 31.3 g/dL (30-55) 01/27/24 18: RDW 16.2 % (12.1-15.1 ) H 01/27/24 18: Plt Count 265 10^3/cmm (157 -399) 01/27/24 18: MPV 8.7 fL (7.4-10.4) 01/27/24 18: Neut % (Auto) 58.7 % 01/27/24 18: Lymph % (Auto) 27.8 % 01/27/24 18: Coal % (Auto) 8.9 % 01/27/24 18: Eos % (Auto) 3.4 % 01/27/24 18: Baso % (Auto) 0.7 % 01/27/24 18: Neut # (Auto) 3.30 10^3/uL (1.8 -7.7) 01/27/24 18: Lymph # (Auto) 1.6 10^3/uL (0.8- 4.8) 01/27/24 18: Coal # (Auto) 0.5 10^3/uL (0.2- 0.9) 01/27/24 18: Eos # (Auto) 0.2 10^3/uL (0.0- 0.8) 01/27/24 18: Baso # (Auto) 0.0 10^3/uL (0.0- 0.1) 01/27/24 18:33 Nucleated RBC % (a uto) 0 % 01/27/24 18: Nucleated RBCs # 0.0 /100WBC 01/27/24 18:33 Sodium 141 mmol/L (136-1 45) 01/27/24 18:33 Potassium 4.3 mmol/L (3.5-5 .1) 01/27/24 18: Chloride 108 mmol/L (98-10 7) H 01/27/24 18: Carbon Dioxide 23 mmol/L (22-29) 01/27/24 18: Anion Gap 14.3 (5-19) 01/27/24 18: BUN 6 mg/dL (6-20) 01/27/24 18: Creatinine 0.5 mg/dL (0.5-0. 9) 01/27/24 18: GFR Calculation 137.4 mL/min (90- 130) H 01/27/24 18: Glucose 110 mg/dL (65-115 ) 01/27/24 18: Calculated Osmolal ity 290 mOsm/kg (285- 295) 01/27/24 18: Calcium 8.5 mg/dL (8.5-10 .5) 01/27/24 18: Total Bilirubin 0.2 mg/dL (0.15-1 .2) 01/27/24 18: AST 21 U/L (0-32) 01/27/24 18: ALT 27 U/L (0-33) 01/27/24 18:33 Alkaline Phosphata se 104 U/L (35-105) 01/27/24 18: Total Protein 7.7 g/dL (6.6-8.7 ) 01/27/24 18: Albumin 3.9 g/dL (3.5-5.2 ) 01/27/24 18: Globulin 3.8 g/dL (1.3-4.6 ) 01/27/24 18: HCG, Qual Negative (Negati ve) 01/27/24 17:30 Salicylates 0.4 mg/dL (3-10) L 01/27/24 18:33 Urine Opiates Scre en Negative ng/mL (N egative) 01/27/24 17:30 Acetaminophen < 5.0 ug/mL (10-3 0) L 01/27/24 18:33 Ur Barbiturates Sc reen Negative ng/mL (N egative) 01/27/24 17:30 Valproic Acid 69.3 ug/mL (50-10 0) 01/27/24 18:33 Ur Phencyclidine S crn Negative ng/mL (N egative) 01/27/24 17:30 Ur Amphetamines Sc reen Negative ng/mL (N egative) 01/27/24 17:30 U Benzodiazepines Scrn Negative ng/mL (N egative) 01/27/24 17:30 Urine Cocaine Scre en Negative ng/mL (N egative) 01/27/24 17:30 U Marijuana (THC) Screen Negative ng/mL (N egative) 01/27/24 17:30 Ethyl Alcohol < 10 mg/dL (0-10) 01/27/24 18:33 Vitals: Last Vital Signs Temp 97.7 F 01/30/24 06:00 Pulse 66 01/30/24 06:00 Resp 18 01/30/24 06:00 BP 101/68 01/30/24 06:00 Pulse Ox 98 01/30/24 06:00 O2 Del Method Room Air 01/30/24 06:00 Discharge Plan Discharge Patient Disposition: Home Condition: Stable Prescriptions: Continued divalproex [Depakote] 500 mg tablet,delayed release (DR/EC) 500 mg PO BID Qty: 60 6RF Rx Instructions: Take one tablet at 9 am and 7 pm olanzapine [Zyprexa] 20 mg tablet 20 mg PO .5 pm Qty: 30 6RF Rx Instructions: Take one tablet at 5 pm propranolol 20 mg tablet 20 mg PO BEDTIME@20 Qty: 30 6RF Rx Instructions: Take one tablet at 8 pm trazodone 100 mg tablet 100 mg PO BEDTIME@20 Qty: 30 6RF Rx Instructions: Take one tablet at 8 pm atorvastatin 40 mg tablet 20 mg PO BEDTIME@20 ferrous sulfate [Iron (ferrous sulfate)] 325 mg (65 mg iron) tablet 325 mg PO DAILY Qty: 30 1RF Discharge Orders: Discharge Order (Routine); Ordered 01/30/24 Ordered By: Daryl Hernandez Referrals: Joycelyn Melendrez FNP [Primary Care Provider] - Rosario Miller PMHNP [Staff Physician] - 02/05/24 9:45 am (Follow up) Discharge Diet: Usual diet Discharge Activity: Resume usual activity Patient Instructions: Generalized Anxiety Disorder, Depression, Opioid Safety Discharge Attestations NPU Time Spent in Discharge Care*: less than 30 min Specific Discharge Activities: Specific discharge activities: educating patient, discussing with rehabilitation case coordinator/social workers/dc planners, documenting/other paperwork and evaluating patient/reviewing data Coding Level of Care Code Acute Code for Chg Fwd Diagnoses Suicidal ideation R45.851 Hallucinations R44.3 Bipolar I disorder, most recent episode mixed, severe with psychotic features F31.64 Acute psychosis F23 Mild intellectual disability F70 Adjustment disorder with mixed disturbance of emotions and conduct F43.25
[2024-01-30 10:21] VITALS: BP 101/68; PULSE 66; RESP 18; TEMP 36.5; O2SAT 98
--- NOTE | 2024-01-30 10:52 | DCPLANNER ---
.IMM was printed and rights explained and copy put in file.
[2024-01-30] MEDS: nicotine 2 mg Gum BUCCAL (11:03)
== END 2024-01-30 11:20 | disposition home or self-care (01) | DRG 882 ==
LOC: ER 21:42 → NP 21:53
PROVIDERS: Admitting Provider Psychiatry & Neurology Psychiatry; Emergency Provider Emergency Medicine; PCP Nurse Practitioner; Visit Provider Psychiatry & Neurology Psychiatry
DX: F43.25 Adjustment disorder with mixed disturbance of emotions and conduct (principal); R45.851 Suicidal ideations; F70 Mild intellectual disabilities; F31.64 Bipolar disorder, current episode mixed, severe, with psychotic features; F17.290 Nicotine dependence, other tobacco product, uncomplicated; E78.5 Hyperlipidemia, unspecified
CPT/HCPCS: 80053; 80164; 80306; 80307; 81025; 85025; 97150; 97165; 99285

== ENCOUNTER 2024-02-28 12:34 | Outpatient (CLI) | payer MEDICARE, MEDICAID, SELFPAY ==
[2024-02-06 12:19] VITALS: BP 143/96; BMI 41.6
--- NOTE | 2024-02-28 12:39 | MM_ITS ---
WS: [id number] BILATERAL 3D TOMOSYNTHESIS DIGITAL DIAGNOSTIC MAMMOGRAPHY WITH CAD CLINICAL INFORMATION: NIPPLE DISCHARGE HISTORY: Bilateral nipple discharge. Breast pain. COMPARISON: 2016 TECHNIQUE: Bilateral CC, MLO, and ML views. FINDINGS: The breasts are composed of heterogeneous fibroglandular density, which can limit the detection of sm all underlying mass lesions. Palpable markers bilateral breast. No underlying parenchymal abnormaliti es. Ultrasound is pending. Parenchymal pattern is otherwise similar since 2016 ULTRASOUND BREAST BILATERAL TECHNIQUE: Ultrasound bilateral breast focused area of concern. CLINICAL INFORMATION: NIPPLE DISCHARGE FINDINGS: Ultrasound bilateral breasts in the areas of concern and subareolar. RIGHT BREAST: Ultrasound RIGHT breast at the 10:00 11:00 and 2:00 positions in the areas of patient c oncern. Normal underlying parenchymal tissue. No cystic or solid lesions. Subareolar ultrasound demon strates minimal ductal dilatation. No intraductal lesions. Findings are benign. LEFT BREAST: Ultrasound LEFT breast at the 10:00 and 1:00 positions in the areas of patient concern. No suspicious underlying lesions. Incidental ductal ectasia subareolar LEFT breast. Findings are krishna gn. MM/[place] [id number] IMPRESSION: BI-RADS: 2-Benign FOLLOW UP: 1 Year Follow-up Recommend annual screening mammography age 40
== END 2024-02-28 12:35 | disposition home or self-care (01) ==
LOC: RAD 12:34
PROVIDERS: PCP Nurse Practitioner; Visit Provider Nurse Practitioner Family
DX: N64.52 Nipple discharge (principal); R92.323 Mammographic fibroglandular density, bilateral breasts; R92.333 Mammographic heterogeneous density, bilateral breasts; N60.42 Mammary duct ectasia of left breast
CPT/HCPCS: 76642; 77062; G0279

== ENCOUNTER → 2024-07-02 13:35 | Outpatient (BNVA) | payer MEDICAID, SELFPAY ==
[2024-06-24 10:00] VITALS: BP 143/96; BMI 41.6
== END ==
PROVIDERS: PCP Nurse Practitioner; Referring Provider Family Medicine; Visit Provider Nurse Practitioner Family
DX: L21.8 Other seborrheic dermatitis (principal); L98.1 Factitial dermatitis; L65.0 Telogen effluvium
CPT/HCPCS: 99204

== ENCOUNTER → 2024-08-04 15:41 | Outpatient (BNVA) | payer MEDICAID, SELFPAY ==
[2024-07-21 07:57] VITALS: BP 143/96; BMI 41.6
== END ==
PROVIDERS: PCP Nurse Practitioner; Visit Provider Nurse Practitioner Family
DX: L21.8 Other seborrheic dermatitis (principal); L98.1 Factitial dermatitis; L65.0 Telogen effluvium
CPT/HCPCS: 99214

== ENCOUNTER 2024-09-02 16:08 | Emergency (ER) | payer MEDICARE, MEDICAID, SELFPAY ==
[2024-07-21 07:57] VITALS: BP 143/96; BMI 41.6
[2024-09-02 16:12] VITALS: BP 138/84; PULSE 99; RESP 22; TEMP 36.6; O2SAT 99
[2024-09-02 16:21] VITALS: BP 156/97; PULSE 103; O2SAT 98
--- NOTE | 2024-09-02 16:38 | PC.PHAR ---
pATIENT IS FROM [facility]
--- NOTE | 2024-09-02 16:44 | W.ED.FEMALGU ---
HPI - Female Genitourinary General: Chief complaint: Abdominal Pain Stated complaint: ABD Pain Time Seen by Provider: 09/02/24 16:21 Source: patient Mode of arrival: EMS Limitations: no limitations History of Present Illness: Patient is a 39-year-old female presents to ED today with a complaint of heavy and prolonged vaginal bleeding. She states she has been on her menstrual cycle over the past 3 weeks. Patient comes from a retirement and history is somewhat limited due to her baseline cognitive delay. She tells me before this, she had regular menstrual cycles. Patient does tell me she was given a hormone shot recently to try to help with the bleeding. On her MAR that accompanies her today, it looks like the Depo shot was given on 08/19. Patient states she wears pull-ups/feminine pads and changes these every 5 minutes due to bleeding. She is having some pelvic cramping. Patient states she is not sexually active. Patient arrives in no acute distress. MD elicited complaint: vaginal bleeding Onset (ago): week(s) Severity: moderate Quality of pain: cramping Consistency: constant Vaginal discharge: none Vaginal bleeding: moderate Exacerbating factors: none Relieving factors: none Associated symptoms: Reports no associated symptoms; Deny abdominal pain, headache(s), nausea or vaginal discharge Treatment prior to arrival: none Sexual activity: No Patient : No Related Data Home Medications Medication Instructions Recorded Confirmed atorvastatin 40 mg tablet 40 mg PO BEDTIME@20 11/03/23 09/02/24 hydroxyzine HCl 50 mg tablet 50 mg PO BID 09/02/24 09/02/24 medroxyprogesterone 150 mg/mL 150 mg IM Q3M 09/02/24 09/02/24 intramuscular syringe mupirocin 2 % topical ointment 1 applic topical BID 09/02/24 09/02/24 Previous Rx's Medication Instructions Recorded ferrous sulfate 325 mg (65 mg 325 mg PO DAILY #30 tabs 11/07/23 iron) tablet (Iron (ferrous sulfate)) divalproex 500 mg tablet,delayed 500 mg PO .7 pm #90 tabs 07/09/24 release (Depakote) olanzapine 20 mg tablet (Zyprexa) 20 mg PO .5 pm #90 tabs 07/09/24 propranolol 20 mg tablet 20 mg PO .8 pm #90 tabs 07/09/24 trazodone 100 mg tablet 100 mg PO .8 pm #90 tabs 07/09/24 Allergies Allergy/AdvReac Type Severity Reaction Status Date / Time paliperidone [From Invega] AdvReac Severe chest Verified 07/09/24 11:22 pain, facial edema, dyspnea Review of Systems Card: Denies: chest pain Resp: Denies: dyspnea GI: Denies: abdominal pain, nausea, vomiting or diarrhea : Reports: vaginal bleeding and pelvic pain (cramping); Denies: flank pain, difficulty voiding, dysuria, urinary frequency, urinary urgency, urinary hesitancy, genital pruritis, vaginal odor or vaginal discharge Musc: Denies: neck pain, back pain, extremity pain, extremity swelling, joint pain or joint swelling Skin/Breast: Denies: rash Neuro: Denies: headache(s), numbness in extremities, weakness in extremities, sensory changes or dizziness PFSH ED PFSH: Medical History Nicotine dependence, cigarettes, uncomplicated 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, tobacco product Bipolar I disorder, most recent episode mixed, severe with psychotic features Psychiatric care GERD (gastroesophageal reflux disease) Vitamin D deficiency Mixed hyperlipidemia Surgical History Hx of myringotomy Family History Other Leukemia Lung disease Social History Smoking and tobacco/nicotine status: former use of tobacco/nicotine Quit status (tobacco/nicotine): considering quitting Second hand smoke exposure: No Alcohol intake: never Substance/Drug Use: never Adopted: No Caregiver/support person: Yes Lives independently: No Household members: other Details: [facility] Housing: Assisted Living Facility Marital status: Single Number of children: 3 Number of grandchildren: 0 Highest education level completed: High School Graduate service: No Current occupational status: employed 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 [place] Current occupational exposures/hazards: No Pets and animals: Yes (outside) Pets & animals: cat(s) Leisure activites: music Sexually active: No Do you think of yourself as: Straight/Heterosexual Current gender identity: Female Roxanne/Latter-Day: Amish Special roxanne needs: No Agree to transfusion: Yes Female Reproductive History: Para: 3 Spontaneous abortions: No Physical Exam Const: COMMON NORMALS: no acute distress, patient oriented x3, alert and well nourished EXAM LIMITATIONS: other limitations (pt with baseline cognitive disability ) GENERAL APPEARANCE: cooperative NUTRITIONAL APPEARANCE: obese ORIENTATION/CONSCIOUSNESS: Yes awake, Yes oriented to person and Yes oriented to place Resp: COMMON NORMALS: normal respiratory effort and clear to auscultation bilaterally AUSCULTATION: clear to auscultation bilaterally Cardio: COMMON NORMALS: regular rate and regular rhythm RATE: regular rate RHYTHM: regular rhythm GI: COMMON NORMALS: Normal to inspection, nondistended, normoactive bowel sounds present, Soft to palpation, non-tender, No hepatosplenomegaly present and no masses INSPECTION: Yes normal to inspection PALPATION: Yes Soft to palpation and Yes No hepatosplenomegaly present : COMMON NORMALS: Yes no CVA tenderness BLADDER/KIDNEY EXAM: Yes no CVA tenderness EXTERNAL FEMALE EXAM: Yes normal appearance of the urethra SPECULUM EXAM - VAGINA: No laceration, No lesion, No tissue present in vagina, No mass and Yes other (scant vaginal bleeding noted during exam) OB/EXTERNAL & SPECULUM: no tissue noted in vagina Back/Pelvis: COMMON NORMALS: no CVA tenderness Neuro: COMMON NORMALS: patient oriented x3 SENSORIUM/ORIENTATION: Yes alert, Yes oriented to person and Yes oriented to place Course Vital Signs: Vital signs: Vital Signs Temperature 97.8 F 09/02/24 16:12 Pulse Rate 80 09/02/24 18:42 Respiratory Rate 24 H 09/02/24 18:42 Blood Pressure 130/83 09/02/24 18:42 Pulse Oximetry 97 09/02/24 18:42 Oxygen Delivery Me thod Room Air 09/02/24 18:42 MDM - Female Medical Decision Making Patient here with complaints of heavy and prolonged vaginal bleeding over the past 3 weeks. She arrives with stable vital signs. Her hemoglobin today is 10.9. This is stable when compared to previous. Would like a provider through her retirement to repeat this in a few days to monitor stability. On pelvic exam, she had a scant amount of bleeding. Certainly nothing to suggest hemorrhage. Patient recently placed on Depo shot due to the bleeding. Will have her follow-up with women's health for further evaluation of dysfunctional uterine bleeding. I do not see any indication for emergent imaging on this visit. Return precautions discussed. Medical Records I reviewed the patient's medical records. Lab Data I reviewed the patient's lab results. 09/02/24 16:37 09/02/24 16:37 Laboratory Results WBC 5.12 10^3/uL (3.29-11.43) 09/02/24 16:37 RBC 4.04 10^6/uL (3.85-5.65) 09/02/24 16:37 Hgb 10.90 g/dL (11.27-16.99) L 09/02/24 16:37 Hct 35.9 % (36-47) L 09/02/24 16:37 MCV 88.9 fl (85-98) 09/02/24 16:37 MCH 27.0 pg (27-33) 09/02/24 16:37 MCHC 30.4 g/dL (30-55) 09/02/24 16:37 RDW 13.2 % (12.1-15.1) 09/02/24 16:37 Plt Count 308 10^3/cmm (157-399) 09/02/24 16:37 MPV 8.9 fL (7.4-10.4) 09/02/24 16:37 Neut % (Auto) 61.3 % 09/02/24 16:37 Lymph % (Auto) 29.7 % 09/02/24 16:37 [place] % (Auto) 8.2 % 09/02/24 16:37 Eos % (Auto) 0.4 % 09/02/24 16:37 Baso % (Auto) 0.2 % 09/02/24 16:37 Neut # (Auto) 3.14 10^3/uL (1.8-7.7) 09/02/24 16:37 Lymph # (Auto) 1.5 10^3/uL (0.8-4.8) 09/02/24 16:37 [place] # (Auto) 0.4 10^3/uL (0.2-0.9) 09/02/24 16:37 Eos # (Auto) 0.0 10^3/uL (0.0-0.8) 09/02/24 16:37 Baso # (Auto) 0.0 10^3/uL (0.0-0.1) 09/02/24 16:37 Nucleated RBC % (auto) 0 % 09/02/24 16:37 Nucleated RBCs # 0.0 /100WBC 09/02/24 16:37 Sodium 140 mmol/L (136-145) 09/02/24 16:37 Potassium 3.5 mmol/L (3.5-5.1) 09/02/24 16:37 Chloride 110 mmol/L (98-107) H 09/02/24 16:37 Carbon Dioxide 19 mmol/L (22-29) L 09/02/24 16:37 Anion Gap 14.5 (5-19) 09/02/24 16:37 BUN 5 mg/dL (6-20) L 09/02/24 16:37 Creatinine 0.5 mg/dL (0.5-0.9) 09/02/24 16:37 GFR Calculation 137.4 mL/min (90-130) H 09/02/24 16:37 Glucose 143 mg/dL (65-115) H 09/02/24 16:37 Calculated Osmolality 290 mOsm/kg (285-295) 09/02/24 16:37 Calcium 8.9 mg/dL (8.5-10.5) 09/02/24 16:37 Total Bilirubin 0.3 mg/dL (0.15-1.2) 09/02/24 16:37 AST 11 U/L (0-32) 09/02/24 16:37 ALT 13 U/L (0-33) 09/02/24 16:37 Alkaline Phosphatase 104 U/L (35-105) 09/02/24 16:37 Total Protein 7.3 g/dL (6.6-8.7) 09/02/24 16:37 Albumin 4.2 g/dL (3.5-5.2) 09/02/24 16:37 Globulin 3.1 g/dL (1.3-4.6) 09/02/24 16:37 HCG, Qual Negative (Negative) 09/02/24 16:37 Urine Color Yellow (Yellow) 09/02/24 18:30 Urine Appearance Cloudy (CLEAR) A 09/02/24 18:30 Urine pH 6.0 (5-7) 09/02/24 18:30 Ur Specific [place] 1.015 (1.005-1.030) 09/02/24 18:30 Urine Protein Trace (Negative) A 09/02/24 18:30 Urine Glucose (UA) Negative (Normal) 09/02/24 18:30 Urine Ketones Negative (Negative) 09/02/24 18:30 Urine Blood 3+ (Negative) A 09/02/24 18:30 Urine Nitrate Negative (Negative) 09/02/24 18:30 Urine Bilirubin Negative (Negative) 09/02/24 18:30 Urine Urobilinogen 1.0 mg/dL (Negative) 09/02/24 18:30 Ur Leukocyte Esterase Negative (Negative) 09/02/24 18:30 Urine RBC 21-50 /hpf (0-2) H 09/02/24 18:30 Urine WBC 0-5 /hpf (0-5) 09/02/24 18:30 Ur Squamous Epith Cells 0-5 /hpf (0-5) 09/02/24 18:30 Amorphous Sediment Not Reportable 09/02/24 18:30 Urine Bacteria None seen /hpf (NONE) 09/02/24 18:30 Hyaline Casts 0-4 /lpf H 09/02/24 18:30 No radiology studies performed this visit Discharge Plan Discharge Patient Disposition: Home Clinical Impression: Dysfunctional uterine bleeding Condition: Stable Prescriptions: No Action divalproex [Depakote] 500 mg tablet,delayed release (DR/EC) 500 mg PO .7 pm Qty: 90 2RF Rx Instructions: Take one tablet at 7 pm olanzapine [Zyprexa] 20 mg tablet 20 mg PO .5 pm Qty: 90 2RF Rx Instructions: Take one tablet at 5 pm propranolol 20 mg tablet 20 mg PO .8 pm Qty: 90 2RF Rx Instructions: Take one tablet at 8 pm trazodone 100 mg tablet 100 mg PO .8 pm Qty: 90 2RF Rx Instructions: Take one tablet at 8 pm hydroxyzine HCl 50 mg tablet 50 mg PO BID mupirocin 2 % ointment 1 applic TOPICAL BID medroxyprogesterone 150 mg/mL syringe 150 mg IM Q3M atorvastatin 40 mg tablet 40 mg PO BEDTIME@20 ferrous sulfate [Iron (ferrous sulfate)] 325 mg (65 mg iron) tablet 325 mg PO DAILY Qty: 30 1RF Discharge Orders: Discharge ED (Routine); Ordered 09/02/24 Ordered By: Joceline Miramontes Referrals: Joycelyn Melendrez FNP [Primary Care Provider] - Patient Instructions: Abnormal (Dysfunctional) Uterine Bleeding (ED) Activity Restrictions/Additional Instructions: As we discussed, I would like the provider through your retirement to repeat a hemoglobin in a few days to monitor stability. You need to return to the emergency department for worsening vaginal bleeding, lightheadedness, dizziness, passing out episodes, or severe pain. As we discussed, I will place a referral to get you set up with our women's health clinic for further evaluation of your heavy and prolonged vaginal bleeding. 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
[2024-09-02 16:45] LABS: Basophils % 0.2 %; Eosinophils % 0.4 %; Hematocrit 35.9 % (36-47); Lymphocytes # 1.5 10^3/uL (0.8-4.8); Lymphocytes % 29.7 %; Mean Corpuscular HGB Conc 30.4 g/dL (30-55); Mean Corpuscular Volume 88.9 fl (85-98); Mean Platelet Volume 8.9 fL (7.4-10.4); Monocytes # 0.4 10^3/uL (0.2-0.9); Monocytes % 8.2 %; Neutrophils # 3.14 10^3/uL (1.8-7.7); Neutrophils % 61.3 %; Nucleated Red Blood Cells % 0 %; Platelet Count 308 10^3/cmm (157-399); Red Blood Count 4.04 10^6/uL (3.85-5.65); Red Cell Distribution Width 13.2 % (12.1-15.1); White Blood Count 5.12 10^3/uL (3.29-11.43)
[2024-09-02 17:03] LABS: Alanine Aminotransferase 13 U/L (0-33); Albumin Level 4.2 g/dL (3.5-5.2); Alkaline Phosphatase 104 U/L (35-105); Anion Gap 14.5 (5-19); Aspartate Amino Transferase 11 U/L (0-32); Blood Urea Nitrogen 5 mg/dL (6-20); Calcium 8.9 mg/dL (8.5-10.5); Carbon Dioxide 19 mmol/L (22-29); Chloride 110 mmol/L (98-107); Globulin 3.1 g/dL (1.3-4.6); Glomerular Filtration Rate 137.4 mL/min (90-130); Glucose 143 mg/dL (65-115); HCG, Serum Qual Negative (Negative); Osmolality Calculated 290 mOsm/kg (285-295); Potassium 3.5 mmol/L (3.5-5.1); Sodium 140 mmol/L (136-145); Total Bilirubin 0.3 mg/dL (0.15-1.2); Total Protein 7.3 g/dL (6.6-8.7)
[2024-09-02 17:16] VITALS: BP 113/55; PULSE 74; O2SAT 99
[2024-09-02 18:00] VITALS: PULSE 92; O2SAT 96
[2024-09-02 18:42] VITALS: BP 113/78; BP 115/82; BP 130/83; BP 142/85; PULSE 100; PULSE 119; PULSE 80; PULSE 83; RESP 24; O2SAT 97
[2024-09-02 18:58] LABS: Bilirubin Urine Negative (Negative); Blood Urine 3+ (Negative); Glucose Urine UA Negative (Normal); Ketones Urine Negative (Negative); Leukocyte Esterase Urine Negative (Negative); Nitrate Urine Negative (Negative); Protein Urine Trace (Negative); Specific Gravity, Urine 1.015 (1.005-1.030); Urine Appearance Cloudy (CLEAR); Urine Color Yellow (Yellow)
[2024-09-02 19:03] LABS: Add Urine Microscopic? YES; Bacteria Urine None Seen /hpf; Hyaline Casts Urine 0-4 /lpf; RBC Urine 21-50 /hpf (0-2); Squamous Epithelial Cell Urine 0-5 /hpf (0-5); WBC Urine 0-5 /hpf (0-5)
[2024-09-02 19:08] LABS: Add Urine Culture? Yes
[2024-09-02 19:19] VITALS: BP 113/78; PULSE 109; O2SAT 96
--- NOTE | 2024-09-04 10:59 | DCPLANNER ---
messaged [facility] for er f/u
== END 2024-09-02 19:20 | disposition home or self-care (01) ==
PROVIDERS: Emergency Provider Physician Assistant; PCP Nurse Practitioner
DX: N93.8 Other specified abnormal uterine and vaginal bleeding (principal); Z87.891 Personal history of nicotine dependence; E78.2 Mixed hyperlipidemia
CPT/HCPCS: 36415; 80053; 81001; 84703; 85025; 87086; 99283; E0352

== ENCOUNTER → 2024-11-11 11:48 | Outpatient (BNVA) | payer OTHER, SELFPAY ==
[2024-07-21 07:57] VITALS: BP 143/96; BMI 41.6
== END ==
PROVIDERS: PCP Nurse Practitioner; Visit Provider Nurse Practitioner Psychiatric/Mental Health
DX: F43.25 Adjustment disorder with mixed disturbance of emotions and conduct (principal); F31.64 Bipolar disorder, current episode mixed, severe, with psychotic features
CPT/HCPCS: 80061; 83036

== ENCOUNTER → 2024-11-20 09:46 | Outpatient (BNVA) | payer MEDICARE, MEDICAID, OTHER, SELFPAY ==
[2024-11-14 09:12] VITALS: BP 157/98; BMI 39.1
== END ==
PROVIDERS: PCP Nurse Practitioner; Visit Provider Nurse Practitioner Psychiatric/Mental Health
DX: Z79.899 Other long term (current) drug therapy (principal)
CPT/HCPCS: 80053; 80164

== ENCOUNTER 2024-11-29 17:24 | Emergency (ER) | payer MEDICARE, MEDICAID, SELFPAY ==
[2024-11-14 09:12] VITALS: BP 157/98; BMI 39.1
[2024-11-29 17:25] VITALS: BP 140/86; PULSE 81; RESP 18; TEMP 36.6; O2SAT 99; BMI 40.6
--- NOTE | 2024-11-29 17:38 | XRR_ITS ---
PROCEDURE INFORMATION: Exam: XR Chest Exam date and time: 11/29/2024 6:02 PM Age: 39 years old Clinical indication: Pain; Chest pressure; Additional info: Chest pain TECHNIQUE: Imaging protocol: Radiologic exam of the chest. Views: 1 view. COMPARISON: CR XR chest 1V portable [id number] 12/29/2020 12:34 AM FINDINGS: Lungs: Unremarkable. No consolidation. Pleural spaces: Unremarkable. No pleural effusion. No pneumothorax. Heart/Mediastinum: Unremarkable. No cardiomegaly. Bones/joints: Unremarkable. XR/XR chest 1V portable [id number] IMPRESSION: No acute findings.
[2024-11-29 18:01] LABS: Troponin(5th) Baseline 8 ng/L (0-10)
[2024-11-29] MEDS: ketorolac 30 mg/mL INJ IVP (18:20)
[2024-11-29 18:33] VITALS: BP 125/84; PULSE 90; RESP 18; O2SAT 95
[2024-11-29 19:02] VITALS: BP 118/83; PULSE 79; RESP 16; O2SAT 96
--- NOTE | 2024-11-29 19:08 | ECG_ITS ---
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
--- NOTE | 2024-11-29 19:45 | ED_ITS ---
HPI - Chest Pain General: Chief Complaint: Chest Pain Stated Complaint: chest pain Time Seen by Provider: 11/29/24 17:24 History of Present Illness: This patient is a 39-year-old white female who presents to the ER complaining of upper chest pain. She states this started at 4 PM today. She states it feels like a squeezing sensation. She does have some mild shortness of breath. She states she is had no prior chest pain. No cardiac history. Related Data Home Medications ?Medication ?Instructions ?Recorded ?Confirmed atorvastatin 40 mg tablet 40 mg PO BEDTIME@20 11/03/23 11/20/24 Previous Rx's ?Medication ?Instructions ?Recorded ferrous sulfate 325 mg (65 mg 325 mg PO DAILY #30 tabs 11/07/23 iron) tablet (Iron (ferrous sulfate)) divalproex 500 mg tablet,delayed 500 mg PO .7 pm #90 t abs 07/09/24 release (Depakote) trazodone 100 mg tablet 100 mg PO .8 pm #90 tabs 02/24 medroxyprogesterone 150 mg/mL 150 mg IM ONCE #1 mL intramuscular suspension (Depo-Provera) olanzapine 20 mg tablet (Zyprexa) 20 mg PO .5 pm #90 t abs 11/10/24 hydroxyzine HCl 50 mg tablet 50 mg PO TID PRN anxiety #270 tabs 11/20/24 Allergies Allergy/AdvReac Type Severity Reaction Status Date / Time paliperidone (From Invega) AdvReac Severe chest Verified 11/20/24 08:47 pain, facial edema, dyspnea Review of Systems General: Reports: 10 or more systems reviewed and unremarkable except in HPI and below Card: Reports: chest pain PFSH ED PFSH: Medical History (Updated 11/29/24 @ 19:44 by Jose Roberto Knox MD) Nicotine dependence, cigarettes, uncomplicated 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, tobacco product Bipolar I disorder, most recent episode mixed, severe with psychotic features Psychiatric care GERD (gastroesophageal reflux disease) Vitamin D deficiency Mixed hyperlipidemia Surgical History Hx of myringotomy Family History Other Leukemia Lung disease Social History (Reviewed 10/30/24 @ 14:52 by Torrey [place] Smoking and tobacco/nicotine status: never used tobacco/nicotine Quit status (tobacco/nicotine): considering quitting Second hand smoke exposure: No Alcohol intake: never Substance/Drug Use: never Adopted: No Caregiver/support person: Yes Lives independently: No Household members: other Details: [facility] Housing: Assisted [facility] Marital status: Single Number of children: 3 Number of grandchildren: 0 Highest education level completed: High School Graduate service: No Current occupational status: employed 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 [employer] Current occupational exposures/hazards: No Pets and animals: Yes (outside) Pets & animals: cat(s) Leisure activites: music Sexually active: No Do you think of yourself as: Straight/Heterosexual Current gender identity: Female Roxanne/Rastafarian: Sabianist Special roxanne needs: No Agree to transfusion: Yes Female Reproductive History: Para: 3 Spontaneous abortions: No Physical Exam Const: COMMON NORMALS: no acute distress, patient oriented x3 and no limitations GENERAL APPEARANCE: cooperative and comfortable HENMT: COMMON NORMALS: normocephalic, atraumatic, Normal nasal mucous membranes and turbinates present, moist oral mucous membranes and oropharynx normal HEAD & SCALP: normal to inspection, normocephalic and atraumatic FACE & SINUS: normal facial exam NOSE: Normal nasal mucous membranes and turb inates present Eye: COMMON NORMALS: Equal, round and reactive pupils present, EOMs intact bilaterally and conjunctivae normal GENERAL EYE: appearance normal, both eyes and all related structures CONJUNCTIVA: Yes conjunctivae normal PUPIL: Yes Equal, round and reactive pupils present Neck/C-Spine: COMMON NORMALS: supple and no JVD Chest: OTHER: Palpation of the upper sternum reproduces her chest discomfort. Resp: COMMON NORMALS: normal respiratory effort and clear to auscultation bilaterally AUSCULTATION: clear to auscultation bilaterally Cardio: COMMON NORMALS: no JVD, regular rate, regular rhythm, No gallops present (Cardio), No murmurs present (Cardio) and No rub (Cardio) RATE: regular rate RHYTHM: regular rhythm GI: COMMON NORMALS: Normal to inspection, nondistended, normoactive bowel sounds present, Soft to palpation and non-tender AUSCULTATION: Yes normoactive bowel sounds PALPATION: Yes Soft to palpation : COMMON NORMALS: Yes no CVA tenderness BLADDER/KIDNEY EXAM: Yes no CVA tenderness Back/Pelvis: COMMON NORMALS: no CVA tenderness and thoracic and lumbar spine normal to inspection Extremity: COMMON NORMALS: normal to inspection Neuro: COMMON NORMALS: patient oriented x3 and CN's II-XII intact bilaterally Psych: COMMON NORMALS: mental status grossly normal, Normal thought process present and cooperative THOUGHT PROCESS: Normal thought process present Skin: COMMON NORMALS: no rashes or lesions noted, turgor normal and no ja undice GENERAL SKIN EXAM: no rashes or lesions noted and turgor normal Course Vital Signs: Vital signs: Vital Signs Temperature 97.8 F 11/29/24 17:25 Pulse Rate 79 11/29/24 19:02 Respiratory Rate 16 11/29/24 19:02 Blood Pressure 118/83 11/29/24 19:02 Pulse Oximetry 96 11/29/24 19:02 Oxygen Delivery Me thod Room Air 11/29/24 19:02 MDM - Chest Pain Medical Decision Making EKG revealed normal sinus rhythm with no ST segment abnormalities. Chest x-ray was normal. Troponin was 8. Patient was given 30 mg of Toradol IV. Chest pain completely resolved. This appears to be chest wall pain. I recommended she take ibuprofen. Follow-up with primary care physician next week for recheck if not resolved. She was discharged in stable condition. Lab Data Laboratory Results Troponin T Baseline 8 ng/L (0-10) 11/29/24 17:00 Troponin T 120 Minute 6.00 ng/L (0-10) 11/29/24 18:45 Delta Troponin T -2.00 ABS# (0-10) L 11/29/24 18:45 All radiology interpretation(s) finalized by discharge Discharge Plan Discharge Patient Disposition: Home Clinical Impression: Chest wall pain Condition: Stable Prescriptions: No Action medroxyprogesterone [Depo-Provera] 150 mg/mL suspension 150 mg IM ONCE Qty: 1 3RF Rx Instructions: inject IM every 12 weeks divalproex [Depakote] 500 mg tablet,delayed release (DR/EC) 500 mg PO .7 pm Qty: 90 2RF Rx Instructions: Take one tablet at 7 pm trazodone 100 mg tablet 100 mg PO .8 pm Qty: 90 2RF Rx Instructions: Take one tablet at 8 pm hydroxyzine HCl 50 mg tablet 50 mg PO TID PRN (Reason: anxiety) Qty: 270 2RF Rx Instructions: May take one tablet three times per day as needed for anxiety olanzapine [Zyprexa] 20 mg tablet 20 mg PO .5 pm Qty: 90 2RF Rx Instructions: Take one tablet at 5 pm atorvastatin 40 mg tablet 40 mg PO BEDTIME@20 ferrous sulfate [Iron (ferrous sulfate)] 325 mg (65 mg iron) tablet 325 mg PO DAILY Qty: 30 1RF Discharge Orders: Discharge ED (Routine); Ordered 11/29/24 Ordered By: Jose Roberto Knox Referrals: Joycelyn Melendrez FNP [Primary Care Provider] - Patient Instructions: Chest Wall Pain (ED) Activity Restrictions/Additional Instructions: Take ibuprofen as needed. Follow-up with your primary care provider next week for recheck if this has not resolved. 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
[2024-11-29 20:10] VITALS: BP 114/96; PULSE 83; RESP 18; O2SAT 100
--- NOTE | 2024-11-29 23:38 | ECG_ITS ---
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
== END 2024-11-29 20:09 | disposition home or self-care (01) ==
PROVIDERS: Emergency Provider Emergency Medicine; PCP Nurse Practitioner
DX: R07.89 Other chest pain (principal); E78.2 Mixed hyperlipidemia
CPT/HCPCS: 36415; 71045; 84484; 93005; 96374; 99285; J1885

== ENCOUNTER 2025-02-09 18:27 | Inpatient (IN) | payer MEDICARE, MEDICAID, SELFPAY ==
[2024-11-14 09:12] VITALS: BP 157/98; BMI 39.1
[2025-02-09 18:29] VITALS: BP 149/90; PULSE 98; RESP 22; TEMP 37.2; O2SAT 99
--- NOTE | 2025-02-09 18:48 | W.ED.PSYCHS ---
HPI - Psych General: Chief Complaint: Psychiatric Symptoms Stated Complaint: SI Time Seen by Provider: 02/09/25 18:30 History of Present Illness: Patient comes in with suicidal ideation. States that she started hearing voices that are telling her to kill herself over the past couple of days. States she has a plan but will not share it at this time. She denies any cold symptoms including no fever, cough, congestion, vomiting, diarrhea, abdominal pain, chest pain, shortness of breath. Will check labs, consult psych, and reassess. Associated symptoms: Reports suicidal ideation Related Data Home Medications ?Medication ?Instructions ?Recorded ?Confirmed atorvastatin 40 mg tablet 40 mg PO BEDTIME 11/03/23 02/09/25 divalproex 500 mg tablet,delayed 500 mg PO BEDTIME 02/09/25 02/09/25 release (Depakote) olanzapine 20 mg tablet (Zyprexa) 20 mg PO QPM 02/09/25 02/09/25 trazodone 100 mg tablet 100 mg PO BEDTIME 02/09/25 02/09/25 Previous Rx's ?Medication ?Instructions ?Recorded ferrous sulfate 325 mg (65 mg 325 mg PO DAILY #30 tabs 11/07/23 iron) tablet (Iron (ferrous sulfate)) medroxyprogesterone 150 mg/mL 150 mg IM ONCE #1 mL 10/30/24 intramuscular suspension (Depo-Provera) hydroxyzine HCl 50 mg tablet 50 mg PO TID PRN anxiety #270 tabs 11/20/24 Allergies Allergy/AdvReac Type Severity Reaction Status Date / Time paliperidone (From Invega) AdvReac Severe chest Verified 11/20/24 08:47 pain, facial edema, dyspnea Review of Systems Psych: Reports: suicidal ideation [facility] PFSH: Medical History (Updated 02/09/25 @ 22:26 by Varun Blanc MD) Nicotine dependence, cigarettes, uncomplicated 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, tobacco product Bipolar I disorder, most recent episode mixed, severe with psychotic features Psychiatric care GERD (gastroesophageal reflux disease) Vitamin D deficiency Mixed hyperlipidemia Surgical History Hx of myringotomy Family History Other Leukemia Lung disease Social History Smoking and tobacco/nicotine status: never used tobacco/nicotine Quit status (tobacco/nicotine): considering quitting Second hand smoke exposure: No Alcohol intake: never Substance/Drug Use: never Adopted: No Caregiver/support person: Yes Lives independently: No Household members: other Details: [facility] Housing: [facility]isted [facility] Marital status: Single Number of children: 3 Number of grandchildren: 0 Highest education level completed: High School Graduate service: No Current occupational status: employed 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 [employer] Current occupational exposures/hazards: No Pets and animals: Yes (outside) Pets & animals: cat(s) Leisure activites: music Sexually active: No Do you think of yourself as: Straight/Heterosexual Current gender identity: Female Roxanne/Spiritism: Shinto Special roxanne needs: No Agree to transfusion: Yes Female Reproductive History: Para: 3 Spontaneous abortions: No Physical Exam Const: COMMON NORMALS: no acute distress, patient oriented x3 and alert HENMT: COMMON NORMALS: normocephalic and atraumatic HEAD & SCALP: normocephalic and atraumatic Neck/C-Spine: COMMON NORMALS: full ROM and supple Resp: COMMON NORMALS: normal respiratory effort, No retractions and No use of accessory muscles Cardio: COMMON NORMALS: regular rate RATE: regular rate Extremity: COMMON NORMALS: normal to inspection and full ROM Neuro: COMMON NORMALS: patient oriented x3 SENSORIUM/ORIENTATION: Yes alert Psych: OTHER: Suicidal ideation Course Vital Signs: Vital signs: Vital Signs Temperature 99.0 F 02/09/25 18:29 Pulse Rate 87 02/09/25 20:00 Respiratory Rate 16 02/09/25 20:00 Blood Pressure 138/85 02/09/25 20:00 Pulse Oximetry 97 02/09/25 20:00 Oxygen Delivery Me thod Room Air 02/09/25 20:00 MDM - Psych Medical Decision Making On reassessment I discussed the case with the psychiatry team and they will admit the patient for further treatment of her suicidal ideation. Lab Data 02/09/25 20:17 02/09/25 20:17 Laboratory Results WBC 5.83 10^3/uL (3.29-11.43) 02/09/25 20:17 RBC 4.22 10^6/uL (3.85-5.65) 02/09/25 20:17 Hgb 11.20 g/dL (11.27-16.99) L 02/09/25 20:17 Hct 35.9 % (36-47) L 02/09/25 20:17 MCV 85.1 fl (85-98) 02/09/25 20:17 MCH 26.5 pg (27-33) L 02/09/25 20:17 MCHC 31.2 g/dL (30-55) 02/09/25 20:17 RDW 15.2 % (12.1-15.1) H 02/09/25 20:17 Plt Count 236 10^3/cmm (157-399) 02/09/25 20:17 MPV 8.5 fL (7.4-10.4) 02/09/25 20:17 Neut % (Auto) 56.9 % 02/09/25 20:17 Lymph % (Auto) 34.8 % 02/09/25 20:17 Boundary % (Auto) 7.5 % 02/09/25 20:17 Eos % (Auto) 0.3 % 02/09/25 20:17 Baso % (Auto) 0.2 % 02/09/25 20:17 Neut # (Auto) 3.31 10^3/uL (1.8-7.7) 02/09/25 20:17 Lymph # (Auto) 2.0 10^3/uL (0.8-4.8) 02/09/25 20:17 Boundary # (Auto) 0.4 10^3/uL (0.2-0.9) 02/09/25 20:17 Eos # (Auto) 0.0 10^3/uL (0.0-0.8) 02/09/25 20:17 Baso # (Auto) 0.0 10^3/uL (0.0-0.1) 02/09/25 20:17 Nucleated RBC % (auto) 0 % 02/09/25 20:17 Nucleated RBCs # 0.0 /100WBC 02/09/25 20:17 Sodium 142 mmol/L (136-145) 02/09/25 20:17 Potassium 3.9 mmol/L (3.5-5.1) 02/09/25 20:17 Chloride 108 mmol/L (98-107) H 02/09/25 20:17 Carbon Dioxide 20 mmol/L (22-29) L 02/09/25 20:17 Anion Gap 17.9 (5-19) 02/09/25 20:17 BUN 6 mg/dL (6-20) 02/09/25 20:17 Creatinine 0.5 mg/dL (0.5-0.9) 02/09/25 20:17 GFR Calculation 136.6 mL/min (90-130) H 02/09/25 20:17 Glucose 98 mg/dL (65-115) 02/09/25 20:17 Calculated Osmolality 292 mOsm/kg (285-295) 02/09/25 20:17 Calcium 8.8 mg/dL (8.5-10.5) 02/09/25 20:17 Total Bilirubin 0.3 mg/dL (0.15-1.2) 02/09/25 20:17 AST 14 U/L (0-32) 02/09/25 20:17 ALT 19 U/L (0-33) 02/09/25 20:17 Alkaline Phosphatase 108 U/L (35-105) H 02/09/25 20:17 Total Protein 6.8 g/dL (6.6-8.7) 02/09/25 20:17 Albumin 3.8 g/dL (3.5-5.2) 02/09/25 20:17 Globulin 3.0 g/dL (1.3-4.6) 02/09/25 20:17 Salicylates < 0.3 mg/dL (3-10) L 02/09/25 20:17 Urine Opiates Screen Negative ng/mL (Negative) 02/09/25 20:13 Acetaminophen < 5.0 ug/mL (10-30) L 02/09/25 20:17 Ur Barbiturates Screen Negative ng/mL (Negative) 02/09/25 20:13 Ur Phencyclidine Scrn Negative ng/mL (Negative) 02/09/25 20:13 Ur Amphetamines Screen Negative ng/mL (Negative) 02/09/25 20:13 U Benzodiazepines Scrn Negative ng/mL (Negative) 02/09/25 20:13 Urine Cocaine Screen Negative ng/mL (Negative) 02/09/25 20:13 U Marijuana (THC) Screen Negative ng/mL (Negative) 02/09/25 20:13 No radiology studies performed this visit Discharge Plan Discharge Patient Disposition: Admitted As Inpatient Clinical Impression: Suicidal ideation Condition: Stable Coding Level of Care Code 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
[2025-02-09 20:00] VITALS: BP 138/85; PULSE 87; RESP 16; O2SAT 97
[2025-02-09 20:33] LABS: Basophils % 0.2 %; Eosinophils % 0.3 %; Hematocrit 35.9 % (36-47); Lymphocytes % 34.8 %; Mean Corpuscular HGB Conc 31.2 g/dL (30-55); Mean Corpuscular Hemoglobin 26.5 pg (27-33); Mean Corpuscular Volume 85.1 fl (85-98); Mean Platelet Volume 8.5 fL (7.4-10.4); Monocytes # 0.4 10^3/uL (0.2-0.9); Monocytes % 7.5 %; Neutrophils # 3.31 10^3/uL (1.8-7.7); Neutrophils % 56.9 %; Nucleated Red Blood Cells % 0 %; Platelet Count 236 10^3/cmm (157-399); Red Blood Count 4.22 10^6/uL (3.85-5.65); Red Cell Distribution Width 15.2 % (12.1-15.1); White Blood Count 5.83 10^3/uL (3.29-11.43)
--- NOTE | 2025-02-09 20:35 | ECG_ITS ---
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 Measurements Intervals [place] Rate: 76 P: 50 CO: 139 QRS: 89 QRSD: 97 T: 68 QT: 388 QTc: 437 Interpretive Statements SINUS RHYTHM Compared to ECG 11/29/2024 19:08:40 T-wave abnormality no longer present Electronically Signed On 02-11-2025 22:06:38 CDT by Mono Donovan M.D. [email or web address]
[2025-02-09 20:55] LABS: Alanine Aminotransferase 19 U/L (0-33); Albumin Level 3.8 g/dL (3.5-5.2); Alkaline Phosphatase 108 U/L (35-105); Anion Gap 17.9 (5-19); Aspartate Amino Transferase 14 U/L (0-32); Blood Urea Nitrogen 6 mg/dL (6-20); Calcium 8.8 mg/dL (8.5-10.5); Carbon Dioxide 20 mmol/L (22-29); Chloride 108 mmol/L (98-107); Creatinine Clr Calc Pharmacy 211.5914; Glomerular Filtration Rate 136.6 mL/min (90-130); Glucose 98 mg/dL (65-115); Osmolality Calculated 292 mOsm/kg (285-295); Potassium 3.9 mmol/L (3.5-5.1); Sodium 142 mmol/L (136-145); Total Bilirubin 0.3 mg/dL (0.15-1.2); Total Protein 6.8 g/dL (6.6-8.7)
[2025-02-09 20:57] LABS: Acetaminophen < 5.0 ug/mL (10-30); Salicylate < 0.3 mg/dL (3-10)
[2025-02-09 21:48] LABS: Cocaine Screen Urine Negative (Negative); Opiate Screen Urine Negative (Negative); PCP Screen Urine Negative (Negative); THC Screen Urine Negative (Negative)
[2025-02-09 22:10] LABS: Amphetamines Screen Urine Negative (Negative); Barbiturates Screen Urine Negative (Negative); Benzodiazepines Screen Urine Negative (Negative)
[2025-02-09 23:27] VITALS: BP 152/91; PULSE 80; RESP 16; O2SAT 98
--- NOTE | 2025-02-10 00:10 | PC.NURSE ---
PATIENT ARRIVED TO UNIT VIA WHEEL CHAIR, ESCORTED BY ER NURSE AND BUDDY FROM SECURITY. PATIENT ASKED TO SIT ON BENCH BY NURSES DESK FOR ADMISSION. VITAL SIGNS OBTAINED AND ADMISSION PAPERWORK COMPLETED.
[2025-02-10 00:11] VITALS: BP 149/91; PULSE 91; RESP 20; TEMP 36.9; O2SAT 96
[2025-02-10 00:23] LABS: Alcohol Level < 10 mg/dL (0-10)
[2025-02-10] MEDS: hyDROXYzine 25 mg Capsule 50 MG PO (00:51)
[2025-02-10] MEDS: trazodone 50 mg Tablet PO (00:51)
[2025-02-10] MEDS: OLANZapine 5 mg ODT PO (00:51)
[2025-02-10 06:00] VITALS: BP 97/68; PULSE 65; RESP 18; TEMP 36.9; O2SAT 97
[2025-02-10] MEDS: ferrous sulfate EC 325 mg Tablet PO (07:55)
[2025-02-10] MEDS: nicotine 2 mg Gum BUCCAL (11:13)
--- NOTE | 2025-02-10 12:01 | W.PM.NPUH&PS ---
Providers/Chief Complaint Admitting Physician: Daryl Hernandez MD Primary Care Provider: Joycelyn Melendrez APN Chief Complaint: SI HPI NPU History of Present Illness Mariangel Flores is a 40 year old female with a history of bipolar type I who presented to the emergency department with complaints of suicidal ideation. The patient reports that she has been hearing voices telling her to cut her wrist. She endorses that her voices have been extremely distracting to her. The patient reports that she has been in the [facility] home for several months. She was unable to describe any new changes or stressors that had led her to having more problems with depression or hallucinations. She had endorsed a past history of manic symptoms. She reports that she had not been sleeping well over the past few days. The patient was admitted to the neuropsychiatric unit for further evaluation and treatment. She had described having a history of problems with multiple medications including reporting an allergic reaction to Invega. She had reported a previous trial on Geodon that had been largely unsuccessful. Furthermore, she had reported having unspecified side effects from Abilify. The patient had reported a past history of paranoia but denied having any thoughts that others would be hurting her at this time. The patient also endorses having some problems with managing her anxiety. She reports that she has been compliant with her medications given to her through her nursing home. The patient's previous records were reviewed including her history of past medication trials. Psychiatric history: Patient is currently followed at the [facility] by Alison Lyles, she has more than 25 inpatient hospitalizations in her lifetime. Previous medication trials are lengthy but include Invega, Abilify, Geodon, and lithium. Substance abuse history: None reported Legal history: None reported Medical history: Iron deficiency anemia, hypercholesterolemia, Surgical history: Ankle surgery Allergies: Invega Medications: Olanzapine 20 mg at night, trazodone 100 mg at night, Depakote 500 mg once a day, atorvastatin 40 mg at night, iron sulfate, medroxyprogesterone monthly Family psychiatric history: none reported. Social history: Patient reports that she was born in [facility] and raised by her biological parents. She is the youngest of 3 siblings. She had denied any history of sexual physical or emotional abuse. She had stated that she had witnessed significant alcohol consumption by her parents. She reports that she had graduated high school and has 3 children ages 18 1412 who she does not have custody of at this time but visits at her sister's place. Her sister is the legal guardian. She had reported having significant problems with mental illness leading to her being on disability in her 20s. She currently is not working and living at [facility] in a nursing home and endorses a history of bipolar disorder. There is some reported history of intellectual disability. Excerpt from NPU Discharge Summary from 01/30/2024 Discharge Diagnosis (1) Suicidal ideation: Status: Resolved (2) Hallucinations: Status: Resolved (3) Bipolar I disorder, most recent episode mixed, severe with psychotic features: Status: Chronic (4) Acute psychosis: Status: Resolved (5) Mild intellectual disability: Status: Chronic (6) Adjustment disorder with mixed disturbance of emotions and conduct: Status: Acute Reason for Visit MHE Brief History: History of Present Illness Mariangel Flores is a 39 year old female who presented to the emergency department with the following report: Chief Complaint: Psychiatric Symptoms Stated Complaint: MHE Time Seen by Provider: 01/27/24 15:55 Source: patient Mode of arrival: ambulatory Limitations: no limitations History of Present Illness: Patient comes in with complaint of severe depression and suicidal attempt by cutting her wrist. The cuts on her wrist she reports were made with a razor. Unsure where she achieved the razor from the nursing home. Could best describe the cuts as small scratches. To define further if she had reported that she used her fingernail to perform the scratches I would have believed her. Patient also reports that the nursing home made the comment to her that if she keeps doing this she will be able to come back on the previous occasion. So unsure if this is a gesture or an escape mechanism. She was admitted to the neuropsychiatric unit for definitive treatment of those issues. She is well-known to this content writer and to the neuropsychiatric unit from previous inpatient stays. Her last discharge was in December of this year and an excerpt of that discharge summary is included below for context and historical benefit given that she tends to be a poor historian. We also advised her that we will try to get a hold of someone at her facility to determine if there is been any signs of decompensation or whether this represented a bad day. She presented today reporting: Chief complaint Patient is distressed due to living conditions with a roommate who is unclean and does not maintain hygiene. The patient expressed a strong desire to change the living situation. History of the present complaint The patient expressed significant distress and frustration regarding their current living situation. They have been living with a roommate for a couple of months, but later realized she had been there for many months, who they describe as being unclean and leaving nasty stuff everywhere . The patient reported that they have to clean up after their roommate, as the staff at their residence do not intervene. This situation has been ongoing since the patient moved in, and they have communicated their concerns to the staff and their sister, but feel that nothing has been done to address the issue. The patient's distress over their living conditions led them to make a non-lethal self-harm attempt as a form of protest, which resulted in their current visit. They expressed a strong desire to change their living situation, stating that they can't live like this and need to get out of here or do something . Despite the ongoing issue with their roommate, the patient did not indicate whether their current living situation is better or worse than when they were living with their parents. They did not report any changes in mood or behavior, nor did they mention any functional or emotional impairments, challenges, obstacles, important events, traumas, thoughts, beliefs, feelings, aspirations, fears, dreams, or nightmares related to their current complaint. The patient confirmed that they have been taking their medication every day. No changes to their medication were suggested during the consultation, with the focus being on addressing their living situation. Social history The patient has been living with a roommate for a couple of months. The patient had previously lived with family but chose to move. The patient is in regular contact with a sister. Per her 12/06/2023 [facility] inpatient psychiatric discharge summary: Discharge Diagnosis (1) Suicidal ideation: Status: Resolved (2) Hallucinations: Status: Resolved (3) Bipolar I disorder, most recent episode mixed, severe with psychotic features: Status: Chronic (4) Acute psychosis: Status: Acute (5) Mild intellectual disability: Status: Chronic Reason for Visit Reason for Visit: MHE Brief History: History of Present Illness Mariangel Flores is a 38 year old female who presented to the emergency department with the following report: Chief Complaint: Psychiatric Symptoms Stated Complaint: MHE Time Seen by Provider: 12/02/23 18:48 History of Present Illness: 38-year-old female a resident at a nursing home came in by ambulance today for increased anxiety and suicidal thoughts. Patient states that she had had some recent medication changes which has increased her suicidal thoughts. Patient was also upset due to the loss of her breakthrough anxiety medication. Patient is cooperative. Patient has no specific plan. Patient denies any homicidal thoughts. Patient has a history of bipolar disorder, intellectual disability, nicotine use, mixed dyslipidemia, and psychosis. Patient's last admission was November 04 for similar complaints. Associated symptoms: Reports suicidal ideation She was admitted to the neuropsychiatric unit for definitive treatment of those issues. She was just discharged 26 days ago and an excerpt of that discharge summary is included below given there have been no substantive changes and for historical context. As far as the records suggest she has not seen a psychiatrist since her discharge at the beginning of November. She presents today reporting that she is doing okay at the facility which she has been staying at after the last hospitalization. She identified that she is adjusting and is okay and endorsed that it was better than living with her family. She endorsed not having had an appointment with a psychiatric provider since her discharge. She reports that her anxiety has been bad and that the BuSpar was discontinued at her last day and she needs something as needed for anxiety. We discussed her being on Depakote from the last time but is not being increased and being on her Zyprexa at night with the 5 mg morning dose being discontinued. We discussed increasing her medication and discussed the risks, benefits and alternatives of looking for something to assist with anxiety and she understood and agreed to proceed as is documented in this note. Per her 11/07/2023 [facility] inpatient psychiatric discharge summary: Discharge Diagnosis (1) Suicidal ideation: Status: Resolved (2) Hallucinations: Status: Resolved (3) Bipolar I disorder, most recent episode mixed, severe with psychotic features: Status: Chronic Reason for Visit Reason for Visit: PSYCH EVAL Brief History: History of Present Illness Mariangel Flores is a 38 year old female with a history of multiple inpatient psych hospitalizations currently residing in a nursing home who presented to the emergency department with complaints of worsening anxiety and suicidal ideation. Patient was a poor historian. She reports that she became suicidal after having an argument with a person at her home that she does not get along with in the home. She reports that she has been diagnosed with bipolar disorder. She had reported that she had hallucinations that appear to be prominent when she is stressed. She reports no recent changes in her living situation and describes having herself as a legal guardian. She had stated that she had previously been living with her mother but was no longer welcome in the home. She otherwise reports no substantial changes compared to her most recent discharge from the neuropsychiatric unit on September 10, 2023. Current medications: atorvastatin 20mg at night, buspar 10mg bid, lithium 300mg am, Olanzapine 20mg at night, propranolol 20mg at night, trazodone 100 mg at night, Protonix 40 mg daily Excerpt from NPU Discharge summary from 09/10/23 Diagnoses at Discharge Discharge Diagnosis (1) Suicidal ideation: Status: Resolved (2) Hallucinations: Status: Resolved (3) Bipolar I disorder, most recent episode mixed, severe with psychotic features: Status: Chronic Reason for Visit History of Present Illness Mariangel Flores is a 38 year old female who presented to the emergency department with the following report: Chief Complaint: Psychiatric Symptoms Stated Complaint: MHE Time Seen by Provider: 09/05/23 13:59 History of Present Illness: 38-year-old female with history of paranoid schizophrenia who presents the emergency room with psychiatric complaints. She says she had an episode yesterday where she walked out into traffic. Family believes she may be a danger to herself. She is having paranoid thoughts that people might be poisoning her. She says she does not think her meds are adjusted right and she needs to come back into the hospital again.She was admitted to the neuropsychiatric unit for definitive treatment of those issues. She presents today as she has so many times reporting that her medications are ineffective. She has been consistent with her treatment at [facility] with her last appointment 08/24/2023. An appointment she identified that her Geodon was ineffective and Geodon was discontinued and replaced with 10 mg of Zyprexa at night. She reports inconsistency with the Zyprexa and even if she was consistent she was only giving it a 12-day timeframe to see if it was effective. The Geodon had been an 80 mg p.o. twice daily with meals and she reported having difficulty getting in the 500 gayatri per meal to take her Geodon. She reports as was reported in that document that she started having conflicts at home as her paranoia increased she started feeling like she could not trust her family. She reportedly threw some of her mom's medications away because she was paranoid that mom had been using her meds to poison patient. We discussed that her departure to her mother was treated by hyacinth at her nursing home where she did not feel safe there. We reviewed the different medications she has attempted. She reports that Invega and Abilify both create significant problems including a report of an allergy to Invega. Otherwise she said yes to every single other medication for psychosis on the market. Her response about Vraylar and Latuda did not seem full throated. We discussed reaching out to her outpatient provider and trying to come to some conclusion about where to go from here. We also discussed the fact of the right answer may be increasing the Zyprexa. We also discussed the possibility of Clozaril. An excerpt of her discharge summary from her last visit and May of last year is included below for history and context given she denies substantive changes since then other than the Zyprexa for Geodon. Per her 05/28/2023 [facility] inpatient psychiatric discharge summary: Discharge Diagnosis (1) Suicidal ideation: Status: Resolved(2) Hallucinations: Status: Resolved(3) Bipolar I disorder, most recent episode mixed, severe with psychotic features: Status: Chronic Reason for Visit Reason for Visit: si Brief History: History of Present Illness Mariangel Florse is a 38 year old female who presented to the emergency department with the following report: Chief Complaint: Psychiatric Symptoms Stated Complaint: si Time Seen by Provider: 05/22/23 23:06 History of Present Illness: Patient presents by [facility] from [facility] which is a nursing home and [facility] for suicidal ideation and attempting to cut her left wrist. Patient has multiple superficial abrasions on her left wrist. Patient does states she was intending to kill herself. Patient does states she would be voluntarily to our NPU. The patient was admitted to the neuropsychiatric unit for definitive treatment of those issues. The patient presents today reporting that she came to the hospital because of suicidal thoughts, reporting she cut her wrist. She reports that she was upset and has a lot of stuff going on, and life is stressful. She reports that she has probably had more than thirty psychiatric hospitalizations. She reports outpatient services through a psychiatrist, who comes to the home, and prescribes her medication. She reports that she takes a PRN medication for anxiety and states that it is does not work. She reports that she lives at [facility] nursing home, but reports that they kicked her out. She reports that she is planning to move to [place], but she is not sure where yet. She reports that she has tried multiple medications, including Abilify, and she denies Geodon or Depakote. The patient endorses vaping. She endorses alcohol use sometimes. She denies marijuana or any other illicit drug use. She denies drug rehabilitation or DUI. She reports that she has been at [facility] for four to five years. The patient reports that she works at the [employer], and has been there three to four years. She reports that she does not have a guardian. An excerpt of her October 2022 hospitalization is included below for context. PSYCHIATRIC HISTORY: As above. SUBSTANCE ABUSE HISTORY: As above. MEDICAL HISTORY: The patient endorses allergy to Invega injection. Per her 10/11/2022 [facility] inpatient psychiatric discharge summary: Discharge Diagnosis (1) Suicidal ideation: Status: Resolved(2) Hallucinations: Status: Resolved(3) Bipolar I disorder, most recent episode mixed, severe with psychotic features: Status: Chronic Reason for Visit Reason for Visit: SI Brief History: History of Present Illness Mariangel Flores is a 37 year old female presented to the emergency department with the following report: Chief Complaint: Psychiatric Symptoms Stated Complaint: SI Time Seen by Provider: 10/05/22 22:04 Source: patient Mode of arrival: EMS Limitations: no limitations History of Present Illness: Patient is a 37-year-old female who presents to ED today from her residential facility of [place] for evaluation of suicidal ideations and auditory and visual hallucinations. Patient tells me she has felt suicidal all day with no specific plan. She does report a previous suicide attempt but will not elaborate on these details. She states she is seeing dark shadows people moving in her home. She states she is hearing voices telling her to grab knives from the kitchen and kill herself. Patient states she has a psychiatric provider Remedios Dao that comes to their facility once a month for medication changes. She thinks some of her psychiatric medications were recently changed. She reports she has a history of bipolar and schizophrenia. MD complaint: suicidal ideation and feels depressed Onset (ago): day(s) Duration: constant History of same: Yes Relieving factors: none Exacerbating factors: none Associated psychiatric symptoms: depression, suicidal ideation, auditory hallucinations and visual hallucinations Associated symptoms: Reports auditory hallucinations, visual hallucinations, depression and suicidal ideation; Deny homicidal ideation Treatments prior to arrival: none If self harm: admits thoughts of self harm She was admitted to the neuropsychiatric unit for definitive treatment of those issues. 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 Her time references were certainly off when talking about last hospitalization etc. she reports that she reported in the emergency department that she had been doing fairly well for the past few years since her hospitalization in August 2019. An excerpt of that hospitalization evaluation is included below for context given her limited historical ability. We also discussed getting some collateral information from staff and or family. However she reports that as she has been feeling poorly she went to her outpatient psychiatrist/nurse practitioner and there were some dose changes made. It appears that she was increased on her Seroquel from 400 mg to 800 mg. We discussed the fact that we would like to bring that back a bit and not have such a large jump in her medication. We also discussed the possibility of considering an alternative to Seroquel for hallucinations, psychosis, and behavioral dysregulation. She reports that she has stayed at the residence she has for a while now and the nurse practitioner comes to the building so she does not miss her appointments. She cannot identify any specific stressors that might be impacting her current functioning. She denied any conflicts at her facility that might lead her to not want to be there. She denied any significant changes since 2019. She reports she is eating all right and sleeping okay. Per her 08/15/2019 [facility] inpatient psychiatric evaluation: Date of Service: Aug 15, 2019 Chief Complaint: Mom threw away my meds last month HPI: The patient presents today reporting that for some reason her mother got rid of all her medications because she said she was taking them wrong, and if she was not going to take them right, she might as well not have them. She reports that happened about a month ago and that because of that, she was not doing well and DFS has been involved. It was unclear exactly what is going on with those things, but her children are with her sister, so she is not that stressed about them, but she is stressed out about not being with them. She reports that her injection has been going well and that she had it earlier this month. We agreed that we would explore and see what the exact date was to make sure that she does not miss her next one coming up. She reports that she does not feel like she is having any specific symptoms, but she wants to restart the pills that her mom threw away. We discussed the fact that we would need to get a sense of what they were exactly because she does not remember the name even though I reviewed the medications received from the pharmacy. She has no knowledge of what the medication names even might be. She reports that we can talk to her mother which we agreed we would do, but we need to figure out what exactly is going on because if this is the way that they dealt with some difficulty with adherence, that is quite problematic. Additionally, the medications that are missing are not medications that we or the psychiatric team actually prescribe so that also adds another layer of difficulty, the psychiatric medication and the injection she is getting, but there are some medications for maybe seizures or we are not really sure why they are being prescribed, most likely Neurontin and Trileptal. We need to figure out why they are being prescribed and talk to her mom about the circumstances of the pills being dumped. We discussed her psychosocial situation which outside of the issue with DFS, she reports being unchanged from her last hospitalization, the information from which is included below. Per ED eval: HISTORY OF PRESENT ILLNESS Chief Complaint: ANXIOUS and DEPRESSED. This started today. (34 yo female presents to the ED with complaints of being really stressed out. She said she has felt like this for months. She said it just worsens. She said she has never had a plan to hurt herself but just wishes she wasn't here. She denies hallucinations or suicidal ideations. She said she is worried about her children (her sister has her children). They were placed there via DFS. She said she stresses about not being with them. She said she has had a runny nose. She said she has not been sleeping. She said she was placed on a sleeping pill the last time she was here but it is too expensive. She said the social media designer has not contacted her to talk to the patient about her children.). The patient has experienced situational problems related to legal problems and custody issues. She is non-compliant with medication. Has not been sleeping. She has had anxiety. Has been depressed. The symptoms are described as moderate. No injury is present. Similar symptoms previously. Recent medical care: The patient was seen recently by a health care provider. REVIEW OF SYSTEMS All other systems reviewed and are negative. PAST HISTORY See nurses notes. ( PCP - Nehemias). Anxiety. Bipolar disorder. Depression. Psychosis. Surgeries: Cholecystectomy. SOCIAL HISTORY Current every day heavy tobacco smoker (cigarette)- more than 2 packs per day. No alcohol use or drug use. Hospital Course During the hospitalization, the patient had routine laboratory studies which were within normal limits except for a few outliers. Additionally, there was a general medical evaluation which was also within normal limits and revealed no new acute processes. At the time of discharge, lethality was denied and psychosis was resolving. Mood and anxiety were well managed. The patient endorsed a plan to avoid all drugs of abuse and follow up with the aftercare recommendations of the treatment team. The patient was evaluated and deemed to be absent credible lethality and had achieved the maximum benefit from an inpatient hospitalization, and so was discharged. Patient was started on BuSpar 10 mg twice a day to target anxiety. The patient was adamant about not returning to her previous nursing home and was discharged to her mother's care with a plan for the patient to live in another nursing home. Hospital Course Hospital Course She slowly acclimated to the individual, group and milieu therapies provided. She presented reporting breakthrough symptoms and not being clear if her medication was working. We were able to determine that there have been some difficulties at her residential facility that has led to her needing a break. We worked with the social work team and her facility to understand the problem and worked with her to identify how she could be proactive and addressed the issues as they were not aware of the concern. We made no changes in her medication but she had a positive response to her stay. She endorsed feeling less anxious, suicidal and endorsed the resolution of her hallucinations/perceptual disturbances. She worked with the social work team on getting appropriate outpatient follow-ups. She had significant improvement and was able to contract for safety outside of the hospital, prior to discharge. During the hospitalization, patient had routine laboratory studies which were within normal limits except for few outliers. Additionally there was a general medical evaluation which was also within normal limits and revealed no new acute processes. Discharge Summary: At the time of discharge, she denied lethality and psychosis was improving. Mood and anxiety were well managed. Patient endorsed a plan to avoid all drugs of abuse and follow-up with the aftercare recommendations of the treatment team. Patient was evaluated and deemed to be absent credible lethality, and had achieved the maximum benefit from an inpatient hospitalization, so was discharged Meds NPU Home Medications ?Medication ?Instructions ?Recorded ?Confirmed ?Last Taken ?Type atorvastatin 40 mg tablet 40 mg PO BEDTIME 11/03/23 02/09/25 09/01/24 History ferrous sulfate 325 mg (65 mg 325 mg PO DAILY #30 tabs 11/07/23 02/09/25 09/02/24 Rx iron) tablet (Iron (ferrous sulfate)) medroxyprogesterone 150 mg/mL 150 mg IM ONCE #1 mL 10/30/24 02/09/25 Unknown Rx intramuscular suspension (Depo-Provera) hydroxyzine HCl 50 mg tablet 50 mg PO TID PRN anxiety #270 tabs 11/20/24 02/09/25 Unknown Rx divalproex 500 mg tablet,delayed 500 mg PO BEDTIME 02/09/25 02/09/25 Unknown History release (Depakote) olanzapine 20 mg tablet (Zyprexa) 20 mg PO QPM 02/09/25 02/09/25 Unknown History trazodone 100 mg tablet 100 mg PO BEDTIME 02/09/25 02/09/25 Unknown History Allergies Allergy/AdvReac Type Severity Reaction Status Date / Time paliperidone (From Invega) AdvReac Severe chest Verified 11/20/24 08:47 pain, facial edema, dyspnea PFSH NPU PFSH: Medical History (Updated 02/09/25 @ 22:26 by Varun Blanc MD) Nicotine dependence, cigarettes, uncomplicated 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, tobacco product Bipolar I disorder, most recent episode mixed, severe with psychotic features Psychiatric care GERD (gastroesophageal reflux disease) Vitamin D deficiency Mixed hyperlipidemia Surgical History Hx of myringotomy Family History Other Leukemia Lung disease Social History Smoking and tobacco/nicotine status: never used tobacco/nicotine Quit status (tobacco/nicotine): considering quitting Second hand smoke exposure: No Alcohol intake: never Substance/Drug Use: never Adopted: No Caregiver/support person: Yes Lives independently: No Household members: other Details: [facility] Housing: Assisted Living Facility Marital status: Single Number of children: 3 Number of grandchildren: 0 Highest education level completed: High School Graduate service: No Current occupational status: employed 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 [employer] Current occupational exposures/hazards: No Pets and animals: Yes (outside) Pets & animals: cat(s) Leisure activites: music Sexually active: No Do you think of yourself as: Straight/Heterosexual Current gender identity: Female Roxanne/Jain: Hinduism Special roxanne needs: No Agree to transfusion: Yes Female Reproductive History: Para: 3 Spontaneous abortions: No Mental Status Exam MSE Comments: This is an obese, white female, in hospital scrubs, with limited grooming and fleeting eye contact. No abnormal involuntary motor movements, except for mild psychomotor retardation. She was mostly cooperative with exam in moderate distress. Speech was decreased in rate and decreased in volume. Her speech was mostly impoverished. There was increased latency of speech. Her mood was described as stressed. Her affect was blunted. Her thought process was linear but superficial. Thought content: She endorsed suicidal ideation with plan to cut wrists. She denied homicidal ideation. She endorsed auditory hallucinations and denied visual hallucinations. There were no delusions reported or noted. Attention and concentration appeared impaired. Alert and oriented times three. Insight and judgment are limited. Impulse control is limited. Intelligence appeared commensurate with mild cognitive impairment. Vitals/I&O/Wt Last Vital Signs Temp 98.5 F 02/10/25 06:00 Pulse 65 02/10/25 06:00 Resp 18 02/10/25 06:00 BP 97/68 02/10/25 06:00 Pulse Ox 97 02/10/25 06:00 O2 Del Method Room Air 02/10/25 06:00 Weight last 48 hrs Weight 124.738 kg Data NPU 02/09/25 20:17 02/09/25 20:17 A&P Assessment and plan (1) Suicidal ideation: (2) Hallucinations: (3) Bipolar I disorder, most recent episode mixed, severe with psychotic features: (4) Acute psychosis: (5) Suicidal ideation: (6) Mild intellectual disability: (7) Adjustment disorder with mixed disturbance of emotions and conduct: Plan A 39-year-old white female with a long history of mental health challenges and likely intellectual disability who presents once again to the neuropsychiatric unit with increases and suicidal thoughts and psychiatric symptoms with extremely limited coping skills and requesting medication changes. 1. Will attempt to gather collateral information from [facility]. 2. Continue every 15 minute checks for safety. 3. Encourage individual, group and milieu therapy. 4. Continue to monitor patient's feelings of safety and medication improvement for consideration of discharge. 5. Increase depakote to ER 1000mg in am, Decrease Zyprexa to 10mg at night, begin latuda 40mg at 6 pm with food. Restart outpatient medication. PDMP PDMP Reviewed: Not Reviewed Involuntary Hold Information 96 Hour Hold: 96 Hour Involuntary Admission: No Attestations NPU Medical Necessity Statement*: Inpatient hospitalization is medically necessary and the clinically appropriate intervention at this time. We will monitor/initiate medications and make changes as indicated. She will be in the hospital for over 2 midnights. Her likely length of stay 6 to 8 days. Coding Level of Care Code Acute Code for Chg Fwd Diagnoses Suicidal ideation R45.851 Hallucinations R44.3 Bipolar I disorder, most recent episode mixed, severe with psychotic features F31.64 Acute psychosis F23 Mild intellectual disability F70 Adjustment disorder with mixed disturbance of emotions and conduct F43.25
[2025-02-10 14:00] VITALS: BP 98/61; PULSE 73; RESP 16; TEMP 36.6; O2SAT 98
[2025-02-10] MEDS: lurasidone 80 mg Tablet 40 MG PO (17:06)
[2025-02-10] MEDS: OLANZapine 10 mg TABLET PO (17:06)
[2025-02-10 19:43] VITALS: BP 103/73; PULSE 82; RESP 18; TEMP 36.9; O2SAT 96
[2025-02-10] MEDS: trazodone 100 mg Tablet PO (20:02)
[2025-02-10] MEDS: atorvastatin 40 mg Tablet PO (20:02)
[2025-02-10] MEDS: divalproex DR 500 mg Tablet PO (20:03)
[2025-02-10] MEDS: acetaminophen 325 mg Tablet 650 MG PO (20:58)
[2025-02-11 05:57] VITALS: BP 110/60; PULSE 60; RESP 16; O2SAT 98
[2025-02-11] MEDS: ferrous sulfate EC 325 mg Tablet PO (08:07)
[2025-02-11] MEDS: divalproex ER 500 mg Tablet (24H) 1000 MG PO (08:08)
[2025-02-11] MEDS: nicotine 2 mg Gum BUCCAL (11:33)
[2025-02-11 14:00] VITALS: BP 109/74; PULSE 98; TEMP 37.1; O2SAT 97
--- NOTE | 2025-02-11 14:48 | W.PM.NPUPNS ---
Subjective NPU Subjective: 40-year-old female with a history of bipolar 1 disorder admitted with psychosis and increased thoughts of wanting to cut herself. She reported that she was feeling better with the initiation of Latuda. She reported that her mood was better and the voices were less distracting to her. She reported desire to return to [place] when stabilized. She remains somewhat isolative on the milieu. She had reported no sleep continuity disruption despite the significant reduction in Zyprexa to 10 mg at night. She reported no side effects from her current medication regimen. The patient had reported no recent stressors that had led to her hospitalization here. She had reported good family support and reported continued enjoyment with spending time with her children who lived with her sister. Mental Status Exam MSE Comments: This is an obese, white female, in hospital scrubs, with improved grooming and fair eye contact. No abnormal involuntary motor movements, except for mild psychomotor retardation. She was cooperative with exam in mild distress. Speech was improved with near normal rate and normal in volume with no clear increase in latency today. Her mood was described as better. . Her affect was blunted. Her thought process was linear and logical today. Thought content: She denied suicidal ideation. She denied homicidal ideation. She endorsed auditory hallucinations but reported were quietier and denied visual hallucinations. There were no delusions reported or noted. Attention and concentration appeared improved. Alert and oriented times three. Insight and judgment are limited. Impulse control is limited. Intelligence appeared commensurate with mild cognitive impairment. Vitals/I&O/Wt Last Vital Signs Temp 98.8 F 02/11/25 14:00 Pulse 98 02/11/25 14:00 Resp 16 02/11/25 05:57 BP 109/74 02/11/25 14:00 Pulse Ox 97 02/11/25 14:00 O2 Del Method Room Air 02/11/25 14:00 Weight last 48 hrs Weight 124.738 kg Data NPU 02/09/25 20:17 02/09/25 20:17 A&P Assessment and plan (1) Suicidal ideation: (2) Hallucinations: (3) Bipolar I disorder, most recent episode mixed, severe with psychotic features: (4) Acute psychosis: (5) Suicidal ideation: (6) Mild intellectual disability: (7) Adjustment disorder with mixed disturbance of emotions and conduct: Plan A 39-year-old white female with a long history of mental health challenges and likely intellectual disability who presents once again to the neuropsychiatric unit with increases and suicidal thoughts and psychiatric symptoms with extremely limited coping skills and requesting medication changes. 1. Will attempt to gather collateral information from [place]. 2. Continue every 15 minute checks for safety. 3. Encourage individual, group and milieu therapy. 4. Continue to monitor patient's feelings of safety and medication improvement for consideration of discharge. 5. Continue depakote ER 1000mg in am, Decrease Zyprexa to 5mg at night, increase Latuda to 60mg at 6 pm with food. PDMP PDMP Reviewed: Not Reviewed Involuntary Hold Information 96 Hour Hold: 96 Hour Involuntary Admission: No Attestations NPU Medical Necessity Statement*: Inpatient hospitalization is medically necessary and the clinically appropriate intervention at this time. We will monitor/initiate medications and make changes as indicated. Her likely length of stay 2-3 days. Coding Level of Care Code Acute Code for Chg Fwd Diagnoses Suicidal ideation R45.851 Hallucinations R44.3 Bipolar I disorder, most recent episode mixed, severe with psychotic features F31.64 Acute psychosis F23 Mild intellectual disability F70 Adjustment disorder with mixed disturbance of emotions and conduct F43.25
[2025-02-11] MEDS: lurasidone 20 mg Tablet 60 MG PO (17:40)
[2025-02-11] MEDS: OLANZapine 10 mg TABLET 5 MG PO (17:40)
[2025-02-11 19:30] VITALS: BP 134/91; PULSE 92; RESP 18; TEMP 36.8; O2SAT 97
[2025-02-11] MEDS: atorvastatin 40 mg Tablet PO (19:44)
[2025-02-11] MEDS: trazodone 100 mg Tablet PO (19:45)
[2025-02-11] MEDS: hyDROXYzine 25 mg Capsule 50 MG PO (21:13)
[2025-02-11] MEDS: OLANZapine 5 mg ODT PO (22:08)
--- NOTE | 2025-02-12 01:43 | PC.NURSE ---
PATIENT HAS YET TO GO TO SLEEP THIS NIGHT. PATIENT HAS ASKED TO TALK TO STAFF IN HER ROOM. PATIENT GOT INTO HER BED, COVERED UP, AND JUST STARED AT THIS STAFF MEMBER. WHEN ASKED WHAT SHE WANTS TO TALK ABOUT, PATIENT JUST STARES AT STAFF WITHOUT TALKING. PATIENT WAS ASKED WHAT WAS ON HER MIND. PATIENT STATED SHE DIDN'T KNOW. PATIENT WAS ASKED WHAT SHE DOES AT HOME TO HELP HER FALL ASLEEP, SHE STATED SHE DIDN'T KNOW. THIS NURSE ASKED THIS PATIENT HOW SHE COULD BE HELPED, PATIENT STATED I DON'T KNOW . STILL PATIENT JUST STAYED LYING IN HER BED, STARING AT STAFF. PATIENT WAS ASKED IF SHE WANTED THE ROOM LIGHTS ON OR OFF, PATIENT SAID OFF. ROOM LIGHT WAS TURNED OFF. PATIENT WAS ASKED IF SHE WOULD LIKE THE BATHROOM LIGHT TURNED ON, GIVING JUST ENOUGH LIGHT SO SHE COULD SEE WHAT IS AROUND HER. SHE AGREED, AND SAID SHE WOULD TRY TO GO SLEEP.
[2025-02-12 06:00] VITALS: RESP 16
--- NOTE | 2025-02-12 06:07 | PC.NURSE ---
did not obtain pt vitals per nurse
[2025-02-12] MEDS: divalproex ER 500 mg Tablet (24H) 1000 MG PO (09:01)
[2025-02-12] MEDS: ferrous sulfate EC 325 mg Tablet PO (09:01)
[2025-02-12] MEDS: nicotine 2 mg Gum BUCCAL ×4 (10:04→21:19)
--- NOTE | 2025-02-12 12:47 | P.NPUPN_ITS ---
Subjective NPU 2 Subjective: 40-year-old female with a history of bip olar 1 disorder admitted with psychosis and increased thoughts of wanting to cut herself. The patient had denied having any hallucinations at this time. She had stated that she had a harder time falling asleep last night as she stated that she had fallen asleep at midnight despite taking her trazodone. She had reported desire to return back to [place]. She had reported that her mood was better and stated that she was no longer hearing voices telling her to harm herself. She had reported some improvement in motivation. She reported no side effects from the Latuda. The patient had appeared no more irritable with the reduction in Zyprexa to 5 mg at night. She continued remain isolative on the milieu. Mental Status Exam 2 MSE Comments: This is an obese, white female, in hospital scrubs, with improved grooming and fair eye contact. No abnormal involuntary motor movements, except for mild psychomotor retardation. She was cooperative with exam in mild distress. Speech was improved with near normal rate and normal in volume with no clear increase in latency today. Her mood was described as good. Her affect was less flat today. Her thought process was linear and logical today. Thought content: She denied suicidal ideation. She denied homicidal ideation. She denied auditory hallucinations or visual hallucinations. There were no delusions reported or noted. Attention and concentration appeared improved. She was Alert and oriented times three. Insight and judgment are limited. Impulse control is limited. Intelligence appeared commensurate with mild cognitive impairment. Vitals/I&O/Wt Last Vital Signs Temp 98.3 F 02/11/25 19:30 Pulse 92 02/11/25 19:30 Resp 16 02/12/25 06:00 BP 134/91 02/11/25 19:30 Pulse Ox 97 02/11/25 19:30 O2 Del Method Room Air 02/11/25 14:00 Data NPU 02/09/25 20:17 02/09/25 20:17 A&P Assessment and plan (1) Suicidal ideation: (2) Hallucinations: (3) Bipolar I disorder, most recent episode mixed, severe with psychotic features: (4) Acute psychosis: (5) Suicidal ideation: (6) Mild intellectual disability: (7) Adjustment disorder with mixed disturbance of emotions and conduct: Plan A 40-year-old white female with a long history of mental health challenges and likely intellectual disability who presents once again to the neuropsychiatric unit with increases and suicidal thoughts and psychiatric symptoms with extremely limited coping skills and requesting medication changes. 1. Will attempt to gather collateral information from [place]. 2. Continue every 15 minute checks for safety. 3. Encourage individual, group and milieu therapy. 4. Continue to monitor patient's feelings of safety and medication improvement for consideration of discharge. 5. Continue depakote ER 1000mg in am, D/C Zyprexa today, continue Latuda at 60mg at 6 pm with food. Increase trazodone 150mg at night. 6. Check Depakote level ordered in am tommorow with likely d/c tommorow. PDMP PDMP Reviewed: Not Reviewed Involuntary Hold Information 2 96 Hour Hold: 96 Hour Involuntary Admission: No Attestations NPU 2 Medical Necessity Statement*: Inpatient hospitalization is medically necessary and the clinically appropriate intervention at this time. We will monitor/initiate medications and make changes as indicated. Her likely length of stay 1-2 days. Coding Level of Care Code Acute Code for g Fwd Diagnoses Suicidal ideation R45.851 Hallucinations R44.3 Bipolar I disorder, most recent episode mixed, severe with psychotic features F31.64 Acute psychosis F23 Mild intellectual disability F70 Adjustment disorder with mixed disturbance of emotions and conduct F43.25
[2025-02-12 14:00] VITALS: BP 132/88; PULSE 96; RESP 18; TEMP 37.2
[2025-02-12] MEDS: lurasidone 20 mg Tablet 60 MG PO (17:00)
[2025-02-12] MEDS: OLANZapine 10 mg TABLET 5 MG PO (17:10)
[2025-02-12 20:37] VITALS: BP 152/87; PULSE 95; RESP 19; TEMP 36.3; O2SAT 97
[2025-02-12] MEDS: atorvastatin 40 mg Tablet PO (21:07)
[2025-02-12] MEDS: trazodone 150 mg Tablet PO (21:07)
[2025-02-12] MEDS: hyDROXYzine 25 mg Capsule 50 MG PO (21:07)
[2025-02-13 06:00] VITALS: RESP 16
[2025-02-13] MEDS: ferrous sulfate EC 325 mg Tablet PO (07:44)
[2025-02-13] MEDS: nicotine 2 mg Gum BUCCAL ×2 (07:44→13:40)
[2025-02-13] MEDS: divalproex ER 500 mg Tablet (24H) 1000 MG PO (07:44)
[2025-02-13 08:32] LABS: Valproic Acid Level 46.8 ug/mL (50-100)
--- NOTE | 2025-02-13 12:08 | DCPLANNER ---
Imm was printed and given to pt with rights explained. Copy was placed in pts file.
--- NOTE | 2025-02-13 13:49 | W.PM.NPUDCS ---
Diagnoses at Discharge Discharge Diagnosis (1) Suicidal ideation: Status: Resolved (2) Hallucinations: Status: Resolved (3) Bipolar I disorder, most recent episode mixed, severe with psychotic features: Status: Chronic (4) Acute psychosis: Status: Resolved (5) Mild intellectual disability: Status: Chronic (6) Adjustment disorder with mixed disturbance of emotions and conduct: Status: Resolved Reason for Visit Reason for Visit: SI Involuntary Hold Information Hold Status: Date/Time Hold Expires: vol 96 Hour Hold: 96 Hour Involuntary Admission: No Mental Status Exam MSE Comments: This is an obese, white female, in hospital scrubs, with improved grooming and fair eye contact. No abnormal involuntary motor movements, except for mild psychomotor retardation. She was cooperative with exam in mild distress. Speech was improved with near normal rate and normal in volume with no clear increase in latency today. Her mood was described as good. Her affect was less flat today. Her thought process was linear and logical today. Thought content: She denied suicidal ideation. She denied homicidal ideation. She denied auditory hallucinations or visual hallucinations. There were no delusions reported or noted. Attention and concentration appeared improved. She was Alert and oriented times three. Insight and judgment are limited. Impulse control is limited. Intelligence appeared commensurate with mild cognitive impairment. Discharge Data Studies Completed and Pending: Laboratory Results WBC 5.83 10^3/uL (3.2 9-11.43) 02/09/25 20:17 RBC 4.22 10^6/uL (3.8 5-5.65) 02/09/25 20:17 Hgb 11.20 g/dL (11.27 -16.99) L 02/09/25 20:17 Hct 35.9 % (36-47) L 02/09/25 20:17 MCV 85.1 fl (85-98) 02/09/25 20:17 MCH 26.5 pg (27-33) L 02/09/25 20:17 MCHC 31.2 g/dL (30-55) 02/09/25 20:17 RDW 15.2 % (12.1-15.1 ) H 02/09/25 20:17 Plt Count 236 10^3/cmm (157 -399) 02/09/25 20:17 MPV 8.5 fL (7.4-10.4) 02/09/25 20:17 Neut % (Auto) 56.9 % 02/09/25 20:17 Lymph % (Auto) 34.8 % 02/09/25 20:17 [place] % (Auto) 7.5 % 02/09/25 20:17 Eos % (Auto) 0.3 % 02/09/25 20:17 Baso % (Auto) 0.2 % 02/09/25 20:17 Neut # (Auto) 3.31 10^3/uL (1.8 -7.7) 02/09/25 20:17 Lymph # (Auto) 2.0 10^3/uL (0.8- 4.8) 02/09/25 20:17 [place] # (Auto) 0.4 10^3/uL (0.2- 0.9) 02/09/25 20:17 Eos # (Auto) 0.0 10^3/uL (0.0- 0.8) 02/09/25 20:17 Baso # (Auto) 0.0 10^3/uL (0.0- 0.1) 02/09/25 20:17 Nucleated RBC % (a uto) 0 % 02/09/25 20:17 Nucleated RBCs # 0.0 /100WBC 02/09/25 20:17 Sodium 142 mmol/L (136-1 45) 02/09/25 20:17 Potassium 3.9 mmol/L (3.5-5 .1) 02/09/25 20:17 Chloride 108 mmol/L (98-10 7) H 02/09/25 20:17 Carbon Dioxide 20 mmol/L (22-29) L 02/09/25 20:17 Anion Gap 17.9 (5-19) 02/09/25 20:17 BUN 6 mg/dL (6-20) 02/09/25 20:17 Creatinine 0.5 mg/dL (0.5-0. 9) 02/09/25 20:17 GFR Calculation 136.6 mL/min (90- 130) H 02/09/25 20:17 Glucose 98 mg/dL (65-115) 02/09/25 20:17 Calculated Osmolal ity 292 mOsm/kg (285- 295) 02/09/25 20:17 Calcium 8.8 mg/dL (8.5-10 .5) 02/09/25 20:17 Total Bilirubin 0.3 mg/dL (0.15-1 .2) 02/09/25 20:17 AST 14 U/L (0-32) 02/09/25 20:17 ALT 19 U/L (0-33) 02/09/25 20:17 Alkaline Phosphata se 108 U/L (35-105) H 02/09/25 20:17 Total Protein 6.8 g/dL (6.6-8.7 ) 02/09/25 20:17 Albumin 3.8 g/dL (3.5-5.2 ) 02/09/25 20:17 Globulin 3.0 g/dL (1.3-4.6 ) 02/09/25 20:17 Salicylates < 0.3 mg/dL (3-10 ) L 02/09/25 20:17 Urine Opiates Scre en Negative ng/mL (N egative) 02/09/25 20:13 Acetaminophen < 5.0 ug/mL (10-3 0) L 02/09/25 20:17 Ur Barbiturates Sc reen Negative ng/mL (N egative) 02/09/25 20:13 Valproic Acid 46.8 ug/mL (50-10 0) L 02/13/25 08:05 Ur Phencyclidine S crn Negative ng/mL (N egative) 02/09/25 20:13 Ur Amphetamines Sc reen Negative ng/mL (N egative) 02/09/25 20:13 U Benzodiazepines Scrn Negative ng/mL (N egative) 02/09/25 20:13 Urine Cocaine Scre en Negative ng/mL (N egative) 02/09/25 20:13 U Marijuana (THC) Screen Negative ng/mL (N egative) 02/09/25 20:13 Ethyl Alcohol < 10 mg/dL (0-10) 02/09/25 20:17 Vitals: Last Vital Signs Temp 97.4 F L 02/12/25 20:37 Pulse 95 02/12/25 20:37 Resp 16 02/13/25 06:00 BP 152/87 02/12/25 20:37 Pulse Ox 97 02/12/25 20:37 O2 Del Method Room Air 02/12/25 20:37 Discharge Plan Discharge Patient Disposition: Home Condition: Stable Prescriptions: No Action medroxyprogesterone [Depo-Provera] 150 mg/mL suspension 150 mg IM ONCE Qty: 1 3RF Rx Instructions: inject IM every 12 weeks hydroxyzine HCl 50 mg tablet 50 mg PO TID PRN (Reason: anxiety) Qty: 270 2RF Rx Instructions: May take one tablet three times per day as needed for anxiety divalproex [Depakote] 500 mg tablet,delayed release (DR/EC) 500 mg PO BEDTIME Rx Instructions: Take one tablet at bedtime trazodone 100 mg tablet 100 mg PO BEDTIME Rx Instructions: Take one tablet at bed time olanzapine [Zyprexa] 20 mg tablet 20 mg PO QPM Rx Instructions: Take one tablet at pm atorvastatin 40 mg tablet 40 mg PO BEDTIME ferrous sulfate [Iron (ferrous sulfate)] 325 mg (65 mg iron) tablet 325 mg PO DAILY Qty: 30 1RF Referrals: Joycelyn Melendrez FNP [Primary Care Provider, Nurse Practitioner] Rosario Miller PMHNP [Staff Physician, Psychiatry] - 02/20/25 1:15 am Referral Note: Follow up Patient Instructions: Opioid Safety Discharge Attestations NPU Time Spent in Discharge Care*: less than 30 min Specific Discharge Activities: Specific discharge activities: educating patient, discussing with director case management/social workers/dc planners, documenting/other paperwork and evaluating patient/reviewing data Coding Level of Care Code Acute Code for Chg Fwd Diagnoses Suicidal ideation R45.851 Hallucinations R44.3 Bipolar I disorder, most recent episode mixed, severe with psychotic features F31.64 Acute psychosis F23 Mild intellectual disability F70 Adjustment disorder with mixed disturbance of emotions and conduct F43.25
[2025-02-13 14:00] VITALS: BP 150/87; PULSE 90; RESP 16; TEMP 36.9
[2025-02-13 14:10] VITALS: BP 150/87; PULSE 90; RESP 16; TEMP 36.9; O2SAT 97
== END 2025-02-13 15:09 | disposition home or self-care (01) | DRG 885 ==
LOC: ER 22:26 → NP 22:43
PROVIDERS: Psychiatry & Neurology Psychiatry; Admitting Provider Psychiatry & Neurology Psychiatry; Emergency Provider Emergency Medicine; PCP Nurse Practitioner; Visit Provider Psychiatry & Neurology Psychiatry
DX: F31.64 Bipolar disorder, current episode mixed, severe, with psychotic features (principal); R45.851 Suicidal ideations; Z68.41 Body mass index [BMI] 40.0-44.9, adult; F70 Mild intellectual disabilities; F43.25 Adjustment disorder with mixed disturbance of emotions and conduct; E66.9 Obesity, unspecified; E78.5 Hyperlipidemia, unspecified
CPT/HCPCS: 36415; 80053; 80164; 80306; 80307; 85025; 93005; 97150; 97165; 99285; J9999

== ENCOUNTER → 2025-06-18 16:00 | Outpatient (BNVA) | payer MEDICARE, MEDICAID, SELFPAY ==
[2024-11-14 09:12] VITALS: BP 157/98; BMI 39.1
== END ==
PROVIDERS: PCP Nurse Practitioner; Visit Provider Nurse Practitioner Women's Health
DX: N64.52 Nipple discharge (principal); N64.4 Mastodynia
CPT/HCPCS: 87070